=== PATIENT | male | born 1960 | race Caucasian/White ===

== ENCOUNTER 2022-02-14 13:03 | Outpatient (CLI) | payer OTHER, SELFPAY ==
[2022-02-14 18:33] LABS: PSA Diagnostic* < 0.06 ng/mL (0.10-4.00)
== END 2022-02-14 13:04 | disposition home or self-care (01) ==
PROVIDERS: PCP Family Medicine; Visit Provider Nurse Practitioner Family
DX: C61 Malignant neoplasm of prostate (principal)
CPT/HCPCS: 84153

== ENCOUNTER 2022-05-25 08:34 | Outpatient (CLI) | payer OTHER, SELFPAY ==
--- OUTSIDE RECORDS SUMMARY | 2022-05-25 08:37 | XMS_ITS | Encounter Summary ---
:1960 Author Organization [facility] Address [address] [place] [address] Care Team Providers Name Role Phone Elsewhere, Pcp Primary Care Provider Unavailable Encounter Details Date Type Department Care Team Description 11/05/2021 Orders Only Department of Urology in Lauro Hernandez M.D. [place], [place] [address] [facility] [address] [place] [phone] (Wo rk) Social History Tobacco Use Types [...] More than 4 times per year 08/13/2021 yarsani services? 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
--- OUTSIDE RECORDS SUMMARY | 2022-05-25 08:37 | XMS_ITS | Encounter Summary ---
:1960 Author Organization [facility] Address [address] [place] [address] Care Team Providers Name Role Phone Elsewhere, Pcp Primary Care Provider Unavailable Reason for Referral Outpatient (Routine) - Closed Specialty Diagnoses / Procedures Referred By Contact Refer red To Contact Diagnoses Primary Malignant Neoplasm Of Prostate (HCC) Domenico Soler M.D., [facility] Procedures URO Urethral cath fill / remove / voiding trial (fill / pull) [facility] [address] [place] [address] Referral ID Status Reason Start Date Expiration Date Visits Requ ested Visits Authorized [id number] Closed 11/04/2021 11/04/2022 1 1 Reason for Visit Auth/Cert Specialty Diagnoses / Procedures Referred By Contact Refer red To Contact Diagnoses Primary Malignant Neoplasm Of Prostate (HCC) Procedures NM LAP PROSTEC RETROPUBIC RADCL NM LAPROSC BILAT TOT PELV LMPHADEC ROBOTIC-ASSISTED RADICAL PROSTATECTOMY ROBOTIC-ASSISTED DISSECTION LYMPH NODE - PELVIC Referral ID Status Reason Start Date Expiration Date Visits Requ ested Visits Authorized [id number] 1 1 Encounter Details Date Type Department Care Team Description 11/03/2021 - Hospital Encounter [facility] Sai Hernandez, Primary Malignant Neoplasm Of Prostate (HCC) (Primary Dx); 11/04/2021 Chiquita Joseph M.D. Primary Malignant Neoplasm Of Prostate ( HCC) [facility] [address] [facility] [place], [place] Floor [phone] [address] [phone] [place], [place] (Work) [phone] Social History Tobacco Use Types Packs/Day Years [...] or relatives? How often do you attend zoroastrian or More than 4 times per year 08/13/2021 lutheran services? Do you belong to any clubs or Yes 08/13/2021 organizations such as zoroastrian groups, unions, fraternal or athletic groups, or [...] place to sleep or slept in a long term (including now)? Education Answer Date Recorded What is the highest level of school Bachelor's degree (e.g., BA, AB, 08/12/2021 you have completed or the highest BS) degree you have received? 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 Primary [...] LYMPH NODE, PELVIC.Sai Hernandez M.D.Khanna, Abhinav, M.D. [facility] OR DISCHARGE DISPOSITION Home or Self [...] AM CDT You were discharged from the [facility]. Please identify this service name if you call with questions after hospitalization. AttachmentsThe following attachments cannot be sent through Care Everywhere. Acetaminophen (By mouth) (Tuvaluan)Bacitracin (On the skin) (Tuvaluan)Laxative, Stimulant Combination (By mouth) (Tuvaluan)Cefdinir (By mouth) (Tuvaluan) Oxybutynin (By mouth) (Tuvaluan)Miralax Prep Instructions (Tuvaluan)Polyethylene Glycol 3350 (By mouth) (Tuvaluan)Tramadol (By mouth) (Tuvaluan)documented in this encounter Medications at Time of [...] DAY BEFORE APPOINTMENT FOR FOUNTAIN CATHETER REMOVAL cholecalciferol, Take 25 mcg by mouth 0 vitamin D3, 25 mcg daily. (1,000 Unit) tablet losartan (COZAAR) 100 Take 100 mg by mouth 0 05/27 mg tablet every morning. 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 actively participated and was necessary for [...] CBC without Differential (11/04/2021 12:30 AM CDT) [facility] Method Time Signature Hemoglobin 12.2 (L) 13.2 [...] Organization Address City/State/ZIP Code Phon e Number [facility] - [address] [place] [phone] [facility] [place] [address] Laboratories-[facility] [address] [facility] (ABNORMAL) Basic Metabolic Panel (11/04/2021 12:30 [...] 11/04/2021 DTL Black/ mL/min/BSA 1:33 AM CDT Italian Comment: ----ADDITIONAL INFORMATION---- Estimated GFR calculated using [...] Organization Address City/State/ZIP Code Phon e Number [facility] - [address] [place] [address] [place] [address] Laboratories-[address] Surgical Pathology, Frozen Lab (11/03/2021 3:31 [...] is grossly identified. ??Grossed by Torie Good, KAY([facility]). Block Summary A Right prostate apex margin [...] Not applicable ?Percentage of Pattern 4 in [place] score 7: 60% ?? Intraductal Carcinoma (IDC): [...] Organization Address City/State/ZIP Code Phon e Number [facility] - [address] [place], [place] [address] [place] [address] [facility] [address] documented in [...] mg (TYLENOL) 2241 (Given - Provider: Tiera Agnel R.N.) 0548 (Given - Provider: Tiera Pinedo [...] 1244 (Given - Provider: Judith Curry APRN, ENTRY LEVEL CHEMIST) 5,000 Units, subcutaneous, Once, On Mon11/03/21 at [...] 1824 documented in this encounter Care Teams Credit Risk Associate Relationship Specialty Start Date End Date Elsewhere, Pcp PCP - General Internal Medicine 08/17/21 documented as of this encounter
--- OUTSIDE RECORDS SUMMARY | 2022-05-25 08:37 | XMS_ITS | Encounter Summary ---
:1960 Author Organization [facility] Address [address] [place] [address] Care Team Providers Name Role Phone Elsewhere, Pcp Primary Care Provider Unavailable Reason for Referral Outpatient (Routine) - Authorized Specialty Diagnoses / Procedures Referred By Contact Refer red To Contact Urology Sai Hernandez M.D. [facility] [address] [place] [phone] Referral ID Status Reason Start Date Expiration Date Visits V isits Requested Authorized [id number] Authorized 11/05/2021 11/05/2022 1 1 Encounter Details Date Type Department Care Team Description 11/05/2021 Documentation Department of Urology in Lauro Hernandez M.D. [address] [place] [phone] (Wo rk) Social History Tobacco Use Types [...] More than 4 times per year 08/13/2021 sabianism services? 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 Progress Notes [...] Name Type Priority Associated Diagnoses Order S [facility] PSA (Prostate-Specific Lab Routine Primary Malignant Expected: 02/05/2022 Antigen), Diagnostic Neoplasm Of Prostate (Approximate), (HCC) Expires: 2022 Scheduled Referrals Name Type Priority Associated Diagnoses Order S chedule Urology office Outpatient Referral Routine Expect ed: visit (clinic) 02/05/2022 (Approximate), Expires: 02/05/2023 documented as of this encounter Visit Diagnoses Diagnosis Primary Malignant Neoplasm Of Prostate ( HCC) - Primary documented in this encounter Care Teams Drilling Engineer Relationship Specialty Start Date End Date Elsewhere, Pcp PCP - General Internal Medicine 08/17/21 documented as of this encounter
--- OUTSIDE RECORDS SUMMARY | 2022-05-25 08:37 | XMS_ITS | Encounter Summary ---
:1960 Author Organization [facility] Address [address] [place] [address] Care Team Providers Name Role Phone Elsewhere, Pcp Primary Care Provider Unavailable Reason for Visit Reason Comments Rx Prior Authorization PA DENIED TADALAFIL 5 MG TAB Encounter Details Date Type Department Care Team Description 11/19/2021 Clinical Communication Pharmacy Prior Auth Onesimo Batista Rx Prior KYLE [phone] Authorization (KAY DENIED TADALAFI L 5 MG [...] or relatives? How often do you attend scientology or More than 4 times per year 08/13/2021 tenriism services? 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
--- OUTSIDE RECORDS SUMMARY | 2022-05-25 08:37 | XMS_ITS | Encounter Summary ---
:1960 Author Organization [facility] Address [address] [place] [address] Care Team Providers Name Role Phone Elsewhere, Pcp Primary Care Provider Unavailable Encounter Details Date Type Department Care Team Description 11/04/2021 Orders Only [facility], Domenico Soler M. 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
--- OUTSIDE RECORDS SUMMARY | 2022-05-25 08:37 | XMS_ITS | Encounter Summary ---
:1960 Author Organization [facility] Address [address] [place] [address] Care Team Providers Name Role Phone Elsewhere, Pcp Primary Care Provider Unavailable Encounter Details Date Type Department Care Team Description 11/15/2021 Clinical Communication Department of Urology Bernard Hernandez, [place] [address] [facility] [address] [place] [phone] Social History Tobacco Use Types Packs/Day Years [...] or relatives? How often do you attend pentecostal or More than 4 times per year 08/13/2021 church services? 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
--- OUTSIDE RECORDS SUMMARY | 2022-05-25 08:37 | XMS_ITS | Encounter Summary ---
:1960 Author Organization [facility] Address [address] [place] [address] Care Team Providers Name Role Phone Elsewhere, Pcp Primary Care Provider Unavailable Reason for Visit Reason Comments Prostate Cancer Outpatient (Routine) - Closed Specialty Diagnoses / Procedures Referred By Contact Refer red To Contact Diagnoses Primary Malignant Neoplasm Of Prostate (HCC) Domenico Soler M.D., [facility] Procedures URO Urethral cath fill / remove / voiding trial (fill / pull) [facility] [address] [place] [phone] Referral ID Status Reason Start Date Expiration Date Visits Requ ested Visits Authorized [id number] Closed 11/04/2021 11/04/2022 1 1 Encounter Details Date Type Department Care Team Description 11/12/2021 Procedure visit Department of Domenico Soler M[facility] [address] [place] [phone] Primary Malignant Urology in Marika Easton, R.NTae [address] [place] [phone] Neoplasm Of Prostate [place], [place] (HCC) [address] [place] [phone] Social History Tobacco Use Types Packs/Day Years [...] place to sleep or slept in a group home (including now)? Education Answer Date Recorded What is the highest level of school Bachelor's degree (e.g., BA, AB, 08/12/2021 you have completed or the highest BS) degree you have received? 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
--- OUTSIDE RECORDS SUMMARY | 2022-05-25 08:37 | XMS_ITS | Encounter Summary ---
:1960 Author Organization [facility] Address [address] [place] [address] Care Team Providers Name Role Phone Elsewhere, Pcp Primary Care Provider Unavailable Encounter Details Date Type Department Care Team Description 11/11/2021 Orders Only Department of Urology in Lauro Hernandez M.D. [place], [place] [address] [facility] [address] [place] [phone] (Wo rk) Social History Tobacco Use Types [...] More than 4 times per year 08/13/2021 samaritan services? Do you belong to any clubs [...] place to sleep or slept in a snf (including now)? Education Answer Date Recorded What is the highest level of school Bachelor's degree (e.g., BA, AB, 08/12/2021 you have completed or the highest BS) degree you have received? 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
--- OUTSIDE RECORDS SUMMARY | 2022-05-25 08:37 | XMS_ITS | Encounter Summary ---
:1960 Author Organization [facility] Address [address] [place] [address] Care Team Providers Name Role Phone Elsewhere, Pcp Primary Care Provider Unavailable Reason for Referral Medication Prior Authorization - Denied Specialty Diagnoses / Procedures Referred By Contact Refer red To Contact Sai Hernandez M.D. [address] [place] [phone] Referral ID Status Reason Start Date Expiration Date Visits Requ ested Visits Authorized [id number] Denied 1 1 Encounter Details Date Type Department Care Team Description 11/12/2021 Orders Only Department of Urology in Lauro Hernandez M.D. [place], [place] [address] [place] [address] [place] [phone] (Wo rk) Social History Tobacco Use Types [...] or relatives? How often do you attend worship or More than 4 times per year 08/13/2021 oriental orthodox services? 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
--- OUTSIDE RECORDS SUMMARY | 2022-05-25 08:37 | XMS_ITS | Clinical Summary ---
:1960 Author Organization [facility] Address [address] [place] [address] Care Team Providers Name Role Phone Elsewhere, Pcp Primary Care Provider Unavailable Source Comments Patient records contain information from all sites at [facility]. For routine questions regarding patient records, call [phone] during business hours, M-F 8:00 AM - 5:00 PM Central Time. Record requests for emergency care only can be directed to [phone] at any time.[facility] Allergies No known active allergies Medications Medication [...] Added automatically from request for maximino badillo [id number] Elevated Prostate-Specific Antigen 08/04/2021 Overview: Added automatically from request for maximino badillo [id number] Hypertriglyceridemia 12/31/2013 Hypertension NOS Social History Tobacco [...] or relatives? How often do you attend confucianist or More than 4 times per year 08/13/2021 yazdanism services? 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 at [facility] e.g. Pelvis / pins/screws [id number] /rods Insurance Payer Benefit Plan / Subscriber ID Effective Phone Address T ype Group Dates PREFERREDONE PREFERREDONE [id number] 2021-Pr [phone] PPO ADMINISTRATIVE ADMINISTRATIVE esent [phone] SERVICES SERVICES [place] [phone] Advance Directives For more information, please contact: [phone] Latest Code Status on File Code Status Date Activated Date Inactivated Comments Full Code 08/18/2021 3:23 PM 08/18/2021 8:00 PM Question Answer Comments Full Code: Discussed Care Teams Inspector Penetrant Relationship Specialty Start Date End Date Elsewhere, Pcp PCP - General Internal Medicine 08/17/21
--- OUTSIDE RECORDS SUMMARY | 2022-05-25 08:38 | XMS_ITS | Encounter Summary ---
:1960 Author Organization [facility] Address [address] [place] [address] Care Team Providers Name Role Phone Unavailable Primary Care Provider Unavailable Encounter Details Date Type Department Care Team Description 08/04/2021 Hospital Encounter Department of Sai Hernandez Elevat ed Laboratory Medicine M.DTae Prostate-Specific and Pathology, [address] [place] [address] in [place], [place] [address] [place] [address] [place], [place] (Work) [phone] Social History Tobacco Use Types Packs/Day Years [...] More than 4 times per year 08/13/2021 mandaen services? Do you belong to any clubs [...] place to sleep or slept in a fci (including now)? 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 documented in this encounter Results (ABNORMAL) PSA (Prostate-Specific Antigen), Diagnostic (08/04/2021 8:02 AM MEDIA JOB TITLES) P athologist Signature Prostate-Speci 4.9 (H) <=4.5 08/04/2021 DTL fic Ag ng/mL 9:34 AM MEDIA JOB TITLES Comment: ----ADDITIONAL INFORMATION---- The testing method is [...] (Blood, 08/04/2021 8:02 AM 08/04/19 8:59 Venous) MEDIA JOB TITLES AM MEDIA JOB TITLES Sai Hernandez M.D. LAB BLOOD ADD-ON Performing Organization Address City/State/ZIP Code Phon e Number [facility] - [address] [place], [place] [address] [facility] [address] Laboratories-[facility] [address] documented in this encounter Visit Diagnoses Diagnosis Elevated Prostate-Specific Antigen documented in this encounter
--- OUTSIDE RECORDS SUMMARY | 2022-05-25 08:38 | XMS_ITS | Encounter Summary ---
:1960 Author Organization [facility] Address [address] [place] [address] Care Team Providers Name Role Phone Unavailable Primary Care Provider Unavailable Encounter Details Date Type Department Care Team Description 08/04/2021 Clinical Communication Preoperative Evaluation Radhika Kunz, [place] in [facility] R.R., .R .[facility] [address] [facility] [address] [place] [phone] Social History Tobacco Use Types Packs/Day Years [...] or relatives? How often do you attend congregational or More than 4 times per year 08/13/2021 protestant services? Do you belong to any clubs or Yes 08/13/2021 organizations such as congregational groups, unions, fraternal or athletic groups, or [...] place to sleep or slept in a alf (including now)? 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 - 08/04/2021 1:05 PM MANAGER CUSTOMS Surgical Risk Score: 1 Risk Identifiers: 4 ??? HTN ??? oscar ??? covid 06/11/2021 ??? Left loer lobe nodule GER CUSTOMS documented in this encounter Plan of Treatment Not on filedocumented as of this encounter Visit Diagnoses Not on filedocumented in this encounter
--- OUTSIDE RECORDS SUMMARY | 2022-05-25 08:38 | XMS_ITS | Encounter Summary ---
:1960 Author Organization [facility] Address [address] [place] [address] Care Team Providers Name Role Phone Elsewhere, Pcp Primary Care Provider Unavailable Reason for Visit Auth/Cert Specialty Diagnoses / Procedures Referred By Contact Refer red To Contact Diagnoses Elevated Prostate-Specific Antigen Elevated Prostate-Specific Antigen [R97.20] Procedures MS BX PROSTATE NDL TRANSPRNEAL BIOPSY TRANSPERINEAL PROSTATE Referral ID Status Reason Start Date Expiration Date Visits Requ ested Visits Authorized [id number] 1 1 Encounter Details Date Type Department Care Team Description 08/18/2021 Anesthesia Event Outpatient Procedure Jona Colvin, EEG TECHNICIAN, MEMORY CARE DIRECTOR, DNAP [address] [place], [place] [phone] [place] in [facility] Mello Becker Jr., M.D. [address] [place] [address] [place] [address] [place] [phone] Anesthesia Record Procedure Summary Procedure Name Responsible Anesthesia Start Anesthesia Stop Anesthesiologist Time Time BIOPSY TRANSPERINEAL Clarita Colvin, ARLIN, 08/18/21 1543 0 08/18/21 1624 PROSTATE. MEMORY CARE DIRECTOR, DNAP Events Date Time Event Comment 08/18/2021 1543 An Start Machine/Equipmen t Checked Infection Precautions Foll owed Procedure/Site Verified NPO Sta tus Verified Supine Standard ASA Mon itors Applied 1549 Turnover to Proceduralist 1556 Proc Start 1613 Proc Fin 1616 Turnover to ANE Staff 1617 an stop data 1624 An End I completed my h andoff to the receiving staff during [facility] ch we 1. Identified the patient [...] or relatives? How often do you attend sabianism or More than 4 times per year 08/13/2021 taoism services? Do you belong to any clubs or Yes 08/13/2021 organizations such as sabianism groups, unions, fraternal or athletic groups, or [...] at Date Recorded Male 08/12/2021 8:37 PM BLIND CLEANER documented as of this encounter OR Notes Anesthesia Postprocedure Evaluation - Clarita Clovin APRN, CHRIS, DNAP - 08/18/2021 4:24 PM CST Patient: Jacob Logan Procedure Summary Date: 08/18/21 Room / Location: [place] [address] / [facility] in [place], [place] Anesthesia Start: 1543 Anesthesia Stop: 1624 [...] Post Op nausea/vomiting: none Hydration status: euvolemic D CLEANER Anesthesia Preprocedure Evaluation - Mello Becker Jr., M.D. - 08/18/2021 3:26 PM CST Preprocedure Anesthesia & H&P Assessment Procedure Summary Date/Time: 08/18/21 1601 Procedure: BIOPSY TRANSPERINEAL PROSTATE. (N/A ) Diagnosis: Elevated Prostate-Specific Antigen [R97.20] Pre-op diagnosis: Elevated Prostate Specific Antigen [R97.20].. Location: [place] [address] / [facility] in [place], [place] Surgeons: Layton Remy M.D. Pertinent components [...] with patient /legal guardian or through an officer captain. The use of blood products not discussed Approval to Proceed: approved for anesthesia D CLEANER documented in this encounter Plan of Treatment Not on filedocumented as of this encounter Visit Diagnoses Not on filedocumented in this encounter Administered Medications Inactive Administered Medications - up to 3 most recent administrations Medication Order MAR Action Action Date Dose Rate Site ceFAZolin injection 2,000 mg (ANCEF) Given 08/18/2021 3:51 PM BLIND CLEANER 2 g 2,000 mg (rounded from 2,375 [...] fentaNYL injection (SUBLIMAZE) Given 08/18/2021 3:55 PM BLIND CLEANER 25 mcg intravenous, As needed, Starting on Mon08/18/21 at 1544, Anesthesia Intra-op Given 08/18/2021 3:48 PM BLIND CLEANER 25 mcg Given 08/18/2021 3:44 PM BLIND CLEANER 50 mcg lactated ringers New Bag 08/18/2021 3:43 PM BLIND CLEANER intravenous, Continuous Infusion: Per Instructions PRN, Starting on Mon08/18/21 at 1543, Anesthesia Intra-op lidocaine (PF) (cardiac) injection Given 08/18/2021 3:45 PM BLIND CLEANER 60 mg intravenous, As needed, Starting on Mon08/18/21 at 1545, Anesthesia Intra-op ondansetron (PF) injection (ZOFRAN) Given 08/18/2021 3:45 PM BLIND CLEANER 4 mg intravenous, As needed, Starting on Mon08/18/21 at 1545, Anesthesia Intra-op propofol 10 mg/mL infusion Rate/Dose 08/18/2021 4:11 50 mcg/kg/min 2 8.5 mL/hr (DIPRIVAN) Change PM BLIND CLEANER intravenous, Continuous Infusion: Per Instructions PRN, Starting on Mon08/18/21 at 1547, Anesthesia Intra-op Rate/Dose Change 08/18/2021 4:02 PM BLIND CLEANER 110 mcg/kg/min 62.7 mL/hr Rate/Dose Change 08/18/2021 4:00 PM BLIND CLEANER 125 mcg/kg/min 71.25 mL/hr propofoL injection (DIPRIVAN) Given 08/18/2021 3:55 PM BLIND CLEANER 50 mg intravenous, As needed, Starting on Mon08/18/21 at 1545, Anesthesia Intra-op Given 08/18/2021 3:48 PM BLIND CLEANER 50 mg Given 08/18/2021 3:45 PM BLIND CLEANER 50 mg documented in this encounter Care Teams Research Laboratory Manager Relationship Specialty Start Date End Date Elsewhere, Pcp PCP - General Internal Medicine 08/17/21 documented as of this encounter
--- OUTSIDE RECORDS SUMMARY | 2022-05-25 08:38 | XMS_ITS | Encounter Summary ---
:1960 Author Organization [facility] Address [address] [place] [address] Care Team Providers Name Role Phone Unavailable Primary Care Provider Unavailable Reason for Referral MRI/CAT/PET Scan (Routine) - Closed Specialty Diagnoses / Procedures Referred By Contact Refer red To Contact Radiology Diagnoses Elevated Prostate-Specific Antigen Fiona Piedra M.D. [facility] Procedures MR Prostate without and with IV Contrast [address] [place], [place] [address] Referral ID Status Reason Start Date Expiration Date Visits Requ ested Visits Authorized [id number] Closed 08/04/2021 08/04/2022 1 1 RANCE ASSOCIATE Reason for Visit MRI/CAT/PET Scan (Routine) - Closed Specialty Diagnoses / Procedures Referred By Contact Refer red To Contact Radiology Diagnoses Elevated Prostate-Specific Antigen Fiona Piedra M.D. [facility] Procedures MR Prostate without and with IV Contrast [address] [place], [place] [address] Referral ID Status Reason Start Date Expiration Date Visits Requ ested Visits Authorized [id number] Closed 08/04/2021 08/04/2022 1 1 Encounter Details Date Type Department Care Team Description 08/04/2021 Hospital Encounter Department of Janes Piedra, Izabela Jaimes Prostate-Sp [facility], in [place], [place] [address] [facility] [address] [place] [phone] Social History Tobacco Use Types Packs/Day Years [...] or relatives? How often do you attend synagogue or More than 4 times per year 08/13/2021 latter-day services? Do you belong to any clubs or Yes 08/13/2021 organizations such as synagogue groups, unions, fraternal or athletic groups, or [...] place to sleep or slept in a jail (including now)? 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 NO RANCE ASSOCIATE documented in this encounter Plan of Treatment Not on filedocumented as of this encounter Procedures Procedure Name Priority Date/Time Associated Comments Diagnosis MR PROSTATE RAD - Routine 08/04/2021 8:56 Elevated Results for this WITHOUT AND WITH (most inpatients PM INSURANCE ASSOCIATE Prostate-Specific pr ocedure are in IV CONTRAST and all Antigen the results outpatients) section. documented in this encounter Results MR Prostate without and with IV Contrast (08/04/2021 8:56 PM INSURANCE ASSOCIATE) Anatomical Region Laterality Modality Pelvis, Abdominal RST LOS, Abdominal ARZ LOS, Abdominal N/A Magnetic Resonance FLA LOS Specimen (Source) Anatomical Collection Method Collection Time Re ceived Time Location / / Volume Laterality 08/05/2021 7:42 AM INSURANCE ASSOCIATE Impressions 08/05/2021 8:41 AM INSURANCE ASSOCIATE PIRADS 2- Low (clinically significant cancer is unlikely to be present). Narrative 08/05/2021 8:41 AM INSURANCE ASSOCIATE EXAM: MR PROSTATE WITHOUT AND WITH IV [...] meglumine 0.5 mmol/mL Given 08/04/2021 8:33 PM INSURANCE ASSOCIATE 20 mL (376.9 mg/mL) injection 1.6-20 mL (DOTAREM) 1.6-20 mL, intravenous, Once in imaging, contrast, Starting on Mon08/04/21 at 1933, For 1 dose, Imaging Protocol Orders, Dose per Radiant Medication Guidelines glucagon injection 0.5-1 mg Given 08/04/2021 8:32 PM INSURANCE ASSOCIATE 1 mg Left Upper Arm (GlucaGen) (Back) 0.5-1 mg, subcutaneous, Once, On Mon08/04/21 at 1945, For 1 dose, Imaging Protocol Orders sodium chloride (PF) 0.9 % injection 1-1 00 mL Given 08/04/2021 8:33 PM INSURANCE ASSOCIATE 20 mL 1-100 mL, intravenous, Once, On Mon08/04/21 at 1945, For 1 dose, Imaging Protocol Orders documented in this encounter
--- OUTSIDE RECORDS SUMMARY | 2022-05-25 08:38 | XMS_ITS | Encounter Summary ---
:1960 Author Organization [facility] Address [address] [place] [address] Care Team Providers Name Role Phone Elsewhere, Pcp Primary Care Provider Unavailable Reason for Visit Auth/Cert Specialty Diagnoses / Procedures Referred By Contact Refer red To Contact Diagnoses Elevated Prostate-Specific Antigen Elevated Prostate-Specific Antigen [R97.20] Procedures NE BX PROSTATE NDL TRANSPRNEAL BIOPSY TRANSPERINEAL PROSTATE Referral ID Status Reason Start Date Expiration Date Visits Requ ested Visits Authorized [id number] 1 1 Encounter Details Date Type Department Care Team Description 08/18/2021 Surgery Outpatient Procedure Layton Remy, [facility] [place] [address] [facility] [address] [place] [phone] Social History Tobacco Use Types Packs/Day Years [...] or relatives? How often do you attend methodist or More than 4 times per year 08/13/2021 tenriism services? Do you belong to any clubs or Yes 08/13/2021 organizations such as methodist groups, unions, fraternal or athletic groups, or [...] place to sleep or slept in a retirement (including now)? Education Answer Date Recorded What is the highest level of school Bachelor's degree (e.g., BA, AB, 08/12/2021 you have completed or the highest BS) degree you have received? 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 documented as of this encounter Last Filed Vital Signs Vital Sign Reading Time Taken Comments Blood Pressure 148/115 08/18/2021 5:00 PM ROCK LOADER Pulse 73 08/18/2021 5:05 PM ROCK LOADER Temperature 37 ??C (98.6 ??F) 08/18/2021 3:24 PM ROCK LOADER Respiratory Rate 12 08/18/2021 5:05 PM ROCK LOADER Oxygen Saturation 96% 08/18/2021 5:05 PM ROCK LOADER Inhaled Oxygen Concentration - - Weight 95 kg (209 lb 7 oz) 08/18/2021 3:24 PM ROCK LOADER Height 174 cm (5' 8.5) 08/18/2021 3:24 PM ROCK LOADER 08/17/21 Body Mass Index 31.38 08/18/2021 3:24 PM ROCK LOADER documented in this encounter Medications at Time [...] lesions Post-op Diagnosis Elevated Prostate-Specific Antigen A assistant professor of nursing actively participated and was necessary for one [...] Once image fusion maneuvers were carried out, automotive leasing sales representative systematic biopsies were also taken [...] area in satisfactory condition. Sara Scott M.D. LOADER documented in this encounter Plan of Treatment Not on filedocumented as of this encounter Procedures Procedure Name Priority Date/Time Associated Comments Diagnosis SURGICAL PATHOLOGY Routine 08/18/2021 3:48 PM Elevated Res ults for this ROCK LOADER Prostate-Specific procedure are in Antigen the results section. BIOPSY TRANSPERINEAL 08/18/2021 3:33 PM Elevated PROSTATE ROCK LOADER Prostate-Specific Antigen Special Needs Hernandez primary. documented in this encounter Results Surgical Pathology (08/18/2021 3:48 PM ROCK LOADER) Component Value Ref Test Analysis Performed Pathologis t Range Method Time At Signature 08/21/2021 DTL 11:00 AM ROCK LOADER Report Rajan Escobar M.D. 08/21/2021 DTL electronically 11:00 AM signed by ROCK LOADER I verify that I have examined all relevant slides/materials for the specimen(s) and rendered or confirmed the diagnosis. Gross Description A: ?? Received on a biopsy board filled with form delmer 08/21/2021 DTL labeled with the patient's name, medical record number, and 11:00 AM specific prostate sites are six oriented pink fritz tissue ROCK LOADER cores. A. Received within the first well [...] needle core 11:00 AM biopsy: Prostatic adenocarcinoma ROCK LOADER Type: Acinar [place] score 4+3=7 Percentage of pattern 4: 60% Grade Group: 3 Tumor involves 10% of overall specimen (1 of 1 core). B. Prostate, right posterior medial base, needle core biopsy: Prostatic adenocarcinoma Type: Acinar [place] score 4+3=7 Percentage of pattern 4: 60% [...] Volume Laterality Biopsy (Prostate) 08/18/2021 3:48 PM ROCK LOADER Biopsy (Prostate) 08/18/2021 3:48 PM ROCK LOADER Biopsy (Prostate) 08/18/2021 3:48 PM ROCK LOADER Biopsy (Prostate) 08/18/2021 3:48 PM ROCK LOADER Biopsy (Prostate) 08/18/2021 3:48 PM ROCK LOADER Biopsy (Prostate) 08/18/2021 3:48 PM ROCK LOADER Biopsy (Prostate) 08/18/2021 3:48 PM ROCK LOADER Biopsy (Prostate) 08/18/2021 3:48 PM ROCK LOADER Biopsy (Prostate) 08/18/2021 3:48 PM ROCK LOADER Biopsy (Prostate) 08/18/2021 3:48 PM ROCK LOADER Biopsy (Prostate) 08/18/2021 3:48 PM ROCK LOADER Biopsy (Prostate) 08/18/2021 3:48 PM ROCK LOADER Narrative This result has an attachment that is no t available. Layton Remy M.D. LAB SURG PATH ORDERABLES Performing Organization Address City/State/ZIP Code Phon e Number [facility] - [address] [place], [place] [address] [facility] [place] [address] [facility] [address] [facility] documented in this encounter Visit Diagnoses Diagnosis Elevated Prostate-Specific Antigen - [facility] Elevated Prostate-Specific Antigen documented in this encounter Admitting Diagnoses Diagnosis Elevated Prostate-Specific Antigen documented in this encounter Administered Medications Inactive Administered Medications - up to 3 most recent administrations Medication Order MAR Action Action Date Dose Rate Site acetaminophen tablet 1,000 mg Given 08/18/2021 3:40 PM ROCK LOADER 1,000 mg (TYLENOL) 1,000 mg, oral, Once, On Mon08/18/21 at 1530, For 1 dose, Pre-Op, PreOp give in preprocedural area. lactated ringers New Bag 08/18/2021 3:40 PM ROCK LOADER 80 mL/hr 80 mL/hr 80 mL/hr, intravenous, Continuous, Starting on Mon08/18/21 at 1530, Pre-Op lidocaine-bupivacaine 1%-0.25% Given 08/18/2021 3:58 PM ROCK LOADER 30 m L Other infiltration injection infiltration, [...] Recently Administered Medications Times are shown in ROCK LOADER. Scheduled Medication Order 08/16/2021 08/17/2021 08/18/2021 acetaminophen [...] (COMPLETED) 1551 (Given - Provider: Chiara Mederos LOCK UP WORKER, ALFALFA DEHYDRATOR OPERATOR) 2,000 mg (rounded from 2,375 mg [...] injection documented in this encounter Care Teams Horn Player Relationship Specialty Start Date End Date Elsewhere, Pcp PCP - General Internal Medicine 08/17/21 documented as of this encounter
--- OUTSIDE RECORDS SUMMARY | 2022-05-25 08:38 | XMS_ITS | Encounter Summary ---
:1960 Author Organization [facility] Address [address] [place] [address] Care Team Providers Name Role Phone Elsewhere, Pcp Primary Care Provider Unavailable Reason for Visit Auth/Cert Specialty Diagnoses / Procedures Referred By Contact Refer red To Contact Diagnoses Primary Malignant Neoplasm Of Prostate (HCC) Procedures PA LAP PROSTEC RETROPUBIC RADCL PA LAPROSC BILAT TOT PELV LMPHADEC ROBOTIC-ASSISTED RADICAL PROSTATECTOMY ROBOTIC-ASSISTED DISSECTION LYMPH NODE - PELVIC Referral ID Status Reason Start Date Expiration Date Visits Requ ested Visits Authorized [id number] 1 1 Encounter Details Date Type Department Care Team Description 11/03/2021 Anesthesia Event [facility] Ramiro Perdue M.D. [address] [place] [address] [address] [facility] Judith Curry, AIRWORTHINESS SAFETY INSPECTOR, PROPELLER TESTER [address] [place] [phone] [place] [address] Anesthesia Record Procedure Summary Procedure Name [...] h andoff to the receiving staff during [facility] ch we 1. Identified the patient [...] Joseph (created via procedure CHRIS P, ARLIN, PROPELLER TESTER documentation); Mask Ventilation: Easy mask; Type: Standard [...] Abcejo, Mia N, Catheter Size: 16 G; PROPELLER TESTER R.N. Orientation: Right; Location: Wrist; Inserted by: [...] Condon Rooney, Kaelyn M, Inserted by: Domenico Soler MD; Type: Non-latex; Size: 18 Fr.; Balloon Size: 30 mL (filled with 20mL sterile water); Urine Returned: Yes; Removal Date: 11/03/21; Removal Time: 1624; Removal Reason: Per protocol Indwelling Urinary Placement Date: 11/03/21; 11/03/21 1638 by [id number] by Catheter Placement Time: 1638; Rose Duncan Musa, Ch rista M, Inserted by: Maryann Christensen; WhitN. 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 - 11/03/2021 5:39 PM CDT Patient: Jacob Logan Procedure Summary Date: 11/03/21 Room / Location: [place] [address] / [facility] in [place], [place] Anesthesia Start: 1219 Anesthesia Stop: 3 [...] Malignant Neoplasm Of Prostate (HCC) [C61]. Location: [place] [address] / [facility] in [place], [place] Providers: Sai Hernandez M.D. Pertinent components [...] with patient /legal guardian or through an lacquer dipping machine operator. Risks/Benefits/Alternatives of Blood transfusion discussed with patient [...] CRNA - 11/03/2021 12: 28 PM CDT uJdith Curry APRN, CRNA ? 11/03/2021 12:59 PM [...] Intra-op documented in this encounter Care Teams Product Marketing Executive Relationship Specialty Start Date End Date Elsewhere, Pcp PCP - General Internal Medicine 08/17/21 documented as of this encounter
--- OUTSIDE RECORDS SUMMARY | 2022-05-25 08:38 | XMS_ITS | Encounter Summary ---
:1960 Author Organization [facility] Address [address] [place] [address] Care Team Providers Name Role Phone Unavailable Primary Care Provider Unavailable Encounter Details Date Type Department Care Team Description 08/04/2021 Hospital Encounter Department of Sai Hernandez Elevat ed Laboratory Medicine M.DTae Prostate-Specific and Pathology, [address] [place] [address] in [place], [place] [address] [place] [address] [place], [place] (Work) [phone] Social History Tobacco Use Types Packs/Day Years [...] More than 4 times per year 08/13/2021 denominational services? Do you belong to any clubs [...] or slept in a retirement (including now)? 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 MICROSCOPIC AUTOMATED Routine 08/04/2021 8:07 AM Results for this HEADING MATCHER AND ASSEMBLER procedure are i n the results section. PH, U Routine 08/04/2021 8:07 AM Results f or this HEADING MATCHER AND ASSEMBLER procedure are i n the results section. OSMOLALITY, U Routine 08/04/2021 8:07 AM Results for this HEADING MATCHER AND ASSEMBLER procedure are i n the results section. URINALYSIS WITH Routine 08/04/2021 8:07 AM Elevated Result s for this MICROSCOPIC HEADING MATCHER AND ASSEMBLER Prostate-Specific procedure are in Antigen the results section. documented in this encounter Results Osmolality, Urine (08/04/2021 8:07 AM HEADING MATCHER AND ASSEMBLER) P athologist Signature Osmolality, U 480 150 - 1150 08/04/2021 DTL mOsm/kg 10:11 AM HEADING MATCHER AND ASSEMBLER Specimen Anatomical Collection Method Collection Time Receive d Time (Source) Location / / Volume Laterality Urine 08/04/2021 8:07 AM 9:01 HEADING MATCHER AND ASSEMBLER AM HEADING MATCHER AND ASSEMBLER Sai Hernandez M.D. LAB URINE ORDERABLES Performing Organization Address City/State/ZIP Code Phon e Number [facility] - [address] pH, Urine (08/04/2021 8:07 AM HEADING MATCHER AND ASSEMBLER) athologist Signature pH, U 5.6 4.5 - 8.0 08/04/2021 10:11 DTL AM HEADING MATCHER AND ASSEMBLER Specimen Anatomical Collection Method Collection Time Receive d Time (Source) Location / / Volume Laterality Urine 08/04/2021 8:07 AM 2 9:01 HEADING MATCHER AND ASSEMBLER AM HEADING MATCHER AND ASSEMBLER Sai Hernandez M.D. LAB URINE ORDERABLES Performing Organization Address City/[facility] Phon e Number [facility] - [address] [place] [address] Microscopic Automated (08/04/2021 8:07 AM HEADING MATCHER AND ASSEMBLER) athologist Signature Microscopy Normal 08/04/2021 9:52 DTL AM HEADING MATCHER AND ASSEMBLER Specimen Anatomical Collection Method Collection Time Receive d Time (Source) Location / / Volume Laterality Urine 08/04/2021 8:07 AM 2 9:01 HEADING MATCHER AND ASSEMBLER AM HEADING MATCHER AND ASSEMBLER Sai Hernandez M.D. LAB URINE ORDERABLES Performing Organization Address City/[facility] Phon e Number [facility] - [address] Dipstick, Urine (08/04/2021 8:07 AM HEADING MATCHER AND ASSEMBLER) [facility] gist Method Time Signature Hemoglobin, QL Negative Negative 08/04/2021 DTL 9:52 AM HEADING MATCHER AND ASSEMBLER Leukocyte Negative Negative 08/04/2021 DTL Esterase, U 9:52 AM HEADING MATCHER AND ASSEMBLER Nitrite, U Negative Negative 08/04/2021 DTL 9:52 AM HEADING MATCHER AND ASSEMBLER Ketones, U Negative Negative 08/04/2021 DTL mg/dL 9:52 AM HEADING MATCHER AND ASSEMBLER Glucose, U Negative Negative 08/04/2021 DTL mg/dL 9:52 AM HEADING MATCHER AND ASSEMBLER Specimen Anatomical Collection Method Collection Time Receive d Time (Source) Location / / Volume Laterality Urine 08/04/2021 8:07 AM 2 9:01 HEADING MATCHER AND ASSEMBLER AM HEADING MATCHER AND ASSEMBLER Sai Hernandez M.D. LAB URINE ORDERABLES Performing Organization Address City/[facility] Phon e Number [facility] - [address] Urinalysis with Microscopic: Urine, Midstream (08/04/2021 8:07 AM HEADING MATCHER AND ASSEMBLER) [facility] gist Method Time Signature Source Urine, Urine, 08/04/2021 DTL Midstream 9:00 AM HEADING MATCHER AND ASSEMBLER Color, U Yellow 08/04/2021 DTL 9:00 AM HEADING MATCHER AND ASSEMBLER Clarity, U Clear 08/04/2021 DTL 9:00 AM HEADING MATCHER AND ASSEMBLER Protein, U 6 <26 mg/dL 08/04/2021 DTL 9:56 AM HEADING MATCHER AND ASSEMBLER Protein/Osmol 0.13 <0.42 08/04/2021 DTL ality ratio 10:11 AM HEADING MATCHER AND ASSEMBLER Predicted 24 130 mg/24 h 08/04/2021 DTL Hr Protein 10:11 AM HEADING MATCHER AND ASSEMBLER Predicted 41-409 mg/24 h 08/04/2021 DTL Range 10:11 AM HEADING MATCHER AND ASSEMBLER Specimen Anatomical Collection Method Collection Time Receive d Time (Source) Location / / Volume Laterality Urine (Urine, 08/04/2021 8:07 AM 08/04/19 22 9:00 Midstream) HEADING MATCHER AND ASSEMBLER AM HEADING MATCHER AND ASSEMBLER Sai Hernandez M.D. LAB URINE ORDERABLES Performing Organization Address City/[facility] Phon e Number [facility] - [address] documented in this encounter Visit Diagnoses Diagnosis Elevated Prostate-Specific Antigen documented in this encounter
--- OUTSIDE RECORDS SUMMARY | 2022-05-25 08:38 | XMS_ITS | Encounter Summary ---
:1960 Author Organization [facility] Address [address] [place] [address] Care Team Providers Name Role Phone Elsewhere, Pcp Primary Care Provider Unavailable Encounter Details Date Type Department Care Team Description 08/24/2021 Clinical Communication Department of Urology Caren Anderson in [place] [address] [facility] [address] [place] [address] [phone] Social History Tobacco Use Types Packs/Day Years [...] or relatives? How often do you attend nondenominational or More than 4 times per year 08/13/2021 yarsanism services? 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 - 08/24/2021 2:13 PM CST I contacted Mr. Logan to review his prostate biopsy results as below. He has evidence of [place] 4+3=7, unfavorable intermediate risk prostate cancer. We [...] needle core biopsy: Prostatic adenocarcinoma Type: Acinar [place] score 4+3=7 Percentage of pattern 4: 60% Grade Group: 3 Tumor involves 10% of overall specimen (1 of 1 core). B. Prostate, right posterior medial base, needle core biopsy: Prostatic adenocarcinoma Type: Acinar [place] score 4+3=7 Percentage of pattern 4: 60% [...] apex, needle core biopsy: Benign prostatic tissue. INE CLOTH EXAMINER documented in this encounter Plan of Treatment Not on filedocumented as of this encounter Visit Diagnoses Diagnosis Primary Malignant Neoplasm Of Prostate ( HCC) - Primary documented in this encounter Care Teams Precipitate Washer Relationship Specialty Start Date End Date Elsewhere, Pcp PCP - General Internal Medicine 08/17/21 documented as of this encounter
--- OUTSIDE RECORDS SUMMARY | 2022-05-25 08:38 | XMS_ITS | Encounter Summary ---
:1960 Author Organization [facility] Address [address] [place] [address] Care Team Providers Name Role Phone Elsewhere, Pcp Primary Care Provider Unavailable Reason for Visit Reason Comments Patient Education Encounter Details Date Type Department Care Team Description 11/02/2021 Education Department of Patient Fortino Hernandez M.D. 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
--- OUTSIDE RECORDS SUMMARY | 2022-05-25 08:38 | XMS_ITS | Encounter Summary ---
:1960 Author Organization [facility] Address [address] [place] [address] Care Team Providers Name Role Phone Elsewhere, [...] or relatives? How often do you attend baptism or More than 4 times per year 08/13/2021 roman catholic services? 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 documented in this encounter Results Non-Radiology Image-Urology Image Exam (08/18/2021 3:40 PM TELECOMMUNICATION ENGINEER) Specimen (Source) Anatomical Collection Method Collection Time Re ceived Time Location / / Volume Laterality 08/18/2021 3:40 PM TELECOMMUNICATION ENGINEER Narrative [facility] - 08/18/2021 4:16 PM TELECOMMUNICATION ENGINEER This order has been created and auto-finalized [...] on filedocumented in this encounter Care Teams Electrical Tech Relationship Specialty Start Date End Date Elsewhere, Pcp PCP - General Internal Medicine 08/17/21 documented as of this encounter
--- OUTSIDE RECORDS SUMMARY | 2022-05-25 08:38 | XMS_ITS | Encounter Summary ---
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 This is a [facility] pre-screening note. The patient was not seen in [facility]. HELPER VEGETABLE documented in this encounter Plan of Treatment Not on filedocumented as of this encounter Visit Diagnoses Not on filedocumented in this encounter Care Teams Auto Dealer Relationship Specialty Start Date End Date Elsewhere, Pcp PCP - General Internal Medicine 08/17/21 documented as of this encounter
--- OUTSIDE RECORDS SUMMARY | 2022-05-25 08:38 | XMS_ITS | Encounter Summary ---
:1960 Author Organization [facility] Address [address] [place] [address] Care Team Providers Name Role Phone Elsewhere, Pcp Primary Care Provider Unavailable Reason for Visit Outpatient (Routine) - Closed Specialty Diagnoses / Procedures Referred By Contact Refer red To Contact Urology Sai Hernandez M.D. 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
--- OUTSIDE RECORDS SUMMARY | 2022-05-25 08:38 | XMS_ITS | Encounter Summary ---
:1960 Author Organization [facility] Address [address] [place] [address] Care Team Providers Name Role Phone Elsewhere, Pcp Primary Care Provider Unavailable Reason for Visit Outpatient (Routine) - Closed Specialty Diagnoses / Procedures Referred By Contact Refer red To Contact Anesthesiology Diagnoses Elevated Prostate-Specific Antigen Sai Hernandez M.D. [place] [address] [place] [address] Referral ID Status Reason Start Date Expiration Date Visits Requ ested Visits Authorized [id number] Closed 08/04/2021 08/04/2022 1 1 Encounter Details Date Type Department Care Team Description 08/17/2021 Comprehensive Visit Preoperative Sai Hernandez M.D. [address] [place] [phone] Preanesthetic Medical Exam (Primary Dx); Evaluation Center Cheryle Rain APRN, C.N.P., M.S.N. [address] [address] Elevated Prostate-Specific Antigen; in [place], Hypertension E ssential Primary; [place] Hypertriglyceridemia [address] [place] [phone] Social History Tobacco Use Types Packs/Day Years [...] or relatives? How often do you attend restoration or More than 4 times per year 08/13/2021 faith services? 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 documented as of this encounter Last Filed Vital Signs Vital Sign Reading Time Taken Comments Blood Pressure 134/75 08/17/2021 2:02 PM HEEL BRUSHER Pulse 72 08/17/2021 2:02 PM HEEL BRUSHER Temperature 36.8 ??C (98.2 ??F) 08/17/2021 1:41 PM HEEL BRUSHER Respiratory Rate - - Oxygen Saturation 96% 08/17/2021 2:02 PM HEEL BRUSHER Inhaled Oxygen Concentration - - Weight 95 kg (209 lb 7 oz) 08/17/2021 1:41 PM HEEL BRUSHER Height 174 cm (5' 8.5) 08/17/2021 1:41 PM HEEL BRUSHER Body Mass Index 31.38 08/17/2021 1:41 PM HEEL BRUSHER documented in this encounter H&P Notes BrsieydaCheryle kam APRN, C.NTaeP., M.S.N. - 08/17/2021 2:00 [...] from 08/17/2021 in Preoperative Evaluation Center in [place], [place] Estimated V02 Peak 34.63 Estimated MET [...] PATIENT EDUCATION: Reviewed Checklist for Surgical Patients 80517-06 rev 0920. Written and verbal instructions given on medication management before surgery. RECOMMENDATIONS: Patient medically optimized for planned procedure: Yes Further Recommendations: None BRUSHER documented in this encounter Plan of Treatment Not on filedocumented as of this encounter Visit Diagnoses Diagnosis Preanesthetic Medical Exam - Primary Elevated Prostate-Specific Antigen Hypertension Essential Primary Hypertriglyceridemia documented in this encounter Additional Health Concerns Infection Onset Date Last Indicated Resolved Time COVID19 Pending 08/17/2021 08/17/2021 08/17/2021 4:04 PM HEEL BRUSHER documented as of this encounter Care Teams Dental Internship Relationship Specialty Start Date End Date Elsewhere, Pcp PCP - General Internal Medicine 08/17/21 documented as of this encounter
--- OUTSIDE RECORDS SUMMARY | 2022-05-25 08:38 | XMS_ITS | Encounter Summary ---
:1960 Author Organization [facility] Address [address] [place] [address] Care Team Providers Name Role Phone Unavailable Primary Care Provider Unavailable Encounter Details Date Type Department Care Team Description 08/06/2021 Documentation Department [place]rology [place] [address] [facility] [address] [place] [address] [place], [place] [phone] (Wo rk) Social History Tobacco Use Types [...] place to sleep or slept in a fpc (including now)? 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 08/06/21 8:54 AM MANAGER ENVIRONMENTAL HEALTH GER ENVIRONMENTAL HEALTH documented in this encounter Plan of Treatment Not on filedocumented as of this encounter Visit Diagnoses Not on filedocumented in this encounter
--- OUTSIDE RECORDS SUMMARY | 2022-05-25 08:38 | XMS_ITS | Encounter Summary ---
:1960 Author Organization [facility] Address [address] [place] [address] Care Team Providers Name Role Phone Elsewhere, Pcp Primary Care Provider Unavailable Reason for Referral Outpatient (Routine) - Closed Specialty Diagnoses / Procedures Referred By Contact Sampson danielle To Contact Urology Sai Hernandez M.D. [address] [phone] Referral ID Status Reason Start Date Expiration Date Visits Requ ested Visits Authorized [id number] Closed 08/26/2021 08/26/2022 1 1 Scheduling Instructions 1 PM STANT GOLF COURSE SUPERINTENDENT Specialty Diagnoses / Procedures Referred By Contact Sampson danielle To Contact Sai Hernandez M.D. [address] [phone] Referral ID Status Reason Start Date Expiration Date Visits Requ ested Visits Authorized STANT GOLF COURSE SUPERINTENDENT Encounter Details Date Type Department Care Team Description 08/26/2021 Documentation Department of Urology in Lauro Hernandez M.D. [address] [phone] (Wo rk) Social History Tobacco Use Types [...] or relatives? How often do you attend taoist or More than 4 times per year 08/13/2021 sikh services? Do you belong to any clubs or Yes 08/13/2021 organizations such as taoist groups, unions, fraternal or athletic groups, or [...] at Date Recorded Male 08/12/2021 8:37 PM ASSISTANT GOLF COURSE SUPERINTENDENT documented as of this encounter Progress Notes Sai Hernandez M.D. - 08/26/2021 1:04 PM CST I spoke with Mr. Logan Regarding his prostate biopsy results. It demonstrates [place] 4 + 3 prostatecancer. His MRI demonstrates no evidence of extraprostatic extension. He is interested in proceeding with surgery rather than radiation. I have listed him for surgery on11/03/2021. Prior to surgery we will set him up for the following appointments on 11/02/2021: 1. Pre-surgical blood work 2. Pre-surgical COVID screening 3. [facility] 4. Listing visit with me 5. Prostatectomy indication class STANT GOLF COURSE SUPERINTENDENT documented in this encounter Plan of Treatment [...] PCR, Varies Asymptomatic (11/02/2021 12:12 PM CDT) [facility] Method Time Signature COVID-19, Swab, 11/02/2021 DTL [...] ----ADDITIONAL INFORMATION---- This RT-PCR test using the [employer] SARS-Co V-2 Assay ( [employer].) performed on the [employer] Two Module System has received Emergency Use Authorization (EUA) by the U.S. Food and Drug Administration, and is modified from the vp strategy's instructions with a bridging study. Performance characteristics were verifie d by [facility] in a manner consistent with CLIA requirements. Visit the CDC website: https://www.cdc.g ov/coronavirus/ for the most recent guidelines on [place] virus testing. Fact Sheet for Healthcare Providers: https://www.fda.gov/media/303286/downloa d Fact Sheet for Patients: https://www.fda.gov/media/374952/downloa d Specimen Anatomical Collection Method Collection Time Receive d Time (Source) Location / / Volume Laterality Varies 11/02/2021 12:12 11/02/2021 2:17 (Nasopharynx) PM CDT PM CDT Sai Hernandez M.D. LAB MICROBIOLOGY - GENERAL O RDERABLES Performing Organization Address City/[facility] Phon e Number [facility] - 200 [place], [place] [address] [place] [address] [place] [address] [address] Prothrombin Time (PT) (11/02/2021 10:43 AM [...] M.D. LAB BLOOD ADD-ON Performing Organization Address [facility] Phon e Number [facility] - 200 [place], [place] [address] [facility] [place] [address] [address] CBC without Differential (11/02/2021 10:43 AM [...] City/State/ZIP Code Phon e Number [facility] - [address] [place], [place] [address] [facility] [place] [address] Laboratories-[facility] [address] [facility] (ABNORMAL) Basic Metabolic Panel (11/02/2021 10:43 AM [...] 11/02/2021 DTL Black/ mL/min/BSA 12:08 PM CDT Cymro Comment: ----ADDITIONAL INFORMATION---- Estimated GFR calculated using [...] M.D. LAB BLOOD ADD-ON Performing Organization Address City/State/[facility] Code Phon e Number [facility] - [address] [place], [place] [address] [place] [address] [address] APTT (Activated Partial Thromboplastin Time) (11/02/2021 10:43 AM CDT) P athologist Signature Activated 28 25 - 37 sec 11/02/2021 DTL Partial 11:39 AM CDT Thrombopl Time, P Specimen Anatomical Collection Method Collection Time Receive d Time (Source) Location / / Volume Laterality Blood (Blood, 11/02/2021 10:43 11/02/2021 Venous) AM CDT 11:13 AM CDT Sai Hernandez M.D. LAB BLOOD ADD-ON Performing Organization Address City/State/[facility] Code Phon e Number [facility] - [address] [place], [place] [address] [place] [address] [address] documented in this encounter Visit Diagnoses Diagnosis Primary Malignant Neoplasm Of Prostate ( HCC) - Primary documented in this encounter Care Teams Food Safety Specialist Relationship Specialty Start Date End Date Elsewhere, Pcp PCP - General Internal Medicine 08/17/21 documented as of this encounter
--- OUTSIDE RECORDS SUMMARY | 2022-05-25 08:38 | XMS_ITS | Encounter Summary ---
:1960 Author Organization [facility] Address [address] [place] [address] Care Team Providers Name Role Phone Unavailable Primary Care Provider Unavailable Reason for Visit Reason Onset Date Comments OSM 08/12/2021 Encounter Details Date Type Department Care Team Description 08/12/2021 Clinical Communication Preoperative Evaluation Renetta Silverio, [facility] Center in [facility], [place] M.S.N. [address] [facility] [address] [place] [address] [place], [place] [phone] [address] Social History Tobacco Use Types Packs/Day Years [...] or slept in a fpc (including now)? Education Answer Date Recorded What is the highest level of school Bachelor's degree (e.g., BA, AB, 08/12/2021 you have completed or the highest BS) degree you have received? 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 08/12/21 Soraya ??? Cardiology: o ECG: Yes 06/11/21 [facility], tracing in DV - o Echo: No o Stress: No o Holter Monitor Report: No o Cath with Report: No ??? Labs: o CBC No o BMP (Chem. History) No o Hemoglobin/HgbA1c No ??? Imaging: o Cardiac MR: No ??? Procedures: o Cardiac Device Interrogation: No ??? Public Transit Trolley Driver Notes: No ??? Primary Care Notes: Yes ??? Physical 06/18/21 [facility] Dr. Jacob Wiggins o ??? 12/31/2013 [facility] PCP notes ??? Medication List ??? Any additional useful information to relay to COOK FROZEN DESSERT Called patient for OSM, said he had [...] recent) ??? Cardiac MR (most recent) ??? Public Transit Trolley Driver notes (most recent if there is not CE information) ??? Cardiac Stress Test Report (most recent) ??? ECG tracings- (most recent within last 3 years) ??? Echocardiograms (most recent within last 7 years) ??? Holter monitor report (most recent) ??? Primary care notes (most recent)- if new to [place] ??? Medication list ??? Pulmonary Function Test (most recent) Contact Information Resources: HAYDEN Fax #: [phone] Email: [email or web address] Shipped materials should be sent to: [facility] Perioperative Clinic Attention: Izabela ARM [address] [place] [address] E TECHNOLOGIST documented in this encounter Plan of Treatment Not on filedocumented as of this encounter Visit Diagnoses Not on filedocumented in this encounter
--- OUTSIDE RECORDS SUMMARY | 2022-05-25 08:38 | XMS_ITS | Encounter Summary ---
:1960 Author Organization [facility] Address [address] [place] [address] Care Team Providers Name Role Phone Elsewhere, Pcp Primary Care Provider Unavailable Encounter Details Date Type Department Care Team Description 11/02/2021 Hospital Encounter Department of Sai Hernandez Primar y Malignant Laboratory Medicine MJoon Neoplasm Of Prostate and Pathology, [address] [place] [address] in [place], [place] [address] [place] [address] [place], [place] (Work) [phone] Social History Tobacco Use Types Packs/Day Years [...] at Date Recorded 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 LAB BLOOD ADD-ON Performing Organization Address City/[facility] Code Phon e Number [facility] - [address] CBC without Differential (11/02/2021 10:43 AM [...] M.D. LAB BLOOD ADD-ON Performing Organization Address City/[facility] Code Phon e Number [facility] - 200 [place], [place] [address] [place] [address] [place], [place] [phone] [place] [address] (ABNORMAL) Basic Metabolic Panel (11/02/2021 10:43 AM [...] 11/02/2021 DTL Black/ mL/min/BSA 12:08 PM CDT Cuban Comment: ----ADDITIONAL INFORMATION---- Estimated GFR calculated using [...] Organization Address City/State/ZIP Code Phon e Number [facility] - [address] [place], [place] [address] [facility] [place] [address] Laboratories-[facility] [address] APTT (Activated Partial [...] Organization Address City/State/ZIP Code Phon e Number [facility] - [address] [place], [place] [address] [facility] [place] [address] [facility] [address] documented in this encounter Visit Diagnoses Diagnosis Primary Malignant Neoplasm Of Prostate ( HCC) documented in this encounter Additional Health Concerns Infection Onset Date Last Indicated Resolved Time COVID19 Pending 11/02/2021 11/02/2021 11/02/2021 7:27 PM CDT documented as of this encounter Care Teams Office Inspector Relationship Specialty Start Date End Date Elsewhere, Pcp PCP - General Internal Medicine 08/17/21 documented as of this encounter
--- OUTSIDE RECORDS SUMMARY | 2022-05-25 08:38 | XMS_ITS | Encounter Summary ---
:1960 Author Organization [facility] Address [address] [place] [address] Care Team Providers Name Role Phone Elsewhere, Pcp Primary Care Provider Unavailable Reason for Visit Auth/Cert Specialty Diagnoses / Procedures Referred By Contact Refer red To Contact Diagnoses Primary Malignant Neoplasm Of Prostate (HCC) Procedures AZ LAP PROSTEC RETROPUBIC RADCL [place] LAPROSC BILAT TOT PELV LMPHADEC ROBOTIC-ASSISTED RADICAL PROSTATECTOMY ROBOTIC-ASSISTED DISSECTION LYMPH NODE - PELVIC Referral ID Status Reason Start Date Expiration Date Visits Requ ested Visits Authorized [id number] 1 1 Encounter Details Date Type Department Care Team Description 11/03/2021 Surgery [facility] OR Sai Hernandez, ROBOTIC-ASSISTED RADICAL [address] [facility] [place] [address] [address] [facility] [phone] [place] [address] Social History Tobacco Use Types Packs/Day Years [...] More than 4 times per year 08/13/2021 adventist services? Do you belong to any clubs [...] place to sleep or slept in a skilled nursing (including now)? Education Answer Date Recorded What is the highest level of school Bachelor's degree (e.g., BA, AB, 08/12/2021 you have completed or the highest BS) degree you have received? 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 Primary [...] LYMPH NODE, PELVIC.Sai Hernandez M.D.Khanna, Abhinav, M.D. [facility] ROEI OR DISCHARGE DISPOSITION Home or Self [...] AM CDT You were discharged from the [facility] Urology Surgery - [facility] Service. Please identify this service name if you call with questions after hospitalization. AttachmentsThe following attachments cannot be sent through Care Everywhere. Acetaminophen (By mouth) (Chinese)Bacitracin (On the skin) (Chinese)Laxative, Stimulant Combination (By mouth) (Chinese)Cefdinir (By mouth) (Chinese) Oxybutynin (By mouth) (Chinese)Miralax Prep Instructions (Chinese)Polyethylene Glycol 3350 (By mouth) (Chinese)Tramadol (By mouth) (Chinese)documented in this encounter Medications at Time of [...] Primary Malignant Neoplasm Of Prostate (HCC) A heel sprayer first actively participated and was necessary for [...] CBC without Differential (11/04/2021 12:30 AM CDT) [facility] gist Method Time Signature Hemoglobin 12.2 [...] [facility] - 200 [place], [place] [address] [facility] [place] [address] Laboratories-[facility] [address] [facility] (ABNORMAL) Basic Metabolic Panel (11/04/2021 12:30 [...] 11/04/2021 DTL Black/ mL/min/BSA 1:33 AM CDT Georgian Comment: ----ADDITIONAL INFORMATION---- Estimated GFR calculated using [...] [facility] - 200 [place], [place] [address] [facility] [place] [address] [facility] 200 [facility] Surgical Pathology, Frozen Lab (11/03/2021 3:31 PM CDT) Component Value Ref Test Analysis Performed Pathologis t Range Method Time At [facility] 11/05/2021 METH 11:00 AM CDT Participated in [...] for carcinoma. C. ??Prostate, radical prostatectomy: Adenocarcinoma ([place] patter ??4 + 3, Grade group 3) [...] adenocarcinoma Histologic Grade ?? Grade Group and [place] Score ?Grade Group 3 (Ventura Score 4 [...] [facility] - [address] [place], [place] [address] [facility] [address] [facility] [address] documented in [...] 1244 (Given - Provider: Judith Curry APRN, PHARMACY COORDINATOR) 5,000 Units, subcutaneous, Once, On Mon11/03/21 at [...] Intra-Op belladonna alkaloids-opium 16.2-60 mg suppository 1 biag ppository (B&O SUPPRETTS) 1 suppository, rectal, Every [...] 1824 documented in this encounter Care Teams Assembler Cards And Announcements Relationship Specialty Start Date End Date Elsewhere, Pcp PCP - General Internal Medicine 08/17/21 documented as of this encounter
--- OUTSIDE RECORDS SUMMARY | 2022-05-25 08:38 | XMS_ITS | Encounter Summary ---
:1960 Author Organization [facility] Address [address] [place] [address] Care Team Providers Name Role Phone Unavailable Primary Care Provider Unavailable Encounter Details Date Type Department Care Team Description 08/04/2021 Hospital Encounter Department of Sai Hernandez Elevat ed Laboratory Medicine M.DTae Prostate-Specific and Pathology, [address] [place] [address] in [place], [place] [address] [place] [address] [place], [place] (Work) [phone] Social History Tobacco Use Types Packs/Day Years [...] or relatives? How often do you attend hindu or More than 4 times per year 08/13/2021 amish services? 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 documented in this encounter Results Bacterial Culture, Aerobic + Susc, Urine (08/04/2021 11:53 AM ASSISTANT BASKETBALL COACH) [facility] gist Method Time Signature Urine Culture No growth 08/05/2021 DTL after 1 day 12:42 PM ASSISTANT BASKETBALL COACH of incubation. Specimen Anatomical Collection Method Collection Time Receive d Time (Source) Location / / Volume Laterality Urine (Urine, 08/04/2021 11:53 08/04/2021 2:33 Midstream) AM ASSISTANT BASKETBALL COACH PM ASSISTANT BASKETBALL COACH Comment: Specimen Source Site: Urine Sai Hernandez M.D. LAB MICROBIOLOGY - GENERAL O RDERABLES Performing Organization Address City/State/ZIP Code Phon e Number [facility] - [address] [place], [place] [address] [facility] [address] Laboratories-[facility] [address] documented in this encounter Visit Diagnoses Diagnosis Elevated Prostate-Specific Antigen documented in this encounter
--- OUTSIDE RECORDS SUMMARY | 2022-05-25 08:38 | XMS_ITS | Encounter Summary ---
:1960 Author Organization [facility] Address [address] [place] [address] Care Team Providers Name Role Phone Elsewhere, Pcp Primary Care Provider Unavailable Reason for Visit Auth/Cert Specialty Diagnoses / Procedures Referred By Contact Refer red To Contact Diagnoses Elevated Prostate-Specific Antigen Elevated Prostate-Specific Antigen [R97.20] Procedures OK BX PROSTATE NDL TRANSPRNEAL BIOPSY TRANSPERINEAL PROSTATE Referral ID Status Reason Start Date Expiration Date Visits Requ ested Visits Authorized [id number] 1 1 Encounter Details Date Type Department Care Team Description 08/18/2021 Hospital Encounter Outpatient Procedure Layton Remy, Elevated Prostate-Specific Antigen; Center in [place] Joon Elevated Prostate-Specific Antigen [place] [address] [address] [facility] [address] [place] [phone] Social History Tobacco Use Types Packs/Day Years [...] or relatives? How often do you attend congregation or More than 4 times per year 08/13/2021 worship services? Do you belong to any clubs or Yes 08/13/2021 organizations such as congregation groups, unions, fraternal or athletic groups, or [...] or slept in a fci (including now)? Education Answer Date Recorded What is the highest level of school Bachelor's degree (e.g., BA, AB, 08/12/2021 you have completed or the highest BS) degree you have received? 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 documented as of this encounter Last Filed Vital Signs Vital Sign Reading Time Taken Comments Blood Pressure 148/115 08/18/2021 5:00 PM BOOM WORKER Pulse 75 08/18/2021 5:25 PM BOOM WORKER Temperature 37 ??C (98.6 ??F) 08/18/2021 3:24 PM BOOM WORKER Respiratory Rate 13 08/18/2021 5:25 PM BOOM WORKER Oxygen Saturation 94% 08/18/2021 5:25 PM BOOM WORKER Inhaled Oxygen Concentration - - Weight 95 kg (209 lb 7 oz) 08/18/2021 3:24 PM BOOM WORKER Height 174 cm (5' 8.5) 08/18/2021 3:24 PM BOOM WORKER 08/17/21 Body Mass Index 31.38 08/18/2021 3:24 PM BOOM WORKER documented in this encounter Medications at Time [...] lesions Post-op Diagnosis Elevated Prostate-Specific Antigen A speech language pathologist assistant actively participated and was necessary for [...] Once image fusion maneuvers were carried out, registered representative systematic biopsies were also taken and [...] area in satisfactory condition. Sara Scott M.D. WORKER documented in this encounter Plan of Treatment Not on filedocumented as of this encounter Procedures Procedure Name Priority Date/Time Associated Comments Diagnosis SURGICAL PATHOLOGY Routine 08/18/2021 3:48 PM Elevated Res ults for this BOOM WORKER Prostate-Specific procedure are in Antigen the results section. BIOPSY TRANSPERINEAL 08/18/2021 3:33 PM Elevated PROSTATE BOOM WORKER Prostate-Specific Antigen Special Needs Hernandez primary. documented in this encounter Results Surgical Pathology (08/18/2021 3:48 PM BOOM WORKER) Component Value Ref Test Analysis Performed Pathologis t Range Method Time At Signature 08/21/2021 DTL 11:00 AM BOOM WORKER Report Rajan Escobar M.D. 08/21/2021 DTL electronically 11:00 AM signed by BOOM WORKER I verify that I have examined all relevant slides/materials for the specimen(s) and rendered or confirmed the diagnosis. Gross Description A: ?? Received on a biopsy board filled with form delmer 08/21/2021 DTL labeled with the patient's name, medical record number, and 11:00 AM specific prostate sites are six oriented pink fritz tissue BOOM WORKER cores. A. Received within the first well [...] needle core 11:00 AM biopsy: Prostatic adenocarcinoma BOOM WORKER Type: Acinar Nome score 4+3=7 Percentage of pattern 4: 60% Grade Group: 3 Tumor involves 10% of overall specimen (1 of 1 core). B. Prostate, right posterior medial base, needle core biopsy: Prostatic adenocarcinoma Type: Acinar Nome score 4+3=7 Percentage of pattern 4: 60% [...] Volume Laterality Biopsy (Prostate) 08/18/2021 3:48 PM BOOM WORKER Biopsy (Prostate) 08/18/2021 3:48 PM BOOM WORKER Biopsy (Prostate) 08/18/2021 3:48 PM BOOM WORKER Biopsy (Prostate) 08/18/2021 3:48 PM BOOM WORKER Biopsy (Prostate) 08/18/2021 3:48 PM BOOM WORKER Biopsy (Prostate) 08/18/2021 3:48 PM BOOM WORKER Biopsy (Prostate) 08/18/2021 3:48 PM BOOM WORKER Biopsy (Prostate) 08/18/2021 3:48 PM BOOM WORKER Biopsy (Prostate) 08/18/2021 3:48 PM BOOM WORKER Biopsy (Prostate) 08/18/2021 3:48 PM BOOM WORKER Biopsy (Prostate) 08/18/2021 3:48 PM BOOM WORKER Biopsy (Prostate) 08/18/2021 3:48 PM BOOM WORKER Narrative This result has an attachment that is no t available. Layton Remy M.D. LAB SURG PATH ORDERABLES Performing Organization Address City/State/ZIP Code Phon e Number [facility] - [address] [place], [place] [address] [place] [address] Laboratories-[facility] [address] documented in this encounter Visit Diagnoses Diagnosis Elevated Prostate-Specific Antigen - [facility] documented in this encounter Admitting Diagnoses Diagnosis Elevated Prostate-Specific Antigen documented in this encounter Administered Medications Inactive Administered Medications - up to 3 most recent administrations Medication Order MAR Action Action Date Dose Rate Site acetaminophen tablet 1,000 mg Given 08/18/2021 3:40 PM BOOM WORKER 1,000 mg (TYLENOL) 1,000 mg, oral, Once, On Mon08/18/21 at 1530, For 1 dose, Pre-Op, PreOp give in preprocedural area. lactated ringers New Bag 08/18/2021 3:40 PM BOOM WORKER 80 mL/hr 80 mL/hr 80 mL/hr, intravenous, [...] Recently Administered Medications Times are shown in BOOM WORKER. Scheduled Medication Order 08/16/2021 08/17/2021 08/18/2021 acetaminophen [...] (COMPLETED) 1551 (Given - Provider: Chiara Mederos POULTRY PICKER, CREDENTIALING COORDINATOR) 2,000 mg (rounded from 2,375 mg = [...] injection documented in this encounter Care Teams Merchandising Team Lead Relationship Specialty Start Date End Date Elsewhere, Pcp PCP - General Internal Medicine 08/17/21 documented as of this encounter
--- OUTSIDE RECORDS SUMMARY | 2022-05-25 08:39 | XMS_ITS | Encounter Summary ---
:1960 Author Organization [facility] Address [address] [place] [address]. [place] [address] Care Team Providers Name Role Phone Cristobal Wiggins MD Primary Care Provider Abel Hermosillo MD Unavailable Reason for Visit Auth/Cert - Closed Specialty Diagnoses / Procedures Referred By Contact Refer red To Contact Gastroenterology Diagnoses Rectal Bleeding Rh Endoscopy Procedures COLONOSCOPY [address] [place] [address] Phone: Fax: Referral ID Status Reason Start Date Expiration Date Visits Requ ested Visits Authorized [id number] Closed 1 1 Encounter Details Date Type Department Care Team Description 08/19/2014 Hospital Encounter [facility] Timbo Conway MD Endoscopy [place] COLON RECTAL SURG [address] [facility] [place], [place] [address] [facility] [place] [phone] [place] [address] [place], [place] [address] (Wo rk) Social History Tobacco Use Types Packs/Day Years Used Date Smoking Tobacco: Never Alcohol Use Standard Drinks/Week Comments Yes 0 (1 standard drink = 0.6 oz pure alcoho l) 1-2 beers/day Sex Assigned at Date Recorded Not on file documented as of this encounter Last Filed Vital Signs Vital Sign Reading Time Taken Comments Blood Pressure 134/89 08/19/2014 4:30 PM INSURANCE ADJUSTER Pulse - - Temperature - - Respiratory Rate 16 08/19/2014 4:30 PM INSURANCE ADJUSTER Oxygen Saturation 96% 08/19/2014 4:30 PM INSURANCE ADJUSTER Inhaled Oxygen Concentration - - Weight 86.2 kg (190 lb) 08/19/2014 3:02 PM INSURANCE ADJUSTER Height 172.7 cm (5' 8) 08/19/2014 3:02 PM INSURANCE ADJUSTER Body Mass Index 28.89 08/19/2014 3:02 PM INSURANCE ADJUSTER documented in this encounter Medications at Time [...] Sree Conway August 19, 2014 Colorectal Surgery [phone] (office) [phone] (pager) [email or web address] RANCE ADJUSTER documented in this encounter Plan of Treatment Not on filedocumented as of this encounter Procedures Procedure Name Priority Date/Time Associated Diagnosis Comme nts COLONOSCOPY 08/19/2014 3:16 PM INSURANCE ADJUSTER Rectal Bleeding Special Needs Cristobal Wiggins COLONOSCOPY Routine 08/19/2014 3:14 PM INSURANCE ADJUSTER Resul ts for this procedure are in the results section . documented in this encounter Results COLONOSCOPY (08/19/2014 3:14 PM INSURANCE ADJUSTER) [facility] Method Time Signature COLONOSCOPY [facility] RAD IOLOGY RESULTS Patient Name: Jacob Logan ? Procedure Date: 08/19/2014 3:14 PM ? Accou nt Number: [id number] Date of : 1960 ?Admit Type: Out [...] and ?oxygen saturations were monitored continuously. The ?[id number] was introduced through the anus ?and advanced [...] Procedure Code(s): ? --- Professional --- ? 84762, Colonoscopy, flexible, proximal to splenic flexure; diagnostic, ? with or without collection of specimen(s) by brushing or washing, with ? or without colon decompression (separate procedure) Diagnosis Code(s): ? --- Professional --- ? 569.3, Hemorrhage of rectum and anus CPT copyright 2013 [employer]. All rights reserved. The codes documented in this report are prelimin imani and upon ring stamper review may be revised to meet current compliance requirements. Sree Conway MD 08/19/2014 3:59 PM Number of Addenda: 0 Note Initiated On: 08/19/2014 3:14 PM MRN: ?[id number] Procedure Date: ? 08/19/2014 3:14:17 PM Scope Withdrawal Time: 0 hours 9 minutes 23 seconds Total Procedure Duration: 0 hours 13 minutes 11 seconds Scope In: 3:41:07 PM Scope Out: 3:54:18 PM Specimen (Source) Anatomical Collection Method Collection Time Re ceived Time Location / / Volume Laterality 08/19/2014 3:14 PM INSURANCE ADJUSTER Cristobal Wiggins MD PROCEDURES Performing Organization Address City/State/ZIP Code Phon e Number RADIOLOGY RESULTS documented in this encounter Visit Diagnoses Not on filedocumented in this encounter Active and Recently Administered Medications Times are shown in INSURANCE ADJUSTER. PRN Medication Order 08/17/2014 08/18/2014 08/19/2014 [id number] [...] Intra-procedure documented in this encounter Care Teams Lead Pl Sql Developer Relationship Specialty Start Date End Date Cristobal Wiggins MD PCP - General Family Practice 12/17/13 [facility] [address] [place] [address] Abel Hermosillo MD 12/17/13 documented as of this encounter
--- OUTSIDE RECORDS SUMMARY | 2022-05-25 08:39 | XMS_ITS | Encounter Summary ---
:1960 Author Organization [place] Address [address] [facility] [place] [address] Care Team Providers Name Role Phone Cristobal Wiggins MD Primary Care Provider Abel Hermosillo MD Unavailable Reason for Visit Reason Onset Date Comments Refill Request 09/07/2015 Encounter Details Date Type Department Care Team Description 09/07/2015 Refill [facility] Heart Gifty Seals APRN Refill Request [place] [phone] Social History Tobacco Use Types Packs/Day [...] hyperglyceridemia documented in this encounter Care Teams Slicing Machine Tender Relationship Specialty Start Date End Date Cristobal Wiggins MD PCP - General Family Practice 12/17/13 [facility] [address] [place] [address] Abel Hermosillo MD 12/17/13 documented as of this encounter
--- OUTSIDE RECORDS SUMMARY | 2022-05-25 08:39 | XMS_ITS | Encounter Summary ---
:1960 Author Organization [place] Address [facility] [place] [address] Care Team Providers Name Role Phone Abel Hermosillo MD Primary Care Provider Cristobal Wiggins MD Primary Care Provider Abel Hermosillo MD Unavailable Encounter Details Date Type Department Care Team Description 06/08/2004 [facility] Abel Hermosillo MD HEART SCAN [facility] [address] [place] [address] [address] [place] [address] [phone] Social History Tobacco Use Types Packs/Day Years [...] Primary documented in this encounter Care Teams Metal Products Fabricator Assembler Relationship Specialty Start Date End Date Abel Hermosillo MD PCP - General 09/03/03 12/16/13 Cristobal Wiggins MD PCP - General Family Practice 12/17/13 [facility] [address] [place] [address] Abel Hermosillo MD 12/17/13 documented as of this encounter
--- OUTSIDE RECORDS SUMMARY | 2022-05-25 08:39 | XMS_ITS | Encounter Summary ---
:1960 Author Organization [facility] Address [address] [place] [address] Care Team Providers Name Role Phone Unavailable Primary Care Provider Unavailable Reason for Referral Outpatient (Routine) - Closed Specialty Diagnoses / Procedures Referred By Contact Refer red To Contact Anesthesiology Diagnoses Elevated Prostate-Specific Antigen Sai Hernandez M.D. [facility] [address] [place] [address] Referral ID Status Reason Start Date Expiration Date Visits Requ ested Visits Authorized [id number] Closed 08/04/2021 08/04/2022 1 1 RI/CAT/PET Scan (Routine) - Closed Specialty Diagnoses / Procedures Referred By Contact Refer red To Contact Radiology Diagnoses Elevated Prostate-Specific Antigen Fiona Piedra M.D. [facility] Procedures MR Prostate without and with IV Contrast [address] [place] [phone] Referral ID Status Reason Start Date Expiration Date Visits Requ ested Visits Authorized [id number] Closed 08/04/2021 08/04/2022 1 1 LITIES OFFICER Reason for Visit Appointment Request (Routine) - Closed Specialty Diagnoses / Procedures Referred By Contact Refer red To Contact Urology Diagnoses Primary Malignant Neoplasm Of Prostate (HCC) Referral ID Status Reason Start Date Expiration Date Visits Requ ested Visits Authorized [id number] Closed 07/27/2021 07/27/2022 1 1 Encounter Details Date Type Department Care Team Description 08/04/2021 Comprehensive Visit Department of Sai Hernandez Eleva ted Urology in [place] Prostate-Specific [place], [place] [address] [facility] Antigen (Primary Dx) [address] [place] [address] [phone] Social History Tobacco Use Types Packs/Day Years [...] or relatives? How often do you attend quaker or More than 4 times per year 08/13/2021 jehovah's witness services? Do you belong to any clubs or Yes 08/13/2021 organizations such as quaker groups, unions, fraternal or athletic groups, or [...] at Date Recorded Male 08/12/2021 8:37 PM FACILITIES OFFICER documented as of this encounter Consult Notes [...] by: Fiona Piedra M.D. 08/04/2021 9:44 AM FACILITIES OFFICER LITIES OFFICER documented in this encounter Miscellaneous Notes Addendum Note - Fadia Fields RTaeN. - 08/04/2021 10:00 AM FACILITIES OFFICER Addended by: FADIA FIELDS on: 08/04/2021 11:20 AM Modules accepted: Orders LITIES OFFICER documented in this encounter Plan of Treatment Scheduled Referrals Name Type Priority Associated Order Schedule Diagnoses Preoperative Outpatient Referral Routine Elevated Expected : Evaluation [place] Prostate-Specific 08/17/19 22, consult (clinic) Antigen Expires: 11/01/2022 documented as of this encounter Results SARS Coronavirus 2, Molecular Detection, PCR, Varies Asymptomatic (08/17/2021 12:05 PM FACILITIES OFFICER) [facility] Method Time Signature COVID-19, Swab, 08/17/2021 DTL PCR, Source Nasopharynx 4:03 PM FACILITIES OFFICER COVID-19, Undetected Undetected 08/17/2021 DTL PCR, Result 4:03 PM FACILITIES OFFICER Comment: SARS-CoV-2 RNA absent. This result does not rule out COVID-19 in the patient, as the sensitivity of the test depends o n the timing of the specimen collection and quality of the specimen. Result should be correlated with patient's history and clinical presentat ion. ----ADDITIONAL INFORMATION---- This RT-PCR test using the [employer] SARS-Co V-2 Assay ( Vhoto.) performed on the [employer] Two Module System has received Emergency Use Authorization (EUA) by the U.S. Food and Drug Administration, and is modified from the fleet dispatch manager's instructions with a bridging study. Performance characteristics were verifie d by [facility] in a manner consistent with CLIA requirements. Visit the CDC website: https://www.cdc.g ov/coronavirus/ for the most recent guidelines on [place] virus testing. Fact Sheet for Healthcare Providers: https://www.fda.gov/media/147588/downloa d Fact Sheet for Patients: https://www.fda.gov/media/256610/downloa d Specimen Anatomical Collection Method Collection Time Receive d Time (Source) Location / / Volume Laterality Varies 08/17/2021 12:05 08/17/2021 (Nasopharynx) PM FACILITIES OFFICER 12:45 PM FACILITIES OFFICER Sai Hernandez M.D. LAB MICROBIOLOGY - GENERAL O RDERABLES Performing Organization Address City/State/ZIP Code Phon e Number [facility] - [address] [place], [place] [address] [facility] [place] [address] [facility] [address] MR Prostate without and with IV Contrast (08/04/2021 8:56 PM FACILITIES OFFICER) Anatomical Region Laterality Modality Pelvis, Abdominal RST LOS, Abdominal ARZ LOS, Abdominal N/A Magnetic Resonance FLA LOS Specimen (Source) Anatomical Collection Method Collection Time Re ceived Time Location / / Volume Laterality 08/05/2021 7:42 AM FACILITIES OFFICER Impressions 08/05/2021 8:41 AM FACILITIES OFFICER PIRADS 2- Low (clinically significant cancer is unlikely to be present). Narrative 08/05/2021 8:41 AM FACILITIES OFFICER EXAM: MR PROSTATE WITHOUT AND WITH IV [...] Aerobic + Susc, Urine (08/04/2021 11:53 AM FACILITIES OFFICER) [facility] gist Method Time Signature Urine Culture No growth 08/05/2021 DTL after 1 day 12:42 PM FACILITIES OFFICER of incubation. Specimen Anatomical Collection Method Collection Time Receive d Time (Source) Location / / Volume Laterality Urine (Urine, 08/04/2021 11:53 08/04/2021 2:33 Midstream) AM FACILITIES OFFICER PM FACILITIES OFFICER Comment: Specimen Source Site: Urine Sai Hernandez M.D. LAB MICROBIOLOGY - GENERAL O RDERABLES Performing Organization Address City/State/ZIP Code Phon e Number [facility] - [address] [place], [place] [address] [facility] [place] [address] [facility] [address] documented in this encounter Visit Diagnoses Diagnosis Elevated Prostate-Specific Antigen - Helen sullivan Elevated Prostate-Specific Antigen documented in this encounter
--- OUTSIDE RECORDS SUMMARY | 2022-05-25 08:39 | XMS_ITS | Encounter Summary ---
:1960 Author Organization [place] Address [address] [place] [address] Care Team Providers Name Role Phone Abel Hermosillo MD Primary Care Provider Encounter Details Date Type Department Care Team Description 09/12/2003 Orders Only [facility] ROU YANETH MEDICAL EX[facility] (Primary Dx) [address] [place] [address] Social History Tobacco Use [...] am Results for this GUAIAC STOOL (1-3 CLINICAL SERVICES ASSISTANT procedure are in SPEC) the results section. documented in this encounter Results OCCULT BLOOD, STOOL (1-3 SPEC) (09/12/2003 9:59 AM CLINICAL SERVICES ASSISTANT) P athologist Signature Occult Blood Negative ALLEN Slide 1 [facility] Slide 1 Date 09/04/03 [facility] Occult Blood Negative ALLEN Slide 2 [facility] Slide 2 Date 09/05/03 [facility] Occult Blood Negative ALLEN Slide 3 [facility] Slide 3 Date 09/06/03 [facility] Specimen Anatomical Collection Method Collection Time Receive d Time (Source) Location / / Volume Laterality 09/12/2003 9:59 AM 4 CLINICAL SERVICES ASSISTANT 10:04 AM CLINICAL SERVICES ASSISTANT Luis Daniel I Kirshbaum MD LABORATORY Performing Organization Address City/State/ZIP Code Phon e Number [facility] [address] [place], [place] [address] [address] [facility] documented in this encounter Visit Diagnoses Diagnosis Routine general medical examination at a [facility] facility - Primary documented in this encounter Care Teams Extern Relationship Specialty Start Date End Date Abel Hermosillo MD PCP - General 09/03/03 12/16/13 documented as of this encounter
--- OUTSIDE RECORDS SUMMARY | 2022-05-25 08:39 | XMS_ITS | Encounter Summary ---
:1960 Author Organization [place] Address [address] [place] [address] Care Team Providers Name Role Phone Cristobal Wiggins MD Primary Care Provider Abel Hermosillo MD Unavailable Reason for Referral Care Coordination (Urgent) - Pending Review Specialty Diagnoses / Procedures Referred By Contact Refer red To Contact Diagnoses Infection due to 2019 novel coronavirus Tavo Campbell MD [facility] [address] [place], [place] [address] Referral ID Status Reason Start Date Expiration Date Visits V isits Requested Authorized [id number] Pending 06/11/2021 06/11/2022 1 1 Review R SOFTENER SERVICER AND INSTALLER Consultation (Routine: Next available opening) - Pending Review Specialty Diagnoses / Procedures Referred By Contact Refer red To Contact Diagnoses Infection due to 2019 novel coronavirus Tavo Campbell MD [facility] [address] [place] [address] Referral ID Status Reason Start Date Expiration Date Visits V isits Requested Authorized [id number] Pending 06/11/2021 06/11/2022 1 1 Review R SOFTENER SERVICER AND INSTALLER Reason for Visit Reason Comments Covid Concern Encounter Details Date Type Department Care Team Description 06/11/2021 [facility] Tavo Ríos Infectio n due to 2019 novel coronavirus; [facility] Emergency Dep ashish Campbell MD Suspected COVID-19 virus infection [address] [facility] [place], [place] [address] [address] [phone] [address] [place] [address] (Wo rk) Social History Tobacco Use Types Packs/Day Years Used Date Smoking Tobacco: Never Alcohol Use Standard Drinks/Week Comments Yes 10 (1 standard drink = 0.6 oz pure alcoh ol) 5-6 beers/week Sex Assigned at Date Recorded Not on file COVID-19 Exposure Response Date Recorded In the last month, have you been in contact with Yes 06/11/2021 8:20 AM WATER SOFTENER SERVICER AND INSTALLER someone who was confirmed or suspected to have Coronavirus / COVID-19? documented as of this encounter Last Filed Vital Signs Vital Sign Reading Time Taken Comments Blood Pressure 141/72 06/11/2021 10:58 AM WATER SOFTENER SERVICER AND INSTALLER Pulse 97 06/11/2021 10:45 AM WATER SOFTENER SERVICER AND INSTALLER Temperature 37.2 ??C (98.9 ??F) 06/11/2021 8:24 AM WATER SOFTENER SERVICER AND INSTALLER Respiratory Rate 20 06/11/2021 11:00 AM WATER SOFTENER SERVICER AND INSTALLER Oxygen Saturation 93% 06/11/2021 11:00 AM WATER SOFTENER SERVICER AND INSTALLER Inhaled Oxygen Concentration - - Weight - - Height - - Body Mass Index - - documented in this encounter Discharge Instructions AttachmentsThe following attachments cannot be sent through Care Everywhere. Instructions: Check oxygen level every 4 hours and return to ED if symptoms worsenInstructions: Quarantine/isolationUnderstanding COVID-19 (Coronavirus Disease 2019) (MONGOLIAN)documented in this encounter Medications at Time of [...] ox and COVID-19 home virtual monitoring packet. R SOFTENER SERVICER AND INSTALLER Renetta Musa - 06/11/2021 10:15 AM CST Patient walked with Oximeter for a period of 3 minutes patients O2 was between 91-92. R SOFTENER SERVICER AND INSTALLER Kristen Davenport RN - 06/11/2021 8:23 AM CST Pt arrives with c/o worsening SOB and productive cough after testing positive for COVID on Monday06/05/21. Patient endorses some chest pain with deep inspiration. Patient reports home pulse ox reading at 90% at home, occasionally lower than that per pt. ABCs intact. R SOFTENER SERVICER AND INSTALLER Tavo Campbell MD - 06/11/2021 8:19 AM CST History Chief Complaint: Covid Concern NATI Logan is a 61 year old male who presents with Covid Concern. The patient first became sick 10 days ago while he was in [place]. Symptoms include fever, body aches, fatigue, cough, [...] variety of infectious and noninfectious processes. ARIANNA VSAQUEZ MD Per radiology Emergency Department Course: Reviewed: [...] due to 2019 novel coronavirus U07.1 COVID-19 [facility] Referral Care Coordination Referral 2. Suspected [...] statements to me. Tavo Campbell MD 06/11/212034 R SOFTENER SERVICER AND INSTALLER documented in this encounter Plan of Treatment [...] 06/11/2021 9:44 AM Resul ts for this WATER SOFTENER SERVICER AND INSTALLER procedure are i n the results section. EKG 12-LEAD, STAT 06/11/2021 8:35 AM Results f or this TRACING ONLY WATER SOFTENER SERVICER AND INSTALLER procedure are i n the results section. documented in this encounter Results XR Chest 2 Views (06/11/2021 9:44 AM WATER SOFTENER SERVICER AND INSTALLER) Anatomical Region Laterality Modality Chest Digital Radiography Specimen (Source) Anatomical Location Collection Method / Collectio n Time Received Time / Laterality Volume Impressions 06/11/2021 9:50 AM WATER SOFTENER SERVICER AND INSTALLER IMPRESSION: Imaging features can be seen with (COVID-19) ??pneumonia, though are nonspecific and can occur wit h a variety of infectious and noninfectious processes. ARIANNA VASQUEZ MD Narrative 06/11/2021 9:50 AM WATER SOFTENER SERVICER AND INSTALLER CHEST TWO VIEWS 06/11/2021 9:44 AM HISTORY: [...] EKG 12-lead, tracing only (06/11/2021 8:35 AM WATER SOFTENER SERVICER AND INSTALLER) Component Value Ref Range Test Analysis Performed Pathologis t Method Time At Signature Systolic Blood mmHg RADIOLOGY Pressure RESULTS Diastolic Blood mmHg RADIOLOGY Pressure RESULTS Ventricular Rate 76 BPM RADIOLOGY RESULTS Atrial Rate 76 BPM RADIOLOGY RESULTS DE Interval 176 ms RADIOLOGY RESULTS QRS Duration 88 ms RADIOLOGY RESULTS QT 378 ms RADIOLOGY RESULTS QTc 425 ms RADIOLOGY RESULTS P Rice 68 degrees RADIOLOGY RESULTS R AXIS 16 degrees RADIOLOGY RESULTS T Rice 47 degrees RADIOLOGY RESULTS Interpretation Sinus rhythm with Premature supraventricular complexes RADIOLOGY ECG Otherwise normal ECG RESULTS No previous ECGs available Confirmed by - EMERGENCY RUTHY Malloy PHYSICIAN ([id number]), business editor CHANO HURLEY ([id number]) on 06/11/2021 10:42:05 AM Specimen Anatomical Collection Method Collection Time Receive d Time (Source) Location / / Volume Laterality 06/11/2021 8:35 AM WATER SOFTENER SERVICER AND INSTALLER 10:42 AM WATER SOFTENER SERVICER AND INSTALLER Tavo Campbell MD ECG ORDERABLES Performing Organization Address City/State/ZIP Code Phon e Number RADIOLOGY RESULTS documented in this encounter Visit Diagnoses Diagnosis Infection due to 2019 novel coronavirus Suspected COVID-19 virus infection documented in this encounter Administered Medications Inactive Administered Medications - up to 3 most recent administrations Medication Order MAR Action Action Date Dose Rate Site albuterol (PROVENTIL Given 06/11/2021 10:14 AM WATER SOFTENER SERVICER AND INSTALLER 6 puffs HFA/VENTOLIN HFA) inhaler 6 puff, Inhalation, ONCE, On Mon06/11/21 at 0950, For 1 dose, Check the dose counter on the inhaler to ensure there are doses remaining before administering. dexamethasone (DECADRON) tablet 8 mg Given 06/11/2021 10:52 AM WATER SOFTENER SERVICER AND INSTALLER 8 mg 8 mg, Oral, ONCE, On Mon06/11/21 at 1050, For 1 dose documented in this encounter Active and Recently Administered Medications Times are shown in WATER SOFTENER SERVICER AND INSTALLER. Scheduled Medication Order 06/09/2021 06/10/2021 06/11/2021 albuterol [...] dose documented in this encounter Care Teams Managing Partner Relationship Specialty Start Date End Date Cristobal Wiggins MD PCP - General Family Practice 12/17/13 [facility] [address] [place] [address] Abel Hermosillo MD 12/17/13 documented as of this encounter
--- OUTSIDE RECORDS SUMMARY | 2022-05-25 08:39 | XMS_ITS | Encounter Summary ---
:1960 Author Organization [place] Address [facility] [place] [address] Care Team Providers Name Role Phone Cristobal Wiggins MD Primary Care Provider Abel Hermosillo MD Unavailable Encounter Details Date Type Department Care Team Description 01/16/2014 Orders Only [facility], [place] Hypertriglycer idemia (Primary [facility] [place] Dx) Heart GAS ROLLER OPERATOR [facility] 4th Floor, Clinic [address] [phone] Social History Tobacco Use Types Packs/Day Years [...] hyperglyceridemia documented in this encounter Care Teams School Vocational Educator Relationship Specialty Start Date End Date Cristobal Wiggins MD PCP - General Family Practice 12/17/13 [facility] [address] [place] [address] Abel Hermosillo MD 12/17/13 documented as of this encounter
--- OUTSIDE RECORDS SUMMARY | 2022-05-25 08:39 | XMS_ITS | Encounter Summary ---
:1960 Author Organization [place] Address [facility] hospital0 [facility] [place] [address] Care Team Providers Name Role Phone Cristobal [...] in contact with Yes 06/11/2021 8:20 AM CHILD CARE CENTRE DIRECTOR someone who was confirmed or suspected to have Coronavirus / COVID-19? documented as of this encounter Plan of Treatment Not on filedocumented as of this encounter Visit Diagnoses Not on filedocumented in this encounter Care Teams Manager Mba Relationship Specialty Start Date End Date Cristobal Wiggins MD PCP - General Family Practice 12/17/13 [facility] [address] [place] [address] Abel Hermosillo MD 12/17/13 documented as of this encounter
--- OUTSIDE RECORDS SUMMARY | 2022-05-25 08:39 | XMS_ITS | Encounter Summary ---
:1960 Author Organization [place] Address [facility] [place] [address] Care Team Providers Name Role Phone Abel Hermosillo MD Primary Care Provider Encounter Details Date Type Department Care Team Description 08/11/2009 Results Only INTERFACED REPORT Cristobal Wiggins MD [facility] [address] [place], [place] [address] (Wo rk) Social History [...] 08/11/2009 1:10 PM Results for this PHYSICAL PRODUCTIVITY ENGINEER procedure are i n the results section. COLONOSCOPY Routine 08/11/2009 12:45 Results for this PM PRODUCTIVITY ENGINEER procedure are i n the results section. documented in this encounter Results GI HISTORY AND PHYSICAL (08/11/2009 1:10 PM PRODUCTIVITY ENGINEER) [facility] Method Time Signature GI History [facility] RADI OLOGY and Physical RESULTS Patient Name: Jacbo Logan ? Gender: M ? H & [...] / / Volume Laterality 08/11/2009 1:10 PM PRODUCTIVITY ENGINEER Cristobal Wiggins MD PROCEDURES Performing Organization Address City/State/ZIP Code Phon e Number RADIOLOGY RESULTS COLONOSCOPY (08/11/2009 12:45 PM PRODUCTIVITY ENGINEER) [facility] Method Time Signature COLONOSCOPY [facility] RAD IOLOGY RESULTS Patient Name: Jacob Logan [...] saturations were monitored continuously. The [id number] ? #[id number] was introduced through the anus and advanced [...] / / Volume Laterality 08/11/2009 12:45 PM PRODUCTIVITY ENGINEER Cristobal Wiggins MD PROCEDURES Performing Organization Address City/State/ZIP Code Phon e Number RADIOLOGY RESULTS documented in this encounter Visit Diagnoses Not on filedocumented in this encounter Care Teams Chlorobutadiene Scrubber Operator Relationship Specialty Start Date End Date Abel Hermosillo MD PCP - General 09/03/03 12/16/13 documented as of this encounter
--- OUTSIDE RECORDS SUMMARY | 2022-05-25 08:39 | XMS_ITS | Encounter Summary ---
:1960 Author Organization [facility] Address [address] [place] [address]. [place] [address] Care Team Providers Name Role Phone Abel Hermosillo MD Primary Care Provider Reason for Visit Reason Comments Physical has a spot on his tongue fou nd by the dentist would like it checked. Encounter Details Date Type Department Care Team Description 09/03/2003 Office Visit [facility] Luis Daniel Glez MEDICAL EXAM Clinic Morena Hinojosa MD (Primary Dx) [address] [place] [address] Social History Tobacco Use Types Packs/Day Years Used Date Smoking Tobacco: Never Alcohol Use Standard Drinks/Week Comments Yes 0 (1 standard drink = 0.6 oz pure alcoho l) social drinker Sex Assigned at Date Recorded Not on file documented as of this encounter Last Filed Vital Signs Vital Sign Reading Time Taken Comments Blood Pressure 114/64 09/03/2003 8:30 AM MILLED LUMBER GRADER Pulse 66 09/03/2003 8:30 AM MILLED LUMBER GRADER Temperature - - Respiratory Rate 14 09/03/2003 8:30 AM MILLED LUMBER GRADER Oxygen Saturation - - Inhaled Oxygen Concentration - - Weight 86.2 kg (190 lb) 09/03/2003 8:30 AM MILLED LUMBER GRADER Height 172.7 cm (5' 8) 09/03/2003 8:30 AM MILLED LUMBER GRADER Body Mass Index 28.89 09/03/2003 8:30 AM MILLED LUMBER GRADER documented in this encounter Progress Notes 09/03/2003 8:30 AM MILLED LUMBER GRADER Identification: Mr. Jacob Logan is a 43 [...] Medical Exa m Results for this PLATELETS MILLED LUMBER GRADER procedure are i n the results section. HCL PROSTATE SPEC Routine 09/03/2003 8:47 AM Routine Medical E xam Results for this ANTIGEN,SCREEN MILLED LUMBER GRADER procedure are in the results section. HCL HEPATIC PANEL Routine 09/03/2003 8:47 AM Routine Medical E xam Results for this MILLED LUMBER GRADER procedure are i n the results section. HCL BASIC METABOLIC Routine 09/03/2003 8:47 AM Routine Medical Exam Results for this PANEL MILLED LUMBER GRADER procedure are i n the results section. CL AFF A.M.A. LIPID Routine 09/03/2003 8:47 AM Routine Medical Exam Results for this PANEL MILLED LUMBER GRADER procedure are i n the results section. documented in this encounter Results PROSTATE SPEC ANTIGEN,SCREEN (09/03/2003 8:47 AM MILLED LUMBER GRADER) athologist Signature PSA 0.50 0 - 4 ug/L [facility] Specimen Anatomical Collection Method Collection Time Receive d Time (Source) Location / / Volume Laterality 09/03/2003 8:47 AM 4 8:48 MILLED LUMBER GRADER AM MILLED LUMBER GRADER Lui sDaniel Glez MD LABORATORY Performing Organization Address City/State/ZIP Code Phon e Number [facility] [address] [place] [address] [facility] (ABNORMAL) A.M.A. LIPID PANEL (09/03/2003 8:47 AM MILLED LUMBER GRADER) athologist Signature Cholesterol 178 <200 mg/dL [facility] Comment: Cholesterol Reference Range: <200 ??The NCEP recommends further ? evaluation of: ? 1. ??Patients with cholesterol ? greater than 200 mg/dL ? if additional risk facto rs ? are present. ? 2. ??All patients with a ? cholesterol greater than ? 240 mg/dL. Triglycerides 264 (H) <150 mg/dL [facility] HDL Cholesterol 33 (L) >40 mg/dL [facility] LDL Cholesterol Calculated 93 <130 mg/dL [facility] VLDL-Cholesterol 53 (H) 0 - 30 mg/dL [facility] Cholesterol/HDL Ratio 5 0 - 5 [facility] Specimen Anatomical Collection Method Collection Time Receive d Time (Source) Location / / Volume Laterality 09/03/2003 8:47 AM 4 8:48 MILLED LUMBER GRADER AM MILLED LUMBER GRADER Luis Daniel Glez MD LABORATORY Performing Organization Address City/[facility] Code Phon e Number [facility] [place] [address] [place] [address] [phone] [facility] A.M.A. HEPATIC PANEL (09/03/2003 8:47 AM MILLED LUMBER GRADER) athologist Signature Bilirubin 0.0 0.0 - 0.3 [facility] Conjugated mg/dL CLINIC LAB Bilirubin Delta 0.0 0.0 - 0.4 [facility] mg/dL [facility] Bilirubin Total 0.6 0.2 - 1.3 [facility] mg/dL [facility] Albumin 4.6 3.3 - 4.6 [facility] g/dL [facility] Protein Total 7.8 6.0 - 8.2 [facility] g/dL [facility] Alkaline 65 40 - 150 [facility] Phosphatase U/L CLINIC LAB ALT 40 0 - 70 U/L [facility] AST 28 0 - 55 U/L [facility] Specimen Anatomical Collection Method Collection Time Receive d Time (Source) Location / / Volume Laterality 09/03/2003 8:47 AM 4 8:48 MILLED LUMBER GRADER AM MILLED LUMBER GRADER Luis Daniel Glez MD LABORATORY Performing Organization Address City/[facility] Code Phon e Number [facility] [place] [address] [place] [address] [phone] [facility] A.M.A. BASIC METABOLIC PANEL (09/03/2003 8:47 AM MILLED LUMBER GRADER) athologist Signature Sodium 141 133 - 144 [facility] mmol/L CLINIC LAB Potassium 4.5 3.4 - 5.3 [facility] mmol/L [facility] Chloride 103 94 - 109 [place] mmol/L [facility] Carbon Dioxide 27 20 - 32 [place] mmol/L [facility] Anion Gap 11 6 - 17 [place] mmol/L [facility] Glucose 97 60 - 115 [place] mg/dL [facility] Urea Nitrogen 18 5 - 24 [place] mg/dL [facility] Creatinine 1.10 0.80 - [place] 1.50 mg/dL CLINIC LAB GFR Estimate 77 >60 mL/min [place] [facility] GFR Estimate If >80 >60 mL/min [place] N Black [facility] Calcium 9.4 8.5 - 10.4 [place] mg/dL [facility] Specimen Anatomical Collection Method Collection Time Receive d Time (Source) Location / / Volume Laterality 09/03/2003 8:47 AM 4 8:48 MILLED LUMBER GRADER AM MILLED LUMBER GRADER Luis Daniel Glez MD LABORATORY Performing Organization Address City/[facility] Code Phon e Number [address] [address] [facility] CBC WITH PLATELETS (09/03/2003 8:47 AM MILLED LUMBER GRADER) P athologist Signature WBC 8.0 4.0 - 11.0 [place] 10e9/L [facility] RBC Count 4.88 4.4 - 5.9 [place] 10e12/L [facility] Hemoglobin 15.6 13.3 - [place] 17.7 g/dL [facility] Hematocrit 44.3 40.0 - [place] 53.0 % [facility] MCV 91 78 - 100 [place] fl [facility] MCH 32.0 26.5 - [place] 33.0 pg [facility] MCHC 35.3 32.0 - [place] 36.0 g/dL [facility] RDW 11.8 10.0 - [place] 15.0 % [facility] Platelet Count 216 150 - 450 [place] 10e9/L [facility] Specimen Anatomical Collection Method Collection Time Receive d Time (Source) Location / / Volume Laterality 09/03/2003 8:47 AM 4 8:48 MILLED LUMBER GRADER AM MILLED LUMBER GRADER Luis Daniel Glez MD LABORATORY Performing Organization Address City/State/ZIP Code Phon e Number [facility] [address] [place], [place] [address] [address] [facility] documented in this encounter Visit Diagnoses Diagnosis Routine general medical examination at a [facility] facility - Primary documented in this encounter Care Teams Gold Leaf Roller Relationship Specialty Start Date End Date Abel Hermosillo MD PCP - General 09/03/03 12/16/13 documented as of this encounter
--- OUTSIDE RECORDS SUMMARY | 2022-05-25 08:39 | XMS_ITS | Encounter Summary ---
:1960 Author Organization [facility] Address [address] [place] [address] Care Team Providers Name Role Phone Unavailable Primary Care Provider Unavailable Reason for Visit Reason Comments Pre-visit Testing Orders Encounter Details Date Type Department Care Team Description 07/27/2021 Clinical Communication Department of Sai Hernandez Pr e-visit Testing Urology in M.D. Orders [place], [address] [place] [address] [place] [phone] [place], [place] [phone] (Work) [phone] Social History Tobacco Use Types Packs/Day Years [...] or relatives? How often do you attend pentecostalism or More than 4 times per year 08/13/2021 sabianism services? Do you belong to any clubs or Yes 08/13/2021 organizations such as pentecostalism groups, unions, fraternal or athletic groups, or [...] or slept in a chcf (including now)? Sex Assigned at Date Recorded Male 08/12/2021 8:37 PM DEPUTY COUNTY COUNSEL documented as of this encounter Plan of Treatment Not on filedocumented as of this encounter Results Urinalysis with Microscopic: Urine, Midstream (08/04/2021 8:07 AM DEPUTY COUNTY COUNSEL) Patholo gist Method Time Signature Source Urine, Urine, 08/04/2021 DTL Midstream 9:00 AM DEPUTY COUNTY COUNSEL Color, U Yellow 08/04/2021 DTL 9:00 AM DEPUTY COUNTY COUNSEL Clarity, U Clear 08/04/2021 DTL 9:00 AM DEPUTY COUNTY COUNSEL Protein, U 6 <26 mg/dL 08/04/2021 DTL 9:56 AM DEPUTY COUNTY COUNSEL Protein/Osmol 0.13 <0.42 08/04/2021 DTL ality ratio 10:11 AM DEPUTY COUNTY COUNSEL Predicted 24 130 mg/24 h 08/04/2021 DTL Hr Protein 10:11 AM DEPUTY COUNTY COUNSEL Predicted 41-409 mg/24 h 08/04/2021 DTL Range 10:11 AM DEPUTY COUNTY COUNSEL Specimen Anatomical Collection Method Collection Time Receive d Time (Source) Location / / Volume Laterality Urine (Urine, 08/04/2021 8:07 AM 08/04/19 22 9:00 Midstream) DEPUTY COUNTY COUNSEL AM DEPUTY COUNTY COUNSEL Sai Hernandez M.D. LAB URINE ORDERABLES Performing Organization Address City/State/ZIP Code Phon e Number [facility] - [address] [place], [place] [address] [facility] [place] [address] [facility] [address] (ABNORMAL) PSA (Prostate-Specific Antigen), Diagnostic (08/04/2021 8:02 AM DEPUTY COUNTY COUNSEL) P athologist Signature Prostate-Speci 4.9 (H) <=4.5 08/04/2021 DTL fic Ag ng/mL 9:34 AM DEPUTY COUNTY COUNSEL Comment: ----ADDITIONAL INFORMATION---- The testing method is [...] (Blood, 08/04/2021 8:02 AM 08/04/19 8:59 Venous) DEPUTY COUNTY COUNSEL AM DEPUTY COUNTY COUNSEL Sai Hernandez M.D. LAB BLOOD ADD-ON Performing Organization Address City/State/ZIP Code Phon e Number [facility] - [address] [place], [place] [address] [facility] [place] [address] [facility] [address] documented in this encounter Visit Diagnoses Diagnosis Elevated Prostate-Specific Antigen - Helen sullivan documented in this encounter
--- OUTSIDE RECORDS SUMMARY | 2022-05-25 08:39 | XMS_ITS | Clinical Summary ---
:1960 Author Organization [facility] Address [address] [place] [address] Care Team Providers Name Role Phone Cristobal [...] Comments Blood Pressure 141/72 06/11/2021 10:58 AM FRUIT WASHER Pulse 97 06/11/2021 10:45 AM FRUIT WASHER Temperature 37.2 ??C (98.9 ??F) 06/11/2021 8:24 AM FRUIT WASHER Respiratory Rate 20 06/11/2021 11:00 AM FRUIT WASHER Oxygen Saturation 93% 06/11/2021 11:00 AM FRUIT WASHER Inhaled Oxygen Concentration - - Weight 86.2 kg (190 lb) 08/19/2014 3:02 PM FRUIT WASHER Height 172.7 cm (5' 8) 08/19/2014 3:02 PM FRUIT WASHER Body Mass Index 28.89 08/19/2014 3:02 PM FRUIT WASHER Plan of Treatment Health Maintenance Due Date [...] T ype Group Dates [employer] P[employer] HMO [id number] 2021-Pres [phone] [address] [address] PPO ent [address] [place] [address] Care Teams Analytics Developer Relationship Specialty Start Date End Date Cristobal Wiggins MD PCP - General Family Practice 12/17/13 [facility] [address] [place] [address] Abel Hermosillo MD 12/17/13
--- OUTSIDE RECORDS SUMMARY | 2022-05-25 08:39 | XMS_ITS | Encounter Summary ---
:1960 Author Organization [facility] Address [address] [place] [address] Care Team Providers Name Role Phone Lauryn Pleitez MD Primary Care Provider Unavailable Encounter Details Date Type Department Care Team Description 08/07/2002 Orders Only [facility] Luis Daniel Glez CTING RESULTS Clinic Morena Hinojosa MD (Primary Dx) [address] [place] [address] Social History Tobacco Use Types [...] Primary documented in this encounter Care Teams Automatic Fancy Machine Operator Relationship Specialty Start Date End Date Lauryn Pleitez MD PCP - General 08/24/01 09/02/03 documented as of this encounter
--- OUTSIDE RECORDS SUMMARY | 2022-05-25 08:39 | XMS_ITS | Encounter Summary ---
:1960 Author Organization [facility] Address [address] [place] [address] Care Team Providers Name Role Phone Gill Hermosillo MD Primary Care Provider Reason for Visit Reason Comments Physical fasting Encounter Details Date Type Department Care Team Description 05/25/2005 Office Visit [facility] Gill Hermosillo, ROUTIN E MEDICAL EXAM; [facility] [place] MD HYPERLIPIDEMIA NEC/NOS; [address] OTHER LUNG DI SEASE NEC; [address] ABNORMAL LIVER FUNCTION STUDY [address] [place] [phone] Social History Tobacco Use Types Packs/Day Years Used Date Smoking Tobacco: Never Alcohol Use Standard Drinks/Week Comments Yes 10 (1 standard drink = 0.6 oz pure alcoh ol) 5-6 beers/week Sex Assigned at Date Recorded Not on file documented as of this encounter Last Filed Vital Signs Vital Sign Reading Time Taken Comments Blood Pressure 110/72 05/25/2005 9:00 AM MATERIAL MOVERS Pulse 64 05/25/2005 9:00 AM MATERIAL MOVERS Temperature - - Respiratory Rate - - Oxygen Saturation - - Inhaled Oxygen Concentration - - Weight 85.3 kg (188 lb) 05/25/2005 9:00 AM MATERIAL MOVERS Height 172.7 cm (5' 8) 05/25/2005 9:00 AM MATERIAL MOVERS Body Mass Index 28.59 05/25/2005 9:00 AM MATERIAL MOVERS documented in this encounter Progress Notes Gill [...] children: 2 Occupational History 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 are in a health care fa cility the results Other diseases of section. lung, not elsewhere classified HCL HEMOGLOBIN Routine 05/25/2005 10:27 Routine Medical Exam R esults for this NONLAB AM MATERIAL MOVERS procedure are i n the results section. HCL BASIC METABOLIC Routine 05/25/2005 10:27 Routine Med ical Exam Results for this PANEL AM MATERIAL MOVERS Hyperlipidemia Nec/Nos proce dure are in the results section. HCL TSH Routine 05/25/2005 10:27 Routine Medical Exam Results for this AM MATERIAL MOVERS Hyperlipidemia Nec/Nos proce dure are in the results section. HCL ALT Routine 05/25/2005 10:27 Hyperlipidemia Nec/Nos Results for this AM MATERIAL MOVERS Routine Medical Exam procedu re are in the results section. HCL LDL Routine 05/25/2005 10:27 Hyperlipidemia Nec/Nos Results for this CHOLESTEROL, DIRECT AM MATERIAL MOVERS Routine Medical Exam procedure are in the results section. CL AFF A.M.A. LIPID Routine 05/25/2005 10:27 Routine Med ical Exam Results for this PANEL AM MATERIAL MOVERS Hyperlipidemia Nec/Nos proce dure are in the results section. documented in this encounter Results CT SCAN CHEST (06/01/2005 7:30 AM MATERIAL MOVERS) Anatomical Region Laterality Modality Other Specimen (Source) Anatomical Collection Method Collection Time Re ceived Time Location / / Volume Laterality 06/01/2005 7:30 AM MATERIAL MOVERS Impressions 06/02/2005 9:[address] CHEST FOR NODULE ?? CLINICAL HISTORY: Left lower lobe indete rminate nodule seen on CT scan from [facility]. ??It's d ated 12/14/04. ? TECHNIQUE: ?? [...] unchanged since the exam from [facility] one year ago. ??See above discussion. ?? Recommend one additional [address] follo w up of these nodules. Gill Hermosillo MD SPECIAL IMAGING STUDIES (ABNORMAL) LDL CHOLESTEROL, DIRECT (05/25/2005 10:27 AM MATERIAL MOVERS) athologist Signature LDL Direct 131 (H) [facility] Comment: Reference range: 0 to 129 [...] CHD. The above test was performed at: [facility] mark, [address] [place] [address] ??[id number] ?? ??[email or web address] Specimen Anatomical Collection Method Collection Time Receive d Time (Source) Location / / Volume Laterality 05/25/2005 10:27 05/25/2005 AM MATERIAL MOVERS 10:32 AM MATERIAL MOVERS Gill Hermosillo MD LABORATORY Performing Organization Address City/State/ZIP Code Phon e Number [facility] [address] [place], [place] [address] [address] [facility] TSH- (05/25/2005 10:27 AM MATERIAL MOVERS) athologist Signature TSH 2.15 0.4 - 5.0 [facility] mU/L [facility] Specimen Anatomical Collection Method Collection Time Receive d Time (Source) Location / / Volume Laterality 05/25/2005 10:27 05/25/2005 AM MATERIAL MOVERS 10:32 AM MATERIAL MOVERS Gill Hermosillo MD LABORATORY Performing Organization Address City/[facility]/ZIP Code Phon e Number [facility] [address] [place] [address] [facility] HGB (05/25/2005 10:27 AM MATERIAL MOVERS) athologist Signature Hemoglobin 16.2 13.3 - 17.7 [facility] g/dL [facility] Specimen Anatomical Collection Method Collection Time Receive d Time (Source) Location / / Volume Laterality 05/25/2005 10:27 05/25/2005 AM MATERIAL MOVERS 10:32 AM MATERIAL MOVERS Gill Hermosillo MD LABORATORY Performing Organization Address City/[facility]/ZIP Code Phon e Number [place] [address] [place], [place] [address] [address] [facility] (ABNORMAL) ALANINE AMINO (ALT) (SGPT) (05/25/2005 10:27 AM MATERIAL MOVERS) athologist Signature ALT 98 (H) 0 - 70 U/L [facility] Specimen Anatomical Collection Method Collection Time Receive d Time (Source) Location / / Volume Laterality 05/25/2005 10:27 05/25/2005 AM MATERIAL MOVERS 10:32 AM MATERIAL MOVERS Gill Hermosillo MD LABORATORY Performing Organization Address [facility]/ZIP Code Phon e [place] [facility] [address] [facility] [place] [address] [phone] [facility] (ABNORMAL) A.M.A. LIPID PANEL (05/25/2005 10:27 AM MATERIAL MOVERS) P athologist Signature Cholesterol 194 0 - 200 [facility] mg/dL CLINIC LAB Comment: LDL Cholesterol [...] mg/dL. Triglycerides 134 0 - 150 mg/dL [facility] HDL Cholesterol 37 (L) 40 - 110 mg/dL [facility] LDL Cholesterol Calculated 131 (H) 0 - 129 mg/dL [facility] Comment: LDL Cholesterol is the primary guide to therapy: LDL-cholesterol goal in high risk patients is <100 mg/dL and in very high risk patients is <70 mg/dL. VLDL-Cholesterol 27 0 - 30 mg/dL [facility] Cholesterol/HDL Ratio 5.2 (H) 0.0 - 5.0 [facility] Specimen Anatomical Collection Method Collection Time Receive d Time (Source) Location / / Volume Laterality 05/25/2005 10:27 05/25/2005 AM MATERIAL MOVERS 10:32 AM MATERIAL MOVERS Gill Hermosillo MD LABORATORY Performing Organization Address City/[facility]/ZIP Code Phon e Number [facility] [address] [place] [address] [phone] [facility] A.M.A. BASIC METABOLIC PANEL (05/25/2005 10:27 AM MATERIAL MOVERS) P athologist Signature Sodium 140 133 - 144 [facility] mmol/L CLINIC LAB Potassium 4.1 3.4 - 5.3 [place] mmol/L [facility]IC [facility] Chloride 103 94 - 109 [place] mmol/L [facility] Carbon Dioxide 29 20 - 32 [place] mmol/L [facility] LAB Anion Gap 9 6 - 17 [place] mmol/L [facility] LAB Glucose 94 60 - 110 [place] mg/dL [facility]IC LAB Urea Nitrogen 14 5 - 24 [place] mg/dL [facility]INIC LAB Creatinine 1.00 0.80 - [place] 1.50 mg/dL CLINIC LAB GFR Estimate >80 >60 [place] mL/min/1.7 [facility] LAB m2 GFR Estimate If >80 >60 [place] Black mL/min/1.7 [facility]IC LAB m2 Calcium 8.9 8.5 - 10.4 [place] mg/dL [facility]IC LAB Specimen Anatomical Collection Method Collection Time Receive d Time (Source) Location / / Volume Laterality 05/25/2005 10:27 05/25/2005 AM MATERIAL MOVERS 10:32 AM MATERIAL MOVERS Gill Hermosillo MD LABORATORY Performing Organization Address City/State/ZIP Code Phon e Number [facility] [place] [address] [place] [address] [facility] documented in this encounter Visit Diagnoses Diagnosis Routine general medical examination at a health care facility Other and unspecified hyperlipidemia Other diseases of lung, not elsewhere cl assified Nonspecific abnormal results of liver fu nction study documented in this encounter Care Teams Fashion Consultant Selling Relationship Specialty Start Date End Date Gill Hermosillo MD PCP - General 09/03/03 12/16/13 documented as of this encounter
--- OUTSIDE RECORDS SUMMARY | 2022-05-25 08:39 | XMS_ITS | Encounter Summary ---
:1960 Author Organization [facility] Address [address] [place] [address] Care Team Providers Name Role Phone Abel Hermosillo MD Primary Care Provider Encounter Details Date Type Department Care Team Description 06/08/2004 Abstract M [facility] Pamella Baron E[facility] SC[facility] [place] [place] [address] [place] [address] Social History Tobacco Use [...] . documented in this encounter Results TRIGLYCERIDES [[id number]] (06/08/2004) athologist Signature Triglycerides 369@ mg/dL [facility] Pamella Baron LABORATORY Performing Organization Address City/State/ZIP Code Phon e Number [facility] HDL CHOLESTEROL [[id number]] (06/08/2004) P athologist Signature HDL Cholesterol 28@ mg/dL [facility] Pamella Baron LABORATORY Performing Organization Address City/State/ZIP Code Phon e Number [facility] LDL-CHOLESTEROL [[id number]] (06/08/2004) P athologist Signature LDL Cholesterol 122@ mg/dL [facility] Calculated [facility] LABORATORY Performing Organization Address City/State/ZIP Code Phon e Number [facility] CHOLESTEROL [[id number]] (06/08/2004) P athologist Signature Cholesterol 224@ 115 - 199 [facility] mg/dL Pamella Baron LABORATORY Performing Organization Address City/State/ZIP Code Phon e Number [facility] documented in this encounter Visit Diagnoses Diagnosis DIAGNOSIS NOT YET DEFINED - Primary documented in this encounter Care Teams Center Lead Consultant Relationship Specialty Start Date End Date Abel Hermosillo MD PCP - General 09/03/03 12/16/13 documented as of this encounter
--- OUTSIDE RECORDS SUMMARY | 2022-05-25 08:39 | XMS_ITS | Encounter Summary ---
:1960 Author Organization [place] Address [facility] [place] [address] Care Team Providers Name Role Phone Cristobal [...] in contact with Yes 06/11/2021 8:20 AM EVENT COORDINATOR someone who was confirmed or suspected to have Coronavirus / COVID-19? documented as of this encounter Plan of Treatment Not on filedocumented as of this encounter Visit Diagnoses Not on filedocumented in this encounter Care Teams Velvet Cutter Relationship Specialty Start Date End Date Cristobal Wiggins MD PCP - General Family Practice 12/17/13 [facility] [address] [place] [address] Abel Hermosillo MD 12/17/13 documented as of this encounter
--- OUTSIDE RECORDS SUMMARY | 2022-05-25 08:39 | XMS_ITS | Encounter Summary ---
:1960 Author Organization [place] Address [address] [place] [address] Care Team Providers Name Role Phone Abel Hermosillo MD Primary Care Provider Reason for Visit Reason Comments Specimen Drop Off Encounter Details Date Type Department Care Team Description 06/01/[address] [facility] ROU YANETH MEDICAL EXAM [facility] [address] [address] Social History Tobacco Use [...] am Results for this GUAIAC STOOL (1-3 [facility] procedure are in SPEC) the results section. documented in this encounter Results OCCULT BLOOD, STOOL (1-3 SPEC) (06/01/2005 9:24 AM [facility]) P athologist Signature Occult Blood Negative NEG [facility] [place] Slide 1 [facility] Slide 1 Date 05/30/05 [facility] Occult Blood Negative NEG [facility] [place] Slide 2 [facility] Slide 2 Date 05/31/05 [facility] Occult Blood Negative NEG [facility] [place] Slide 3 [facility] Slide 3 Date 06/01/05 [facility] Specimen Anatomical Collection Method Collection Time Receive d Time (Source) Location / / Volume Laterality 06/01/2005 9:24 AM 5 9:29 [facility] AM [facility] Abel Hermosillo MD LABORATORY Performing Organization Address City/State/ZIP Code Phon e Number [facility] [address] [place], [place] [address] [address] [facility] documented in this encounter Visit Diagnoses Diagnosis Routine general medical examination at a health care facility documented in this encounter Care Teams Blast Setter Relationship Specialty Start Date End Date Abel Hermosillo MD PCP - General 09/03/03 12/16/13 documented as of this encounter
--- OUTSIDE RECORDS SUMMARY | 2022-05-25 08:39 | XMS_ITS | Encounter Summary ---
:1960 Author Organization [place] Address [facility] [place] [address] Care Team Providers Name Role Phone Cristobal Wiggins MD Primary Care Provider Abel Hermosillo MD Unavailable Reason for Visit Auth/Cert - Closed Specialty Diagnoses / Procedures Referred By Contact Refer red To Contact Gastroenterology Diagnoses Rectal Bleeding Rh Endoscopy Procedures COLONOSCOPY [address] [place] [address] Phone: Fax: Referral ID Status Reason Start Date Expiration Date Visits Requ ested Visits Authorized [id number] Closed 1 1 Encounter Details Date Type Department Care Team Description 08/19/2014 [facility] Endoscopy Sree Evans MD Colonoscopy [place] [facility] [address] [facility] [address] [place] [address] [place] [address] [phone] (Wo rk) Surgery Details Date/Time Status Location OR Service Patient Class Case Case Trauma Class Type Case? 08/19/14 4:00 Posted RH GI GI B [facility]-Rectal Outpatient PM Panel 1 Procedure LRB Anes Op Region Wound Class Commen ts Colonoscopy N/A Conscious Sedation Rectum II-Clean Contami nated Colonoscopy Surgeon Surgeon Role Service Panel Sree Conway MD Primary [place]-Rectal 1 Special Needs Cristobal Wiggins documented in [...] Comments Blood Pressure 134/89 08/19/2014 4:30 PM TELEVISION PRESENTER Pulse - - Temperature - - Respiratory Rate 16 08/19/2014 4:30 PM TELEVISION PRESENTER Oxygen Saturation 96% 08/19/2014 4:30 PM TELEVISION PRESENTER Inhaled Oxygen Concentration - - Weight 86.2 kg (190 lb) 08/19/2014 3:02 PM TELEVISION PRESENTER Height 172.7 cm (5' 8) 08/19/2014 3:02 PM TELEVISION PRESENTER Body Mass Index 28.89 08/19/2014 3:02 PM TELEVISION PRESENTER documented in this encounter Medications at Time [...] Sree Conway August 19, 2014 Colorectal Surgery [phone] (office) [phone] (pager) [email or web address] VISION PRESENTER documented in this encounter Plan of Treatment Not on filedocumented as of this encounter Procedures Procedure Name Priority Date/Time Associated Diagnosis Donya ballard COLONOSCOPY 08/19/2014 3:16 PM TELEVISION PRESENTER Rectal Bleeding Special Needs Cristobal Wiggins COLONOSCOPY Routine 08/19/2014 3:14 PM TELEVISION PRESENTER Resul ts for this procedure are in the results section . documented in this encounter Results COLONOSCOPY (08/19/2014 3:14 PM TELEVISION PRESENTER) [facility] Time Signature COLONOSCOPY [facility] RAD IOLOGY RESULTS Patient Name: Jacob Logan ? Procedure Date: 08/19/2014 3:14 PM ? Accou nt Number: [id number] Date of : 1960 ?Admit Type: Out [...] and ?oxygen saturations were monitored continuously. The ?[id number] was introduced through the anus ?and advanced [...] Procedure Code(s): ? --- Professional --- ? 29788, Colonoscopy, flexible, proximal to splenic flexure; diagnostic, ? with or without collection of specimen(s) by brushing or washing, with ? or without colon decompression (separate procedure) Diagnosis Code(s): ? --- Professional --- ? 569.3, Hemorrhage of rectum and anus CPT copyright 2013 [employer]. All rights reserved. The codes documented in this report are prelimin imani and upon otr flatbed driver review may be revised to meet current compliance requirements. Sree Conway MD 08/19/2014 3:59 PM Number of Addenda: 0 Note Initiated On: 08/19/2014 3:14 PM MRN: ?[id number] Procedure Date: ? 08/19/2014 3:14:17 PM Scope Withdrawal Time: 0 hours 9 minutes 23 seconds Total Procedure Duration: 0 hours 13 minutes 11 seconds Scope In: 3:41:07 PM Scope Out: 3:54:18 PM Specimen (Source) Anatomical Collection Method Collection Time Re ceived Time Location / / Volume Laterality 08/19/2014 3:14 PM TELEVISION PRESENTER Cristobal Wiggins MD PROCEDURES Performing Organization Address City/State/ZIP Code Phon e Number RADIOLOGY RESULTS documented in this encounter Visit Diagnoses Not on filedocumented in this encounter Administered Medications Inactive Administered Medications - up to 3 most recent administrations Medication Order MAR Action Action Date Dose Rate Site fentaNYL (SUBLIMAZE) injection Given 08/19/2014 3:42 PM TELEVISION PRESENTER 50 mcg PRN, Starting on Mon08/19/14 at 1539, Intra-procedure Given 08/19/2014 3:39 PM TELEVISION PRESENTER 100 mcg glucagon injection Given 08/19/2014 3:46 PM TELEVISION PRESENTER 0.5 mg PRN, Starting on Mon08/19/14 at 1546, Intra-procedure midazolam (VERSED) injection Given 08/19/2014 3:41 PM TELEVISION PRESENTER 1 mg PRN, Starting on Mon08/19/14 at 1540, Intra-procedure Given 08/19/2014 3:40 PM TELEVISION PRESENTER 2 mg documented in this encounter Active and Recently Administered Medications Times are shown in TELEVISION PRESENTER. PRN Medication Order 08/17/2014 08/18/2014 08/19/2014 fentaNYL (SUBLIMAZE) injection (CANCELED) 1539 (Given - Provider: Fariba Nicholas, RN)1542 (Given - Provider: Fariba Nicholas, RN) PRN, Starting 08/19/14 at 1539, Intra-procedure glucagon injection (CANCELED) 15 46 (Given - Provider: Fairba Nicholas RN) PRN, Starting 08/19/14 at 1546, Intra-procedure midazolam (VERSED) injection (CANCELED) 1540 (Given - Provider: Fariba Nicholas RN)1541 (Given - Provider: Fariba Nicholas RN) PRN, Starting 08/19/14 at 1540, Intra-procedure documented in this encounter Care Teams Fleet Manager Relationship Specialty Start Date End Date Cristobal Wiggins MD PCP - General Family Practice 12/17/13 [facility] [address] [place] [address] Abel Hermosillo MD 12/17/13 documented as of this encounter
--- OUTSIDE RECORDS SUMMARY | 2022-05-25 08:39 | XMS_ITS | Encounter Summary ---
:1960 Author Organization [place] Address [facility] [place] [address] Care Team Providers Name Role Phone Cristobal Wiggins MD Primary Care Provider Abel Hermosillo MD Unavailable Reason for Visit Reason Onset Date Comments Lipids 01/16/2014 Encounter Details Date Type Department Care Team Description 01/16/2014 Telephone [facility] Gifty Seals APRN Lipids [facility] 4th Floor, Clinic [address] [place] [phone] Social History Tobacco Use Types Packs/Day [...] on filedocumented in this encounter Care Teams Dental Aide Relationship Specialty Start Date End Date Cristobal Wiggins MD PCP - General Family Practice 12/17/13 [facility] [address] [place] [address] Abel Hermosillo MD 12/17/13 documented as of this encounter
--- OUTSIDE RECORDS SUMMARY | 2022-05-25 08:39 | XMS_ITS | Encounter Summary ---
:1960 Author Organization [place] Address [address] [place] [address] Care Team Providers Name Role Phone Cristobal Wiggins MD Primary Care Provider Abel Hermosillo MD Unavailable Reason for Visit Reason Comments Lipids Encounter Details Date Type Department Care Team Description 12/31/2013 Office Visit Gifty Tenorio [place] [facility] ARLIN Underwood (Primar y Dx) Heart [facility] 4th Floor, Clinic [address] [address] Social History Tobacco Use Types [...] Medium Reason For Visit Patient here for [facility] early detection of atherosclerosis and CVD exam. 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 We discussed laboratory results today including lipids [...] Range Method Time Signature Creatinine 59 mg/dL [facility] Urine [facility] Albumin Urine <5 mg/L [facility] mg/L Urine Microalbumin lowest re portable value has been changed from 2 mg/L to 5 [facility] mg/L due to a methodology change on September. [facility] Albumin Urine Unable to 0 - 17 [facility] mg/g Cr calculate mg/g Cr [facility] Specimen Anatomical Collection Method Collection Time Receive d Time (Source) Location / / Volume Laterality Urine specimen 12/31/2013 10: 4 (specimen) AM CDT 10:07 AM CDT Gifty Seals ROLLER HELPER OPHTHALMIC TECHNICIAN APPRENTICE LAB - URINE ORDERABLES Performing Organization Address City/State/ZIP Code Phon e Number [facility] [address] [place], [place] [phone] [place] [address] LABS AST (12/31/2013 10:05 AM CDT) P athologist Signature AST 38 0 - 45 U/L [facility] Specimen Anatomical Collection Method Collection Time Receive d Time (Source) Location / / Volume Laterality 12/31/2013 10:05 12/31/2013 AM CDT 10:06 AM CDT Gifty Seals APRN, CNP LAB - BLOOD ORDERABLES Performing Organization Address City/[facility]/ZIP Code Phon e Number [facility] [address] LABS ALT (12/31/2013 10:05 AM CDT) P athologist Signature ALT 37 0 - 70 U/L [facility]S Specimen Anatomical Collection Method Collection Time Receive d Time (Source) Location / / Volume Laterality 12/31/2013 10:05 12/31/2013 AM CDT 10:06 AM CDT Gifty Seals APRN, CNP LAB - BLOOD ORDERABLES Performing Organization Address City/[facility]/ZIP Code Phon e Number [facility] [address] LABS (ABNORMAL) Glucose (12/31/2013 10:05 AM CDT) P athologist Signature Glucose 105 (H) 60 - 99 [facility] mg/dL [facility] Specimen Anatomical Collection Method Collection Time Receive d Time (Source) Location / / Volume Laterality Blood specimen 12/31/2013 10:05 4 (specimen) AM CDT 10:06 AM CDT Gifty Seals APRN, CNP LAB - BLOOD ORDERABLES Performing Organization Address City/[facility]/ZIP Code Phon e Number [facility] [address] [place], [place] [phone] [place] [address] LABS CRP cardiac risk (12/31/2013 10:05 AM CDT) P athologist Signature CRP Cardiac 0.9 mg/L [facility] Risk [facility] Comment: Reference Values: Low Risk: ? <1.0 mg/L Average Risk: ? 1.0-3.0 mg/L High Risk: ?>3.0 mg/L Acute Inflammation: >8.0 mg/L Specimen Anatomical Collection Method Collection Time Receive d Time (Source) Location / / Volume Laterality Blood specimen 12/31/2013 10:05 4 (specimen) AM CDT 10:06 AM CDT Gifty Yasmine Arnel ROLLER HELPER OPHTHALMIC TECHNICIAN APPRENTICE LAB - BLOOD ORDERABLES Performing Organization Address [facility]/ZIP Code Phon e Number [facility] [address] [place] [address] [facility] LABS N terminal pro BNP outpatient (12/31/2013 10:05 AM CDT) athologist Signature N-Terminal Pro 34 0 - 125 [facility] Bnp pg/mL CAMPUS LABS Comment: Reference range [...] CDT 10:06 AM CDT Gifty Seals APRN OPHTHALMIC TECHNICIAN APPRENTICE LAB - BLOOD ORDERABLES Performing Organization Address [facility] Code Phon e Number [facility] [address] [place] [address] [facility] LABS (ABNORMAL) Lipid panel reflex to direct LDL (12/31/2013 10:05 AM CDT) athologist Signature Cholesterol 215 (H) <200 mg/dL [facility] LABS Comment: LDL Cholesterol is the primary guide to therapy. The NCEP recommends further evaluation of: patients with cholesterol greater than 200 mg/dL if additional risk facto rs are present, cholesterol greater than 240 mg/dL, triglycerides greater than 1 50 mg/dL, or HDL less than 40 mg/dL. Triglycerides 349 (H) 0 - 150 mg/dL [facility] LABS HDL Cholesterol 43 >40 mg/dL [facility] LAB[facility] LDL Cholesterol Calculated 102 0 - 129 mg/dL [facility] Comment: LDL Cholesterol is the primary guide to therapy: LDL-cholesterol goal in high risk patients is <100 mg/dL and in very high risk patients is <70 mg/dL. VLDL-Cholesterol 70 (H) 0 - 30 mg/dL [facility] Cholesterol/HDL Ratio 5.0 0.0 - 5.0 [facility] Specimen Anatomical Collection Method Collection Time Receive d Time (Source) Location / / Volume Laterality Blood specimen 12/31/2013 10:05 4 (specimen) AM CDT 10:06 AM CDT Gifty Seals APRN, CNP LAB - BLOOD ORDERABLES Performing Organization Address City/[facility]/ZIP Code Phon e Number [facility] [address] [place] [address] [facility] LABS EKG 12-lead, tracing only (Same Day) (12/31/2013 9:53 AM CDT) [facility] gist Method Time Signature Interpretation ECG Click View RADIOLOGY Image link RESULTS to view waveform and result Specimen (Source) Anatomical Collection Method Collection Time Re ceived Time Location / / Volume Laterality 12/31/2013 9:53 AM CDT Gifty Seals APRN OPHTHALMIC TECHNICIAN APPRENTICE ECG ORDERABLES Performing Organization Address City/[facility]/ZIP Code Phon e Number RADIOLOGY RESULTS Spirometry, Breathing Capacity (in clinic) (12/31/2013) P athologist Signature FEV-1 FVC FEV1/FVC FEF 25/75 Narrative This result has an attachment that is no t available. Gifty Seals APRN OPHTHALMIC TECHNICIAN APPRENTICE PROCEDURES US VASCULAR - HIM SCAN (12/31/2013 [...] hyperglyceridemia documented in this encounter Care Teams Rigging Worker Relationship Specialty Start Date End Date Cristobal Wiggins MD PCP - General Family Practice 12/17/13 [facility] [address] [place] [address] Abel Hermosillo MD 12/17/13 documented as of this encounter
--- OUTSIDE RECORDS SUMMARY | 2022-05-25 08:39 | XMS_ITS | Encounter Summary ---
:1960 Author Organization [place] Address [facility] [place] [address] Care Team Providers Name Role Phone Cristobal Wiggins MD Primary Care Provider Abel Hermosillo MD Unavailable Encounter Details Date Type Department Care Team Description 12/26/2013 [facility] Only [facility] Screening for [facility] [place] [facility] ARLIN Underwood LOGISTICS PROJECT MANAGER unspe cified Heart cardiovascular conditions Pritesh García (Primar y Dx) Building 4th Floor, Clinic [address] [address] Social History Tobacco Use Types Packs/Day Years Used Date Smoking Tobacco: Never Assessed Sex Assigned at Date Recorded Not on file documented as of this encounter Plan of Treatment Not on filedocumented as of this encounter Visit Diagnoses Diagnosis Screening for other and unspecified card iovascular conditions - Primary documented in this encounter Care Teams Health Equipment Servicer Relationship Specialty Start Date End Date Cristobal Wiggins MD PCP - General Family Practice 12/17/13 [facility] [address] [place] [address] Abel Hermosillo MD 12/17/13 documented as of this encounter
--- OUTSIDE RECORDS SUMMARY | 2022-05-25 08:39 | XMS_ITS | Encounter Summary ---
:1960 Author Organization [place] Address [address] [place] [address] Care Team Providers Name Role Phone Cristobal Wiggins MD Primary Care Provider Abel Hermosillo MD Unavailable Reason for Visit Reason Onset Date Comments Refill Request 10/15/2014 Encounter Details Date Type Department Care Team Description 10/15/2014 Refill [facility] Gifty Seals APRN Refill Request Physicians [facility] 4th Floor, Clinic [address] [place] [phone] Social History Tobacco Use Types Packs/Day [...] hyperglyceridemia documented in this encounter Care Teams Resizer Operator Relationship Specialty Start Date End Date Cristobal Wiggins MD PCP - General Family Practice 12/17/13 [facility] [address] [place] [address] Abel Hermosillo MD 12/17/13 documented as of this encounter
--- OUTSIDE RECORDS SUMMARY | 2022-05-25 08:39 | XMS_ITS | Encounter Summary ---
:1960 Author Organization [place] Address [address] [place] [address]. [place] [address] Care Team Providers Name Role Phone Cristobal Wiggins MD Primary Care Provider Abel Hermosillo MD Unavailable Reason for Referral Diagnostic Imaging XR - Closed Specialty Diagnoses / Procedures Referred By Contact Refer red To Contact Radiology. Diagnoses Dysphagia, unspecified type Chapito Reed, Nicolas Xray Rscc Procedures XR Upper GI without KUB XR Esophagram [address] [facility] [address] [place], [place] [phone] Fax: Fax: Referral ID Status Reason Start Date Expiration Date Visits Requ ested Visits Authorized [id number] Closed 08/22/2017 08/22/2018 1 1 LER HAND Reason for Visit Diagnostic Imaging XR - Closed Specialty Diagnoses / Procedures Referred By Contact Refer red To Contact Radiology. Diagnoses Dysphagia, unspecified type Chapito Reed, Rh Xray Rscc Procedures XR Upper GI without KUB XR Esophagram [address] [facility] [address] [place], [place] [phone] Fax: Fax: Referral ID Status Reason Start Date Expiration Date Visits Requ ested Visits Authorized [id number] Closed 08/22/2017 08/22/2018 1 1 Encounter Details Date Type Department Care Team Description 08/24/2017 Hospital Encounter [facility] Chapito Fagan Dysphagia, [facility] MD George unspecified type [address] [facility] [address] [place], [place] [address] [phone] ANAHI HUYNH [phone] [address] Social History Tobacco Use Types Packs/Day Years [...] AM Dysphagia, Re sults for this KUB DRILLER HAND unspecified type procedure a re in the results section. documented in this encounter Results XR Upper GI without KUB (08/24/2017 8:01 AM DRILLER HAND) Anatomical Region Laterality Modality Abdomen/Pelvis Radio Fluoroscopy Specimen (Source) Anatomical Location Collection Method / Collectio n Time Received Time / Laterality Volume Impressions 08/24/2017 8:42 AM DRILLER HAND IMPRESSION: Normal upper gastrointestinal study using double contrast. ANAND GARCIA MD Narrative 08/24/2017 8:42 AM DRILLER HAND UPPER GASTROINTESTINAL STUDY USING DOUBLE CONTRAST ?? [...] (EZ PAQUE) oral Given 08/24/2017 8:00 AM DRILLER HAND suspension 96% Oral, ONCE, On Estrellita 08/24/17 at 0800, For 1 dose barium sulfate (EZ-HD) oral suspension 98% Given 08/24/2017 8:00 AM DRILLER HAND 120 mLs 120 mL Oral, ONCE, On Estrellita 08/24/17 at 0800, For 1 dose sod bicarbonate-citric acid-simethicone (EZ GAS) Given 08/24/2017 8:00 AM DRILLER HAND 4 g 2.21-1.53-0.04 G packet 4 g 4 g, Oral, ONCE, On Estrellita 08/24/17 at 0800, For 1 dose, supplied by radiology documented in this encounter Care Teams Supervisor Offset Plate Preparation Relationship Specialty Start Date End Date Cristobal Wiggins MD PCP - General Family Practice 12/17/13 [facility] [address] [place] [address] Abel Hermosillo MD 12/17/13 documented as of this encounter
--- OUTSIDE RECORDS SUMMARY | 2022-05-25 08:39 | XMS_ITS | Encounter Summary ---
:1960 Author Organization [place] Address [address] [place] [address] Care Team Providers Name Role Phone Abel Hermosillo MD Primary Care Provider Reason for Visit Reason Onset Date Comments Results 06/13/2005 Encounter Details Date Type Department Care Team Description 06/13/2005 Telephone [facility] Abel Hermosillo MD Results [place] [address] [facility] [address] [place] [address] [facility] [address] [place] [address] [phone] Social History Tobacco Use Types Packs/Day Years Used Date Smoking Tobacco: Never Alcohol Use Standard Drinks/Week Comments Yes 10 (1 standard drink = 0.6 oz pure alcoh ol) 5-6 beers/week Sex Assigned at Date Recorded Not on file documented as of this encounter Miscellaneous Notes Telephone Encounter - Marcie Phelps - 06/16/2005 2:05 PM CST Letter and results mailed again. CTION PREVENTION COORDINATOR Telephone Encounter - Abel Hermosillo - 06/15/2005 12:59 PM CST Addressed in letter that should have been mailed already. CTION PREVENTION COORDINATOR Telephone Encounter - Marcie Phelps - 06/13/2005 2:16 PM CST Pt given lab results from 05/25/05. ALT elevated. Had 4 beers the noc before labs done. Started Niaspan 500mg daily x 10 days ago. Next step? Please advise, thanks. (Pt is out of town until after the of the year.) CTION PREVENTION COORDINATOR documented in this encounter Plan of Treatment Not on filedocumented as of this encounter Visit Diagnoses Not on filedocumented in this encounter Care Teams Skein Straightener Relationship Specialty Start Date End Date Abel Hermosillo MD PCP - General 09/03/03 12/16/13 documented as of this encounter
--- OUTSIDE RECORDS SUMMARY | 2022-05-25 08:40 | XMS_ITS | Encounter Summary ---
:1960 Author Organization [facility] Address [address] [place] [address] Care Team Providers Name Role Phone DoctorLauryn MD Primary Care Provider Unavailable Encounter Details Date Type Department Care Team Description 07/19/2002 Abstract [facility] Morena Peralta, Brittany [address] [place] [address] Social History Tobacco Use [...] on filedocumented in this encounter Care Teams Explosive Operator Fuse Relationship Specialty Start Date End Date Lauryn Pleitez MD PCP - General 08/24/01 09/02/03 documented as of this encounter
--- OUTSIDE RECORDS SUMMARY | 2022-05-25 08:40 | XMS_ITS | Encounter Summary ---
:1960 Author Organization [facility] Address [address] [place] [address] Care Team Providers Name Role Phone Doctor, None MD Primary Care Provider Unavailable Reason for Visit Reason Comments Physical Encounter Details Date Type Department Care Team Description 07/22/2002 Office Visit [facility] Luis Daniel Glez [facility] Morena Hinojosa MD (Primary Dx) [address] [place] [address] Social History Tobacco Use Types Packs/Day Years Used Date Smoking Tobacco: Never Assessed Sex Assigned at Date Recorded Not on file documented as of this encounter Last Filed Vital Signs Vital Sign Reading Time Taken Comments Blood Pressure 114/74 07/22/2002 8:30 AM RN CASE MANAGEMENT Pulse 72 07/22/2002 8:30 AM RN CASE MANAGEMENT Temperature - - Respiratory Rate - - Oxygen Saturation - - Inhaled Oxygen Concentration - - Weight 88 kg (194 lb) 07/22/2002 8:30 AM RN CASE MANAGEMENT Height - - Body Mass Index - - documented in this encounter Progress Notes 07/22/2002 8:30 AM RN CASE MANAGEMENT Identification: Mr. Jacob Logan is a 42 [...] Routine Medical R esults for this ANTIGEN,SCREEN RN CASE MANAGEMENT Exam procedure are in the results section. HCL HEPATIC PANEL Routine 07/22/2002 8:47 AM Routine Medical R esults for this RN CASE MANAGEMENT Exam procedure are i n the results section. HCL BASIC METABOLIC Routine 07/22/2002 8:47 AM Routine Medical Results for this PANEL RN CASE MANAGEMENT Exam procedure are i n the results section. HCL CHOLESTEROL Routine 07/22/2002 8:47 AM Routine Medical Res ults for this RN CASE MANAGEMENT Exam procedure are i n the results section. documented in this encounter Results PROSTATE SPEC ANTIGEN,SCEEN (07/22/2002 8:47 AM RN CASE MANAGEMENT) athologist Signature PSA 0.7 0 - 4 ug/L [facility] Specimen Anatomical Collection Method Collection Time Receive d Time (Source) Location / / Volume Laterality 07/22/2002 8:47 AM 3 8:48 RN CASE MANAGEMENT AM RN CASE MANAGEMENT Luis Daniel Glez MD LABORATORY Performing Organization Address City/[facility]/ZIP Code Phon e Number [facility] [address] [place] [address] [place] [address] [facility] BASIC METABOLIC PANEL (07/22/2002 8:47 AM RN CASE MANAGEMENT) athologist Signature Sodium 142 133 - 144 [place] mmol/L [facility] Potassium 4.5 3.4 - 5.3 [place] mmol/L [facility] Chloride 107 94 - 109 [place] mmol/L [facility] Carbon Dioxide 29 20 - 32 [place] mmol/L [facility] Anion Gap 6 6 - 17 [facility]L [facility] Glucose 107 60 - 115 [place] mg/dL [facility] Urea Nitrogen 18 5 - 24 [place] mg/dL [facility] Creatinine 1.0 0.8 - 1.5 [place] mg/dL [facility] Calcium 8.8 8.5 - 10.4 [place] mg/dL [facility] Specimen Anatomical Collection Method Collection Time Receive d Time (Source) Location / / Volume Laterality 07/22/2002 8:47 AM 3 8:48 RN CASE MANAGEMENT AM RN CASE MANAGEMENT Luis Dainel Glez MD LABORATORY Performing Organization Address City/State/ZIP Code Phon e Number [facility] [address] [place] [address] [facility] HEPATIC PANEL (07/22/2002 8:47 AM RN CASE MANAGEMENT) athologist Signature Bilirubin 0.0 0.0 - 0.3 [place] Conjugated mg/dL [facility] Bilirubin Delta 0.0 0.0 - 0.4 [place] mg/dL [facility] Bilirubin Total 0.6 0.2 - 1.3 [place] mg/dL [facility] Albumin 4.1 3.3 - 4.6 [place] g/dL [facility] Protein Total 7.6 6.0 - 8.2 [place] g/dL [facility] Alkaline 62 40 - 150 [place] Phosphatase U/L [facility] ALT 58 0 - 70 U/L [facility] AST 47 0 - 55 U/L [facility] Specimen Anatomical Collection Method Collection Time Receive d Time (Source) Location / / Volume Laterality 07/22/2002 8:47 AM 3 8:48 RN CASE MANAGEMENT AM RN CASE MANAGEMENT Luis Daniel Glez MD LABORATORY Performing Organization Address [facility] Phon e Number [facility] [address] [place] [address] [facility] CHOLESTEROL (07/22/2002 8:47 AM RN CASE MANAGEMENT) athologist Signature Cholesterol 152 <200 mg/dL [facility] Comment: Cholesterol Reference Range: <200 ??The [...] Volume Laterality 07/22/2002 8:47 AM 3 8:48 RN CASE MANAGEMENT AM RN CASE MANAGEMENT Luis Daniel Glez MD LABORATORY Performing Organization Address [facility] Phon e Number [facility] [address] [place] [address] [facility] documented in this encounter Visit Diagnoses Diagnosis [facility]ine [facility] - Primary documented in this encounter Care Teams Bus And Trolley Dispatcher Relationship Specialty Start Date End Date Doctor, None, PCP - General 08/24/01 09/02/03 documented as of this encounter
[2022-05-25 16:14] LABS: Uric Acid* 6.3 mg/dL (2.2-8.4)
== END 2022-05-25 08:35 | disposition home or self-care (01) ==
LOC: LONREF 08:36
PROVIDERS: PCP Family Medicine; Visit Provider Family Medicine
DX: M79.676 Pain in unspecified toe(s) (principal)
CPT/HCPCS: 84550

== ENCOUNTER 2022-05-25 14:05 | Outpatient (CLI) | payer OTHER, SELFPAY ==
--- OUTSIDE RECORDS SUMMARY | 2022-05-25 07:57 | XMS_ITS | Encounter Summary ---
:1960 Author Organization [facility] Address [address] [place] [id number] Care Team Providers Name Role Phone Elsewhere, Pcp Primary Care Provider Unavailable Encounter Details Date Type Department Care Team Description 08/26/2021 Documentation Preoperative Evaluation Russell Humphreys, [place] [facility] [address] [facility] [address] [place] [phone] Social History Tobacco Use Types Packs/Day Years Used Date Smoking Tobacco: Never Smokeless Tobacco: Never Alcohol Use Standard Drinks/Week Comments Yes 4 (1 standard drink = 0.6 oz pure alcoho l) Alcohol Habits Answer Date Recorded How often do you have a drink containing alcohol? 2-3 times a week 08/13/2021 How many drinks containing alcohol do you have on a 1 or 2 08/13/2021 typical day when you are drinking? How often do you have six or more drinks on one Never 08/13/2021 occasion? Social Isolation Answer Date Recorded In a typical week, how many times do you More than three yanely es a week 08/13/2021 talk on the phone with family, friends, or neighbors? How often do you get together with friends More than three t imes a week 08/13/2021 or relatives? How often do you attend yazidism or More than 4 times per year 08/13/2021 alevism services? Do you belong to any clubs or Yes 08/13/2021 organizations such as yazidism groups, unions, fraternal or athletic groups, or school groups? How often do you attend meetings of the More than 4 times pe r year 08/13/2021 clubs or organizations you belong to? Are you now , , , 08/13/2021 , never or living with a partner? Physical Activity Answer Date Recorded On average, how many days per week do you engage in moderate to 3 days 08/13/2021 strenuous exercise (like walking fast, running, jogging, dancing, swimming, biking, or other activities that cause a light or heavy sweat)? On average, how many minutes do you engage in exercise at th is 40 min 08/13/2021 level? Stress Answer Date Recorded Do you feel stress - tense, restless, nervous, or anxious, N ot at all 08/13/2021 or unable to sleep at night because your mind is troubled all the time - these days? Financial Resource Strain Answer Date Recorded How hard is it for you to pay for the very basics like food, Very hard 08/13/2021 housing, medical care, and heating? Intimate Partner Violence Answer Date Recorded Within the last year, have you been afraid of your partner o r No 08/13/2021 ex-partner? Within the last year, have you been humiliated or emotionall y No 08/13/2021 abused in other ways by your partner or ex-partner? Within the last year, have you been kicked, hit, slapped, or No 08/13/2021 otherwise physically hurt by your partner or ex-partner? Within the last year, have you been raped or forced to have any No 08/13/2021 kind of sexual activity by your partner or ex-partner? Food Insecurity Answer Date Recorded Within the past 12 months, you worried that your food would Never true 08/13/2021 run out before you got money to buy more. Within the past 12 months, the food you bought just didn't N ever true 08/13/2021 last and you didn't have money to get more. Transportation Needs Answer Date Recorded In the past 12 months, has lack of transportation kept you f rom No 08/13/2021 medical appointments or from getting medications? In the past 12 months, has lack of transportation kept you f rom No 08/13/2021 meetings, work, or getting things needed for daily living? Housing Stability Answer Date Recorded In the last 12 months, was there a time when you were not No 08/13/2021 able to pay the mortgage or rent on time? In the last 12 months, how many places have you lived? Not a sked In the last 12 months, was there a time when you did not hav e Yes 08/13/[address] or slept in a correction (including now)? Education Answer Date Recorded What is the highest level of school Bachelor's degree (e.g., BA, AB, 08/12/2021 you have completed or the highest BS) degree you have received? 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 - 08/26/2021 3:38 PM CST There was a complete review of the EMR (Electronic Medical Record) to ascertain if a HAYDEN (Pre-Op Exam) appointment is needed. Scheduled for ROBOTIC-ASSISTED RADICAL PROSTATECTOMY;ROBOTIC-ASSISTED DISSECTION LYMPH NODE - PELVIC on 11/03/[address] Dr[address] Sai Hernandez. The following portions of the patient's history were reviewed and updated as appropriate: current medications, medical history, surgical history, and problem list. Patient has a noted dated 08/17/2021 by Cheryle Rain APRN, CNP that contains all the pertinent information. Based upon information available in the EMR, patient can proceed directly to the OR (operating room) for the planned procedure. Physical exam to be done by anesthesia the morning of procedure. If the patient is on anticoagulation or antiplatelet agents, perioperative management is arranged bythe surgical service as indicated. The patient should skip all oral anti-diabetic agents, KIRT (rkgmjatpipr-wrmjmoayhr-nhwkey) inhibitors, diuretics, ARB's (angiotensin receptor blockers) and tobacco products on the day of the procedure. This is a HAYDEN pre-screening note. The patient was not seen in HAYDEN. OLOGY HOSPITALIST documented in this encounter Plan of Treatment Not on filedocumented as of this encounter Visit Diagnoses Not on filedocumented in this encounter Care Teams Plant Physiology Teacher Relationship Specialty Start Date End Date Elsewhere, Pcp PCP - General Internal Medicine 08/17/21 documented as of this encounter
--- OUTSIDE RECORDS SUMMARY | 2022-05-25 07:57 | XMS_ITS | Encounter Summary ---
:1960 Author Organization [facility] Address [address] [place] [address] Care Team Providers Name Role Phone Elsewhere, Pcp Primary Care Provider Unavailable Reason for Visit Reason Comments Rx Prior Authorization PA DENIED TADALAFIL 5 MG TAB Encounter Details Date Type Department Care Team Description 11/19/2021 Clinical Communication Pharmacy Prior Auth Onesimo Batista Rx Prior KYLE [phone] Authorization (KAY DENIED TADALAFI L 5 MG TAB) Social History Tobacco Use Types Packs/Day Years [...] or relatives? How often do you attend christianity or More than 4 times per year 08/13/2021 pentecostal services? Do you belong to any clubs or Yes 08/13/2021 organizations such as christianity groups, unions, fraternal or athletic groups, or [...] place to sleep or slept in a prison (including now)? Education Answer Date Recorded What is the highest level of school Bachelor's degree (e.g., BA, AB, 08/12/2021 you have completed or the highest BS) degree you have received? 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 The patient's health insurer has denied prior authorization for [TADALAFIL 5 MG TAB]. A quick view of the denial reason is in this communication message. To view the denial letter: 1. Go to Snapshot 2. Go to the purple Medications box 3. Click on the blue Prior Authorizations link 4. Under Denied, click on the blue medication link to open and view the attachment. As the prescriber your options are: ??? Appeal the decision to the insurer directly (see denial letter for how to appeal). ??? Write a new Rx for an alternative medication therapy. ??? Release the Rx to the pharmacy so the patient can pay out of pocket if they desire. To Release Rx: Open this encounter, go to Meds & Orders, click on the medication, and click the blue ???Release Rx?? button. PLEASE NOTE: If the ???Release Rx?? button is not visible, the Rx has already been released to the pharmacy. If you have questions, please reply via QuickNote to Lauro CROSS. Thank you, The OPPA Team documented in this encounter Plan of Treatment Not on filedocumented as of this encounter Visit Diagnoses Not on filedocumented in this encounter Care Teams Moulder Operator Relationship Specialty Start Date End Date Elsewhere, Pcp PCP - General Internal Medicine 08/17/21 documented as of this encounter
--- OUTSIDE RECORDS SUMMARY | 2022-05-25 07:57 | XMS_ITS | Encounter Summary ---
:1960 Author Organization [facility] Address [address] [place] [address] Care Team Providers Name Role Phone Elsewhere, Pcp Primary Care Provider Unavailable Reason for Referral Outpatient (Routine) - Closed Specialty Diagnoses / Procedures Referred By Contact Refer red To Contact Diagnoses Primary Malignant Neoplasm Of Prostate (HCC) Domenico Soler M.D., [facility] Procedures URO Urethral cath fill / remove / voiding trial (fill / pull) [facility] [address] [place] [address] Referral ID Status Reason Start Date Expiration Date Visits Requ ested Visits Authorized [id number] Closed 11/04/2021 11/04/2022 1 1 Reason for Visit Auth/Cert Specialty Diagnoses / Procedures Referred By Contact Refer red To Contact Diagnoses Primary Malignant Neoplasm Of Prostate (HCC) Procedures FL LAP PROSTEC RETROPUBIC RADCL FL LAPROSC BILAT TOT PELV LMPHADEC ROBOTIC-ASSISTED RADICAL PROSTATECTOMY ROBOTIC-ASSISTED DISSECTION LYMPH NODE - PELVIC Referral ID Status Reason Start Date Expiration Date Visits Requ ested Visits Authorized [id number] 1 1 Encounter Details Date Type Department Care Team Description 11/03/2021 - Hospital Encounter [facility] Sai Hernandez, Primary Malignant Neoplasm Of Prostate (HCC) (Primary Dx); 11/04/2021 Chiquita Joseph M.D. Primary Malignant Neoplasm Of Prostate ( HCC) [facility] [address] [facility] [address] [place], [place] Floor [address] [address] [facility] [phone] [place], [place] (Work) [phone] Social History Tobacco Use Types Packs/Day Years [...] or relatives? How often do you attend muslim or More than 4 times per year 08/13/2021 [employer]? Do you belong to any clubs or Yes 08/13/2021 organizations such as muslim groups, unions, fraternal or athletic groups, or [...] place to sleep or slept in a chcf (including now)? Education Answer Date Recorded What is the highest level of school Bachelor's degree (e.g., BA, AB, 08/12/2021 you have completed or the highest BS) degree you have received? Sex Assigned at Date Recorded Male 08/12/2021 8:37 PM [employer] documented as of this encounter Last Filed Vital Signs Vital Sign Reading Time Taken Comments Blood Pressure 140/66 11/04/2021 10:14 AM CDT Pulse 90 11/04/2021 10:14 AM CDT Temperature 36.9 ??C (98.4 ??F) 11/04/2021 10:14 AM CDT Respiratory Rate 15 11/04/2021 10:14 AM CDT Oxygen Saturation 99% 11/04/2021 10:14 AM CDT Inhaled Oxygen Concentration - - Weight 91.6 kg (201 lb 15.1 oz) 11/03/2021 10:27 AM CDT Height 167 cm (5' 5.75) 11/03/2021 10:27 AM CDT Body Mass Index 32.84 11/03/2021 10:27 AM CDT documented in this encounter Discharge Summaries Domenico Soler M.D. - 11/04/2021 9:59 AM CDT DISCHARGE SUMMARY BRIEF OVERVIEW Hospital: [facility] Discharge Provider: Sai Hernandez M.D. Primary Team: [facility] Primary Care Providers: Elsewhere, Pcp (General) No address on file Primary Care Provider Phone Number: None Primary Care Provider Fax Number: None Other Providers: None Admission Date: 11/03/2021 Discharge Date: 11/04/2021 PRINCIPAL DIAGNOSIS Primary Malignant Neoplasm Of Prostate (HCC) SECONDARY DIAGNOSES Principal Problem: Primary Malignant Neoplasm Of Prostate (HCC) Resolved Problems: * No resolved hospital problems. * Surgery Information This Encounter Past Procedures (11/04/2020 to Today) Date Procedures Providers Location 11/03/2021 ROBOTIC-ASSISTED RADICAL PROSTATECTOMY., ROBOTIC-ASSISTED DISSECTION LYMPH NODE, PELVIC.Sai Hernandez M.D.Khanna, Abhinav, M.D. [facility] OR DISCHARGE DISPOSITION Home or Self Care [1] ACTIVE ISSUES REQUIRING FOLLOW UP OUTPATIENT FOLLOW UP For appointment details refer to your Patient Appointment Guide. TEST RESULTS PENDING AT DISCHARGE Pending Labs Order Current Status Surgical Pathology, Frozen Lab Preliminary result DETAILS OF HOSPITAL STAY REASON FOR ADMISSION Primary Malignant Neoplasm Of Prostate (HCC) HOSPITAL COURSE DISCHARGE SUMMARY SURGICAL PROCEDURE: A robotic-assisted radical prostatectomy was performed without complication. HOSPITAL COURSE: Following the procedure, the patient was transferred to general nursing floor care in stable condition. The post-operative course was uneventful. By the time of dismissal, the patient was ambulatory, tolerating oral intake with no nausea / vomiting, was hemodynamically stable, and had pain controlled with oral medications. DISMISSAL EXAM GENERAL: no acute distress ABD: soft, appropriately tender, no rebound nor guarding, incisions clean/dry/intact : Fountain catheter in place Patient was discharged with fountain catheter in place. He will return in 7-10 days for fountain catheter removal in the urology clinic. He will return in 3 months for a follow-up appointment with PSA blood test. CONSULTS ORDERED DURING THIS ADMISSION None CONDITION AT DISCHARGE stable Discharge instructions were provided to the patient and caregiver(s). documented in this encounter Discharge Instructions Discharge InstructionsXochitl Ruiz - 11/03/2021 11:27 AM CDT You were discharged from the [facility] Service. Please identify this service name if you call with questions after hospitalization. AttachmentsThe following attachments cannot be sent through Care Everywhere. Acetaminophen (By mouth) (Malaysian)Bacitracin (On the skin) (Malaysian)Laxative, Stimulant Combination (By mouth) (Malaysian)Cefdinir (By mouth) (Malaysian) Oxybutynin (By mouth) (Malaysian)Miralax Prep Instructions (Malaysian)Polyethylene Glycol 3350 (By mouth) (Malaysian)Tramadol (By mouth) (Malaysian)documented in this encounter Medications at Time of Discharge Medication Sig Dispensed Refills Start Date End Date ascorbic acid, vitamin Take 500 mg by mouth 0 C, (VITAMIN C) 500 mg daily. tablet atorvastatin (LIPITOR) Take 10 mg by mouth 0 05/27 10 mg tablet daily. cholecalciferol, Take 25 mcg by mouth 0 vitamin D3, 25 mcg daily. (1,000 Unit) tablet losartan (COZAAR) 100 Take 100 mg by mouth 0 05/27 mg tablet every morning. acetaminophen (TYLENOL) Take 2 tablets (1,000 30 tablet 3 0 11/04/2021 500 mg tablet mg total) by mouth every 6 (six) hours as needed for pain. bacitracin 500 Apply 1 application 15 g 0 11/04/2021 unit/gram ointment topically 2 (two) times a day as needed (catheter irritation). Apply to penile tip. cefdinir (OMNICEF) 300 TAKE 1 CAPSULE BY 6 capsule 0 202111/04/2022 mg capsule MOUTH EVERY 12 HOURS FOR 3 DAYS, START THE DAY BEFORE APPOINTMENT FOR FOUNTAIN CATHETER REMOVAL traMADoL (ULTRAM) 50 mg TAKE 1 TABLET BY MOUTH 12 tablet 0 11/04/2021 05/07/2022 tablet EVERY SIX HOURS NEEDED FOR PAIN oxybutynin (Ditropan Take 1 tablet (5 mg 10 tablet 0 202111/12/2021 XL) 5 mg 24 hr tablet total) by mouth at bedtime. Stop taking 24 hours before your fountain catheter removal. polyethylene glycol Take 1 packet (17 g 21 packet 0 022 11/12/2021 (MIRALAX) 17 gram total) by mouth daily powder packet for 21 days. Dissolve each 17 g dose in 240 mLs (8 ounces) of beverage. sennosides-docusate Take 1 tablet by mouth 30 tablet 0 10/2411/12/2021 sodium (SENOKOT-S) 2 (two) times a day. 8.6-50 mg per tablet This medication helps reduce constipation after surgery. documented as of this encounter Progress Notes Alejandro Israel, Pharm.D., R.Ph. - 11/03/2021 10:31 AM CDT Images from the original note were not included. Admission Medication History Note Adherence issues: No concerns Medication list source: Patient Prior to Admission Medications Med List Status: Pharmacy Complete Set By: Alejandro Israel, D., R.Ph. at 11/03/2021 10:31 AM Taking? Last Dose Informant Start Date End Date LT ascorbic acid, vitamin C, (VITAMIN C) 500 mg tablet Past Month -- -- Take 500 mg by mouth daily. atorvastatin (LIPITOR) 10 mg tablet 11/02/2021 06/20/21 -- Take 10 mg by mouth daily. cholecalciferol, vitamin D3, 25 mcg (1,000 Unit) tablet Past Month -- -- Take 25 mcg by mouth daily. losartan (COZAAR) 100 mg tablet 11/02/2021 06/20/21 -- Take 100 mg by mouth every morning. documented in this encounter Nursing Notes Shanika Edmonds R.N. - 11/04/2021 10:53 AM CDT Shift Goals: Clinical Goals for the Shift: patient will meet discharge criteria before the end of the shift Identify possible barriers to meeting goals/advancing plan of care: none End of Shift Summary: patient met discharged to home self care. Discharged family, declined wheelchair and escort. Problem: SAFETY ADULT Goal: Maintain a safe environment Outcome: Completed Problem: SAFETY ADULT - RISK FOR FALL AND OR FALL INJURY Goal: Patient remains free from fall/fall injury Outcome: Completed Problem: PAIN - ADULT Goal: PT VERBALIZES/DEMONSTRATES ADEQUATE COMFORT LEVEL OR BASELINE Outcome: Completed Problem: KNOWLEDGE DEFICIT Goal: Patient/family/caregiver demonstrates understanding of disease process, treatment plan, medications, and discharge instructions Outcome: Completed Problem: INFECTION - ADULT Goal: Absence of infection during hospitalization Outcome: Completed Problem: SKIN/TISSUE INTEGRITY Goal: Skin/Tissue integrity maintained or improved Outcome: Completed Goal: Oral and Nasal mucous membranes remain intact Outcome: Completed Problem: DISCHARGE PLANNING Goal: Patient discharge needs identified Outcome: Completed documented in this encounter OR Notes Op Note - Domenico Soler M.D. - 11/03/2021 1:05 PM CDT Pre-op Diagnosis Primary Malignant Neoplasm Of Prostate (HCC) Post-op Diagnosis Primary Malignant Neoplasm Of Prostate (HCC) A esl instructional assistant actively participated and was necessary for one or more of the following: opening,exposure and visualization during the case, maintaining hemostasis, wound closure resulting in its safe and expeditious completion. Findings Successful bilateral nerve-sparing robot-assisted laparoscopic radical prostatectomy with bilateral neurovascular bundle preservation. No gross lymphadenopathy.?? Complications None Operative Note Narrative The patient was brought into the room, anesthetized, and placed in the modified lithotomy position. ??He was then prepped in the standard fashion. ??The peritoneal cavity was accessed with a Veress needle, and pneumoperitoneum was established. ??A total of 6 laparoscopic working ports were placed. Thesurgical robot was then docked at the patient's bedside. Bilateral standard pelvic lymphadenectomy was performed in the usual fashion and included obturator and external iliac lymph nodes. The obturator nerves were identified bilaterally and preserved. The space of Retzius was then developed using a combination of blunt and cautery dissection. ??The endopelvic fascia was identified but not incised. ??The plane between the prostate and the bladder was established using a combination of cold dissection and minimal cautery. ??The vasa deferentia were dissected out and transected bilaterally. ??The seminal vesicles were dissected out circumferentially and rotated upward. ??The plane between the prostate and the rectum was established using cold scissors. ??The pedicles of the prostate were taken using hemostatic clips and scissors. ??The neurovascular bundles were reflected off the prostate bilaterally all the way to the apex for full bilateral nerve-sparing. The dorsal venous complex was transected and then oversewn with 4-0 vicryl suture. ??The urethra was dissected circumferentially and transected. ??The prostate was then moved out of the surgical field and placed into an extraction bag. ??Excellent hemostasis was achieved. ??Vesicourethral anastomosis was constructed in the usual fashion using a running suture. ??It was tested with 120 cc of saline and was completely watertight. ??All specimens and ports were removed under direct vision. All port sites were closed in the usual fashion. ??They were infiltrated with 0.25% bupivacaine. ??There were no complications, and the patient was takento the recovery room in a stable condition Domenico Soler M.D. documented in this encounter Miscellaneous Notes Hospital Course - Domenico Soler M.D. - 11/03/2021 10:24 AM CDT DISCHARGE SUMMARY SURGICAL PROCEDURE: A robotic-assisted radical prostatectomy was performed without complication. HOSPITAL COURSE: Following the procedure, the patient was transferred to general nursing floor care in stable condition. The post-operative course was uneventful. By the time of dismissal, the patient was ambulatory, tolerating oral intake with no nausea / vomiting, was hemodynamically stable, and had pain controlled with oral medications. DISMISSAL EXAM GENERAL: no acute distress ABD: soft, appropriately tender, no rebound nor guarding, incisions clean/dry/intact : Fountain catheter in place Patient was discharged with fountain catheter in place. He will return in 7-10 days for fountain catheter removal in the urology clinic. He will return in 3 months for a follow-up appointment with PSA blood test. documented in this encounter Plan of Treatment Scheduled Orders Name Type Priority Associated Diagnoses Order S chedule URO Urethral cath Procedure Routine Primary Malignant Expec jese: 11/12/2021 fill / remove / Neoplasm Of Prostate (Emily roximate), voiding trial (fill / (HCC) s: 11/03/2024 pull) documented as of this encounter Procedures Procedure Name Priority Date/Time Associated Comments Diagnosis CBC WITHOUT Routine 11/04/2021 12:30 Results for this DIFFERENTIAL, B AM CDT procedure ar e in the results section. BASIC METABOLIC PANEL, Routine 11/04/2021 12:30 R esults for this S/P AM CDT procedure are i n the results section. ADULT OXYGEN THERAPY Routine 11/03/2021 6:24 PM CDT ADULT OXYGEN THERAPY Routine 11/03/2021 6:24 PM CDT SURGICAL PATHOLOGY, Routine 11/03/2021 3:31 PM Primary Maligna nt Results for this [facility]EN LAB CDT Neoplasm Of procedure are i n Prostate (HCC) the results section. ROBOTIC-ASSISTED 11/03/2021 11:49 Primary Malignant DISSECTION LYMPH NODE AM CDT Neoplasm Of - PELVIC Prostate (HCC) ROBOTIC-ASSISTED 11/03/2021 11:49 Primary Malignant RADICAL PROSTATECTOMY AM CDT Neoplasm Of Prostate (HCC) documented in this encounter Results (ABNORMAL) CBC without Differential (11/04/2021 12:30 AM CDT) [facility] Method Time Signature Hemoglobin 12.2 (L) 13.2 - 11/04/2021 DTL 16.6 g/dL 12:47 AM CDT Hematocrit 36.2 (L) 38.3 - 11/04/2021 DTL 48.6 % 12:47 AM CDT Erythrocytes 3.93 (L) 4.35 - 11/04/2021 DTL 5.65 12:47 AM CDT x10(12)/L MCV 92.1 78.2 - 11/04/2021 DTL 97.9 fL 12:47 AM CDT RBC Distrib Width 12.0 11.8 - 11/04/2021 DTL 14.5 % 12:47 AM CDT Platelet Count 172 135 - 317 11/04/2021 DTL x10(9)/L 12:47 AM CDT Leukocytes 10.3 (H) 3.4 - 9.6 11/04/2021 DTL x10(9)/L 12:47 AM CDT Specimen Anatomical Collection Method Collection Time Receive d Time (Source) Location / / Volume Laterality Blood (Blood, 11/04/2021 12:30 11/04/2021 Venous) AM CDT 12:40 AM CDT Domenico Soler M.D., M.P.H. LAB BLOOD ADD-ON Performing Organization Address City/State/ZIP Code Phon e Number [facility] - [address] [place] [phone] [facility] [place] [address] [facility] [address] [facility] (ABNORMAL) Basic Metabolic Panel (11/04/2021 12:30 AM CDT) P athologist Signature Potassium, S 4.6 3.6 - 5.2 11/04/2021 DTL mmol/L 1:33 AM CDT Sodium, S 136 135 - 145 11/04/2021 DTL mmol/L 1:33 AM CDT Chloride, S 103 98 - 107 11/04/2021 DTL mmol/L 1:33 AM CDT Bicarbonate, S 21 (L) 22 - 29 11/04/2021 DTL mmol/L 1:33 AM CDT Anion Gap 12 7 - 15 11/04/2021 DTL 1:33 AM CDT BUN (Blood Urea 15 8 - 24 11/04/2021 DTL Nitrogen), S mg/dL 1:33 AM CDT Creatinine 1.20 0.74 - 11/04/2021 DTL 1.35 mg/dL 1:33 AM CDT eGFR-Non 64 >=60 11/04/2021 DTL Black/ mL/min/BSA 1:33 AM CDT [place] Comment: ----ADDITIONAL INFORMATION---- Estimated GFR calculated using the 2009 CKD_EPI creatinine equation. eGFR-Black/ 74 >=60 mL/min/BSA 2021 1:33 AM CDT DTL Comment: ----ADDITIONAL INFORMATION---- Estimated GFR calculated using the 2009 CKD_EPI creatinine equation. Calcium, Total, S 8.2 (L) 8.8 - 10.2 mg/dL 11/04/2021 1:33 AM CDT DTL Glucose, S 149 (H) 70 - 140 mg/dL 11/04/2021 1:33 AM CDT D TL Specimen Anatomical Collection Method Collection Time Receive d Time (Source) Location / / Volume Laterality Blood (Blood, 11/04/2021 12:30 11/04/2021 Venous) AM CDT 12:51 AM CDT Domenico Soler M.D., M.P.H. LAB BLOOD ADD-ON Performing Organization Address City/State/ZIP Code Phon e Number [facility] - [address] [place] [address] [place] [address] [address] Surgical Pathology, Frozen Lab (11/03/2021 3:31 PM CDT) Component Value Ref Test Analysis Performed Pathologis t Range Method Time At Signature 11/05/2021 METH 11:00 AM CDT Participated in Gail Fulton 11/05/2021 [facility] -Pathology 11:00 AM Interpretation Fellow CDT Report Jacob Larsen M.D. 11/05/2021 METH electronically 11:00 AM signed by CDT I verify that I have examined all relevant slides/materials for the specimen(s) and rendered or confirmed the diagnosis. Frozen A. ??Prostate, right apex margin, excision: ??Negative for 11/05/2021 METH Intraoperative tumor. ??No prostatic tissue identified. 11:00 AM Report CDT Signed by Farheen Mayorga M.D. 11/03/2021 7:18 PM Gross Description A. ??Received fresh labeled right prostate apex margin is 11/05/2021 METH a 0.3 x 0.2 x 0.2 cm fragment of fritz soft tissue. ??All 11:00 AM submitted for frozen and permanent sections. ??Grossed by CDT Gail Fulton M.D. -Pathology Fellow. B. ??Received fresh labeled bilateral pelvic lymph nodes is a 5 x 2 x 0.5 cm aggregate of adipose and lymphatic tissue. ??Lymph nodes are submitted for permanent sections only. ??Grossed by Gail Fulton M.D. -Pathology Fellow. C. ??Received fresh labeled prostate is a 40 gram, 3.7 (S-I) x 3.9 (A-P) x 4.9 (R-L) cm radical prostatectomy with nodular hypertrophy. ??The specimen is inked, and the prostatic apex and bladder neck margins are submitted perpendicularly. ??No tumor is grossly identified. ??Grossed by Torie Good, KAY([facility]). Block Summary A Right prostate apex margin 022 METH A1 Right prostate apex margin-Frozen 11: 00 AM CDT B Bilateral pelvic lymph nodes B1 Bilateral pelvic lymph node 2(B1) B2 Bilateral pelvic lymph node 3(B2) B3 Bilateral pelvic lymph node for count (B3) C Prostate C1 Right anterior apex margin C2 Right posterior apex margin C3 Right bladder neck margin -1 C4 Right bladder neck margin -2 C5 Left anterior apex margin C6 Left posterior apex margin C7 Left bladder neck margin -1 C8 Left bladder neck margin -2 C9 Right inferior posterior C10 Right inferior anterior C11 Right mid posterior C12 Right mid anterior C13 Right superior posterior C14 Right superior anterior C15 Left inferior posterior C16 Left inferior anterior C17 Left mid posterior C18 Left nmid anterior C19 Left superior posterior C20 Left superior anterior C21 Right seminal vesicles -1 C22 Right seminal vesicles -2 C23 Right seminal vesicles -3 C24 Left seminal vesicles -1 C25 Left seminal vesicles -2 C26 Left seminal vesicles -3 Interpretation FINAL DIAGNOSIS 11/05/2021 METH 11:00 AM A. ??Prostate, right apex margin, excision: ??Negative for CDT tumor. ??No prostatic tissue identified. B. ??Lymph nodes, bilateral pelvic, dissection: Multiple (9) lymph nodes are negative for carcinoma. C. ??Prostate, radical prostatectomy: Adenocarcinoma (Ventura patter ??4 + 3, Grade group 3) is identified involving the right and left sides of the prostate. The tumor is not confined to the prostate with the right seminal vesicle involved by tumor. The left seminal vesicle and extraprostatic tissues are negative for tumor. The surgical margins are negative for tumor. See synoptic report. SYNOPTIC REPORT: ??Prostate Procedure: Radical prostatectomy Prostate Size: 3.7 ??(S-I) x 3.9 (A-P) x 4.9 (R-L) cm Prostate Weight: 40 gram Histologic Type: Acinar adenocarcinoma Histologic Grade ?? Grade Group and Ventura Score ?Grade Group 3 (Ventura Score 4 + 3 = 7) ?Minor Tertiary Pattern 5 (less than 5%): Not applicable ?Percentage of Pattern 4 in Maize score 7: 60% ?? Intraductal Carcinoma (IDC): Not identified ?? Cribriform Glands: Present Treatment Effect: No known presurgical therapy Tumor Quantitation ?? Estimated Percentage of Prostate Involved by Tumor: 21-30% ?? Greatest Dimension of Dominant Nodule: At least 12 mm (microscopically identified) ?? Location of Dominant Nodule: Right mid anterior Extraprostatic Extension: Not identified Urinary Bladder Neck Invasion: Not identified Seminal Vesicle Invasion: Present, right Lymphovascular Invasion: Not identified Margins: All margins negative for invasive carcinoma All Regional Lymph Nodes Negative for Tumor ?? Number of Lymph Nodes Examined: 9 Distant Metastasis. ??Distant Site(s) Involved: Not applicable Pathologic Staging (AJCC, 8th edition) TNM Descriptors: Not applicable pT Category: pT3b pN Category: pN0 pM Category: Not applicable - pM cannot be determined from the submitted specimens Additional Pathologic Findings: High-grade prostatic intraepithelial neoplasia (PIN) and nodular prostatic hyperplasia The synoptic report incorporates information from all relevant surgical material and includes all required data elements of the current CAP Cancer Protocol. Specimen (Source) Anatomical Collection Method Collection Time Re ceived Time Location / / Volume Laterality Tissue (Prostate) 11/03/2021 3:31 PM CDT Tissue (Lymph 11/03/2021 4:08 PM Node) CDT Tissue (Prostate) 11/03/2021 5:06 PM CDT Narrative This result has an attachment that is no t available. Sai Hernandez M.D. LAB SURG PATH ORDERABLES Performing Organization Address City/State/ZIP Code Phon e Number [facility] - [address] [place], [place] [address] [place] [address] [facility] [address] documented in this encounter Visit Diagnoses Diagnosis Primary Malignant Neoplasm Of Prostate ( HCC) - Primary documented in this encounter Admitting Diagnoses Diagnosis Primary Malignant Neoplasm Of Prostate ( HCC) documented in this encounter Administered Medications Inactive Administered Medications - up to 3 most recent administrations Medication Order MAR Action Action Date Dose Rate Site acetaminophen tablet 1,000 mg Given 11/04/2021 5:48 AM CDT 1,000 mg (TYLENOL) 1,000 mg, oral, Every 6 hours, First dose on Estrellita 11/04/21 at 0000 Given 11/03/2021 10:41 PM CDT 1,000 mg acetaminophen tablet 1,000 mg (TYLENOL) Given 11/03/2021 11:24 AM CDT 1,000 mg 1,000 mg, oral, Once, On Mon11/03/21 at 1130, For 1 dose, Pre-Op, PreOp give in preprocedural area. acetaminophen tablet 1,000 mg (TYLENOL) Given 11/03/2021 5:45 PM CDT 1,000 mg 1,000 mg, oral, Once as needed, other, If patient has not received in the previous 6 hours, Starting on Mon11/03/21 at 1736, For 1 dose, PACU (only), Oral unless RASS less than -1 or nausea/vomiting. Do not use if given in last 6 hours atorvastatin tablet 10 mg (LIPITOR) Given 11/04/2021 8:07 AM CDT 10 mg 10 mg, oral, Daily, First dose on Estrellita 11/04/21 at 0900 bacitracin zinc 500 unit/gram ointment Given 11/04/2021 8:07 AM CDT 1 packet packet 1 packet 1 packet (1 application.), topical, 3 times daily, First dose on Mon11/03/21 at 2100, Apply to tip of penis. Given 11/03/2021 8:00 PM CDT 1 packet heparin (porcine) Given 11/04/2021 5:49 AM CDT 5,000 Units Left Upper Arm injection 5,000 Units (Back) 5,000 Units, subcutaneous, Every 8 hours scheduled, First dose on Mon11/03/21 at 2200 Given 11/03/2021 9:06 PM CDT 5,000 Units Left Upper Arm (Back) lactated ringers New Bag 11/03/2021 6:35 PM CDT 125 mL/hr 125 mL/hr 125 mL/hr, intravenous, Continuous, Starting on Mon11/03/21 at 1830, Continue IV fluids from operating room at 125 ml/hour until bag finished, then begin as ordered. lactated ringers New Bag 11/03/2021 11:30 AM CDT 100 mL/hr 100 mL/hr 100 mL/hr, intravenous, Continuous, Starting on Mon11/03/21 at 1130, For 10 hours, Pre-Op, For total volume of 1,000 mL. lactated ringers Continued from OR 11/03/2021 5:30 PM CDT 20 mL/hr 20 mL/hr 20 mL/hr, intravenous, Continuous, Starting on Mon11/03/21 at 1715, PACU & Post-Op losartan tablet 100 mg (COZAAR) Given 11/04/2021 8:07 AM CDT 100 mg 100 mg, oral, Every morning, First dose on [place] 11/04/21 at 0900 oxybutynin 24 hr tablet 10 mg (DITROPAN- XL) Given 11/03/2021 11:24 AM CDT 10 mg 10 mg, oral, Once, On Mon11/03/21 at 1130, For 1 dose, Pre-Op, PreOp give in preprocedural area. Swallow whole. Do NOT crush, chew, or split tablet. oxybutynin tablet 5 mg (DITROPAN) Given 11/04/2021 8:06 AM CDT 5 mg 5 mg, oral, 3 times daily PRN, bladder spasms, Starting on Mon11/03/21 at 1824 Given 11/04/2021 2:09 AM CDT 5 mg Given 11/03/2021 7:05 PM CDT 5 mg oxyCODONE 12 hr tablet 10 mg (OxyCONTIN) Given 11/03/2021 11:24 AM CDT 10 mg 10 mg, oral, Once, On Mon11/03/21 at 1130, For 1 dose, Pre-Op, PreOp give in preprocedural area. Swallow whole. Do NOT crush, chew, or split tablet. sennosides-docusate sodium 8.6-50 mg per Given 11/04/2021 8:07 A M CDT 1 tablet tablet 1 tablet (SENOKOT-S) 1 tablet, oral, 2 times daily, First dose on Mon11/03/21 at 2100, Do not give if patient has diarrhea. Given 11/03/2021 8:00 PM CDT 1 tablet documented in this encounter Active and Recently Administered Medications Times are shown in CDT. Scheduled Medication Order 11/02/2021 11/03/2021 11/04/2021 acetaminophen tablet 1,000 mg (TYLENOL) 2241 (Given - Provider: Tiera Angel R.N.) 0548 (Given - Provider: Tiera Pinedo pe RTaeNTae) 1,000 mg, oral, Every 6 hours, First dose on [place] 11/04/21 at 0000 acetaminophen tablet 1,000 mg (TYLENOL) (COMPLETED) 1124 (Given - Provider: Eliza Vasquez R.N.) 1,000 mg, oral, Once, On Mon11/03/21 at 1130, For 1 dose, Pre-Op, PreOp give in preprocedural area. atorvastatin tablet 10 mg (LIPITOR) 0807 (Given - Provider: Shanika Edmonds R.N.) 10 mg, oral, Daily, First dose on [place] 11/04/21 at 0900 bacitracin zinc 500 unit/gram ointment packet 1 packet 1999 (Given - Provider: Tiera Angel R.N.) 0807 (Given - Provider: Whit Garrett) 1 packet (1 application.), topical, 3 ti mes daily, First dose on Mon11/03/21 at 2100, Apply to tip of penis. heparin (porcine) injection 5,000 Units 210 (Given - Provider: Tiera Angel R.N.) 0549 (Given - Provider: Tiera Pinedo pe RTaeNTae) 5,000 Units, subcutaneous, Every 8 hours scheduled, First dose on Mon11/03/21 at 2200 heparin (porcine) injection 5,000 Units (COMPLETED) 1244 (Given - Provider: Judith Curry APRN, CLAIMS INVESTIGATOR) 5,000 Units, subcutaneous, Once, On Mon11/03/21 at 1215, For 1 dose, Intra-Op, Administer prior to induction of anesthesia. losartan tablet 100 mg (COZAAR) 0807 (Given - Provider: Shanika Edmonds R.N.) 100 mg, oral, Every morning, First dose on [place] 11/04/21 at 0900 oxybutynin 24 hr tablet 10 mg (DITROPAN-XL) (COMPLETED) 1123 (Given - Provider: Eliza Vasquez R.N.) 10 mg, oral, Once, On Mon11/03/21 at 113 0, For 1 dose, Pre-Op, PreOp give in preprocedural area. Swallow whole. Do NOT crush, chew, or split tablet. oxyCODONE 12 hr tablet 10 mg (OxyCONTIN) (COMPLETED) 1123 (Given - Provider: Eliza Vasquez R.N.) 10 mg, oral, Once, On Mon11/03/21 at 113 0, For 1 dose, Pre-Op, PreOp give in preprocedural area. Swallow whole. Do NOT crush, chew, or split tablet. sennosides-docusate sodium 8.6-50 mg per tablet 1 tablet (SE NOKOT-S) 1999 (Given - Provider: Tiera Angel R.N.) 0807 (Given - Provider: Shanika Edmonds R.N.) 1 tablet, oral, 2 times daily, First dos e on Mon11/03/21 at 2100, Do not give if patient has diarrhea. Continuous Medication Order 11/02/2021 11/03/2021 11/04/2021 lactated ringers 1835 (New Bag - Provider: Stanley Easton RTaeNTae) 0555 (Stopped - Provider: Tiera Angel R.N.) 125 mL/hr, intravenous, Continuous, Star ting on Mon11/03/21 at 1830, Continue IV fluids from operating room at 125 ml/hour until bag finished, then begin as ordered. lactated ringers (CANCELED) 1130 (New Ba g - Provider: Eliza Vasquez R.N.) 100 mL/hr, intravenous, Continuous, Star ting on Mon11/03/21 at 1130, For 10 hours, Pre-Op, For total volume of 1,000 mL. lactated ringers (CANCELED) 1730 (Contin ued from OR - Provider: Marilin Soler R.N.) 20 mL/hr, intravenous, Continuous, Start ing on Mon11/03/21 at 1715, PACU & Post-Op PRN Medication Order 11/02/2021 11/03/2021 11/04/2021 acetaminophen tablet 1,000 mg (TYLENOL) (COMPLETED) 1745 (Given - Provider: Marilin Soler R.N.) 1,000 mg, oral, Once as needed, other, I f patient has not received in the previous 6 hours, Starting on Mon11/03/21 at 1736, For 1 dose, PACU (only), Oral unless RASS less than -1 or nausea/vomiting. Do not use if given in last 6 hours alum-mag hydroxide-simeth 200-200-20 mg/5 mL suspension 30 mL (M AALOX) 30 mL, oral, 4 times daily PRN, indigestion, Starting on 10/24 at 1824 bacitracin zinc 500 unit/gram ointment packet (CANCELED) 1658 (Given - Provider: Rose Duncan RHernesto. - Comment: on fluffs on tip of penis) As needed, Starting on Mon11/03/21 at 1658, Intra-Op belladonna alkaloids-opium 16.2-60 mg suppository 1 baig ppository (B&O SUPPRETTS) 1 suppository, rectal, Every 8 hours PRN , bladder spasms, Starting on Mon11/03/21 at 1824 belladonna alkaloids-opium 16.2-60 mg baig ppository 1 suppository (B&O SUPPRETTS) (COMPLETED) 1658 (Given - Provider: Rose Duncan, R.N.) 1 suppository, rectal, Once in surgery, bladder spasms, OR use only, Starting on Mon11/03/21 at 1213, For 1 dose, Intra-Op benzocaine-menthoL 15-3.6 mg per lozenge 1 lozenge (CEPACOL) 1 lozenge, oral, As needed, sore throat, Starting on Mon11/03/21 at 1824 bupivacaine HCl 0.25 % (2.5 mg/mL) injection (MARCAINE) (CAN CELED) 1658 (Given - Provider: Domenico Soler M.D.) As needed, Starting on Mon11/03/21 at 1658, Intra-Op diphenhydrAMINE capsule 25 mg (BENADRYL) 25 mg, oral, Every 4 hours PRN, itching, Starting on Mon11/03/21 at 1824 haloperidol lactate injection 1 mg (HALDOL) 1 mg, intravenous, Every 6 hours PRN, na usea, vomiting, Starting on Mon11/03/21 at 1824, For 48 hours, Total of 3 doses in 24 hour period. RASS must be -2 or higher to administer. Reassess for nausea or vomiting after at least 10 minutes. If nausea or vomiting persists administer next ordered antiemetic medications (order for antiemetic medication administration ondansetron then haloperidol then promethazine) lactated Ringer's bolus 500 mL 500 mL, intravenous, at 500 mL/hr, Admin ister over 1 Hours, As needed, Urinary output less than 30 mL/hour x 2 consecutive hours, Starting on Mon11/03/21 at 1824, For 1 dose, May repeat x 1 within 48 hours. naloxone injection 0.2 mg (NARCAN) 0.2 mg, intravenous, As needed, respirat ory depression, Starting on Mon11/03/21 at 1824, For RASS Score -4 or less, respiratory rate of less than 8 breaths/min. Notify provider/service and rapid response team (if available at institution). ondansetron (PF) injection 4 mg (ZOFRAN) 4 mg, intravenous, Every 6 hours PRN, na usea, vomiting, Starting on Mon11/03/21 at 1824, For 48 hours, Reassess for nausea or vomiting after at least 10 minutes. If nausea or vomiting persists administe r next ordered antiemetic medications (o rder for antiemetic medication administration ondansetron then haloperidol then promethazine). oxybutynin tablet 5 mg (DITROPAN) 1905 ( Given - Provider: Marika Easton, R.N.) 0209 (Given - Provider: Tiera Pinedo pe, R.N.)0806 (Given - Provider: Shanika Edmonds R.N.) 5 mg, oral, 3 times daily PRN, bladder spasms, Starting on W ed 11/03/21 at 1824 polyethylene glycol powder packet 17 g (MIRALAX) 17 g, oral, Daily PRN, constipation, Sta rting on 11/03/21 at 1824, Ordered sequence of administration: polyethylene glycol, then bisacodyl until BM achieved. Avoid mixing with starch-based thickened liquids. polysaccharide spheres particles (SAL) (CANCELED) 1641 (Given - Provider: Domenico Soler M.D. - Comment: pelvis) As needed, Starting on 11/03/21 at 1641, Intra-Op promethazine injection 6.25 mg (PHENERGAN) 6.25 mg, intravenous, Every 6 hours PRN, nausea, vomiting, Starting on 11/03/21 at 1824, For 48 hours, RASS must be -2 or higher to administer. Reassess for nausea or vomiting after at least 10 minut es. If nausea or vomiting persists admin ister next ordered antiemetic medications (order for antiemetic medication administration ondansetron then haloperidol then promethazine) traMADoL tablet 50 mg (ULTRAM) 50 mg, oral, Every 6 hours PRN, Pain, Starting on 11/03/21 at 1824 documented in this encounter Care Teams Oxygen Equipment Aide Relationship Specialty Start Date End Date Elsewhere, Pcp PCP - General Internal Medicine 08/17/21 documented as of this encounter
--- OUTSIDE RECORDS SUMMARY | 2022-05-25 07:57 | XMS_ITS | Encounter Summary ---
:1960 Author Organization [facility] Address [address] [place] [id number] Care Team Providers Name Role Phone Elsewhere, Pcp Primary Care Provider Unavailable Reason for Visit Auth/Cert Specialty Diagnoses / Procedures Referred By Contact Refer red To Contact Diagnoses Elevated Prostate-Specific Antigen Elevated Prostate-Specific Antigen [R97.20] Procedures ID BX PROSTATE NDL TRANSPRNEAL BIOPSY TRANSPERINEAL PROSTATE Referral ID Status Reason Start Date Expiration Date Visits Requ ested Visits Authorized [id number] 1 1 Encounter Details Date Type Department Care Team Description 08/18/2021 Anesthesia Event Outpatient Procedure Jona Colvin, TOY ASSEMBLY SUPERVISOR, CLOTH COVERED HELMET PULLER, DNAP [address] [place], [place] [id number] [place] [facility] Mello Becker Jr., M.D. [address] [place] [address] [place] [address] [place] [id number] Anesthesia Record Procedure Summary Procedure Name Responsible Anesthesia Start Anesthesia Stop Anesthesiologist Time Time BIOPSY TRANSPERINEAL Clarita Colvin, ARLIN, 08/18/21 1543 0 08/18/21 1624 PROSTATE. CLOTH COVERED HELMET PULLER, DNAP Events Date Time Event Comment 08/18/2021 1543 An Start Machine/Equipmen t Checked Infection Precautions Foll owed Procedure/Site Verified NPO Sta tus Verified Supine Standard ASA Mon itors Applied 1549 Turnover to Proceduralist 1556 Proc Start 1613 Proc Fin 1616 Turnover to ANE Staff 1617 an stop data 1624 An End I completed my h andoff to the receiving staff during [facility] we 1. Identified the patient 2. Ident ified the responsible provider 3. Revi ewed the pertinent medical history 4. Discu ssed the surgical course 5. Reviewed intra-o p anesthesia management and issues during an esthesia 6. Set expectations for post-procedure period 7. Allowed opportun ity for questions and acknowledgement of understanding. Name Total fentanyl injection 50 mcg/mL 100 mcg lidocaine 2% (mg) injection 60 mg propofol 10 mg/mL injection 150 mg propofol 10 mg/mL infusion 281.68 mg ondansetron PF 4 mg/2 mL injection 4 mg ceFAZolin injection 2,000 mg (ANCEF) 2 g Lactated Ringers Free Drip 800 mL Agents No agents on file. Blood No blood administrations on file. Lines, Drains, and Airways Type Details Placement Removal Wound 08/18/21; N; Incision; 08/18/21 0000 by 11/04/21 0800 by Perineum; Mid; puncture Sagrario Toribio Ab cejo, Mia N, R.N. sites from biopsy; R.N. primapore; 11/04/21; 0800; healed Peripheral IV Placement Date: 08/18/21; 08/18/21 153 by Alyssa, 08/18/21 1753 by Placement Time: 1537; Clementina Rene J ulie L, Catheter Size: 20 G; R.N. Orientation: Posterior, Right; Location: Wrist; Site Prep: Chlorhexidine (Preferred); Inserted by: LIGIA Shah; Insertion Attempts: 1; Removal Date: 08/18/21; Removal Time: 175; Removal Reason: Patient discharged documented in this encounter Social History Tobacco Use Types Packs/Day Years [...] or relatives? How often do you attend scientologist or More than 4 times per year 08/13/2021 spiritism services? Do you belong to any clubs or Yes 08/13/2021 organizations such as scientologist groups, unions, fraternal or athletic groups, or [...] place to sleep or slept in a [facility] (including now)? Education Answer Date Recorded What is the highest level of school Bachelor's degree (e.g., BA, AB, 08/12/2021 you have completed or the highest BS) degree you have received? Sex Assigned at Date Recorded Male 08/12/2021 8:37 PM WELFARE AIDE documented as of this encounter OR Notes Anesthesia Postprocedure Evaluation - Clarita Colvin APRN, CHRIS, DNAP - 08/18/2021 4:24 PM CST Patient: Jacob Logan Procedure Summary Date: 08/18/21 Room / Location: [place] [id number] / [facility] in [place], [place] Anesthesia Start: 1543 Anesthesia Stop: 1624 Procedure: BIOPSY TRANSPERINEAL PROSTATE. (N/A ) Diagnosis: Elevated Prostate-Specific Antigen (Elevated Prostate Specific Antigen [R97.20]..) Surgeons: Layton Remy M.D. Responsible Provider: Clarita Colvin APRN, CHRIS, DNAP Anesthesia Type: MAC ASA Status: 2 Anesthesia Type: MAC Last vitals Vitals Value Taken Time BP 146/82 08/18/21 1530 Temp 37 ??C 08/18/21 1524 Pulse 73 08/18/21 1540 Resp 12 08/18/21 1540 SpO2 96 % 08/18/21 1540 Please reference Vitals flowsheet for most recent vital signs. Anesthesia Post Evaluation Patient Disposition: dismissal Cardiovascular status: hemodynamics (HR & BP) acceptable Respiratory status: patent airway with spontaneous effort Temperature: normothermic Oxygen requirements: room air Level of consciousness: awake Pain score: pain adequately controlled and/or at baseline Post Op nausea/vomiting: none Hydration status: euvolemic ARE AIDE Anesthesia Preprocedure Evaluation - Mello Becker Jr., M.D. - 08/18/2021 3:26 PM CST Preprocedure Anesthesia & H&P Assessment Procedure Summary Date/Time: 08/18/21 1601 Procedure: BIOPSY TRANSPERINEAL PROSTATE. (N/A ) Diagnosis: Elevated Prostate-Specific Antigen [R97.20] Pre-op diagnosis: Elevated Prostate Specific Antigen [R97.20].. Location: [place] [address] / [facility] in [place], [place] Surgeons: Layton Remy M.D. Pertinent components of the patient's history including current problem list, medical history, surgical history, family history, social history, medications and allergies were reviewed. Present illnessand pre-op diagnosis were confirmed. The planned surgery / procedure was verified with the patient /legal guardian. The patient's general health condition remains unchanged RELEVANT COMORBID CONDITIONS CV (+) Hypertension NOS GENETICS (+) Hypertriglyceridemia OBJECTIVE PHYSICAL EXAMINATION Airway (HEENT) Mallampati: II TM Distance: >3 FB Neck ROM: Full Mouth Opening: >3 cm Cardiovascular Rhythm: Regular Rate: Normal Cardiovascular Assessment: cardiovascular normal Functional Capacity: >4 METS Pulmonary Pulmonary Assessment: Clear General / Constitutional Constitutional Assessment: Overweight General State of Health:: calm ASSESSMENT / PLAN ANESTHESIA PLAN ASA: 2 Anesthesia Plan: MAC Patient seen and allergies reviewed, anesthesia plan and risks discussed directly with patient /legal guardian or through an educational sign language interpreter. The use of blood products not discussed Approval to Proceed: approved for anesthesia ARE AIDE documented in this encounter Plan of Treatment Not on filedocumented as of this encounter Visit Diagnoses Not on filedocumented in this encounter Administered Medications Inactive Administered Medications - up to 3 most recent administrations Medication Order MAR Action Action Date Dose Rate Site ceFAZolin injection 2,000 mg (ANCEF) Given 08/18/2021 3:51 PM WELFARE AIDE 2 g 2,000 mg (rounded from 2,375 mg = 25 mg/kg ? 95 kg), intravenous, Once, On Mon08/18/21 at 1400, For 1 dose, Intra-Op, Administer within 1 hour prior to surgical incision If needed, reconstitute vial per package insert instructions. See IVAG for administration guidelines. , Drug Monitoring Program: Pharmacist to adjust medication dosing based on indication and drug clearance factors., Indications: Prophylaxis, surgical fentaNYL injection (SUBLIMAZE) Given 08/18/2021 3:55 PM WELFARE AIDE 25 mcg intravenous, As needed, Starting on Mon08/18/21 at 1544, Anesthesia Intra-op Given 08/18/2021 3:48 PM WELFARE AIDE 25 mcg Given 08/18/2021 3:44 PM WELFARE AIDE 50 mcg lactated ringers New Bag 08/18/2021 3:43 PM WELFARE AIDE intravenous, Continuous Infusion: Per Instructions PRN, Starting on Mon08/18/21 at 1543, Anesthesia Intra-op lidocaine (PF) (cardiac) injection Given 08/18/2021 3:45 PM WELFARE AIDE 60 mg intravenous, As needed, Starting on Mon08/18/21 at 1545, Anesthesia Intra-op ondansetron (PF) injection (ZOFRAN) Given 08/18/2021 3:45 PM WELFARE AIDE 4 mg intravenous, As needed, Starting on Mon08/18/21 at 1545, Anesthesia Intra-op propofol 10 mg/mL infusion Rate/Dose 08/18/2021 4:11 50 mcg/kg/min 2 8.5 mL/hr (DIPRIVAN) Change PM WELFARE AIDE intravenous, Continuous Infusion: Per Instructions PRN, Starting on Mon08/18/21 at 1547, Anesthesia Intra-op Rate/Dose Change 08/18/2021 4:02 PM WELFARE AIDE 110 mcg/kg/min 62.7 mL/hr Rate/Dose Change 08/18/2021 4:00 PM WELFARE AIDE 125 mcg/kg/min 71.25 mL/hr propofoL injection (DIPRIVAN) Given 08/18/2021 3:55 PM WELFARE AIDE 50 mg intravenous, As needed, Starting on Mon08/18/21 at 1545, Anesthesia Intra-op Given 08/18/2021 3:48 PM WELFARE AIDE 50 mg Given 08/18/2021 3:45 PM WELFARE AIDE 50 mg documented in this encounter Care Teams Respiratory Scientist Relationship Specialty Start Date End Date Elsewhere, Pcp PCP - General Internal Medicine 08/17/21 documented as of this encounter
--- OUTSIDE RECORDS SUMMARY | 2022-05-25 07:57 | XMS_ITS | Encounter Summary ---
:1960 Author Organization [facility] Address [address] [place] [address] Care Team Providers Name Role Phone Elsewhere, Pcp Primary Care Provider Unavailable Encounter Details Date Type Department Care Team Description 11/02/2021 Hospital Encounter Department of Sai Hernandez Primar y Malignant Laboratory Medicine MJoon Neoplasm Of Prostate and Pathology, [address] [place] [address] in [place], [place] [address] [place] [address] [place], [place] (Work) [phone] Social History Tobacco Use Types Packs/Day Years [...] or relatives? How often do you attend mu-ism or More than 4 times per year 08/13/2021 orthodox services? Do you belong to any clubs or Yes 08/13/2021 organizations such as mu-ism groups, unions, fraternal or athletic groups, or [...] place to sleep or slept in a half-way (including now)? Education Answer Date Recorded What is the highest level of school Bachelor's degree (e.g., BA, AB, 08/12/2021 you have completed or the highest BS) degree you have received? 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 ascorbic acid, vitamin Take 500 mg by mouth 0 C, (VITAMIN C) 500 mg daily. tablet atorvastatin (LIPITOR) Take 10 mg by mouth 0 05/27 10 mg tablet daily. bacitracin 500 Apply 1 application 15 g 0 11/04/2021 unit/gram ointment topically 2 (two) times a day as needed (catheter irritation). Apply to penile tip. cholecalciferol, Take 25 mcg by mouth 0 vitamin D3, 25 mcg daily. (1,000 Unit) tablet losartan (COZAAR) 100 Take 100 mg by mouth 0 05/27 mg tablet every morning. acetaminophen (TYLENOL) Take 2 capsules (1,000 0 08/18/2021 11/03/2021 500 mg capsule mg total) by mouth every 6 (six) hours as needed for pain. cefdinir (OMNICEF) 300 Take 1 capsule (300 mg 6 capsule 0 0 11/04/2021 11/04/2021 mg capsule total) by mouth every 12 (twelve) hours for 3 days. Start the day before your appointment for marshall catheter removal oxybutynin (Ditropan Take 1 tablet (5 mg 10 tablet 0 202111/12/2021 XL) 5 mg 24 hr tablet total) by mouth at bedtime. Stop taking 24 hours before your marshall catheter removal. polyethylene glycol Take 1 packet [...] This medication helps reduce constipation after surgery. traMADoL (ULTRAM) 50 mg Take 1 tablet (50 mg 12 tablet 0 11/04/2021 tabletIndications: total) by mouth every Acute Pain 6 (six) hours as needed for pain for up to 3 days Indications: Acute Pain. documented as of this encounter Plan of Treatment Not on filedocumented as of this encounter Procedures Procedure Name Priority Date/Time Associated Comments Diagnosis ACTIVATED PARTIAL Routine 11/02/2021 10:43 Primary Malignant R esults for this THROMBOPLASTIN TIME AM CDT Neoplasm Of procedur e are in (APTT), P Prostate (HCC) the results section. PROTHROMBIN TIME (PT), Routine 11/02/2021 10:43 Primary Malign ant Results for this P AM CDT Neoplasm Of procedure are i n Prostate (HCC) the results section. CBC WITHOUT Routine 11/02/2021 10:43 Primary Malignant Result s for this DIFFERENTIAL, B AM CDT Neoplasm Of procedure ar e in Prostate (HCC) the results section. BASIC METABOLIC PANEL, Routine 11/02/2021 10:43 Primary Malign ant Results for this S/P AM CDT Neoplasm Of procedure are i n Prostate (HCC) the results section. documented in this encounter Results Prothrombin Time (PT) (11/02/2021 10:43 AM CDT) P athologist Signature Prothrombin 11.8 9.4 - 12.5 11/02/2021 DTL Time, P sec 11:39 AM CDT INR 1.1 0.9 - 1.1 11/02/2021 DTL 11:39 AM CDT Comment: ----ADDITIONAL INFORMATION---- Standard intensity warfarin therapeutic range: 2.0 to 3.0 ?? High intensity warfarin therapeutic rang e: 2.5 to 3.5 Specimen Anatomical Collection Method Collection Time Receive d Time (Source) Location / / Volume Laterality Blood (Blood, 11/02/2021 10:43 11/02/2021 Venous) AM CDT 11:13 AM CDT Sai Hernandez M.D. LAB BLOOD ADD-ON Performing Organization Address City/[facility] Code Phon e Number [facility] - [address] CBC without Differential (11/02/2021 10:43 AM CDT) athologist Signature Hemoglobin 14.6 13.2 - 11/02/2021 DTL 16.6 g/dL 11:30 AM CDT Hematocrit 42.4 38.3 - 11/02/2021 DTL 48.6 % 11:30 AM CDT Erythrocytes 4.73 4.35 - 11/02/2021 DTL 5.65 11:30 AM CDT x10(12)/L MCV 89.6 78.2 - 11/02/2021 DTL 97.9 fL 11:30 AM CDT RBC Distrib Width 12.3 11.8 - 11/02/2021 DTL 14.5 % 11:30 AM CDT Platelet Count 184 135 - 317 11/02/2021 DTL x10(9)/L 11:30 AM CDT Leukocytes 8.0 3.4 - 9.6 11/02/2021 DTL x10(9)/L 11:30 AM CDT Specimen Anatomical Collection Method Collection Time Receive d Time (Source) Location / / Volume Laterality Blood (Blood, 11/02/2021 10:43 11/02/2021 Venous) AM CDT 11:13 AM CDT Sai Hernandez M.D. LAB BLOOD ADD-ON Performing Organization Address City/[facility] Code Phon e Number [facility] - 200 [place], [place] [address] [place] [address] [place] [id number] [place] [address] (ABNORMAL) Basic Metabolic Panel (11/02/2021 10:43 AM CDT) P athologist Signature Potassium, S 3.9 3.6 - 5.2 11/02/2021 DTL mmol/L 12:08 PM CDT Sodium, S 139 135 - 145 11/02/2021 DTL mmol/L 12:08 PM CDT Chloride, S 104 98 - 107 11/02/2021 DTL mmol/L 12:08 PM CDT Bicarbonate, S 23 22 - 29 11/02/2021 DTL mmol/L 12:08 PM CDT Anion Gap 12 7 - 15 11/02/2021 DTL 12:08 PM CDT BUN (Blood Urea 18 8 - 24 11/02/2021 DTL Nitrogen), S mg/dL 12:08 PM CDT Creatinine 1.12 0.74 - 11/02/2021 DTL 1.35 mg/dL 12:08 PM CDT eGFR-Non 70 >=60 11/02/2021 DTL Black/ mL/min/BSA 12:08 PM CDT Latvian Comment: ----ADDITIONAL INFORMATION---- Estimated GFR calculated using the 2009 CKD_EPI creatinine equation. eGFR-Black/ 81 >=60 mL/min/BSA 2021 12:08 PM CDT DTL Comment: ----ADDITIONAL INFORMATION---- Estimated GFR calculated using the 2009 CKD_EPI creatinine equation. Calcium, Total, S 9.2 8.8 - 10.2 mg/dL 11/02/2021 12:0 8 PM CDT DTL Glucose, S 161 (H) 70 - 140 mg/dL 11/02/2021 12:08 PM CDT DTL Specimen Anatomical Collection Method Collection Time Receive d Time (Source) Location / / Volume Laterality Blood (Blood, 11/02/2021 10:43 11/02/2021 Venous) AM CDT 11:32 AM CDT Authorizing Provider Result Elda Hernandez M.D. LAB BLOOD ADD-ON Performing Organization Address City/State/ZIP Code Phon e Number [facility] - [address] [place], [place] [address] [facility] [place] [address] [facility] [address] APTT (Activated Partial Thromboplastin Time) (11/02/2021 10:43 AM CDT) P athologist Signature Activated 28 25 - 37 sec 11/02/2021 DTL Partial 11:39 AM CDT Thrombopl Time, P Specimen Anatomical Collection Method Collection Time Receive d Time (Source) Location / / Volume Laterality Blood (Blood, 11/02/2021 10:43 11/02/2021 Venous) AM CDT 11:13 AM CDT Sai Hernandez M.D. LAB BLOOD ADD-ON Performing Organization Address City/State/ZIP Code Phon e Number [facility] - [address] [place], [place] [address] [facility] [place] [address] [facility] [address] documented in this encounter Visit Diagnoses Diagnosis Primary Malignant Neoplasm Of Prostate ( HCC) documented in this encounter Additional Health Concerns Infection Onset Date Last Indicated Resolved Time COVID19 Pending 11/02/2021 11/02/2021 11/02/2021 7:27 PM CDT documented as of this encounter Care Teams Protective Signal Repairer Relationship Specialty Start Date End Date Elsewhere, Pcp PCP - General Internal Medicine 08/17/21 documented as of this encounter
--- OUTSIDE RECORDS SUMMARY | 2022-05-25 07:57 | XMS_ITS | Encounter Summary ---
:1960 Author Organization [facility] Address [address] [place] [address] Care Team Providers Name Role Phone Elsewhere, Pcp Primary Care Provider Unavailable Reason for Visit Reason Comments Patient Education Encounter Details Date Type Department Care Team Description 11/02/2021 Education Department of Patient Fortino Hernandez M.D. [address] [place] [address] Primary Mal[facility] RS[facility] [address] [place] [address] Neoplasm Of Prostate [place] (HCC) [address] [place] [phone] Social History Tobacco Use Types Packs/Day Years [...] or relatives? How often do you attend yarsanism or More than 4 times per year 08/13/2021 advent services? Do you belong to any clubs or Yes 08/13/2021 organizations such as yarsanism groups, unions, fraternal or athletic groups, or [...] place to sleep or slept in a [place] [facility] [place] facility (including now)? Education Answer Date Recorded What is the highest level of school Bachelor's degree (e.g., BA, AB, 08/12/2021 you have completed or the highest BS) degree you have received? 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
--- OUTSIDE RECORDS SUMMARY | 2022-05-25 07:57 | XMS_ITS | Encounter Summary ---
:1960 Author Organization [facility] Address [address] [place] [address] Care Team Providers Name Role Phone Elsewhere, Pcp Primary Care Provider Unavailable Encounter Details Date Type Department Care Team Description 08/18/2021 Ancillary Procedure Department of Urology Social History Tobacco Use Types Packs/Day Years [...] or relatives? How often do you attend jainism or More than 4 times per year 08/13/2021 congregational services? Do you belong to any clubs or Yes 08/13/2021 organizations such as jainism groups, unions, fraternal or athletic groups, or [...] minutes do you engage in exercise at is 40 min 08/13/2021 level? Stress Answer [...] place to sleep or slept in a halfway (including now)? Education Answer Date Recorded What is the highest level of school Bachelor's degree (e.g., BA, AB, 08/12/2021 you have completed or the highest BS) degree you have received? 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 documented in this encounter Results Non-Radiology Image-Urology Image Exam (08/18/2021 3:40 PM REGULATORY PROCESS MANAGER) Specimen (Source) Anatomical Collection Method Collection Time Re ceived Time Location / / Volume Laterality 08/18/2021 3:40 PM REGULATORY PROCESS MANAGER Narrative [facility] - 08/18/2021 4:16 PM REGULATORY PROCESS MANAGER This order has been created and auto-finalized to support the import of images acquired without order. The clini albaro documentation to support these images can be found on the encounter shekhar t produced images. Provider Not In System IMG NON RAD IMAGING PROCEDUR ES Performing Organization Address City/State/ZIP Code Phon e Number [facility] NA documented in this encounter Visit Diagnoses Not on filedocumented in this encounter Care Teams Can Capper Relationship Specialty Start Date End Date Elsewhere, Pcp PCP - General Internal Medicine 08/17/21 documented as of this encounter
--- OUTSIDE RECORDS SUMMARY | 2022-05-25 07:57 | XMS_ITS | Encounter Summary ---
:1960 Author Organization [facility] Address [address] [place] [address] Care Team Providers Name Role Phone Elsewhere, Pcp Primary Care Provider Unavailable Reason for Visit Auth/Cert Specialty Diagnoses / Procedures Referred By Contact Refer red To Contact Diagnoses Primary Malignant Neoplasm Of Prostate (HCC) Procedures MI LAP PROSTEC RETROPUBIC RADCL MI LAPROSC BILAT TOT PELV LMPHADEC ROBOTIC-ASSISTED RADICAL PROSTATECTOMY ROBOTIC-ASSISTED DISSECTION LYMPH NODE - PELVIC Referral ID Status Reason Start Date Expiration Date Visits Requ ested Visits Authorized [id number] 1 1 Encounter Details Date Type Department Care Team Description 11/03/2021 Surgery [facility] Sai Hernandez, ROBOTIC-ASSISTED RADICAL [address] [facility] [place] [address] [address] [facility] [phone] [place] [address] Social History Tobacco Use Types Packs/Day Years [...] or relatives? How often do you attend yazidi or More than 4 times per year 08/13/2021 sikhism services? Do you belong to any clubs or Yes 08/13/2021 organizations such as yazidi groups, unions, fraternal or athletic groups, or [...] place to sleep or slept in a [facility] (including now)? Education Answer Date Recorded What is the highest level of school Bachelor's degree (e.g., BA, AB, 08/12/2021 you have completed or the highest BS) degree you have received? 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 - 11/04/2021 9:59 AM CDT DISCHARGE SUMMARY BRIEF OVERVIEW Hospital: [facility] Discharge Provider: Sai Hernandez M.D. Primary Team: RST Urology Surgery - David Primary Care Providers: [...] LYMPH NODE, PELVIC.Sai Hernandez M.D.Khanna, Abhinav, M.D. [facility] ROEI OR DISCHARGE DISPOSITION Home or [...] AM CDT You were discharged from the [facility] Urology Surgery - [facility] Service. Please identify this service name if you call with questions after hospitalization. AttachmentsThe following attachments cannot be sent through Care Everywhere. Acetaminophen (By mouth) (Togolese)Bacitracin (On the skin) (Togolese)Laxative, Stimulant Combination (By mouth) (Togolese)Cefdinir (By mouth) (Togolese) Oxybutynin (By mouth) (Togolese)Miralax Prep Instructions (Togolese)Polyethylene Glycol 3350 (By mouth) (Togolese)Tramadol (By mouth) (Togolese)documented in this encounter Medications at Time of [...] as of this encounter Progress Notes Alejandro Israel Pharm.D., R.Ph. - 11/03/2021 10:31 AM CDT Images from the original note were not included. Admission Medication History Note Adherence issues: No concerns Medication list source: Patient Prior to Admission Medications Med List Status: Pharmacy Complete Set By: Alejandro Israel, PharmTaeD., R.Ph. at 11/03/2021 10:31 AM Taking? Last [...] documented in this encounter Nursing Notes Shanika Edmonds, R.N. - 11/04/2021 10:53 AM CDT Shift [...] Primary Malignant Neoplasm Of Prostate (HCC) A airline pilot/first officer actively participated and was necessary for one [...] CBC without Differential (11/04/2021 12:30 AM CDT) [facility] gist Method Time Signature Hemoglobin 12.2 (L) 13.2 [...] Organization Address City/State/ZIP Code Phon e Number [facility] - 200 [place], [place] [address] [facility] [place] [place] [address] [facility] [address] [facility] (ABNORMAL) Basic Metabolic Panel (11/04/2021 12:30 AM [...] 11/04/2021 DTL Black/ mL/min/BSA 1:33 AM CDT [place] Islander Comment: ----ADDITIONAL INFORMATION---- Estimated GFR calculated using [...] Organization Address City/State/ZIP Code Phon e Number [facility] - 200 [place], [place] [address] [facility] [place] [address] [facility] 200 [facility] Surgical Pathology, Frozen Lab (11/03/2021 3:31 PM CDT) Component Value Ref Test Analysis Performed Pathologis t Range Method Time At [facility] 11/05/2021 METH 11:00 AM CDT Participated in Gail Fulton, 11/05/2021 YANICK [facility] -Pathology 11:00 AM [...] is grossly identified. ??Grossed by Torie Good, PA(ASCP). Block Summary A Right prostate apex margin [...] for carcinoma. C. ??Prostate, radical prostatectomy: Adenocarcinoma ([place] patter ??4 + 3, Grade group 3) [...] adenocarcinoma Histologic Grade ?? Grade Group and [place] Score ?Grade Group 3 (Ventura Score 4 + 3 = 7) ?Minor Tertiary Pattern 5 (less than 5%): Not applicable ?Percentage of Pattern 4 in Ventura score 7: 60% ?? Intraductal Carcinoma (IDC): [...] Organization Address City/State/ZIP Code Phon e Number [facility] - [address] [place], [place] [address] [facility] [place] [address] [facility] [address] documented in this encounter Visit Diagnoses Diagnosis Primary Malignant Neoplasm Of Prostate ( HCC) - Primary Primary Malignant Neoplasm Of Prostate ( HCC) documented in this encounter Admitting Diagnoses Diagnosis [...] Given 11/03/2021 8:00 PM CDT 1 packet bacitracin zinc 500 unit/gram ointment Given 11/03/2021 4:58 PM CDT 1 packet Other packet As needed, Starting on Mon11/03/21 at 1658, Intra-Op belladonna alkaloids-opium Given 11/03/2021 4:58 PM CDT 1 suppos itory Rectum 16.2-60 mg suppository 1 suppository (B&O SUPPRETTS) 1 suppository, rectal, Once in surgery, bladder spasms, OR use only, Starting on Mon11/03/21 at 1213, For 1 dose, Intra-Op bupivacaine HCl 0.25 % (2.5 Given 11/03/2021 4:58 PM CDT 30 mL Abdominal Tissue mg/mL) injection (MARCAINE) As needed, Starting on Mon11/03/21 at 1658, Intra-Op heparin (porcine) Given 11/04/2021 5:49 AM CDT [...] Do NOT crush, chew, or split tablet. polysaccharide spheres particles Given 11/03/2021 4:41 PM CDT 1 application. Other (SAL) As needed, Starting on Mon11/03/21 at 1641, Intra-Op sennosides-docusate sodium 8.6-50 mg per Given 11/04/2021 [...] Tiera Angel R.N.) 0548 (Given - Provider: Whit Sosa peNTae) 1,000 mg, oral, Every 6 hours, First dose on Estrellita 11/04/21 at 0000 acetaminophen tablet 1,000 mg (TYLENOL) (COMPLETED) 1124 (Given - Provider: Eliza Vasquez R.N.) 1,000 mg, oral, Once, On Mon11/03/21 at 1130, For 1 dose, Pre-Op, PreOp give in preprocedural area. atorvastatin tablet 10 mg (LIPITOR) 0807 (Given - Provider: Shanika Edmonds R.N.) 10 mg, oral, Daily, First dose on Mon11/04/21 at 0900 bacitracin zinc 500 unit/gram ointment packet 1 packet 1999 (Given - Provider: Tiera Angel R.N.) 0807 (Given - Provider: Whit Garrett) 1 packet (1 application.), topical, 3 ti mes daily, First dose on Mon11/03/21 at 2100, Apply to tip of penis. heparin (porcine) injection 5,000 Units 2106 (Given - Provider: Tiera Angel R.N.) 0549 (Given - Provider: Tiera Pinedo pe RTaeNTae) 5,000 Units, subcutaneous, Every 8 hours scheduled, First dose on Mon11/03/21 at 2200 heparin (porcine) injection 5,000 Units (COMPLETED) 1244 (Given - Provider: Judith Curry APRN, CELL SUPPORT OPERATOR) 5,000 Units, subcutaneous, Once, On Mon11/03/21 at 1215, For 1 dose, Intra-Op, Administer prior to induction of anesthesia. losartan tablet 100 mg (COZAAR) 08 (Given - Provider: Shanika Edmonds R.N.) 100 [...] lactated ringers 1835 (New Bag - Provider: Whit RobertsNTae) 0555 (Stopped - Provider: Tiera Angel R.N.) [...] bacitracin zinc 500 unit/gram ointment packet (CANCELED) 165 (Given - Provider: Rose Duncan R.N. - Comment: on fluffs on tip of penis) As needed, Starting on Mon11/03/21 at 1658, Intra-Op belladonna alkaloids-opium 16.2-60 mg suppository 1 baig ppository (B&O SUPPRETTS) 1 suppository, rectal, Every 8 hours PRN , bladder spasms, Starting on Mon11/03/21 at 1824 belladonna alkaloids-opium 16.2-60 mg baig ppository 1 suppository (B&O SUPPRETTS) (COMPLETED) 165 (Given - Provider: Rose Duncan R.N.) 1 suppository, rectal, Once in surgery, [...] then promethazine). oxybutynin tablet 5 mg (DITROPAN) 1904 ( Given - Provider: Marika Easton R.N.) 0209 (Given - Provider: Tiera Pinedo [...] 1824 documented in this encounter Care Teams School Speech Therapist Relationship Specialty Start Date End Date Elsewhere, Pcp PCP - General Internal Medicine 08/17/21 documented as of this encounter
--- OUTSIDE RECORDS SUMMARY | 2022-05-25 07:57 | XMS_ITS | Encounter Summary ---
:1960 Author Organization [facility] Address [address] [place] [address] Care Team Providers Name Role Phone Elsewhere, Pcp Primary Care Provider Unavailable Encounter Details Date Type Department Care Team Description 11/15/2021 Clinical Communication Department of Urology Bernard [place], [place] [address] [facility] [address] [place] [address] [phone] Social History Tobacco Use Types Packs/Day Years [...] or relatives? How often do you attend anabaptism or More than 4 times per year 08/13/2021 yazdanism services? Do you belong to any clubs or Yes 08/13/2021 organizations such as anabaptism groups, unions, fraternal or athletic groups, or [...] place to sleep or slept in a senior care (including now)? Education Answer Date Recorded What is the highest level of school Bachelor's degree (e.g., BA, AB, 08/12/2021 you have completed or the highest BS) degree you have received? 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
--- OUTSIDE RECORDS SUMMARY | 2022-05-25 07:57 | XMS_ITS | Encounter Summary ---
:1960 Author Organization [facility] Address [address] [place] [address] Care Team Providers Name Role Phone Elsewhere, Pcp Primary Care Provider Unavailable Encounter Details Date Type Department Care Team Description 11/11/2021 Orders Only Department of Urology in Lauro Hernandez M.D. [place], [place] [address] [facility] [address] [place] [phone] (Wo rk) Social History Tobacco Use Types Packs/Day Years [...] or relatives? How often do you attend zoroastrianism or More than 4 times per year 08/13/2021 jew services? 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
--- OUTSIDE RECORDS SUMMARY | 2022-05-25 07:57 | XMS_ITS | Encounter Summary ---
:1960 Author Organization [facility] Address [address] [place] [address] Care Team Providers Name Role Phone Elsewhere, Pcp Primary Care Provider Unavailable Reason for Visit Outpatient (Routine) - Closed Specialty Diagnoses / Procedures Referred By Contact Refer red To Contact Urology Sai Hernandez M.D. [facility] [address] [place] [phone] Referral ID Status Reason Start Date Expiration Date Visits Requ ested Visits Authorized [id number] Closed 08/26/2021 08/26/2022 1 1 Encounter Details Date Type Department Care Team Description 11/02/2021 Office Visit Department of Urology Sai Hernandez, Mark diallo Malignant in [place] Neoplasm Of Prostate [address] (HCC) (Primary Dx) [address] [place] [phone] Social History Tobacco Use Types Packs/Day Years [...] or relatives? How often do you attend holiness or More than 4 times per year 08/13/2021 yazdanism services? Do you belong to any clubs or Yes 08/13/2021 organizations such as holiness groups, unions, fraternal or athletic groups, or [...] place to sleep or slept in a nursing home (including now)? Education Answer Date Recorded What is the highest level of school Bachelor's degree (e.g., BA, AB, 08/12/2021 you have completed or the highest BS) degree you have received? 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 - 11/02/2021 1:00 PM CDT SUBJECTIVE CHIEF COMPLAINT / REASON FOR VISIT Jacob Logan is a 61 y.o. male who presents for listing visit. HISTORY OF PRESENT ILLNESS Jacob Logan is a 61 y.o. male with history of prostate cancer who presents for listing visit in advance of robotic assisted radical prostatectomy scheduled for tomorrow 11/03/2021. No recent illnesses nor hospitalizations, remains in usual state of health. NKDA Hgb 14.6 SCr 1.1 PSA 4.9 MRI - 38cc size - negative (PIRADS 2) Biopsy - 4+3 right apex, right base, left base REVIEW OF SYSTEMS Review of systems was performed and is otherwise non-contributory except as noted above in HPI. OBJECTIVE PHYSICAL EXAM There were no vitals filed for this visit. There is no height or weight on file to calculate BMI. Well nourished male, no distress, accompanying the patient today Normocephalic, atraumatic Extraocular movements intact Respirations even and unlabored Abdomen soft, nontender Extremities warm and well perfused Musculoskeletal: moves all extremities with no apparent limitations to range of motion Neurologic: alert, oriented, converses appropriately Psych: congruent mood and affect Assessment Jacob Logan is a 61 y.o. male with history of prostate cancer who presents for listing visit in advance of robotic assisted radical prostatectomy scheduled for tomorrow 11/03/2021. Regarding surgery, we discussed the risks, benefits, and alternatives, including the risks of bleeding, infection, perioperative cardiovascular, pulmonary, and thromboembolic events, richard-operative mortality, injury to adjacent organs including rectum/ureters/bowel/bladder/vasculature, failure of the procedure to produce the desired effect, and need for subsequent operations. Additionally, we also discussed the expected long-term impact of surgery on urinary and sexual function. The patient expressed understanding and wishes to proceed. - Informed consent signed - HAYDEN consult reviewed - COVID test pending - Reviewed preoperative instructions including NPO - Blood thinners: none - Pre-op orders complete Domenico Soler M.D. Answers for HPI/ROS submitted by the patient on 10/28/2021 No general issues: Yes No eye issues: Yes No ENT issues: Yes No heart issues: Yes No respiratory issues: Yes No GI issues: Yes No muscle/bone issues: Yes No skin issues: Yes No neurologic issues: Yes No mental health issues: Yes No blood/lymph issues: Yes No urinary/reproductive issues: Yes documented in this encounter Plan of Treatment Not on filedocumented as of this encounter Visit Diagnoses Diagnosis Primary Malignant Neoplasm Of Prostate ( HCC) - Primary documented in this encounter Additional Health Concerns Infection Onset Date Last Indicated Resolved Time COVID19 Pending 11/02/2021 11/02/2021 11/02/2021 7:27 PM CDT documented as of this encounter Care Teams Strand Buncher Fine Wire Relationship Specialty Start Date End Date Elsewhere, Pcp PCP - General Internal Medicine 08/17/21 documented as of this encounter
--- OUTSIDE RECORDS SUMMARY | 2022-05-25 07:57 | XMS_ITS | Encounter Summary ---
:1960 Author Organization [facility] Address [address] [place] [address] Care Team Providers Name Role Phone Elsewhere, Pcp Primary Care Provider Unavailable Reason for Referral Outpatient (Routine) - Authorized Specialty Diagnoses / Procedures Referred By Contact Refer red To Contact Urology Sai Hernandez M.D. [facility] [address] [place] [phone] Referral ID Status Reason Start Date Expiration Date Visits V isits Requested Authorized [id number] Authorized 11/05/2021 11/05/2022 1 1 Encounter Details Date Type Department Care Team Description 11/05/2021 Documentation Department of Urology in Lauro Hernandez M.D. [address] [place] [phone] (Wo rk) Social History Tobacco Use Types [...] or relatives? How often do you attend jewish or More than 4 times per year 08/13/2021 methodist services? Do you belong to any clubs or Yes 08/13/2021 organizations such as jewish groups, unions, fraternal or athletic groups, or [...] place to sleep or slept in a custodial (including now)? Education Answer Date Recorded What is the highest level of school Bachelor's degree (e.g., BA, AB, 08/12/2021 you have completed or the highest BS) degree you have received? 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 - 11/05/2021 1:34 PM CDT I spoke with Mr. Logan regarding his surgical pathology. It demonstrates [place] 4+3 prostate cancer that demonstrates invasion of the left seminal vesicle. There is no evidence of extraprostatic extension or seminal vesicle invasion on the right All surgical margins are negative for cancer. All lymph nodes are negative for cancer. No adjuvant therapy is recommended. Will monitor his PSA in [address] an order for a PSA to be done in clinic followed by an office visit documented in this encounter Plan of Treatment Scheduled Orders Name Type Priority Associated Diagnoses Order S [facility] PSA (Prostate-Specific Lab Routine Primary Malignant Expected: 02/05/2022 Antigen), Diagnostic Neoplasm Of Prostate (Approximate), (HCC) Expires: 2022 Scheduled Referrals Name Type Priority Associated Diagnoses Order S chedule Urology office Outpatient Referral Routine Expect ed: visit (clinic) 02/05/2022 (Approximate), Expires: 02/05/2023 documented as of this encounter Visit Diagnoses Diagnosis Primary Malignant Neoplasm Of Prostate ( HCC) - Primary documented in this encounter Care Teams Tile Helper Relationship Specialty Start Date End Date Elsewhere, Pcp PCP - General Internal Medicine 08/17/21 documented as of this encounter
--- OUTSIDE RECORDS SUMMARY | 2022-05-25 07:57 | XMS_ITS | Encounter Summary ---
:1960 Author Organization [facility] Address [address] [place] [address] Care Team Providers Name Role Phone Elsewhere, Pcp Primary Care Provider Unavailable Reason for Referral Outpatient (Routine) - Closed Specialty Diagnoses / Procedures Referred By Contact Sampson danielle To Contact Urology Sai Hernandez M.D. [address] [phone] Referral ID Status Reason Start Date Expiration Date Visits Requ ested Visits Authorized [id number] Closed 08/26/2021 08/26/2022 1 1 Scheduling Instructions 1 PM COLLECTOR Specialty Diagnoses / Procedures Referred By Contact Sampson danielle To Contact Sai Hernandez M.D. [address] [phone] Referral ID Status Reason Start Date Expiration Date Visits Requ ested Visits Authorized COLLECTOR Encounter Details Date Type Department Care Team Description 08/26/2021 Documentation Department of Urology in Lauro Hernandez M.D. [address] [phone] (Wo rk) Social History Tobacco Use Types [...] or relatives? How often do you attend rastafarian or More than 4 times per year 08/13/2021 christianity services? 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 - 08/26/2021 1:04 PM CST I spoke with Mr. Logan Regarding his prostate biopsy results. It demonstrates [place] 4 + 3 prostatecancer. His MRI demonstrates no evidence of extraprostatic extension. He is interested in proceeding with surgery rather than radiation. I have listed him for surgery on11/03/2021. Prior to surgery we will set him up for the following appointments on 11/02/2021: 1. Pre-surgical blood work 2. Pre-surgical COVID screening 3. HAYDEN 4. Listing visit with me 5. Prostatectomy indication class COLLECTOR documented in this encounter Plan of Treatment Scheduled Referrals Name Type Priority Associated Diagnoses Order S chedule Patient Education - Outpatient Referral Routine Primary Malign ant Expected: Preparing for Neoplasm Of Prostate 2021, prostate surgery (HCC) Expires: visit (clinic) 11/26/2022 Urology office Outpatient Referral Routine Expect ed: visit (clinic) 11/02/2021, Expires: 11/26/2022 documented as of this encounter Results SARS Coronavirus 2, Molecular Detection, PCR, Varies Asymptomatic (11/02/2021 12:12 PM CDT) [facility] Method Time Signature COVID-19, Swab, 11/02/2021 DTL PCR, Source Nasopharynx 7:26 PM CDT COVID-19, Undetected Undetected 11/02/2021 DTL PCR, Result 7:26 PM CDT Comment: SARS-CoV-2 RNA absent. This result does not rule out COVID-19 in the patient, as the sensitivity of the test depends o n the timing of the specimen collection and quality of the specimen. Result should be correlated with patient's history and clinical presentat ion. ----ADDITIONAL INFORMATION---- This RT-PCR test using the One Month SARS-Co V-2 Assay ( Targeted Growth.) performed on the One Month Two Module System has received Emergency Use Authorization (EUA) by the U.S. Food and Drug Administration, and is modified from the quality assurance clerk's instructions with a bridging study. Performance characteristics were verifie d by [facility] in a manner consistent with CLIA requirements. Visit the CDC website: https://www.cdc.g ov/coronavirus/ for the most recent guidelines on [place] virus testing. Fact Sheet for Healthcare Providers: https://www.fda.gov/media/644573/downloa d Fact Sheet for Patients: https://www.fda.gov/media/189287/downloa d Specimen Anatomical Collection Method Collection Time Receive d Time (Source) Location / / Volume Laterality Varies 11/02/2021 12:12 11/02/2021 2:17 (Nasopharynx) PM CDT PM CDT Sai Hernandez M.D. LAB MICROBIOLOGY - GENERAL O RDERABLES Performing Organization Address City/[facility] [facility] [place] Phon e Number [facility] - [address] [place], [place] [address] [place] [address] [place] [address] Laboratories[address] Prothrombin Time (PT) (11/02/2021 10:43 AM CDT) athologist Signature Prothrombin 11.8 9.4 - 12.5 [...] M.D. LAB BLOOD ADD-ON Performing Organization Address [facility] [facility] [place] Phon e Number [facility] - 200 [place], [place] [address] [facility] [place] [address] [address] CBC without Differential (11/02/2021 10:43 AM [...] 11/02/2021 Venous) AM CDT 11:13 AM CDT Authorizing Provider Result Elda Hernandez M.D. LAB BLOOD ADD-ON Performing Organization Address City/State/ZIP Code Phon e Number [facility] - [address] [place], [place] [phone] [facility] [place] [address] Laboratories-[facility] [address] [facility] (ABNORMAL) Basic Metabolic Panel (11/02/2021 10:43 AM [...] 11/02/2021 DTL Black/ mL/min/BSA 12:08 PM CDT Palauan Comment: ----ADDITIONAL INFORMATION---- Estimated GFR calculated using [...] 11/02/2021 Venous) AM CDT 11:32 AM CDT Sai Hernandez M.D. LAB BLOOD ADD-ON Performing Organization Address City/State/[facility] Code Phon e Number [facility] - [address] [place], [place] [address] [facility] [place] [address] [address] APTT (Activated Partial Thromboplastin Time) (11/02/2021 10:43 AM CDT) P athologist Signature Activated 28 25 - 37 sec 11/02/2021 DTL Partial 11:39 AM CDT Thrombopl Time, P Specimen Anatomical Collection Method Collection Time Receive d Time (Source) Location / / Volume Laterality Blood (Blood, 11/02/2021 10:43 11/02/2021 Venous) AM CDT 11:13 AM CDT Sai Hernandez M.D. LAB BLOOD ADD-ON Performing Organization Address City/State/[facility] Code Phon e Number [facility] - [address] [place], [place] [address] [place] [address] Laboratories-[address] documented in this encounter Visit Diagnoses Diagnosis Primary Malignant Neoplasm Of Prostate ( HCC) - Primary documented in this encounter Care Teams Tool And Die Repair Relationship Specialty Start Date End Date Elsewhere, Pcp PCP - General Internal Medicine 08/17/21 documented as of this encounter
--- OUTSIDE RECORDS SUMMARY | 2022-05-25 07:57 | XMS_ITS | Encounter Summary ---
:[address] [facility] Address [address] [place] [address] Care Team Providers Name Role Phone Elsewhere, Pcp Primary Care Provider Unavailable Encounter Details Date Type Department Care Team Description 11/05/2021 Orders Only Department of Urology in Lauro Hernandez M.D. [place], [place] [address] [facility] [address] [place] [phone] (Wo rk) Social History Tobacco Use Types [...] More than 4 times per year 08/13/2021 catholic services? Do you belong to any clubs [...] place to sleep or slept in a long-term (including now)? Education Answer Date Recorded What is the highest level of school Bachelor's degree (e.g., BA, AB, 08/12/2021 you have completed or the highest BS) degree you have received? 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
--- OUTSIDE RECORDS SUMMARY | 2022-05-25 07:57 | XMS_ITS | Encounter Summary ---
:[address] [facility] Address [address] [place] [address] Care Team Providers Name Role Phone Elsewhere, Pcp Primary Care Provider Unavailable Encounter Details Date Type Department Care Team Description 11/04/2021 Orders Only [facility], Domenico Soler M. D., [facility], [facility] [address] [facility] [address] [place] [phone] (Wo rk) Social History Tobacco Use Types [...] many times do you More than three yanley es a week 08/13/2021 talk on the phone with family, friends, or neighbors? How often do you get together with friends More than three t imes a week 08/13/2021 or relatives? How often do you attend uatsdin or More than 4 times per year 08/13/2021 bahai services? 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
--- OUTSIDE RECORDS SUMMARY | 2022-05-25 07:57 | XMS_ITS | Encounter Summary ---
:1960 Author Organization [facility] Address [address] [place] [address] Care Team Providers Name Role Phone Elsewhere, Pcp Primary Care Provider Unavailable Reason for Visit Reason Comments Prostate Cancer Outpatient (Routine) - Closed Specialty Diagnoses / Procedures Referred By Contact Refer red To Contact Diagnoses Primary Malignant Neoplasm Of Prostate (HCC) Domenico Soler M.D., [facility] Procedures URO Urethral cath fill / remove / voiding trial (fill / pull) [facility] [address] [place] [phone] Referral ID Status Reason Start Date Expiration Date Visits Requ ested Visits Authorized [id number] Closed 11/04/2021 11/04/2022 1 1 Encounter Details Date Type Department Care Team Description 11/12/2021 Procedure visit Department of Domenico Soler M.D., [facility] [address] [place] [phone] Primary Malignant Urology in Marika Easton, R.NTae [address] [place] [phone] Neoplasm Of Prostate [place], [place] (HCC) [address] [place] [phone] Social History Tobacco Use Types Packs/Day Years [...] or relatives? How often do you attend buddhism or More than 4 times per year 08/13/2021 quaker services? 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 - 11/12/2021 11:00 AM CDT CHIEF COMPLAINT Reason for visit, urinary catheter removal post: RARP by Dr. Sai Hernandez on November 03, 2021. IMPRESSION/REPORT/PLAN Patient has started his antibiotic. Patient has stopped his ditropan as indicated 24 hours prior to UCO. Patient is free of ketchup or vaca colored urine. Catheter removed intact and without difficulty. Provider in to see patient: No Assessed for DVT: Patient has no pain with planter/dorsi flexion,, Patient denies pain in lower extremities, No erythema present and No bilateral lower extremity edema present Assessed Incision(s): Clean, dry, and intact with mild healing bruising present. Last BM: 11/12/2021 Nursing Intervention: Patient instilled with 100 mL's sterile normal saline prior to catheter removal. Patient able to void 150 mL's clear yellow urine with an ultrasound PVR of 21 mL's. Patient tolerated procedure well. Pathology discussed with patient :Yes. Pathology discussed with patient by: Dr. Sai Hernandez via phone call. Care plan: High risk prostate cancer Survivorship Care Plan initiated and discussed with the patient Patient education: use of incontinence pads and leakage of urine , to push fluids , hematuria , burning with urination , increased frequency/urgency , to remain on weight restrictions for 6 weeks, urinary control exercises , to urinate 1 more times before leaving the clinic and if they urinate to their satisfaction they may leave , to urinate often , penile rehabilitation , to complete the antibioticcefdinir, to stop the medication ditropan and to return to clinic if having voiding issues if [id number], if after hours to report to their local emergency room if unable to void documented in this encounter Plan of Treatment Not on filedocumented as of this encounter Visit Diagnoses Diagnosis Primary Malignant Neoplasm Of Prostate ( HCC) documented in this encounter Care Teams Service Desk Agent Relationship Specialty Start Date End Date Elsewhere, Pcp PCP - General Internal Medicine 08/17/21 documented as of this encounter
--- OUTSIDE RECORDS SUMMARY | 2022-05-25 07:57 | XMS_ITS | Clinical Summary ---
:1960 Author Organization [facility] Address [address] [place] [address] Care Team Providers Name Role Phone Elsewhere, Pcp Primary Care Provider Unavailable Source Comments Patient records contain information from all sites at [facility]. For routine questions regarding patient records, call [phone] during business hours, M-F 8:00 AM - 5:00 PM Central Time. Record requests for emergency care only can be directed to [phone] at any time.[facility] Allergies No known active allergies Medications Medication Sig Dispensed Refills Start Date End Date Status atorvastatin Take 10 mg by 0 06/20/2021 Ac tive (LIPITOR) 10 mg mouth daily. tablet losartan (COZAAR) Take 100 mg by 0 06/20/2021 Active 100 mg tablet mouth every morning. ascorbic acid, Take 500 mg by 0 Active vitamin C, (VITAMIN mouth daily. C) 500 mg tablet cholecalciferol, Take 25 mcg by 0 Active vitamin D3, 25 mcg mouth daily. (1,000 Unit) tablet acetaminophen Take 2 tablets 30 tablet 3 11/04/2021 Active (TYLENOL) 500 mg (1,000 mg total) tablet by mouth every 6 (six) hours as needed for pain. bacitracin 500 Apply 1 15 g 0 11/04/2021 Acti ve unit/gram ointment application topically 2 (two) times a day as needed (catheter irritation). Apply to penile tip. tadalafiL (Cialis) 5 Take 1 tablet (5 90 tablet 11 11/12/2021 Active mg tablet mg total) by mouth daily. May take an additional 3 tablets one hour prior to intimacy cefdinir (OMNICEF) TAKE 1 CAPSULE BY 6 capsule 0 11/04/2021 Active 300 mg capsule MOUTH EVERY 12 HOURS FOR 3 DAYS, START THE DAY BEFORE APPOINTMENT FOR FOUNTAIN CATHETER REMOVAL traMADoL (ULTRAM) 50 TAKE 1 TABLET BY 12 tablet 0 11/04/2021 1 07/07/2021 mg tablet MOUTH EVERY SIX HOURS NEEDED FOR PAIN Active Problems Problem Noted Date Primary Malignant Neoplasm Of Prostate 08/26/2021 Overview: Added automatically from request for maximino badillo [id number] Elevated Prostate-Specific Antigen 08/04/2021 Overview: Added automatically from request for maximino badillo [id number] Hypertriglyceridemia 12/31/2013 Hypertension NOS Social History Tobacco Use Types Packs/Day Years [...] More than 4 times per year 08/13/2021 nondenominational services? Do you belong to any clubs [...] place to sleep or slept in a assisted (including now)? Education Answer Date Recorded What is the highest level of school Bachelor's degree (e.g., BA, AB, 08/12/2021 you have completed or the highest BS) degree you have received? 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 Vital Signs Vital Sign Reading [...] Mass Index 32.84 11/03/2021 10:27 AM CDT Plan of Treatment Health Maintenance Due Date Last Done Comments CT Colonography 1960 Cologuard 1960 Colonoscopy 1960 Colorectal Cancer Screening 1960 FIT 1960 HIV Screening 1960 Hepatitis C Screening 1960 Lipid (Cholesterol) 1960 Screening COVID-19 Vaccine (#1) 1960 Zoster Vaccines (1 of 2) 2009 Depression Screening 06/26/2021 (Annual PHQ-2) Influenza Vaccine (#1) 2022 Office Visit for Blood 08/17/2022 08/17/2021 Pressure Check / Re-check Creatinine Level 11/04/2022 11/04/2021, 11/02/2021 Potassium Level 11/04/2022 11/04/2021, 11/02/2021 Sodium Level 11/04/2022 11/04/2021, 11/02/2021 Fasting Glucose for 11/04/2024 11/04/2021, 11/02/2021 Diabetes Screening DTaP,Tdap,and Td Vaccines 07/21/2031 07/21/2021, 05/11/2011 , (3 - Td or Tdap) 05/25/2005, Additional history exists Pneumococcal vaccine (0-64 Aged Out No lo nger eligible years) based on patient 's age to complete this topic Medical Devices Implanted Type Area Manager Of Loss Prevention Operations Device Identifier Shelf Model / Expiration Serial / Date Lot Roberto Lock Latisha Hilliard - [id number] Hardware N/A: Naviswiss 2 [id number] 07/14/2026 [id number] / Implanted: Qty: 1 on 11/03/2021 by Sai Hernandez M.D. at [facility] e.g. Pelvis / pins/screws [id number] /rods Insurance Payer Benefit Plan / Subscriber ID Effective Phone Address T ype Group Dates PREFERREDONE PREFERREDONE [id number] 2021-Pr [phone] PPO ADMINISTRATIVE ADMINISTRATIVE esent [phone] SERVICES SERVICES [place] [address] Advance Directives For more information, please contact: [phone] Latest Code Status on File Code Status Date Activated Date Inactivated Comments Full Code 08/18/2021 3:23 PM 08/18/2021 8:00 PM Question Answer Comments Full Code: Discussed Care Teams Activity Therapy Specialist Relationship Specialty Start Date End Date Elsewhere, Pcp PCP - General Internal Medicine 08/17/21
--- OUTSIDE RECORDS SUMMARY | 2022-05-25 07:57 | XMS_ITS | Encounter Summary ---
:1960 Author Organization [facility] Address [address] [place] [id number] Care Team Providers Name Role Phone Elsewhere, Pcp Primary Care Provider Unavailable Encounter Details Date Type Department Care Team Description 08/24/2021 Clinical Communication Department of Urology Caren Anderson in [place] [address] [facility] [address] [place] [id number] [phone] Social History Tobacco Use Types Packs/Day Years [...] or relatives? How often do you attend gnosticist or More than 4 times per year 08/13/2021 taoism services? 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 - 08/24/2021 2:13 PM CST I contacted Mr. Logan to review his prostate biopsy results as below. He has evidence of Wingate 4+3=7, unfavorable intermediate risk prostate cancer. We reviewed this diagnosis in detail including broadly discussing options for treatment. Patient is very interested in proceeding with surgical intervention for his prostate cancer and therefore I will schedule him for an appointment with Dr. Hernandez to discuss robotic prostatectomy. I offered patient a consultation with Radiation Oncology, but he was notinterested in proceeding with radiation at this time. Based on his risk evaluation, patient also qualifies for a bone scan which we will attempt to schedule same day as his appointment. Patient expressed understanding and all of his questions were answered. Recent Results (from the past 720 hour(s)) Surgical Pathology Status: None Result Value Report electronically signed by Rajan Escobar M.D. I verify that I have examined all relevant slides/materials for the specimen(s) and rendered or confirmed the diagnosis. Gross Description A: Received on a biopsy board filled with formalin labeled with the patient's name, medical record number, and specific prostate sites are six oriented pink fritz tissue cores. A. Received within the first well is a complete core 1.7 cm in length labeled right posterior medial apex, prostate per biopsy board. The core is inked black at the distal end. B. Received within the second well is a complete core 1.6 cm in length labeled right posterior medial base, prostate per biopsy board. The core is inked green, and over-inked black at the distal end. C. Received within the third well is a fragmented core 1.8 cm in length labeled right posterior lateral apex, prostate per biopsy board. The core is inked blue, and over-inked black at the distal end. Specimens A, B, & C are submitted in cassette A1. D. Received within the fourth well is a complete core 1.5 cm in length labeled right posterior lateral base, prostate per biopsy board. The core is inked black at the distal end. E. Received within the fifth well is a complete core 0.7 cm in length labeled right anterior horn, prostate per biopsy board. The core is inked green, and over-inked black at the distal end. F. Received within the sixth well is a complete core 1.7 cm in length labeled right anterior apex, prostate per biopsy board. The core is inked blue, and over-inked black at the distal end. Specimens D, E, & F are submitted in cassette D1. Grossed by LMB. G: Received on a biopsy board filled with formalin labeled with the patient's name, medical record number, and specific prostate sites are six oriented pink fritz tissue cores. G. Received within the first well is a complete core 1.5 cm in length labeled left posterior medial apex, prostate per biopsy board. The core is inked black at the distal end. H. Received within the second well is a fragmented core 2.2 cm in length labeled left posterior medial base, prostate per biopsy board. The core is inked green, and over-inked black at the distal end. I. Received within the third well is a complete core 1.7 cm in length labeled left posterior lateral apex, prostate per biopsy board. The core is inked blue, and over-inked black at the distal end. Specimens G, H, & I are submitted in cassette G1. J. Received within the fourth well is a complete core 2.0 cm in length labeled left posterior lateral base, prostate per biopsy board. The core is inked black at the distal end. K. Received within the fifth well is a complete core 1.8 cm in length labeled left anterior horn, prostate per biopsy board. The core is inked green, and over-inked black at the distal end. L. Received within the sixth well is a fragmented core 1.8 cm in length labeled left anterior apex, prostate per biopsy board. The core is inked blue, and over-inked black at the distal end. Specimens J, K, & L are submitted in cassette J1. Grossed by LMB. Interpretation FINAL DIAGNOSIS A. Prostate, right posterior medial apex, needle core biopsy: Prostatic adenocarcinoma Type: Acinar Wingate score 4+3=7 Percentage of pattern 4: 60% Grade Group: 3 Tumor involves 10% of overall specimen (1 of 1 core). B. Prostate, right posterior medial base, needle core biopsy: Prostatic adenocarcinoma Type: Acinar Wingate score 4+3=7 Percentage of pattern 4: 60% Grade Group: 3 Tumor involves 10% of overall specimen (1 of 1 core). C. Prostate, right posterior lateral apex, needle core biopsy: Benign prostatic tissue. D. Prostate, right posterior lateral base, needle core biopsy: High-grade prostatic intraepithelial neoplasia E. Prostate, right anterior horn, needle core biopsy: Benign prostatic tissue. F. Prostate, right anterior apex, needle core biopsy: Benign prostatic tissue. G. Prostate, left posterior medial apex, needle core biopsy: Benign prostatic tissue. H. Prostate, left posterior medial base, needle core biopsy: Prost atic adenocarcinoma Type: Acinar Ventura score 4+3=7 Percentage of pattern 4: 60% Grade Group: 3 Tumor involves 10% of overall specimen (1 of 1 core). I. Prostate, left posterior lateral apex, needle core biopsy: Benign prostatic tissue. J. Prostate, left posterior lateral base, needle core biopsy: Benign prostatic tissue. K. Prostate, left anterior horn, needle core biopsy: Benign prostatic tissue. L. Prostate, left anterior apex, needle core biopsy: Benign prostatic tissue. 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
--- OUTSIDE RECORDS SUMMARY | 2022-05-25 07:57 | XMS_ITS | Encounter Summary ---
:1960 Author Organization [facility] Address [address] [place] [address] Care Team Providers Name Role Phone Elsewhere, Pcp Primary Care Provider Unavailable Reason for Visit Auth/Cert Specialty Diagnoses / Procedures Referred By Contact Refer red To Contact Diagnoses Primary Malignant Neoplasm Of Prostate (HCC) Procedures MO LAP PROSTEC RETROPUBIC RADCL MO LAPROSC BILAT TOT PELV LMPHADEC ROBOTIC-ASSISTED RADICAL PROSTATECTOMY ROBOTIC-ASSISTED DISSECTION LYMPH NODE - PELVIC Referral ID Status Reason Start Date Expiration Date Visits Requ ested Visits Authorized [id number] 1 1 Encounter Details Date Type Department Care Team Description 11/03/2021 Anesthesia Event [facility] OR Ramiro Perdue M.D. [address] [place] [address] [address] [facility] Judith Curry, MANAGER BUSINESS CONTINUITY, DISC PAD GRINDING MACHINE FEEDER [address] [place] [phone] [place] [phone] Anesthesia Record Procedure Summary Procedure Name Responsible Anesthesia Start Anesthesia Stop Time Anesthesiologist Time ROBOTIC-ASSISTED Ramiro Perdue M.D. 11/03/21 1219 11/03/21 1 733 RADICAL PROSTATECTOMY. Events Date Time Event Comment 11/03/2021 1219 An Start Machine/Equipmen t Checked Infection Precautions Foll owed Procedure/Site Verified NPO Sta tus Verified Supine Standard ASA Mon itors Applied 1226 An Induction 1228 An Intubation 1232 Turnover to Proceduralist 1305 Proc Start 1705 Proc Fin 1707 Turnover to ANE Staff 1723 Airway Removal Criteria Met 1723 Extubation/Airway Removed 1724 an stop data 1733 An End I completed my h andoff to the receiving staff during [facility] we 1. Identified the patient 2. Ident ified the responsible provider 3. Revi ewed the pertinent medical history 4. Discussed the surgical course 5. Review ed intra-op anesthesia management and i ssues during anesthesia 6. Set expectati ons for post-procedure period 7. Allowe d opportunity for questions and ac knowledgement of understanding. Name Total fentanyl injection 50 mcg/mL 250 mcg lidocaine 2% (mg) injection 100 mg propofol 10 mg/mL 200 mg rocuronium 10 mg/mL injection 150 mg ondansetron 4 mg/2 mL injection 4 mg sugammadex 100 mg/mL injection 200 mg dexamethasone 4 mg/mL injection 4 mg heparin (porcine) injection 5,000 Units 5,000 Units ceFAZolin 4 g HYDROmorphone PF 2 mg/mL injection 1 mg ketamine 10 mg/mL injection 20 mg Lactated Ringers Free Drip 900 mL lactated ringers free drip 1,000 mL Agents No agents on file. Blood No blood administrations on file. Lines, Drains, and Airways Type Details Placement Removal Scope Sites 11/03/21; Abdomen; 1; 11/03/21 0000 by Lateral, Left, Lower; 2; DakotaRose M, Left, Mid, Lower; 3; R.N. Umbilicus; 4; Right, Mid, Lower; 5; Right, Lateral, Upper; 6; Right, Lateral, Lower Wound 08/18/21; N; Incision; 08/18/21 0000 by 11/04/21 0800 by Perineum; Mid; puncture Sagrario Toribio oShanika N, sites from biopsy; A, R.N. R.N. primapore; 11/04/21; 0800; healed Peripheral IV Placement Date: 11/03/21; 11/03/21 1034 by 11/04 1015 by Placement Time: 1034; Nilson Rosenthal Mi a N, Catheter Size: 20 G; R.N. Orientation: Left; Location: Hand; Site Prep: Chlorhexidine (Preferred); Technique: Anatomical landmarks (vcl); Inserted by: epp; Insertion Attempts: 1; Removal Date: 11/04/21; Removal Time: 1015; Removal Reason: Patient discharged ETT Placement Date: 11/03/21; 11/03/21 1228 by 11/03 1723 by Placement Time: 1228 Judith Curry APRN, Sorenson, Joseph (created via procedure CHRIS P, ARLIN, DISC PAD GRINDING MACHINE FEEDER documentation); Mask Ventilation: Easy mask; Type: Standard ETT; Single Lumen Tube Size: 8 mm; Cuffed: Yes; Blade Size: Ramos 2; Location: Oral; Grade View: Grade 1; Insertion Attempts: 1; Placement Verification: Bilateral breath sounds, Positive ETCO2, Symmetrical chest wall movement; Removal Date: 11/03/21; Removal Time: 1723 Peripheral IV Placement Date: 11/03/21; 11/03/21 1231 by 11/04 1014 by Placement Time: 1231; Judith Curry APRN, Abcejo, Mia N, Catheter Size: 16 G; DISC PAD GRINDING MACHINE FEEDER R.N. Orientation: Right; Location: Wrist; Inserted by: shanice; Removal Date: 11/04/21; Removal Time: 1014; Removal Reason: Patient discharged NG/OG Tube 11/03/21; 1243; 11/03/21 1243 by 11/03/21 1646 b y Orogastric; 16 Fr; Oral; Judith Curry APRN, HalMaria E conway 11/03/21; 1646 CHRIS W, ARLIN, CHRIS, Zach Indwelling Urinary Placement Date: 11/03/21; 11/03/21 1303 by 1624 by Catheter Placement Time: 1303; Ana Condon Rooney, Kaelyn M, Inserted by: Domenico Solre MD; Type: Non-latex; Size: 18 Fr.; Balloon Size: 30 mL (filled with 20mL sterile water); Urine Returned: Yes; Removal Date: 11/03/21; Removal Time: 1624; Removal Reason: Per protocol Indwelling Urinary Placement Date: 11/03/21; 11/03/21 1638 by 1133 by Catheter Placement Time: 1638; Rose Duncan Musa, Ch rista M, Inserted by: Maryann Christensen; WhitN. RTaeNTae Type: Non-latex; Size: 20 Fr.; Balloon Size: 30 mL (20cc sterile water in balloon); Urine Returned: Yes; Removal Date: 11/12/21; Removal Time: 1133; Removal Reason: Per order documented in this encounter Social History Tobacco [...] or relatives? How often do you attend mandaen or More than 4 times per year 08/13/2021 religion services? Do you belong to any clubs or Yes 08/13/2021 organizations such as mandaen groups, unions, fraternal or athletic groups, or [...] place to sleep or slept in a intermediate (including now)? Education Answer Date Recorded What is the highest level of school Bachelor's degree (e.g., BA, AB, 08/12/2021 you have completed or the highest BS) degree you have received? 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 - 11/03/2021 5:39 PM CDT Patient: Jacob Logan Procedure Summary Date: 11/03/21 Room / Location: [place] [address] / [facility] in [place], [place] Anesthesia Start: 1219 Anesthesia Stop: 3 Procedures: ROBOTIC-ASSISTED RADICAL PROSTATECTOMY. (N/A ) ROBOTIC-ASSISTED DISSECTION LYMPH NODE, PELVIC. (N/A ) Diagnosis: Primary Malignant Neoplasm Of Prostate (HCC) (Primary Malignant Neoplasm Of Prostate (HCC) [C61].) Providers: Sai Hernandez M.D. Responsible Provider: Ramiro Perdue M.D. Anesthesia Type: general ASA Status: 3 Anesthesia Type: general Last vitals Vitals Value Taken Time BP 132/90 11/03/21 1730 Temp 36.8 ??C 11/03/21 1730 Pulse 79 11/03/21 1739 Resp 9 11/03/21 1739 SpO2 96 % 11/03/211738 Vitals shown include unvalidated device data. Please reference Vitals flowsheet for most recent vital signs. Anesthesia Post Evaluation Patient Disposition: general care unit Cardiovascular status: hemodynamics (HR & BP) acceptable Respiratory status: patent airway with spontaneous effort Temperature: normothermic Oxygen requirements: nasal cannula Level of consciousness: awake Pain score: pain adequately controlled and/or at baseline Post Op nausea/vomiting: none Hydration status: euvolemic Anesthesia Procedure Notes - Judith Curry APRN, CRNA - 11/03/2021 12:58 PM CDT Associated Order(s): Airway Airway Date/Time: 11/03/2021 12:28 PM Performed by: Judith Curry APRN, CRNA Authorized by: Judith Curry APRN, CRNA Patient location during procedure: OR / Procedure Area PROCEDURE DETAILS: Mask difficulty assessment: easy mask Final airway type: direct laryngoscopy, intubation Laryngeal Manipulation: no Final airway difficulty of direct laryngoscopy (DL): 0-easy Final best view of glottic structures - Cormack/Lehane Score: grade 1 ETT location: oral Adult blade type: Ramos 2 Adult tube size: 8 Adult ETT distance at teeth/gum: 23 Oral tube type: standard ETT Cuffed: yes Number of attempt to successful placement: 1 Airway confirmation: bilateral breath sounds, positive ETCO2 and bilateral chest rise Other previous techniques attempted: none and direct laryngoscopy; intubation Number of other approaches attempted: 1 Previous direct laryngoscopy: best view of glottic structures: grade 2B PRE PROCEDURE DETAILS: Pre evaluation for airway management: procedure Urgency: elective Preop assessment of probable difficulty: questionable / suspicious difficult airway Preoxygenation: bag valve mask SEDATION / ANESTHESIA Anesthesia method: anesthesia POST PROCEDURE DETAILS: Procedure outcome: successful Airway event: no complications ATTESTATION STATEMENT Anesthesia Preprocedure Evaluation - Ramiro Perdue M.D. - 11/03/2021 12:00 PM CDT Preprocedure Anesthesia & H&P Assessment Procedure Summary Date/Time: 11/03/21 1403 Procedures: ROBOTIC-ASSISTED RADICAL PROSTATECTOMY. (N/A ) ROBOTIC-ASSISTED DISSECTION LYMPH NODE, PELVIC. (N/A ) Diagnosis: Primary Malignant Neoplasm Of Prostate (HCC) [C61] Pre-op diagnosis: Primary Malignant Neoplasm Of Prostate (HCC) [C61]. Location: [place] [address] / [facility] in [place], [place] Providers: Sai Hernandez M.D. Pertinent components of the patient's history including current problem list, medical history, surgical history, family history, social history, medications and allergies were reviewed. Present illnessand pre-op diagnosis were confirmed. The planned surgery / procedure was verified with the patient /legal guardian. The patient's general health condition remains unchanged RELEVANT COMORBID CONDITIONS CV (+) Hypertension NOS GENETICS (+) Hypertriglyceridemia ONC (+) Primary Malignant Neoplasm Of Prostate (HCC) OBJECTIVE PHYSICAL EXAMINATION Airway (HEENT) Mallampati: II TM Distance: >3 FB Neck ROM: Full Cardiovascular Rhythm: Regular Rate: Normal Functional Capacity: >4 METS Pulmonary Pulmonary Assessment: Clear General / Constitutional Constitutional Assessment: Normal Abdomen Normal Musculoskeletal Normal Skin Normal ASSESSMENT / PLAN ANESTHESIA PLAN ASA: 3 Anesthesia Plan: general Patient seen and allergies reviewed, anesthesia plan and risks discussed directly with patient /legal guardian or through an park interpreter. Risks/Benefits/Alternatives of Blood transfusion discussed with patient / legal guardian, including an opportunity to ask questions and/or decline some or all transfusion therapies. The patient / legalguardian consented to the use of all blood products, as deemed medically necessary Approval to Proceed: approved for anesthesia documented in this encounter Plan of Treatment Not on filedocumented as of this encounter Procedures Procedure Name Priority Date/Time Associated Comments Diagnosis LDA ANE ENDOTRACHEAL Routine 11/03/2021 12:28 Res ults for this AIRWAY PM CDT procedure are i n the results section. documented in this encounter Results LDA ANE ENDOTRACHEAL AIRWAY (11/03/2021 12:28 PM CDT) Narrative Judith Curry APRN, CRNA - 11/03/2021 12: 28 PM CDT Judith Curry APRN, CRNA ? 11/03/2021 12:59 PM Airway Date/Time: 11/03/2021 12:28 PM Performed by: Judith Curry APRN, CRNA Authorized by: Judith Curry APRN, CRNA Patient location during procedure: OR / Procedure Area PROCEDURE DETAILS: Mask difficulty assessment: easy mask Final airway type: direct laryngoscopy, intubation Laryngeal Manipulation: no ?? Final airway difficulty of direct laryng oscopy (DL): 0-easy Final best view of glottic structures - Cormack/Lehane Score: grade 1 ETT location: oral Adult blade type: Ramos 2 Adult tube size: 8 Adult ETT distance at teeth/gum: 23 Oral tube type: standard ETT Cuffed: yes Number of attempt to successful placemen t: 1 Airway confirmation: bilateral breath so unds, positive ETCO2 and bilateral chest rise Other previous techniques attempted: non e and direct laryngoscopy; intubation Number of other approaches attempted: 1 Previous direct laryngoscopy: best view of glottic structures: grade 2B PRE PROCEDURE DETAILS: Pre evaluation for airway management: pr ocedure Urgency: elective Preop assessment of probable difficulty: questionable / suspicious difficult airway Preoxygenation: bag valve mask SEDATION / ANESTHESIA Anesthesia method: anesthesia POST PROCEDURE DETAILS: ? Procedure outcome: successful ?? Airway event: no complications ATTESTATION STATEMENT Judith Curry APRN, CRNA ANESTHESIA ORDERABLES documented in this encounter Visit Diagnoses Not on filedocumented in this encounter Administered Medications Inactive Administered Medications - up to 3 most recent administrations Medication Order MAR Action Action Date Dose Rate Site ceFAZolin injection (ANCEF) Given 11/03/2021 3:50 PM CDT 2 g intravenous, As needed, Starting on Mon11/03/21 at 1300, Anesthesia Intra-op Given 11/03/2021 1:00 PM CDT 2 g dexAMETHasone injection (DECADRON) Given 11/03/2021 1:02 PM CDT 4 mg intravenous, As needed, Starting on Mon11/03/21 at 1302, Anesthesia Intra-op fentaNYL injection (SUBLIMAZE) Given 11/03/2021 3:39 PM CDT 50 mcg intravenous, As needed, Starting on Mon11/03/21 at 1226, Anesthesia Intra-op Given 11/03/2021 1:21 PM CDT 50 mcg Given 11/03/2021 12:26 PM CDT 150 mcg heparin (porcine) injection 5,000 Units Given 11/03/2021 12:44 PM CDT 5,000 Units 5,000 Units, subcutaneous, Once, On Mon11/03/21 at 1215, For 1 dose, Intra-Op, Administer prior to induction of anesthesia. HYDROmorphone (PF) injection (DILAUDID) Given 11/03/2021 1:52 PM CDT 0.4 mg intravenous, As needed, Starting on Mon11/03/21 at 1326, Anesthesia Intra-op Given 11/03/2021 1:26 PM CDT 0.6 mg ketamine injection (KETALAR) Given 11/03/2021 3:39 PM CDT 10 mg intravenous, As needed, Starting on Mon11/03/21 at 1448, Anesthesia Intra-op Given 11/03/2021 2:48 PM CDT 10 mg lactated ringers New Bag 11/03/2021 12:19 PM CDT intravenous, Continuous Infusion: Per Instructions PRN, Starting on Mon11/03/21 at 1219, Anesthesia Intra-op lactated ringers New Bag 11/03/2021 12:31 PM CDT intravenous, Continuous Infusion: Per Instructions PRN, Starting on Mon11/03/21 at 1231, Anesthesia Intra-op lidocaine (PF) (cardiac) injection Given 11/03/2021 12:26 PM CDT 100 mg intravenous, As needed, Starting on Mon11/03/21 at 1226, Anesthesia Intra-op ondansetron (PF) injection (ZOFRAN) Given 11/03/2021 4:37 PM CDT 4 mg intravenous, As needed, Starting on Mon11/03/21 at 1637, Anesthesia Intra-op propofoL injection (DIPRIVAN) Given 11/03/2021 12:26 PM CDT 200 mg intravenous, As needed, Starting on Mon11/03/21 at 1226, Anesthesia Intra-op rocuronium injection (ZEMURON) Given 11/03/2021 4:30 PM CDT 10 mg intravenous, As needed, Starting on Mon11/03/21 at 1226, Anesthesia Intra-op Given 11/03/2021 3:51 PM CDT 10 mg Given 11/03/2021 3:02 PM CDT 20 mg sugammadex injection (BRIDION) Given 11/03/2021 4:55 PM CDT 200 mg intravenous, As needed, Starting on Mon11/03/21 at 1655, Anesthesia Intra-op documented in this encounter Care Teams Hims Manager Relationship Specialty Start Date End Date Elsewhere, Pcp PCP - General Internal Medicine 08/17/21 documented as of this encounter
--- OUTSIDE RECORDS SUMMARY | 2022-05-25 07:57 | XMS_ITS | Encounter Summary ---
:[address] [facility] Address [address] [place] [address] Care Team Providers Name Role Phone Elsewhere, Pcp Primary Care Provider Unavailable Reason for Referral Medication Prior Authorization - Denied Specialty Diagnoses / Procedures Referred By Contact Refer red To Contact Sai Hernandez M.D. [address] [place] [phone] Referral ID Status Reason Start Date Expiration Date Visits Requ ested Visits Authorized [id number] Denied 1 1 Encounter Details Date Type Department Care Team Description 11/12/2021 Orders Only Department of Urology in Lauro Hernandez M.D. [place], [place] [address] [place] [address] [place] [phone] (Wo rk) Social History Tobacco Use Types [...] or relatives? How often do you attend hoahaoism or More than 4 times per year 08/13/2021 yazidism services? Do you belong to any clubs or Yes 08/13/2021 organizations such as hoahaoism groups, unions, fraternal or athletic groups, or [...] place to sleep or slept in a care home (including now)? Education Answer Date Recorded What is the highest level of school Bachelor's degree (e.g., BA, AB, 08/12/2021 you have completed or the highest BS) degree you have received? 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
--- OUTSIDE RECORDS SUMMARY | 2022-05-25 07:58 | XMS_ITS | Encounter Summary ---
:1960 Author Organization [facility] Address [address] [place] [address]. [place] [address] Care Team Providers Name Role Phone Cristobal Wiggins MD Primary Care Provider Abel Hermosillo MD Unavailable Reason for Visit Auth/Cert - Closed Specialty Diagnoses / Procedures Referred By Contact Refer red To Contact Gastroenterology Diagnoses Rectal Bleeding Rh Endoscopy Procedures COLONOSCOPY [address] [place] [address] Phone: Fax: Referral ID Status Reason Start Date Expiration Date Visits Requ ested Visits Authorized [id number] Closed 1 1 Encounter Details Date Type Department Care Team Description 08/19/2014 Hospital Encounter [facility] Timbo Conway MD Endoscopy [place] COLON RECTAL SURG [address] [facility] [place], [place] [address] [facility] [place] [address] [place] [address] [place], [place] [address] (Wo rk) Social History Tobacco Use Types Packs/Day Years Used Date Smoking Tobacco: Never Alcohol Use Standard Drinks/Week Comments Yes 0 (1 standard drink = 0.6 oz pure alcoho l) 1-2 beers/day Sex Assigned at Date Recorded Not on file documented as of this encounter Last Filed Vital Signs Vital Sign Reading Time Taken Comments Blood Pressure 134/89 08/19/2014 4:30 PM [facility] Pulse - - Temperature - - Respiratory Rate 16 08/19/2014 4:30 PM [facility] Oxygen Saturation 96% 08/19/2014 4:30 PM [facility] Inhaled Oxygen Concentration - - Weight 86.2 kg (190 lb) 08/19/2014 3:02 PM [facility] Height 172.7 cm (5' 8) 08/19/2014 3:02 PM [facility] Body Mass Index 28.89 08/19/2014 3:02 PM [facility] documented in this encounter Medications at Time of Discharge Medication Sig Dispensed Refills Start Date End Date Cholecalciferol (VITAMIN D3 Take 1 tablet by 0 PO)Indications: mouth daily Hypertriglyceridemia Cyanocobalamin (VITAMIN B-12 Take 1 tablet by 0 CR PO)Indications: mouth daily Hypertriglyceridemia niacin 500 MG Take 500 mg by 0 tabletIndications: mouth daily Hypertriglyceridemia (with breakfast) NIASPAN 500 MG OR 1 TABLET DAILY 60 2 05/25/2005 TBCRIndications: Other and at bedtime unspecified hyperlipidemia initially, then increase to two tablets at bedtime. Take with aspirin tablet if possible atorvastatin (LIPITOR) 10 MG Take 1 tablet 90 tablet 1 12/2510/15/2014 tabletIndications: (10 mg) by mouth Hypertriglyceridemia daily documented as of this encounter H&P Notes Sree Conway MD - 08/19/2014 3:38 PM CST Pre-Endoscopy History and Physical Jacob Logan Date of : 1960 Age: [age] year old Date of Procedure: 08/19/2014 Primary care provider: Cristobal Wiggins Type of Endoscopy: colonoscopy Reason for Procedure: screening Type of Anesthesia Anticipated: Moderate Sedation HPI: Jacob is a 54 year old male who will be undergoing the above procedure. A history and physical has been performed. The patient's medications and allergies have been reviewed. The risks and benefits of the procedure including the risk of bleeding, perforation, and missed lesions as well as the sedation options and risks were discussed with the patient. All questions were answered and informed consent was obtained. No Known Allergies Current Facility-Administered Medications Medication ??? sodium chloride (PF) 0.9% PF flush 3 mL ??? sodium chloride (PF) 0.9% PF flush 3 mL ??? sodium chloride (PF) 0.9% PF flush 3 mL ??? ondansetron (ZOFRAN) injection 4 mg Prescriptions prior to admission Medication Sig Dispense Refill ??? atorvastatin (LIPITOR) 10 MG tablet Take 1 tablet (10 mg) by mouth daily 90 tablet 1 ??? niacin 500 MG tablet Take 500 mg by mouth daily (with breakfast) ??? Cyanocobalamin (VITAMIN B-12 CR PO) Take 1 tablet by mouth daily ??? Cholecalciferol (VITAMIN D3 PO) Take 1 tablet by mouth daily Patient Active Problem List Diagnosis ??? Hypertriglyceridemia Past Medical History Diagnosis Date ??? Hypertriglyceridemia age 48 as high as 400's ??? Sleep apnea 2009 tried C-pap for short time Past Surgical History Procedure Laterality Date ??? Hernia repair 1987, 2010 ??? Colonoscopy History Substance Use Topics ??? Smoking status: Never Smoker ??? Smokeless tobacco: Not on file ??? Alcohol Use: Yes Comment: 1-2 beers/day Family History Problem Relation Age of Onset ??? Cardiovascular Mother 70 age 75 in 2013,valve replacement, hx of rheumaic fever ??? Parkinsons Disease Father age 79 ??? Dementia Father PHYSICAL EXAM: BP 134/87 Resp 14 Ht 1.727 m (5' 8) Wt 86.183 kg (190 lb) BMI 28.90 kg/m2 SpO2 95% Estimated body mass index is 28.9 kg/(m^2) as calculated from the following: Height as of this encounter: 1.727 m (5' 8). Weight as of this encounter: 86.183 kg (190 lb). Mental status - alert and oriented RESP: lungs clear CV: RRR AIRWAY EXAM: Mallampatti Class II (visualization of the soft palate, fauces, and uvula) IMPRESSION ASA Class 2 - Mild systemic disease Signed Electronically by: Sree Conway August 19, 2014 Colorectal Surgery [phone] (office) [phone] (pager) [email or web address] PRESSER documented in this encounter Plan of Treatment Not on filedocumented as of this encounter Procedures Procedure Name Priority Date/Time Associated Diagnosis Comme nts COLONOSCOPY 08/19/2014 3:16 PM [facility] Rectal Bleeding Special Needs Cristobal Wiggins COLONOSCOPY Routine 08/19/2014 3:14 PM [facility] Resul ts for this procedure are in the results section . documented in this encounter Results COLONOSCOPY (08/19/2014 3:14 PM BR[facility] PRESS[facility]) [facility] Method Time Signature COLONOSCOPY [facility] RAD IOLOGY RESULTS Patient Name: Jacob Logan ? Procedure Date: 08/19/2014 3:14 PM ? Accou nt Number: [id number] Date of : 1960 ?Admit Type: Out patient Age: 54 ? Gender: Male Attending MD: Sree Conway MD ? Instrument Name: [id number] Procedure: ?Colonoscopy Indications: ?Rectal bleeding Providers: ?Sree Conway MD, Fariba Nicholas RN (Nurse) Referring MD: ? Cristobal Wiggins MD Medicines: ?Midazolam 3 mg IV, Fentanyl 150 micrograms IV, ?Glucagon 0.5 mg IV Complications: ?No immediate complications. Procedure: ?Pre-Anesthesia Assessment: ?- Prior to the procedure, a History and Physical ?was performed, and patient medications and ?allergies were reviewed. The patient is competent. ?The risks and benefits of the procedure and the ?sedation options and risks were discussed with the ?patient. All questions were answered and informed ?consent was obtained. Patient identification and ?proposed procedure were verified by the physician ?in the endoscopy suite. Mental Status Examination: ?alert and oriented. Airway Examination: normal ?oropharyngeal airway and neck mobility. Respiratory ?Examination: clear to auscultation. CV Examination: ?normal. Prophylactic Antibiotics: The patient does ?not require prophylactic antibiotics. Prior ?Anticoagulants: The patient has taken no previous ?anticoagulant or antiplatelet agents. ASA Grade ?Assessment: II - A patient with mild systemic ?disease. After reviewing the risks and benefits, ?the patient was deemed in satisfactory condition to ?undergo the procedure. The anesthesia plan was to ?use moderate sedation / analgesia (conscious ?sedation). Immediately prior to administration of ?medications, the patient was re-assessed for ?adequacy to receive sedatives. The heart rate, ?respiratory rate, oxygen saturations, blood ?pressure, adequacy of pulmonary ventilation, and ?response to care were monitored throughout the ?procedure. The physical status of the patient was ?re-assessed after the procedure. ?After obtaining informed consent, the colonoscope ?was passed under direct vision. Throughout the ?procedure, the patient's blood pressure, pulse, and ?oxygen saturations were monitored continuously. The ?[id number] was introduced through the anus ?and advanced to the terminal ileum, with ?identification of the appendiceal orifice and IC ?valve. The colonoscopy was performed without ?difficulty. The patient tolerated the procedure ?well. The quality of the bowel preparation was ?excellent. ? Findings: ? The perianal and digital rectal examinations were nor mal. Pertinent ? negatives include normal sphincte r tone and no palpable rectal lesions. ? The terminal ileum appeared normal. ? The entire examined colon appeared normal on direct and retroflexion ? views. ? Impression: ? - The examined portion of the ileum was normal. ?- The entire examined colon is normal on direct and ?retroflexion views. Recommendation: ? - Repeat colonoscopy in 10 years for surveillance. ? Procedure Code(s): ? --- Professional --- ? 06826, Colonoscopy, flexible, proximal to splenic flexure; diagnostic, ? with or without collection of specimen(s) by brushing or washing, with ? or without colon decompression (separate procedure) Diagnosis Code(s): ? --- Professional --- ? 569.3, Hemorrhage of rectum and anus CPT copyright 2013 [employer]. All rights reserved. The codes documented in this report are prelimin imani and upon doll eye setter review may be revised to meet current compliance requirements. Sree Conway MD 08/19/2014 3:59 PM Number of Addenda: 0 Note Initiated On: 08/19/2014 3:14 PM MRN: [id number] Procedure Date: ? 08/19/2014 3:14:17 PM Scope Withdrawal Time: 0 hours 9 minutes 23 seconds Total Procedure Duration: 0 hours 13 minutes 11 seconds Scope In: 3:41:07 PM Scope Out: 3:54:18 PM Specimen (Source) Anatomical Collection Method Collection Time Re ceived Time Location / / Volume Laterality 08/19/2014 3:14 PM [facility] Cristobal Wiggins MD PROCEDURES Performing Organization Address City/State/ZIP Code Phon e Number RADIOLOGY RESULTS documented in this encounter Visit Diagnoses Not on filedocumented in this encounter Active and Recently Administered Medications Times are shown in [facility]. PRN Medication Order 08/17/2014 08/18/2014 08/19/2014 fentaNYL (SUBLIMAZE) injection (CANCELED) 1539 (Given - Provider: Fariba Nicholas RN)1542 (Given - Provider: Fariba Nicholas RN) PRN, Starting 08/19/14 at 1539, Intra-procedure glucagon injection (CANCELED) 15 46 (Given - Provider: Fariba Nicholas RN) PRN, Starting 08/19/14 at 1546, Intra-procedure midazolam (VERSED) injection (CANCELED) 1540 (Given - Provider: Fariba Nicholas, RN)1541 (Given - Provider: Fariba Nicholas, RN) PRN, Starting 08/19/14 at 1540, Intra-procedure documented in this encounter Care Teams Boiler House Inspector Relationship Specialty Start Date End Date Cristobal Wiggins MD PCP - General Family Practice 12/17/13 [facility] [address] [place] [address] Abel Hermosillo MD 12/17/13 documented as of this encounter
--- OUTSIDE RECORDS SUMMARY | 2022-05-25 07:58 | XMS_ITS | Encounter Summary ---
:1960 Author Organization [facility] Address [address] [place] [address] Care Team Providers Name Role Phone Cristobal Wiggins MD Primary Care Provider Abel Hermosillo MD Unavailable Reason for Referral Care Coordination (Urgent) - Pending Review Specialty Diagnoses / Procedures Referred By Contact Refer red To Contact Diagnoses Infection due to 2019 novel coronavirus Tavo Campbell MD [facility] [address] [place], [place] [address] Referral ID Status Reason Start Date Expiration Date Visits V isits Requested Authorized [id number] Pending 06/11/2021 06/11/2022 1 1 Review ATIONAL REVIEW SERGEANT Consultation (Routine: Next available opening) - Pending Review Specialty Diagnoses / Procedures Referred By Contact Refer red To Contact Diagnoses Infection due to 2019 novel coronavirus Tavo Campbell MD [facility] [address] [place] [address] Referral ID Status Reason Start Date Expiration Date Visits V isits Requested Authorized [id number] Pending 06/11/2021 06/11/2022 1 1 Review ATIONAL REVIEW SERGEANT Reason for Visit Reason Comments Covid Concern Encounter Details Date Type Department Care Team Description 06/11/2021 [facility] Tavo Ríos Infectio n due to 2019 novel coronavirus; [facility] Emergency Dep ashish Campbell MD Suspected COVID-19 virus infection [address] [facility] [place], [place] [phone] [address] [phone] [address] [place] [address] (Wo rk) Social History Tobacco Use Types Packs/Day Years Used Date Smoking Tobacco: Never Alcohol Use Standard Drinks/Week Comments Yes 10 (1 standard drink = 0.6 oz pure alcoh ol) 5-6 beers/week Sex Assigned at Date Recorded Not on file COVID-19 Exposure Response Date Recorded In the last month, have you been in contact with Yes 06/11/2021 8:20 AM OPERATIONAL REVIEW SERGEANT someone who was confirmed or suspected to have Coronavirus / COVID-19? documented as of this encounter Last Filed Vital Signs Vital Sign Reading Time Taken Comments Blood Pressure 141/72 06/11/2021 10:58 AM OPERATIONAL REVIEW SERGEANT Pulse 97 06/11/2021 10:45 AM OPERATIONAL REVIEW SERGEANT Temperature 37.2 ??C (98.9 ??F) 06/11/2021 8:24 AM OPERATIONAL REVIEW SERGEANT Respiratory Rate 20 06/11/2021 11:00 AM OPERATIONAL REVIEW SERGEANT Oxygen Saturation 93% 06/11/2021 11:00 AM OPERATIONAL REVIEW SERGEANT Inhaled Oxygen Concentration - - Weight - - Height - - Body Mass Index - - documented in this encounter Discharge Instructions AttachmentsThe following attachments cannot be sent through Care Everywhere. Instructions: Check oxygen level every 4 hours and return to ED if symptoms worsenInstructions: Quarantine/isolationUnderstanding COVID-19 (Coronavirus Disease 2019) (GEORGIAN)documented in this encounter Medications at Time of Discharge Medication Sig Dispensed Refills Start Date End Date albuterol (PROAIR Inhale 2-4 puffs 6.7 g 0 06/11/2021 HFA/PROVENTIL HFA/VENTOLIN into the lungs HFA) 108 (90 Base) MCG/ACT every 4 hours as inhaler needed for shortness of breath / dyspnea atorvastatin (LIPITOR) 10 MG Take 1 tablet 90 tablet 1 08/24 tabletIndications: (10 mg) by mouth Hypertriglyceridemia daily Cholecalciferol (VITAMIN D3 Take 1 tablet by 0 PO)Indications: mouth daily Hypertriglyceridemia Cyanocobalamin (VITAMIN B-12 Take 1 tablet by 0 CR PO)Indications: mouth daily Hypertriglyceridemia dexamethasone (DECADRON) 4 Take 2 tablets 10 tablet 0 06/11 MG tablet (8 mg) by mouth daily for 5 days niacin 500 MG Take 500 mg by 0 tabletIndications: mouth daily Hypertriglyceridemia (with breakfast) NIASPAN 500 MG OR 1 TABLET DAILY 60 2 05/25/2005 TBCRIndications: Other and at bedtime unspecified hyperlipidemia initially, then increase to two tablets at bedtime. Take with aspirin tablet if possible benzonatate (TESSALON) 200 Take 1 capsule 21 capsule 0 06/1106/18/2021 MG capsule (200 mg) by mouth 3 times daily as needed for cough documented as of this encounter ED Notes Kristen Davenport RN - 06/11/2021 11:01 AM CST Pt provided with home pulse ox and COVID-19 home virtual monitoring packet. ATIONAL REVIEW SERGEANT Renetta Musa - 06/11/2021 10:15 AM CST Patient walked with Oximeter for a period of 3 minutes patients O2 was between 91-92. ATIONAL REVIEW SERGEANT Kristen Davenport RN - 06/11/2021 8:23 AM CST Pt arrives with c/o worsening SOB and productive cough after testing positive for COVID on Monday06/05/21. Patient endorses some chest pain with deep inspiration. Patient reports home pulse ox reading at 90% at home, occasionally lower than that per pt. ABCs intact. ATIONAL REVIEW SERGEANT Tavo Campbell MD - 06/11/2021 8:19 AM CST History Chief Complaint: Covid Concern NATI Logan is a 61 year old male who presents with Covid Concern. The patient first became sick 10 days ago while he was in [place]. Symptoms include fever, body aches, fatigue, cough, and shortnessof breath. He has a oximeter and notes is oxygen saturations have been between 90 and 93%. His was concerned about him today, and advised him to go to the ED. He does not have any underlying lung problem. He denies nausea, vomiting and diarrhea. Review of Systems Constitutional: Positive for fatigue and fever. Respiratory: Positive for cough and shortness of breath. Gastrointestinal: Negative for diarrhea, nausea and vomiting. Musculoskeletal: Positive for myalgias. All other systems reviewed and are negative. Allergies: No Known Drug Allergies Medications: Tessalon Albuterol Atorvastatin Past Medical History: Hypertriglyceridemia Other and unspecified disc disorder of cervical region Other and unspecified HLD Other lung disease Sleep apnea Past Surgical History: Herniorrhaphy Family History: Mother - CVD Father - parkinsonism, dementia Brother - glaucoma Social History: Patient presents to the ED alone via car Physical Exam Patient Vitals for the past 24 hrs: BP Temp Temp src Pulse Resp SpO2 06/11/21 1100 -- -- -- -- 20 93 % 06/11/21 1058 (!) 141/72 -- -- -- -- -- 06/11/21 1045 -- -- -- 97 16 91 % 06/11/21 1030 -- -- -- 93 13 94 % 06/11/21 1015 (!) 140/74 -- -- 73 17 93 % 06/11/21 0945 132/74 -- -- -- -- 94 % 06/11/21 0930 133/74 -- -- 75 21 94 % 06/11/21 0824 118/73 98.9 ??F (37.2 ??C) Temporal 79 18 90 % Physical Exam Gen: well appearing, in no acute distress HENT: mmm, no rhinorrhea, erythema without significant hypertrophy or exudates Eyes: periorbital tissues and sclera normal Neck: supple, no abnormal swelling Lungs: CTAB, mild tachypnea, no significant accessory muscle use CV: rrr, no m/r/g, ppi Abd: soft, nontender, nondistended, no rebound/masses/guarding/hsm Ext: no peripheral edema Skin: warm, dry, well perfused, no rashes/bruising/lesions on exposed skin Neuro: alert, MAEE, no gross motor or sensory deficits, gait stable Psych: Normal mood, normal affect Emergency Department Course Imaging: XR Chest 2 Views Final Result IMPRESSION: Imaging features can be seen with (COVID-19) pneumonia, though are nonspecific and can occur with a variety of infectious and noninfectious processes. ARIANNA VAQSUEZ MD Per radiology Emergency Department Course: Reviewed: I reviewed nursing notes, vitals, past history and care everywhere Assessments: I obtained history and examined the patient as noted above. 1043 I rechecked the patient and explained findings. I discussed plan for discharge home. Disposition: The patient was discharged to home. Impression & Plan Medical Decision Makin-year-old male with known COVID-19. Generalized weakness and ongoing cough mild shortness of breath. Radiograph negative for lobar pneumonia. He does not look to be in significant respiratory distress saturations are above 90 here in the ER at rest and with an ambulation trial. Discharge home with supportive care has a home oximeter understands what to watch out for when return here in the emergency department. Low suspicion for other acute cardiopulmonary etiology. Covid-19 Jacob Logan was evaluated during a global COVID-19 pandemic, which necessitated consideration that the patient might be at risk for infection with the SARS-CoV-2 virus that causes COVID-19. Applicable protocols for evaluation were followed during the patient's care. COVID-19 was considered as part of the patient's evaluation. A test was obtained at a previous visitand reviewed & considered today. Diagnosis: ICD-10-CM 1. Infection due to 2019 novel coronavirus U07.1 COVID-19 [facility] Referral Care Coordination Referral 2. Suspected COVID-19 virus infection Z20.822 Discharge Medications: New Prescriptions ALBUTEROL (PROAIR HFA/PROVENTIL HFA/VENTOLIN HFA) 108 (90 BASE) MCG/ACT INHALER Inhale 2-4 puffs into the lungs every 4 hours as needed for shortness of breath / dyspnea BENZONATATE (TESSALON) 200 MG CAPSULE Take 1 capsule (200 mg) by mouth 3 times daily as needed for cough Scribe Disclosure: Micaela, Michael Tena, am serving as a scribe at 10:08 AM on 06/11/2021 to document services personally performed by Tavo Campbell MD based on my observations and the provider's statements to me. Tavo Campbell MD 06/11/212034 ATIONAL REVIEW SERGEANT documented in this encounter Plan of Treatment Scheduled Referrals Name Type Priority Associated Diagnoses Order S chedule COVID-19 GetWell Loop Referral Routine: Next Infection due to O rdered: Referral available opening 2018 novel 06/11/2021 coronavirus Care Coordination Referral Emergency: 1-2 Infection due to [place]de red: Referral Days 2018 novel 06/11/2021 coronavirus documented as of this encounter Procedures Procedure Name Priority Date/Time Associated Diagnosis Comme nts XR CHEST 2 VIEWS STAT 06/11/2021 9:44 AM Resul ts for this OPERATIONAL REVIEW SERGEANT procedure are i n the results section. EKG 12-LEAD, STAT 06/11/2021 8:35 AM Results f or this TRACING ONLY OPERATIONAL REVIEW SERGEANT procedure are i n the results section. documented in this encounter Results XR Chest 2 Views (06/11/2021 9:44 AM OPERATIONAL REVIEW SERGEANT) Anatomical Region Laterality Modality Chest Digital Radiography Specimen (Source) Anatomical Location Collection Method / Collectio n Time Received Time / Laterality Volume Impressions 06/11/2021 9:50 AM OPERATIONAL REVIEW SERGEANT IMPRESSION: Imaging features can be seen with (COVID-19) ??pneumonia, though are nonspecific and can occur wit h a variety of infectious and noninfectious processes. ARIANNA VASQUEZ MD Narrative 06/11/2021 9:50 AM OPERATIONAL REVIEW SERGEANT CHEST TWO VIEWS 06/11/2021 9:44 AM HISTORY: COVID positive. Shortness of br eath. COMPARISON: 06/01/2005 FINDINGS: Mild groundglass opacities are present. No pneumothorax or pleural effusion. Heart size normal. Procedure Note Arianna Vasquez MD - 06/11/2021Forma tting of this note might be different from the original. CHEST TWO VIEWS 06/11/2021 9:44 AM HISTORY: COVID positive. Shortness of br eath. COMPARISON: 06/01/2005 FINDINGS: Mild groundglass opacities are present. No pneumothorax or pleural effusion. Heart size normal. IMPRESSION: Imaging features can be seen with (COVID-19) pneumonia, though are nonspecific and can occur wit h a variety of infectious and noninfectious processes. ARIANNA VASQUEZ MD Tavo Campbell MD IMG DIAGNOSTIC IMAGING ORDER REBECCA EKG 12-lead, tracing only (06/11/2021 8:35 AM OPERATIONAL REVIEW SERGEANT) Component Value Ref Range Test Analysis Performed Pathologis t Method Time At Signature Systolic Blood mmHg RADIOLOGY Pressure RESULTS Diastolic Blood mmHg RADIOLOGY Pressure RESULTS Ventricular Rate 76 BPM RADIOLOGY RESULTS Atrial Rate 76 BPM RADIOLOGY RESULTS AR Interval 176 ms RADIOLOGY RESULTS QRS Duration 88 ms RADIOLOGY RESULTS QT 378 ms RADIOLOGY RESULTS QTc 425 ms RADIOLOGY RESULTS P [place] 68 degrees RADIOLOGY RESULTS R AXIS 16 degrees RADIOLOGY RESULTS T [place] 47 degrees RADIOLOGY RESULTS Interpretation Sinus rhythm with Premature supraventricular complexes RADIOLOGY ECG Otherwise normal ECG RESULTS No previous ECGs available Confirmed by - EMERGENCY RUTHY Malloy PHYSICIAN ([id number]), business editor CHANO HURLEY ([id number]) on 06/11/2021 10:42:05 AM Specimen Anatomical Collection Method Collection Time Receive d Time (Source) Location / / Volume Laterality 06/11/2021 8:35 AM OPERATIONAL REVIEW SERGEANT 10:42 AM OPERATIONAL REVIEW SERGEANT Tavo Campbell MD ECG ORDERABLES Performing Organization Address City/State/ZIP Code Phon e Number RADIOLOGY RESULTS documented in this encounter Visit Diagnoses Diagnosis Infection due to 2019 novel coronavirus Suspected COVID-19 virus infection documented in this encounter Administered Medications Inactive Administered Medications - up to 3 most recent administrations Medication Order MAR Action Action Date Dose Rate Site albuterol (PROVENTIL Given 06/11/2021 10:14 AM OPERATIONAL REVIEW SERGEANT 6 puffs HFA/VENTOLIN HFA) inhaler 6 puff, Inhalation, ONCE, On Mon06/11/21 at 0950, For 1 dose, Check the dose counter on the inhaler to ensure there are doses remaining before administering. dexamethasone (DECADRON) tablet 8 mg Given 06/11/2021 10:52 AM OPERATIONAL REVIEW SERGEANT 8 mg 8 mg, Oral, ONCE, On Mon06/11/21 at 1050, For 1 dose documented in this encounter Active and Recently Administered Medications Times are shown in OPERATIONAL REVIEW SERGEANT. Scheduled Medication Order 06/09/2021 06/10/2021 06/11/2021 albuterol (PROVENTIL HFA/VENTOLIN HFA) inhaler (COMPLETED) 1014 (Given - Provider: Christina Woodall RN) 6 puff, Inhalation, ONCE, On Mon 1 at 0950, For 1 dose, Check the dose counter on the inhaler to ensure there are doses remaining before administering. dexamethasone (DECADRON) tablet 8 mg (COMPLETED) 1052 (Given - Provider: Christina Woodall RN) 8 mg, Oral, ONCE, On Mon06/11/21 at 1050, For 1 dose documented in this encounter Care Teams Music Cataloguer Relationship Specialty Start Date End Date Cristobal Wiggins MD PCP - General Family Practice 12/17/13 [facility] [address] [place] [address] Abel Hermosillo MD 12/17/13 documented as of this encounter
--- OUTSIDE RECORDS SUMMARY | 2022-05-25 07:58 | XMS_ITS | Encounter Summary ---
:1960 Author Organization [place] Address [facility] [place] [address] Care Team Providers Name Role Phone Cristobal Wiggins MD Primary Care Provider Abel Hermosillo MD Unavailable Encounter Details Date Type Department Care Team Description 06/11/2021 Travel Social History Tobacco Use Types Packs/Day Years Used Date Smoking Tobacco: Never Alcohol Use Standard Drinks/Week Comments Yes 10 (1 standard drink = 0.6 oz pure alcoh ol) 5-6 beers/week Sex Assigned at Date Recorded Not on file COVID-19 Exposure Response Date Recorded In the last month, have you been in contact with Yes 06/11/2021 8:20 AM LEASING PROFESSIONAL someone who was confirmed or suspected to have Coronavirus / COVID-19? documented as of this encounter Plan of Treatment Not on filedocumented as of this encounter Visit Diagnoses Not on filedocumented in this encounter Care Teams Delivery Stock Clerk Relationship Specialty Start Date End Date Cristobal Wiggins MD PCP - General Family Practice 12/17/13 [facility] [address] [place] [address] Abel Hermosillo MD 12/17/13 documented as of this encounter
--- OUTSIDE RECORDS SUMMARY | 2022-05-25 07:58 | XMS_ITS | Encounter Summary ---
:1960 Author Organization [facility] Address [address] [place] [address] Care Team Providers Name Role Phone Unavailable Primary Care Provider Unavailable Encounter Details Date Type Department Care Team Description 08/04/2021 Hospital Encounter Department of Sai Hernandez Elevat ed Laboratory Medicine M.DTae Prostate-Specific and Pathology, [address] [place] [address] in [place], [place] [phone] [place] [address] [place], [place] (Work) [phone] Social History Tobacco Use Types Packs/Day Years Used Date Smoking Tobacco: Never Assessed Alcohol Habits Answer Date Recorded How often [...] or relatives? How often do you attend christian or More than 4 times per year 08/13/2021 sikhism services? Do you belong to any clubs or Yes 08/13/2021 organizations such as christian groups, unions, fraternal or athletic groups, or [...] place to sleep or slept in a detention (including now)? Sex Assigned at Date Recorded Male 08/12/2021 8:37 PM NUCLEAR POWERPLANT SUPERVISOR documented as of this encounter Medications at Time of Discharge Medication Sig Dispensed Refills Start Date End Date atorvastatin (LIPITOR) 10 Take 10 mg by mouth 0 1 08/21/2020 mg tablet daily. losartan (COZAAR) 100 mg Take 100 mg by mouth 0 1 08/21/2020 tablet every morning. acetaminophen (TYLENOL) Take 2 capsules 0 022 11/03/2021 500 mg capsule (1,000 mg total) by mouth every 6 (six) hours as needed for pain. documented as of this encounter Plan of Treatment Not on filedocumented as of this encounter Procedures Procedure Name Priority Date/Time Associated Diagnosis Comme nts BACTERIAL CULTURE, Routine 08/04/2021 11:53 AM Elevated Re sults for this AEROBIC + SUSC, NUCLEAR POWERPLANT SUPERVISOR Prostate-Specific procedu re are in URINE Antigen the results section. documented in this encounter Results Bacterial Culture, Aerobic + Susc, Urine (08/04/2021 11:53 AM NUCLEAR POWERPLANT SUPERVISOR) [facility] gist Method Time Signature Urine Culture No growth 08/05/2021 DTL after 1 day 12:42 PM NUCLEAR POWERPLANT SUPERVISOR of incubation. Specimen Anatomical Collection Method Collection Time Receive d Time (Source) Location / / Volume Laterality Urine (Urine, 08/04/2021 11:53 08/04/2021 2:33 Midstream) AM NUCLEAR POWERPLANT SUPERVISOR PM NUCLEAR POWERPLANT SUPERVISOR Comment: Specimen Source Site: Urine Sai Hernandez M.D. LAB MICROBIOLOGY - GENERAL O RDERABLES Performing Organization Address City/State/ZIP Code Phon e Number [facility] [address] [place], [place] [address] [facility] [place] [address] [facility] [address] documented in this encounter Visit Diagnoses Diagnosis Elevated Prostate-Specific Antigen documented in this encounter
--- OUTSIDE RECORDS SUMMARY | 2022-05-25 07:58 | XMS_ITS | Encounter Summary ---
:1960 Author Organization [facility] Address [address] [place] [address] Care Team Providers Name Role Phone Elsewhere, Pcp Primary Care Provider Unavailable Reason for Visit Auth/Cert Specialty Diagnoses / Procedures Referred By Contact Refer red To Contact Diagnoses Elevated Prostate-Specific Antigen Elevated Prostate-Specific Antigen [R97.20] Procedures LA BX PROSTATE NDL TRANSPRNEAL BIOPSY TRANSPERINEAL PROSTATE Referral ID Status Reason Start Date Expiration Date Visits Requ ested Visits Authorized [id number] 1 1 Encounter Details Date Type Department Care Team Description 08/18/2021 Surgery Outpatient Procedure Layton Remy, BI[facility] [place] [address] [facility] [address] [place] [phone] Social History Tobacco Use Types Packs/Day Years [...] or relatives? How often do you attend gnosticism or More than 4 times per year 08/13/2021 zoroastrian services? 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 documented as of this encounter Last Filed Vital Signs Vital Sign Reading Time Taken Comments Blood Pressure 148/115 08/18/2021 5:00 PM BEVEL GEAR GENERATOR OPERATOR Pulse 73 08/18/2021 5:05 PM BEVEL GEAR GENERATOR OPERATOR Temperature 37 ??C (98.6 ??F) 08/18/2021 3:24 PM BEVEL GEAR GENERATOR OPERATOR Respiratory Rate 12 08/18/2021 5:05 PM BEVEL GEAR GENERATOR OPERATOR Oxygen Saturation 96% 08/18/2021 5:05 PM BEVEL GEAR GENERATOR OPERATOR Inhaled Oxygen Concentration - - Weight 95 kg (209 lb 7 oz) 08/18/2021 3:24 PM BEVEL GEAR GENERATOR OPERATOR Height 174 cm (5' 8.5) 08/18/2021 3:24 PM BEVEL GEAR GENERATOR OPERATOR 08/17/21 Body Mass Index 31.38 08/18/2021 3:24 PM BEVEL GEAR GENERATOR OPERATOR documented in this encounter Medications at Time of Discharge Medication Sig Dispensed Refills Start Date End Date ascorbic acid, vitamin C, Take 500 mg by mouth 0 (VITAMIN C) 500 mg tablet daily. atorvastatin (LIPITOR) 10 Take 10 mg by mouth 0 1 08/21/2020 mg tablet daily. cholecalciferol, vitamin Take 25 mcg by mouth 0 D3, 25 mcg (1,000 Unit) daily. tablet losartan (COZAAR) 100 mg Take 100 mg by mouth 0 1 08/21/2020 tablet every morning. acetaminophen (TYLENOL) Take 2 capsules 0 022 11/03/2021 500 mg capsule (1,000 mg total) by mouth every 6 (six) hours as needed for pain. documented as of this encounter OR Notes Op Note - Sara Scott M.D. - 08/18/2021 3:56 PM CST Pre-op Diagnosis Elevated Prostate-Specific Antigen 08/04/21 PSA: 4.9 08/04/10 MRI prostate: PIRADS 2, no marked lesions Post-op Diagnosis Elevated Prostate-Specific Antigen A registered nurse first assistant actively participated and was necessary for one or more of the following: opening,exposure and visualization during the case, maintaining hemostasis, wound closure resulting in its safe and expeditious completion. Findings 1. Digital rectal exam demonstrated no palpable nodules. 2. No distinct hypoechoic lesions noted, consistent with MRI findings. 3. Uncomplicated MRI-ultrasound fusion biopsy with sampling of 12-core systematic biopsy. Complications None Description of Procedure PROCEDURE 1. Ultrasound-guided transperineal needle biopsy of prostate with MRI correlation using MRI ultrasound fusion software. 2. Three-dimensional data set acquisition on a separate workstation for volume rendering and segmentation and planning for fusion biopsies. 3. Echography of prostate. ADDITIONAL PRE-OPERATIVE DIAGNOSIS: Elevated PSA suspicious but not diagnostic for prostate adenocarcinoma; Abnormal MRI of prostate. PROCEDURE AND FINDINGS: After appropriate informed consent was signed patient was brought to the operative suite. Following induction of intravenous sedation patient was prepped and draped in dorsal lithotomy position. Surgical time-out was performed identifying the patient by 2 identifiers and verifying that he received appr opriate preoperative antibiotics. Legs had been supported in Yellofin stirrups. Approximately 10 cc of lubricant jelly was instilled into the rectum a digital rectal exam was performed which demonstrated no palpable nodules. The perineum was prepped with a ChloraPrep stick. A total of 15 cc of a 50:50mixture of 1% lidocaine and 0.25% bupivacaine was infiltrated subcutaneously in the perineum. The B and K ultrasound transducer was inserted into the rectum on the stepper unit. Prostate diagnostic ultrasonography was performed. An apical prostate block was performed by depositing 7.5 cc of the same lidocaine/bupivacaine mixture in the bilateral apical richard-prostatic tissues. Total of 30 cc of local anesthetic mixture was used. We then proceeded to obtain measurements and save ultrasound images. Bladder where seen appears unremarkable. Prostate capsule appears unremarkable. No distinct hypoechoic lesions noted, consistent with MRI. There were no additional hypoechoic lesions identified. No hyperechoic areas and calcifications were noted. Patient did not have a significant median lobe. Seminalvesicles appeared unremarkable. Width: 46.1 mm, Height: 31.7 mm, Length: 53.0 mm, Volume: 40.4 cc A three dimensional ultrasound data set was then acquired with a sagittal sweep from right to left and sent a separate workstation for volume rendering and segmentation. Once image fusion maneuvers were carried out, regional sales representative systematic biopsies were also taken and sent for permanent section analysis; each core location was captured with the fusion planning software. These were sent in 2 separate biopsy chips, 1 for the left and 1 for the right. Specimens from the left were labeled left base lateral, left base medial, left mid lateral, left mid medial, left apex lateral, left apex medial. Specimens for the right were labeled right base lateral, right base medial, right mid lateral, right mid medial, right apex lateral, right apex medial. The needle location was captured on the work station and saved to a three dimensional data set file. The ultrasound transducer was removed, pressure was applied to the perineum followed by a gauze dressing. There was no obvious hematoma or bleeding. The patient tolerated the procedure well and was awakened from anesthesia and taken to the post-operative area in satisfactory condition. Sara Scott M.D. L GEAR GENERATOR OPERATOR documented in this encounter Plan of Treatment Not on filedocumented as of this encounter Procedures Procedure Name Priority Date/Time Associated Comments Diagnosis SURGICAL PATHOLOGY Routine 08/18/2021 3:48 PM Elevated Res ults for this BEVEL GEAR GENERATOR OPERATOR Prostate-Specific procedure are in Antigen the results section. BIOPSY TRANSPERINEAL 08/18/2021 3:33 PM Elevated PROSTATE BEVEL GEAR GENERATOR OPERATOR Prostate-Specific Antigen Special Needs Hernandez primary. documented in this encounter Results Surgical Pathology (08/18/2021 3:48 PM BEVEL GEAR GENERATOR OPERATOR) Component Value Ref Test Analysis Performed Pathologis t Range Method Time At Signature 08/21/2021 DTL 11:00 AM BEVEL GEAR GENERATOR OPERATOR Report Rajan Escobar M.D. 08/21/2021 DTL electronically 11:00 AM signed by BEVEL GEAR GENERATOR OPERATOR I verify that I have examined all relevant slides/materials for the specimen(s) and rendered or confirmed the diagnosis. Gross Description A: ?? Received on a biopsy board filled with form delmer 08/21/2021 DTL labeled with the patient's name, medical record number, and 11:00 AM specific prostate sites are six oriented pink fritz tissue BEVEL GEAR GENERATOR OPERATOR cores. A. Received within the first well [...] in cassette D1. Grossed by LMB. G: ?? Received on a biopsy board filled with [...] J1. Grossed by LMB. Interpretation FINAL DIAGNOSIS 08/21/2021 DTL A. Prostate, right posterior medial apex, needle core 11:00 AM biopsy: Prostatic adenocarcinoma BEVEL GEAR GENERATOR OPERATOR Type: Acinar Tallulah score 4+3=7 Percentage of pattern 4: 60% Grade Group: 3 Tumor involves 10% of overall specimen (1 of 1 core). B. Prostate, right posterior medial base, needle core biopsy: Prostatic adenocarcinoma Type: Acinar Tallulah score 4+3=7 Percentage of pattern 4: 60% [...] left posterior medial base, needle core biopsy: Prostatic adenocarcinoma Type: Acinar Ventura score 4+3=7 Percentage [...] apex, needle core biopsy: Benign prostatic tissue. Specimen (Source) Anatomical Collection Method Collection Time Re ceived Time Location / / Volume Laterality Biopsy (Prostate) 08/18/2021 3:48 PM BEVEL GEAR GENERATOR OPERATOR Biopsy (Prostate) 08/18/2021 3:48 PM BEVEL GEAR GENERATOR OPERATOR Biopsy (Prostate) 08/18/2021 3:48 PM BEVEL GEAR GENERATOR OPERATOR Biopsy (Prostate) 08/18/2021 3:48 PM BEVEL GEAR GENERATOR OPERATOR Biopsy (Prostate) 08/18/2021 3:48 PM BEVEL GEAR GENERATOR OPERATOR Biopsy (Prostate) 08/18/2021 3:48 PM BEVEL GEAR GENERATOR OPERATOR Biopsy (Prostate) 08/18/2021 3:48 PM BEVEL GEAR GENERATOR OPERATOR Biopsy (Prostate) 08/18/2021 3:48 PM BEVEL GEAR GENERATOR OPERATOR Biopsy (Prostate) 08/18/2021 3:48 PM BEVEL GEAR GENERATOR OPERATOR Biopsy (Prostate) 08/18/2021 3:48 PM BEVEL GEAR GENERATOR OPERATOR Biopsy (Prostate) 08/18/2021 3:48 PM BEVEL GEAR GENERATOR OPERATOR Biopsy (Prostate) 08/18/2021 3:48 PM BEVEL GEAR GENERATOR OPERATOR Narrative This result has an attachment that is no t available. Layton Remy M.D. LAB SURG PATH ORDERABLES Performing Organization Address City/State/ZIP Code Phon e Number [facility] - [address] [place], [place] [address] [facility] [place] [address] Laboratories-[facility] [address] [facility] documented in this encounter Visit Diagnoses Diagnosis Elevated Prostate-Specific Antigen - [facility] Elevated Prostate-Specific Antigen documented in this encounter Admitting Diagnoses Diagnosis Elevated Prostate-Specific Antigen documented in this encounter Administered Medications Inactive Administered Medications - up to 3 most recent administrations Medication Order MAR Action Action Date Dose Rate Site acetaminophen tablet 1,000 mg Given 08/18/2021 3:40 PM BEVEL GEAR GENERATOR OPERATOR 1,000 mg (TYLENOL) 1,000 mg, oral, Once, On Mon08/18/21 at 1530, For 1 dose, Pre-Op, PreOp give in preprocedural area. lactated ringers New Bag 08/18/2021 3:40 PM BEVEL GEAR GENERATOR OPERATOR 80 mL/hr 80 mL/hr 80 mL/hr, intravenous, Continuous, Starting on Mon08/18/21 at 1530, Pre-Op lidocaine-bupivacaine 1%-0.25% Given 08/18/2021 3:58 PM BEVEL GEAR GENERATOR OPERATOR 30 m L Other infiltration injection infiltration, Once, On Mon08/18/21 at 1400, For 1 dose, Intra-Op, Not for IV use sodium chloride 0.9 % injection 10 mL 10 mL, intravenous, As needed, line care , Starting on Mon08/18/21 at 1523, Pre-Op, Peripheral Intravenous Catheter and Rapid Infusion Cat heter, prior to blood sampling, post blood transfusion or post blood samplin g sodium chloride 0.9 % injection 3 mL 3 mL, intravenous, As needed, line care, Starting on Mon08/18/21 at 1523, Pre-Op, Prior to and following infusion and betw een multiple consecutive infusions: sodium chloride 0.9 % injection sodium chloride 0.9 % injection 3 mL 3 mL, intravenous, Every 12 hours scheduled, First dos e on Mon08/18/21 at 2100, Pre-Op, Peripheral Intravenous Catheter and Rapid Infu charlene Catheter, when no infusion to maintain patency documented in this encounter Active and Recently Administered Medications Times are shown in BEVEL GEAR GENERATOR OPERATOR. Scheduled Medication Order 08/16/2021 08/17/2021 08/18/2021 acetaminophen tablet 1,000 mg (TYLENOL) 1530 (Due) 1,000 mg, oral, Once, On Mon08/18/21 at 1530, For 1 dose, Pre-Op acetaminophen tablet 1,000 mg (TYLENOL) (COMPLETED) 1540 (Given - Provider: Fallon Shah R.N.) 1,000 mg, oral, Once, On Mon08/18/21 at 1530, For 1 dose, Pre-Op, PreOp give in preprocedural area. ceFAZolin injection 2,000 mg (ANCEF) (COMPLETED) 1551 (Given - Provider: Chiara Mederos COPY READER, CHILD CARE COUNSELOR) 2,000 mg (rounded from 2,375 mg = 25 mg/ kg ? 95 kg), intravenous, Once, On Mon08/18/21 at 1400, For 1 dose, Intra-Op, Administer within 1 hour prior to surgical incision If needed, reconstitute vial pe r package insert instructions. See IVAG for administration guidelines. , Drug Monitoring Program: Pharmacist to adjust medication dosing based on indication and drug clearance factors., Indications: Prophylaxis, surgical lidocaine-bupivacaine 1%-0.25% infiltration injection (COMPLETED ) 1400 (Due)1558 (Given - Provider: Sara Scott M.D. - Comment: perineum skin block 15mL 1557 perineum deep block 15mL 1603) infiltration, Once, On Mon08/18/21 at 14 00, For 1 dose, Intra-Op, Not for IV use sodium chloride 0.9 % injection 3 mL 3 mL, intravenous, Every 12 hours schedu led, First dose on Mon08/18/21 at 2100, Pre-Op, Peripheral Intravenous Catheter and Rapid Infusion Catheter, when no infusion to maintain patency sodium chloride 0.9 % injection 3 mL 3 mL, intravenous, Every 12 hours schedu led, First dose on Mon08/18/21 at 2100, Pre-Op, Peripheral Intravenous Catheter and Rapid Infusion Catheter, when no infusion to maintain patency Continuous Medication Order 08/16/2021 08/17/2021 08/18/2021 lactated ringers 1540 (New Bag - Provider: Fallon Shah R.N.) 80 mL/hr, intravenous, Continuous, Starting on Mon08/18/21 at 15 30, Pre-Op lactated ringers 1615 (Due) 20 mL/hr, intravenous, Continuous, Start ing on Mon08/18/21 at 1615, PACU & Post-Op PRN Medication Order 08/16/2021 08/17/2021 08/18/2021 sodium chloride 0.9 % injection 10 mL 10 mL, intravenous, As needed, line care , Starting on Mon08/18/21 at 1523, Pre- Op, Peripheral Intravenous Catheter and Rapid Infusion Catheter, prior to blood sampling, post blood transfusion or post blood sampling sodium chloride 0.9 % injection 10 mL 10 mL, intravenous, As needed, line care , Starting on Mon08/18/21 at 1523, Pre- Op, Peripheral Intravenous Catheter and Rapid Infusion Catheter, prior to blood sampling, post blood transfusion or post blood sampling sodium chloride 0.9 % injection 3 mL 3 mL, intravenous, As needed, line care, Starting on Mon08/18/21 at 1523, Pre- Op, Prior to and following infusion and between multiple consecutive infusions: sodium chloride 0.9 % injection sodium chloride 0.9 % injection 3 mL 3 mL, intravenous, As needed, line care, Starting on Mon08/18/21 at 1523, Pre- Op, Prior to and following infusion and between multiple consecutive infusions: sodium chloride 0.9 % injection documented in this encounter Care Teams Dental Assistant Relationship Specialty Start Date End Date Elsewhere, Pcp PCP - General Internal Medicine 08/17/21 documented as of this encounter
--- OUTSIDE RECORDS SUMMARY | 2022-05-25 07:58 | XMS_ITS | Encounter Summary ---
:1960 Author Organization [facility] Address [facility] [place] [address] Care Team Providers Name Role Phone Cristobal Wiggins MD Primary Care Provider Abel Hermosillo MD Unavailable Reason for Visit Reason Onset Date Comments Lipids 01/16/2014 Encounter Details Date Type Department Care Team Description 01/16/2014 Telephone [facility] Gifty Seals APRN Lipids [facility] 4th Floor, [address] [place] [phone] Social History Tobacco Use Types Packs/Day Years Used Date Smoking Tobacco: Never Alcohol Use Standard Drinks/Week Comments Not Asked 0 (1 standard drink = 0.6 oz pure alcoho l) Sex Assigned at Date Recorded Not on file documented as of this encounter Miscellaneous Notes Telephone Encounter - Gifty Seals NP - 01/16/2014 10:38 AM CDT Discussed Cardozo follow up recommendations. With small carotid plaques and elevated trigycerides recommend beginning statin medications. Will start with atorvastatin 10 mg per day and recheck labs in 3 months. Will continue fish oil for added triglyceride reduction. Pt agreed to this plan. documented in this encounter Plan of Treatment Not on filedocumented as of this encounter Visit Diagnoses Not on filedocumented in this encounter Care Teams Head Sawyer Automatic Relationship Specialty Start Date End Date Cristobal Wiggins MD PCP - General Family Practice 12/17/13 [facility] [place] [address] [place] [address] Abel Hermosillo MD 12/17/13 documented as of this encounter
--- OUTSIDE RECORDS SUMMARY | 2022-05-25 07:58 | XMS_ITS | Encounter Summary ---
:1960 Author Organization [facility] Address [address] [place] [address] Care Team Providers Name Role Phone Unavailable Primary Care Provider Unavailable Reason for Visit Reason Comments Pre-visit Testing Orders Encounter Details Date Type Department Care Team Description 07/27/2021 Clinical Communication Department of Sai Hernandez Pr e-visit Testing Urology in M.D. Orders [place], [address] [place] [address] [place] [phone] [place], [place] [phone] (Work) [phone] Social History Tobacco Use Types Packs/Day Years [...] or relatives? How often do you attend mosque or More than 4 times per year 08/13/2021 quaker services? Do you belong to any clubs or Yes 08/13/2021 organizations such as mosque groups, unions, fraternal or athletic groups, or [...] or slept in a half-way (including now)? 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 documented as of this encounter Plan of Treatment Not on filedocumented as of this encounter Results Urinalysis with Microscopic: Urine, Midstream (08/04/2021 8:07 AM MASTER AUTOMOTIVE GLASS TECHNICIAN) Patholo gist Method Time Signature Source Urine, Urine, 08/04/2021 DTL Midstream 9:00 AM MASTER AUTOMOTIVE GLASS TECHNICIAN Color, U Yellow 08/04/2021 DTL 9:00 AM MASTER AUTOMOTIVE GLASS TECHNICIAN Clarity, U Clear 08/04/2021 DTL 9:00 AM MASTER AUTOMOTIVE GLASS TECHNICIAN Protein, U 6 <26 mg/dL 08/04/2021 DTL 9:56 AM MASTER AUTOMOTIVE GLASS TECHNICIAN Protein/Osmol 0.13 <0.42 08/04/2021 DTL ality ratio 10:11 AM MASTER AUTOMOTIVE GLASS TECHNICIAN Predicted 24 130 mg/24 h 08/04/2021 DTL Hr Protein 10:11 AM MASTER AUTOMOTIVE GLASS TECHNICIAN Predicted 41-409 mg/24 h 08/04/2021 DTL Range 10:11 AM MASTER AUTOMOTIVE GLASS TECHNICIAN Specimen Anatomical Collection Method Collection Time Receive d Time (Source) Location / / Volume Laterality Urine (Urine, 08/04/2021 8:07 AM 08/04/19 22 9:00 Midstream) MASTER AUTOMOTIVE GLASS TECHNICIAN AM MASTER AUTOMOTIVE GLASS TECHNICIAN Sai Hernandez M.D. LAB URINE ORDERABLES Performing Organization Address City/State/ZIP Code Phon e Number [facility] - [address] [place], [place] [address] [facility] [place] [address] Laboratories-[facility] [address] (ABNORMAL) PSA (Prostate-Specific Antigen), Diagnostic (08/04/2021 8:02 AM MASTER AUTOMOTIVE GLASS TECHNICIAN) P athologist Signature Prostate-Speci 4.9 (H) <=4.5 08/04/2021 DTL fic Ag ng/mL 9:34 AM MASTER AUTOMOTIVE GLASS TECHNICIAN Comment: ----ADDITIONAL INFORMATION---- The testing method is an electrochemilum inescence assay manufactured by [employer] and performed on the Modular or Demetri system . Values obtained with different assay met hods or kits may be different and cannot be used inte rchangeably. Test results cannot be interpreted as ab solute evidence for the presence or absence of malignant disease. Specimen Anatomical Collection Method Collection Time Receive d Time (Source) Location / / Volume Laterality Blood (Blood, 08/04/2021 8:02 AM 08/04/19 8:59 Venous) MASTER AUTOMOTIVE GLASS TECHNICIAN AM MASTER AUTOMOTIVE GLASS TECHNICIAN Sai Hernandez M.D. LAB BLOOD ADD-ON Performing Organization Address City/State/ZIP Code Phon e Number [facility] - [address] [place], [place] [address] [facility] [place] [address] [facility] [address] documented in this encounter Visit Diagnoses Diagnosis Elevated Prostate-Specific Antigen - Helen sullivan documented in this encounter
--- OUTSIDE RECORDS SUMMARY | 2022-05-25 07:58 | XMS_ITS | Encounter Summary ---
:1960 Author Organization [facility] Address [address] [place] [address] Care Team Providers Name Role Phone Elsewhere, Pcp Primary Care Provider Unavailable Reason for Visit Auth/Cert Specialty Diagnoses / Procedures Referred By Contact Refer red To Contact Diagnoses Elevated Prostate-Specific Antigen Elevated Prostate-Specific Antigen [R97.20] Procedures RI BX PROSTATE NDL TRANSPRNEAL BIOPSY TRANSPERINEAL PROSTATE Referral ID Status Reason Start Date Expiration Date Visits Requ ested Visits Authorized [id number] 1 1 Encounter Details Date Type Department Care Team Description 08/18/2021 Hospital Encounter Outpatient Procedure Layton Remy, Elevated Prostate-Specific Antigen; Center in [place] Elevated Prostate-Specific Antigen [place] [address] [address] [facility] [address] [place] [phone] Social History Tobacco Use Types Packs/Day Years [...] or relatives? How often do you attend cheondoism or More than 4 times per year 08/13/2021 baptism services? Do you belong to any clubs or Yes 08/13/2021 organizations such as cheondoism groups, unions, fraternal or athletic groups, or [...] place to sleep or slept in a fdc (including now)? Education Answer Date Recorded What is the highest level of school Bachelor's degree (e.g., BA, AB, 08/12/2021 you have completed or the highest BS) degree you have received? 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 documented as of this encounter Last Filed Vital Signs Vital Sign Reading Time Taken Comments Blood Pressure 148/115 08/18/2021 5:00 PM VALVE ASSEMBLER Pulse 75 08/18/2021 5:25 PM VALVE ASSEMBLER Temperature 37 ??C (98.6 ??F) 08/18/2021 3:24 PM VALVE ASSEMBLER Respiratory Rate 13 08/18/2021 5:25 PM VALVE ASSEMBLER Oxygen Saturation 94% 08/18/2021 5:25 PM VALVE ASSEMBLER Inhaled Oxygen Concentration - - Weight 95 kg (209 lb 7 oz) 08/18/2021 3:24 PM VALVE ASSEMBLER Height 174 cm (5' 8.5) 08/18/2021 3:24 PM VALVE ASSEMBLER 08/17/21 Body Mass Index 31.38 08/18/2021 3:24 PM VALVE ASSEMBLER documented in this encounter Medications at Time [...] lesions Post-op Diagnosis Elevated Prostate-Specific Antigen A cutter first actively participated and was necessary for one [...] Once image fusion maneuvers were carried out, solar sales representative and assessor systematic biopsies were also taken and sent [...] area in satisfactory condition. Sara Scott M.D. E ASSEMBLER documented in this encounter Plan of Treatment Not on filedocumented as of this encounter Procedures Procedure Name Priority Date/Time Associated Comments Diagnosis SURGICAL PATHOLOGY Routine 08/18/2021 3:48 PM Elevated Res ults for this VALVE ASSEMBLER Prostate-Specific procedure are in Antigen the results section. BIOPSY TRANSPERINEAL 08/18/2021 3:33 PM Elevated PROSTATE VALVE ASSEMBLER Prostate-Specific Antigen Special Needs Hernandez primary. documented in this encounter Results Surgical Pathology (08/18/2021 3:48 PM VALVE ASSEMBLER) Component Value Ref Test Analysis Performed Pathologis t Range Method Time At Signature 08/21/2021 DTL 11:00 AM VALVE ASSEMBLER Report Rajan Escobar M.D. 08/21/2021 DTL electronically 11:00 AM signed by VALVE ASSEMBLER I verify that I have examined all relevant slides/materials for the specimen(s) and rendered or confirmed the diagnosis. Gross Description A: ?? Received on a biopsy board filled with form delmer 08/21/2021 DTL labeled with the patient's name, medical record number, and 11:00 AM specific prostate sites are six oriented pink fritz tissue VALVE ASSEMBLER cores. A. Received within the first well [...] needle core 11:00 AM biopsy: Prostatic adenocarcinoma VALVE ASSEMBLER Type: [place]inar [place] score 4+3=7 Percentage of pattern 4: 60% Grade Group: 3 Tumor involves 10% of overall specimen (1 of 1 core). B. Prostate, right posterior medial base, needle core biopsy: Prostatic adenocarcinoma Type: Acinar [place] score 4+3=7 Percentage of pattern 4: 60% [...] Volume Laterality Biopsy (Prostate) 08/18/2021 3:48 PM VALVE ASSEMBLER Biopsy (Prostate) 08/18/2021 3:48 PM VALVE ASSEMBLER Biopsy (Prostate) 08/18/2021 3:48 PM VALVE ASSEMBLER Biopsy (Prostate) 08/18/2021 3:48 PM VALVE ASSEMBLER Biopsy (Prostate) 08/18/2021 3:48 PM VALVE ASSEMBLER Biopsy (Prostate) 08/18/2021 3:48 PM VALVE ASSEMBLER Biopsy (Prostate) 08/18/2021 3:48 PM VALVE ASSEMBLER Biopsy (Prostate) 08/18/2021 3:48 PM VALVE ASSEMBLER Biopsy (Prostate) 08/18/2021 3:48 PM VALVE ASSEMBLER Biopsy (Prostate) 08/18/2021 3:48 PM VALVE ASSEMBLER Biopsy (Prostate) 08/18/2021 3:48 PM VALVE ASSEMBLER Biopsy (Prostate) 08/18/2021 3:48 PM VALVE ASSEMBLER Narrative This result has an attachment that is no t available. Layton Remy M.D. LAB SURG PATH ORDERABLES Performing Organization Address City/State/ZIP Code Phon e Number [facility] - [address] [place], [place] [address] [place] [address] [facility] [address] documented in this encounter Visit Diagnoses Diagnosis Elevated Prostate-Specific Antigen - [facility] documented in this encounter Admitting Diagnoses Diagnosis Elevated Prostate-Specific Antigen documented in this encounter Administered Medications Inactive Administered Medications - up to 3 most recent administrations Medication Order MAR Action Action Date Dose Rate Site acetaminophen tablet 1,000 mg Given 08/18/2021 3:40 PM VALVE ASSEMBLER 1,000 mg (TYLENOL) 1,000 mg, oral, Once, On Mon08/18/21 at 1530, For 1 dose, Pre-Op, PreOp give in preprocedural area. lactated ringers New Bag 08/18/2021 3:40 PM VALVE ASSEMBLER 80 mL/hr 80 mL/hr 80 mL/hr, intravenous, Continuous, Starting on Mon08/18/21 at 1530, Pre-Op sodium chloride 0.9 % injection 10 mL [...] Recently Administered Medications Times are shown in VALVE ASSEMBLER. Scheduled Medication Order 08/16/2021 08/17/2021 08/18/2021 acetaminophen [...] (COMPLETED) 1551 (Given - Provider: Chiara Mederos PERFORMANCE MAKEUP ARTIST, DOUGHNUT MACHINE OPERATOR) 2,000 mg (rounded from 2,375 mg = [...] injection documented in this encounter Care Teams Flight Operations Manager Relationship Specialty Start Date End Date Elsewhere, Pcp PCP - General Internal Medicine 08/17/21 documented as of this encounter
--- OUTSIDE RECORDS SUMMARY | 2022-05-25 07:58 | XMS_ITS | Encounter Summary ---
:1960 Author Organization [facility] Address [facility] 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 documented as of this encounter Plan of Treatment Not on filedocumented as of this encounter Visit Diagnoses Not on filedocumented in this encounter Care Teams Log Turner Relationship Specialty Start Date End Date Cristobal Wiggins MD PCP - General Family Practice 12/17/13 [facility] [address] [place] [address] Abel Hermosillo MD 12/17/13 documented as of this encounter
--- OUTSIDE RECORDS SUMMARY | 2022-05-25 07:58 | XMS_ITS | Encounter Summary ---
:1960 Author Organization [facility] Address [address] [place] [address] Care Team Providers Name Role Phone Unavailable Primary Care Provider Unavailable Encounter Details Date Type Department Care Team Description 08/04/2021 Hospital Encounter Department of Sai Hernandez Elevat ed Laboratory Medicine M.DTae Prostate-Specific and Pathology, [address] [place] [address] in [place], [place] [address] [place] [address] [place], [place] (Work) [phone] Social History Tobacco Use Types Packs/Day Years [...] or relatives? How often do you attend rastafari or More than 4 times per year 08/13/2021 buddhism services? Do you belong to any clubs or Yes 08/13/2021 organizations such as rastafari groups, unions, fraternal or athletic groups, or [...] or slept in a custodial (including now)? 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 MICROSCOPIC AUTOMATED Routine 08/04/2021 8:07 AM Results for this WOODEN BOX MAKER procedure are i n the results section. PH, U Routine 08/04/2021 8:07 AM Results f or this WOODEN BOX MAKER procedure are i n the results section. OSMOLALITY, U Routine 08/04/2021 8:07 AM Results for this WOODEN BOX MAKER procedure are i n the results section. URINALYSIS WITH Routine 08/04/2021 8:07 AM Elevated Result s for this MICROSCOPIC WOODEN BOX MAKER Prostate-Specific procedure are in Antigen the results section. documented in this encounter Results Osmolality, Urine (08/04/2021 8:07 AM WOODEN BOX MAKER) P athologist Signature Osmolality, U 480 150 - 1150 08/04/2021 DTL mOsm/kg 10:11 AM WOODEN BOX MAKER Specimen Anatomical Collection Method Collection Time Receive d Time (Source) Location / / Volume Laterality Urine 08/04/2021 8:07 AM 9:01 WOODEN BOX MAKER AM WOODEN BOX MAKER Sai Hernandez M.D. LAB URINE ORDERABLES Performing Organization Address City/State/ZIP Code Phon e Number [facility] - [address] pH, Urine (08/04/2021 8:07 AM WOODEN BOX MAKER) athologist Signature pH, U 5.6 4.5 - 8.0 08/04/2021 10:11 DTL AM WOODEN BOX MAKER Specimen Anatomical Collection Method Collection Time Receive d Time (Source) Location / / Volume Laterality Urine 08/04/2021 8:07 AM 2 9:01 WOODEN BOX MAKER AM WOODEN BOX MAKER Sai Hernandez M.D. LAB URINE ORDERABLES Performing Organization Address City/[facility] Phon e Number [facility] - [address] [place] [address] Microscopic Automated (08/04/2021 8:07 AM WOODEN BOX MAKER) athologist Signature Microscopy Normal 08/04/2021 9:52 DTL AM WOODEN BOX MAKER Specimen Anatomical Collection Method Collection Time Receive d Time (Source) Location / / Volume Laterality Urine 08/04/2021 8:07 AM 2 9:01 WOODEN BOX MAKER AM WOODEN BOX MAKER Sai Hernandez M.D. LAB URINE ORDERABLES Performing Organization Address City/[facility] Phon e Number [facility] - [address] Dipstick, Urine (08/04/2021 8:07 AM WOODEN BOX MAKER) [facility] gist Method Time Signature Hemoglobin, QL Negative Negative 08/04/2021 DTL 9:52 AM WOODEN BOX MAKER Leukocyte Negative Negative 08/04/2021 DTL Esterase, U 9:52 AM WOODEN BOX MAKER Nitrite, U Negative Negative 08/04/2021 DTL 9:52 AM WOODEN BOX MAKER Ketones, U Negative Negative 08/04/2021 DTL mg/dL 9:52 AM WOODEN BOX MAKER Glucose, U Negative Negative 08/04/2021 DTL mg/dL 9:52 AM WOODEN BOX MAKER Specimen Anatomical Collection Method Collection Time Receive d Time (Source) Location / / Volume Laterality Urine 08/04/2021 8:07 AM 2 9:01 WOODEN BOX MAKER AM WOODEN BOX MAKER Sai Hernandez M.D. LAB URINE ORDERABLES Performing Organization Address City/[facility] Phon e Number [facility] - [address] Urinalysis with Microscopic: Urine, Midstream (08/04/2021 8:07 AM WOODEN BOX MAKER) [facility] gist Method Time Signature Source Urine, Urine, 08/04/2021 DTL Midstream 9:00 AM WOODEN BOX MAKER Color, U Yellow 08/04/2021 DTL 9:00 AM WOODEN BOX MAKER Clarity, U Clear 08/04/2021 DTL 9:00 AM WOODEN BOX MAKER Protein, U 6 <26 mg/dL 08/04/2021 DTL 9:56 AM WOODEN BOX MAKER Protein/Osmol 0.13 <0.42 08/04/2021 DTL ality ratio 10:11 AM WOODEN BOX MAKER Predicted 24 130 mg/24 h 08/04/2021 DTL Hr Protein 10:11 AM WOODEN BOX MAKER Predicted 41-409 mg/24 h 08/04/2021 DTL Range 10:11 AM WOODEN BOX MAKER Specimen Anatomical Collection Method Collection Time Receive d Time (Source) Location / / Volume Laterality Urine (Urine, 08/04/2021 8:07 AM 08/04/19 22 9:00 Midstream) WOODEN BOX MAKER AM WOODEN BOX MAKER Sai Hernandez M.D. LAB URINE ORDERABLES Performing Organization Address City/[facility] Phon e Number [facility] - [address] documented in this encounter Visit Diagnoses Diagnosis Elevated Prostate-Specific Antigen documented in this encounter
--- OUTSIDE RECORDS SUMMARY | 2022-05-25 07:58 | XMS_ITS | Encounter Summary ---
:1960 Author Organization [facility] Address [address] [place] [address] Care Team Providers Name Role Phone Unavailable Primary Care Provider Unavailable Encounter Details Date Type Department Care Team Description 08/04/2021 Clinical Communication Preoperative Evaluation Radhika Kunz, [place] in [facility] R.R., .R .[facility] [address] [facility] [address] [place] [address] [phone] Social History Tobacco Use Types Packs/Day Years [...] or relatives? How often do you attend bahai or More than 4 times per year 08/13/2021 anabaptism services? Do you belong to any clubs or Yes 08/13/2021 organizations such as bahai groups, unions, fraternal or athletic groups, or [...] or slept in a fdc (including now)? 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 - 08/04/2021 1:05 PM FOREST PATHOLOGY PROFESSOR Surgical Risk Score: 1 Risk Identifiers: 4 ??? HTN ??? oscar ??? covid 06/11/2021 ??? Left loer lobe nodule ST PATHOLOGY PROFESSOR documented in this encounter Plan of Treatment Not on filedocumented as of this encounter Visit Diagnoses Not on filedocumented in this encounter
--- OUTSIDE RECORDS SUMMARY | 2022-05-25 07:58 | XMS_ITS | Encounter Summary ---
:1960 Author Organization [facility] Address [address] [place] [address] Care Team Providers Name Role Phone Elsewhere, Pcp Primary Care Provider Unavailable Reason for Visit Outpatient (Routine) - Closed Specialty Diagnoses / Procedures Referred By Contact Refer red To Contact Anesthesiology Diagnoses Elevated Prostate-Specific Antigen Sai Hernandez M.D. [place] [address] [place] [address] Referral ID Status Reason Start Date Expiration Date Visits Requ ested Visits Authorized [id number] Closed 08/04/2021 08/04/2022 1 1 Encounter Details Date Type Department Care Team Description 08/17/2021 Comprehensive Visit Preoperative Sai Hernandez M.D. [address] [place] [phone] Preanesthetic Medical Exam (Primary Dx); Evaluation Center Cheryle Rain APRN, C.N.P., M.S.N. [address] [phone] Elevated Prostate-Specific Antigen; in [place], Hypertension E ssential Primary; [place] Hypertriglyceridemia [address] [place] [phone] Social History Tobacco Use Types Packs/Day Years [...] or relatives? How often do you attend adventism or More than 4 times per year 08/13/2021 rastafarian services? 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 documented as of this encounter Last Filed Vital Signs Vital Sign Reading Time Taken Comments Blood Pressure 134/75 08/17/2021 2:02 PM CLASSIFYING MACHINE OPERATOR Pulse 72 08/17/2021 2:02 PM CLASSIFYING MACHINE OPERATOR Temperature 36.8 ??C (98.2 ??F) 08/17/2021 1:41 PM CLASSIFYING MACHINE OPERATOR Respiratory Rate - - Oxygen Saturation 96% 08/17/2021 2:02 PM CLASSIFYING MACHINE OPERATOR Inhaled Oxygen Concentration - - Weight 95 kg (209 lb 7 oz) 08/17/2021 1:41 PM CLASSIFYING MACHINE OPERATOR Height 174 cm (5' 8.5) 08/17/2021 1:41 PM CLASSIFYING MACHINE OPERATOR Body Mass Index 31.38 08/17/2021 1:41 PM CLASSIFYING MACHINE OPERATOR documented in this encounter H&P Notes BriseydaCheryle kam APRN, C.NTaeP., M.S.N. - 08/17/2021 2:00 PM CST REASON FOR VISIT: Preoperative Medical Evaluation REFERRING PHYSICIAN: Sai Hernandez M.D. 08/18/2021: BIOPSY TRANSPERINEAL PROSTATE; Layton Remy M.D. Surgery Specific Risk Classification: Low Risk / Elevated Risk: Intermediate Risk SUBJECTIVE HISTORY OF PRESENT ILLNESS Jacob Logan is a 61 y.o. male who is here for preanesthetic medical examination prior to the planned procedure as listed above. Please see urology consult note from 08/04/2021 for further details. I havebeen asked to medically evaluate the patient prior to surgery. History significant for treated hypertension and hyperlipidemia. The following portions of the patient's history were reviewed and updated as appropriate: allergies,current medications, medical history, social history, surgical history and problem list. REVIEW OF SYSTEMS The following systems were negative: Constitutional, Skin, Eyes, ENT, CV, Respiratory, GI, , Hematologic, Musculoskeletal, Neuro, Psych Cardiac Risk Scoring: Glen Cardiac Score: 0.05% RCRI Point Count: 0 RCRI Score: 0.4% DASI Calculations Flowsheet Row Comprehensive Visit from 08/17/2021 in Preoperative Evaluation Center in [place], [place] Estimated V02 Peak 34.63 Estimated MET Level 9.89 OBJECTIVE OBJECTIVE PHYSICAL EXAMINATION General/Constitutional Constitutional Assessment: Overweight General State of Health: Healthy appearing Airway (HEENT) Limited neck extension d/t herniated disks (per pt report). Able to extend approximately 15% from neutral position. Lower incisors are permanent bridge. Mallampati: II TM Distance: >3 FB Neck ROM: Limited Mouth Opening: > 3 cm Upper Lip Bite Test: II Dental Assessment: Dentition intact Cardiovascular Rhythm: Regular Rate: Normal Cardiovascular Assessment: Normal Pulmonary Pulmonary Assessment: Clear Neurological Neurologic Assessment: Alert Musculoskeletal MSK Assessment: Normal Gait: Normal Ambulate with: None Psychiatric Psychiatric Assessment: Calm Dermatology Skin Assessment: normal ASSESSMENT / PLAN Anesthesia: Patient denies previous anesthesia related complications. Airway Hx: No airway history listed. #1 Preanesthetic Medical Exam Pleasant 61-year-old male presents with his for preanesthetic medical exam. 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 He denies any cardiopulmonary symptoms with his usual work/activity. Labs: 06/18/2021, (document viewer), hemoglobin 14.1, hematocrit 42.8, platelets 236, creatinine 1.0, sodium 141, potassium 3.8. No GFR listed. EK06/18/2021, (document viewer), sinus rhythm at 76 bpm. Normal ECG. ECHO: None on file. Not indicated prior to procedure. #2 Elevated Prostate-Specific Antigen HPI. Scheduled for biopsy. Patient will hold vitamins and supplements prior to procedure. #3 Hypertension Essential Primary Blood pressure 134/75 with a pulse of 72. Patient will hold losartan the morning of surgery. #4 Hypertriglyceridemia Treated with atorvastatin, patient will continue this prior to surgery. PATIENT EDUCATION: Reviewed Checklist for Surgical Patients [id number] rev 0920. Written and verbal instructions given on medication management before surgery. RECOMMENDATIONS: Patient medically optimized for planned procedure: Yes Further Recommendations: None SIFYING MACHINE OPERATOR documented in this encounter Plan of Treatment Not on filedocumented as of this encounter Visit Diagnoses Diagnosis Preanesthetic Medical Exam - Primary Elevated Prostate-Specific Antigen Hypertension Essential Primary Hypertriglyceridemia documented in this encounter Additional Health Concerns Infection Onset Date Last Indicated Resolved Time COVID19 Pending 08/17/2021 08/17/2021 08/17/2021 4:04 PM CLASSIFYING MACHINE OPERATOR documented as of this encounter Care Teams Flying Teacher Relationship Specialty Start Date End Date Elsewhere, Pcp PCP - General Internal Medicine 08/17/21 documented as of this encounter
--- OUTSIDE RECORDS SUMMARY | 2022-05-25 07:58 | XMS_ITS | Encounter Summary ---
:1960 Author Organization [facility] Address [address] [place] [address] Care Team Providers Name Role Phone Unavailable Primary Care Provider Unavailable Encounter Details Date Type Department Care Team Description 08/06/2021 Documentation Department [place]rology [place], [place] [address] [facility] [address] [place] [address] [place], [place] [phone] (Wo rk) Social History Tobacco Use Types [...] or relatives? How often do you attend protestant or More than 4 times per year 08/13/2021 baptist services? 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 - 08/06/2021 8:53 AM CST PROGRESS NOTE: Called Mr. Logan to review the results of his prostate MRI. This demonstrated a moderately small gland, 30 cc. PSA density 0.12. Only a PI-RADS 2 lesion was identified. We again reviewed management options. At this time, patient is scheduled to proceed with prostate biopsy. Will plan to follow-up with the results once available. Question concerns addressed. Electronically signed by: Fiona Piedra M.D. 08/06/21 8:54 AM CHIEF ENGINEER'S HELPER F ENGINEER'S HELPER documented in this encounter Plan of Treatment Not on filedocumented as of this encounter Visit Diagnoses Not on filedocumented in this encounter
--- OUTSIDE RECORDS SUMMARY | 2022-05-25 07:58 | XMS_ITS | Encounter Summary ---
:1960 Author Organization [facility] Address [address] [place] [address] Care Team Providers Name Role Phone Unavailable Primary Care Provider Unavailable Reason for Referral MRI/CAT/PET Scan (Routine) - Closed Specialty Diagnoses / Procedures Referred By Contact Refer red To Contact Radiology Diagnoses Elevated Prostate-Specific Antigen Fiona Piedra M.D. [facility] Procedures MR Prostate without and with IV Contrast [address] [place], [place] [address] Referral ID Status Reason Start Date Expiration Date Visits Requ ested Visits Authorized [id number] Closed 08/04/2021 08/04/2022 1 1 NTOLOGICAL PHYSIOTHERAPIST Reason for Visit MRI/CAT/PET Scan (Routine) - Closed Specialty Diagnoses / Procedures Referred By Contact Refer red To Contact Radiology Diagnoses Elevated Prostate-Specific Antigen Fiona Piedra M.D. [facility] Procedures MR Prostate without and with IV Contrast [address] [place], [place] [address] Referral ID Status Reason Start Date Expiration Date Visits Requ ested Visits Authorized [id number] Closed 08/04/2021 08/04/2022 1 1 Encounter Details Date Type Department Care Team Description 08/04/2021 Hospital Encounter Department of Janes Piedra, Izabela Jaimes Prostate-Sp [facility], in [place], [place] [address] [facility] [address] [place] [phone] Social History Tobacco Use Types Packs/Day Years [...] or relatives? How often do you attend druze or More than 4 times per year 08/13/2021 judaism services? Do you belong to any clubs or Yes 08/13/2021 organizations such as druze groups, unions, fraternal or athletic groups, or [...] place to sleep or slept in a longterm (including now)? 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 documented as of this encounter Nursing Notes Irene Cruz R.N. - 08/04/2021 8:45 PM CST Glucagon Administration Screening: Does patient have an allergy to glucagon or lactose (e.g. hives, difficulty breathing, anaphylaxis, necrolytic migratory erythema)? Note: nausea vomiting, bloating, and diarrhea are common and expected adverse effects of glucagon and/or lactose intolerance. NO If no???continue. Does patient have a history of insulinoma or phenochromocytoma? NO If no???continue. If yes, discusswith Radiologist. Does patient have diabetes? NO If no.. continue.. If yes??? initiate nurse initiated protocol to order POC blood glucose . If yes and insulin dependent, provide patient with Glucagon Injections if you Have Diabetes card. What is patient's glucose? Not diabetic - less than 70 treat f using Hypoglycemia Nurse Initiated Protocol - between 70 and 300 administer medication as ordered. - greater than 300 notify radiologist and do not administer medication. Is patient safe to receive Glucagon YES If yes.. Administer Glucagon as outlined in order. Does the patient need to remain NPO following scan for additional appointments today? NO NTOLOGICAL PHYSIOTHERAPIST documented in this encounter Plan of Treatment Not on filedocumented as of this encounter Procedures Procedure Name Priority Date/Time Associated Comments Diagnosis MR PROSTATE RAD - Routine 08/04/2021 8:56 Elevated Results for this WITHOUT AND WITH (most inpatients PM GERENTOLOGICAL PHYSIOTHERAPIST Prostate-Specific pr ocedure are in IV CONTRAST and all Antigen the results outpatients) section. documented in this encounter Results MR Prostate without and with IV Contrast (08/04/2021 8:56 PM GERENTOLOGICAL PHYSIOTHERAPIST) Anatomical Region Laterality Modality Pelvis, Abdominal RST LOS, Abdominal ARZ LOS, Abdominal N/A Magnetic Resonance FLA LOS Specimen (Source) Anatomical Collection Method Collection Time Re ceived Time Location / / Volume Laterality 08/05/2021 7:42 AM GERENTOLOGICAL PHYSIOTHERAPIST Impressions 08/05/2021 8:41 AM GERENTOLOGICAL PHYSIOTHERAPIST PIRADS 2- Low (clinically significant cancer is unlikely to be present). Narrative 08/05/2021 8:41 AM GERENTOLOGICAL PHYSIOTHERAPIST EXAM: MR PROSTATE WITHOUT AND WITH IV CONTRAST. CLINICAL HISTORY: Elevated PSA. Most rec ent PSA 4.9 ng/mL on 08/04/2021. COMPARISON: None PROSTATE: - Volume: 38 cc (PSA density 0.13). - Exam quality: Good. - Peripheral zone: Linear and wedge-shap ed T2 hypointensities scattered in both sides with corresponding hyperperfusion, likely inflammatory. No suspicious lesion seen in this region. - Transition zone: Mild nodular enlargem ent consistent with benign prostatic hyperplasia. No suspicious nodule. LOCAL STAGING: - Capsule: Intact. - Neurovascular bundle invasion: Absent. - Seminal vesicles invasion: Absent. Sym metric wall thickening and enhancement of the seminal vesicles, likely inflamma tory. - Other organ invasion: Absent. LYMPH NODES: Negative for suspicious lym ph node(s). BONES: Negative for suspicious bone lesi on(s). Degenerative changes of the spine, hip joints, and symphysis pubis. OTHER FINDINGS: Thickened and trabeculat ed urinary bladder wall. Postoperative changes of right inguinal hernia repair. Small fat-containing left inguinal hernia. PROSTATE MRI TECHNIQUE: PIRADS version 2 .1 compliant. Multiparametric MRI of the prostate was performed at [address] [place] with s urface coil. High resolution T2WI, DWI/ADC, and DCE imaging with IV contras t performed. Procedure Note Scar Jack M.D., Ph.D. - 08/05/2021For matting of this note might be different from the original. EXAM: MR PROSTATE WITHOUT AND WITH IV CO NTRAST. CLINICAL HISTORY: Elevated PSA. Most rec ent PSA 4.9 ng/mL on 08/04/2021. COMPARISON: None PROSTATE: - Volume: 38 cc (PSA density 0.13). - Exam quality: Good. - Peripheral zone: Linear and wedge-shap ed T2 hypointensities scattered in both sides with corresponding hyperperfusion, likely inflammatory. No suspicious lesion seen in this region. - Transition zone: Mild nodular enlargem ent consistent with benign prostatic hyperplasia. No suspicious nodule. LOCAL STAGING: - Capsule: Intact. - Neurovascular bundle invasion: Absent. - Seminal vesicles invasion: Absent. Sym metric wall thickening and enhancement of the seminal vesicles, likely inflamma tory. - Other organ invasion: Absent. LYMPH NODES: Negative for suspicious lym ph node(s). BONES: Negative for suspicious bone lesi on(s). Degenerative changes of the spine, hip joints, and symphysis pubis. OTHER FINDINGS: Thickened and trabeculat ed urinary bladder wall. Postoperative changes of right inguinal hernia repair. Small fat-containing left inguinal hernia. PROSTATE MRI TECHNIQUE: PIRADS version 2 .1 compliant. Multiparametric MRI of the prostate was performed at [address] with s urface coil. High resolution T2WI, DWI/ADC, and DCE imaging with IV contras t performed. IMPRESSION: PIRADS 2- Low (clinically significant ca ncer is unlikely to be present). Fiona LANDIS MRI PROCEDURES documented in this encounter Visit Diagnoses Diagnosis Elevated Prostate-Specific Antigen documented in this encounter Administered Medications Inactive Administered Medications - up to 3 most recent administrations Medication Order MAR Action Action Date Dose Rate Site gadoterate meglumine 0.5 mmol/mL Given 08/04/2021 8:33 PM GERENTOLOGICAL PHYSIOTHERAPIST 20 mL (376.9 mg/mL) injection 1.6-20 mL (DOTAREM) 1.6-20 mL, intravenous, Once in imaging, contrast, Starting on Mon08/04/21 at 1933, For 1 dose, Imaging Protocol Orders, Dose per Radiant Medication Guidelines glucagon injection 0.5-1 mg Given 08/04/2021 8:32 PM GERENTOLOGICAL PHYSIOTHERAPIST 1 mg Left Upper Arm (GlucaGen) (Back) 0.5-1 mg, subcutaneous, Once, On Mon08/04/21 at 1945, For 1 dose, Imaging Protocol Orders sodium chloride (PF) 0.9 % injection 1-1 00 mL Given 08/04/2021 8:33 PM GERENTOLOGICAL PHYSIOTHERAPIST 20 mL 1-100 mL, intravenous, Once, On Mon08/04/21 at 1945, For 1 dose, Imaging Protocol Orders documented in this encounter
--- OUTSIDE RECORDS SUMMARY | 2022-05-25 07:58 | XMS_ITS | Encounter Summary ---
:1960 Author Organization [facility] Address [address] [place] [address] Care Team Providers Name Role Phone Unavailable Primary Care Provider Unavailable Reason for Referral Outpatient (Routine) - Closed Specialty Diagnoses / Procedures Referred By Contact Refer red To Contact Anesthesiology Diagnoses Elevated Prostate-Specific Antigen Sai Hernandez M.D. [facility] [address] [place] [address] Referral ID Status Reason Start Date Expiration Date Visits Requ ested Visits Authorized [id number] Closed 08/04/2021 08/04/2022 1 1 RI/CAT/PET Scan (Routine) - Closed Specialty Diagnoses / Procedures Referred By Contact Refer red To Contact Radiology Diagnoses Elevated Prostate-Specific Antigen Fiona Piedra M.D. [facility] Procedures MR Prostate without and with IV Contrast [address] [place] [phone] Referral ID Status Reason Start Date Expiration Date Visits Requ ested Visits Authorized [id number] Closed 08/04/2021 08/04/2022 1 1 CH PLANT OPERATOR Reason for Visit Appointment Request (Routine) - Closed Specialty Diagnoses / Procedures Referred By Contact Refer red To Contact Urology Diagnoses Primary Malignant Neoplasm Of Prostate (HCC) Referral ID Status Reason Start Date Expiration Date Visits Requ ested Visits Authorized [id number] Closed 07/27/2021 07/27/2022 1 1 Encounter Details Date Type Department Care Team Description 08/04/2021 Comprehensive Visit Department of Sai Hernandez Eleva ted Urology in [facility] Prostate-Specific [place], [place] [address] [facility] Antigen (Primary Dx) [address] [place] [phone] Social History Tobacco Use Types Packs/Day Years [...] More than 4 times per year 08/13/2021 scientologist services? Do you belong to any clubs [...] or slept in a mcc (including now)? 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 - 08/04/2021 10:00 AM CST SUBJECTIVE CHIEF COMPLAINT Elevated PSA Supervised by Dr. Hernandez HISTORY OF PRESENT ILLNESS Mr. Logan is a pleasant 61 y.o. male who presents today for discussion of elevated PSA. Patient has been followed by his PCP locally for many years. ANGEL negative. His PSA history is as follows: 11/26/2019 - 1.57 06/18/2021 - 5.97 07/20/2021 - 5.19 08/04/2021 - 4.9 today He denies family history of prostate cancer. He has never had pelvic imaging or prostate biopsy in the past. Patient reports no issues with urination. Denies urgency, frequency, dysuria, significant nocturia, incontinence, hematuria. Denies erectile concerns. He is not on any blood thinning medication, not on aspirin. . PAST MEDICAL/SURGICAL HISTORY PMH: 1. JONO 2. Hyperlipidemia 3. Herniated disc in neck 4. Known left lower lobe nodule PSH: 1. Left meniscus knee surgery 2. Bilateral inguinal hernia repair, left with mesh MEDICATIONS Statin, blood pressure medication ALLERGIES None SOCIAL HISTORY Never smoker. . 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 Good functional status. FAMILY HISTORY Negative for cancers SYSTEMS REVIEW Genitourinary: Negative for incontinence, difficulty urinating, pain with urination, hematuria, urgency and frequent urination. All other systems reviewed and are negative. OBJECTIVE PHYSICAL EXAMINATION Constitutional: He is oriented to person, place, and time. He appears well- developed and well-nourished. No distress. HENT: Head: Normocephalic and atraumatic. Eyes: Conjunctivae and EOM are normal. Pupils are equal, round, and reactive to light. Pulmonary/Chest: Effort normal. Abdominal: Abdomen appears normal. Neurological: He is alert and oriented to person, place, and time. Skin: He is not diaphoretic. Psychiatric: He has a normal mood and affect. His behavior is normal. Judgment and thought content normal. LABS Lab Results Component Value Date PSA 4.9 (H) 08/04/2021 No results found for: CREATININE No components found for: PSAPSA Lab Results Component Value Date/Time PSA 4.9 (H) 08/04/2021 08:02 AM ASSESSMENT / PLAN IMPRESSION/REPORT/PLAN #1 Elevated PSA, 4.9 It was my pleasure to meet Mr. Logan and his in clinic today for further discussion of his elevated PSA. Patient has never had pelvic imaging or biopsy performed. We discussed utility of PSA in prostate cancer screening. Also reviewed benign causes for PSA elevation which includes perineal pressure, infection, enlarged prostate, and sexual activity within 92 hours of specimen collection. Given that he has not had any imaging, will recommend he proceed to prostate MRI. Discussed PIRAD scoring system and its utility and helping us plan next steps. We also discussed proceeding to prostatebiopsy as regardless of MRI results, tissue specimen will be needed to definitively diagnose or ruleout prostate cancer. At this time, patient is interested in proceeding to biopsy if indicated. We discussed transperinealprostate biopsy in great detail. Reviewed the risks, benefits, and alternatives at length. In terms of risks, discussed that of bleeding requiring transfusion, infection including severe sepsis, damageto surrounding structure, the potential need for John catheter placement following biopsy due to urinary retention, and risk of anesthesia including clots, heart attack, stroke. Patient would like to have this done in the operating room under sedation, and we will be happy to coordinate this. With that, all question concerns addressed. Formed consent was signed in my presence today. Our team will goover the contents of the blue surgical checklist prior to dismissal. We will plan for the following. PLAN: - Prostate MRI - OPC transperineal prostate biopsy - HAYDEN - urine 10-14d prior to OR - COVID PCR 1-3d prior to OR - blood thinner: None Signed by: Fiona Piedra M.D. 08/04/2021 9:44 AM BLEACH PLANT OPERATOR CH PLANT OPERATOR documented in this encounter Miscellaneous Notes Addendum Note - Fadia Fields RTaeN. - 08/04/2021 10:00 AM BLEACH PLANT OPERATOR Addended by: FADIA FIELDS on: 08/04/2021 11:20 AM Modules accepted: Orders CH PLANT OPERATOR documented in this encounter Plan of Treatment Scheduled Referrals Name Type Priority Associated Order Schedule Diagnoses Preoperative Outpatient Referral Routine Elevated Expected : Evaluation HAYDEN Prostate-Specific 08/17/19 22, consult (clinic) Antigen Expires: 11/01/2022 documented as of this encounter Results SARS Coronavirus 2, Molecular Detection, PCR, Varies Asymptomatic (08/17/2021 12:05 PM BLEACH PLANT OPERATOR) [facility] Method Time Signature COVID-19, Swab, 08/17/2021 DTL PCR, Source Nasopharynx 4:03 PM BLEACH PLANT OPERATOR COVID-19, Undetected Undetected 08/17/2021 DTL PCR, Result 4:03 PM BLEACH PLANT OPERATOR Comment: SARS-CoV-2 RNA absent. This result does not rule out COVID-19 in the patient, as the sensitivity of the test depends o n the timing of the specimen collection and quality of the specimen. Result should be correlated with patient's history and clinical presentat ion. ----ADDITIONAL INFORMATION---- This RT-PCR test using the Opp[employer]io SARS-Co V-2 Assay ( [employer].) performed on the Opp.io Two Module System has received Emergency Use Authorization (EUA) by the U.S. Food and Drug Administration, and is modified from the transition nurse's instructions with a bridging study. Performance characteristics were verifie d by [facility] in a manner consistent with CLIA requirements. Visit the CDC website: https://www.cdc.g ov/coronavirus/ for the most recent guidelines on [place] virus testing. Fact Sheet for Healthcare Providers: https://www.fda.gov/media/914476/downloa d Fact Sheet for Patients: https://www.fda.gov/media/915236/downloa d Specimen Anatomical Collection Method Collection Time Receive d Time (Source) Location / / Volume Laterality Varies 08/17/2021 12:05 08/17/2021 (Nasopharynx) PM BLEACH PLANT OPERATOR 12:45 PM BLEACH PLANT OPERATOR Sai Hernandez M.D. LAB MICROBIOLOGY - GENERAL O RDERABLES Performing Organization Address City/State/ZIP Code Phon e Number [facility] - [address] [place], [place] [address] [place] [place] [address] [facility] [place] [address] MR Prostate without and with IV Contrast (08/04/2021 8:56 PM BLEACH PLANT OPERATOR) Anatomical Region Laterality Modality Pelvis, Abdominal RST LOS, Abdominal ARZ LOS, Abdominal N/A Magnetic Resonance FLA LOS Specimen (Source) Anatomical Collection Method Collection Time Re ceived Time Location / / Volume Laterality 08/05/2021 7:42 AM BLEACH PLANT OPERATOR Impressions 08/05/2021 8:41 AM BLEACH PLANT OPERATOR PIRADS 2- Low (clinically significant cancer is unlikely to be present). Narrative 08/05/2021 8:41 AM BLEACH PLANT OPERATOR EXAM: MR PROSTATE WITHOUT AND WITH IV [...] ncer is unlikely to be present). Fiona Piedra M.D. IMG MRI PROCEDURES Bacterial Culture, Aerobic + Susc, Urine (08/04/2021 11:53 AM BLEACH PLANT OPERATOR) [facility] gist Method Time Signature Urine Culture No growth 08/05/2021 DTL after 1 day 12:42 PM BLEACH PLANT OPERATOR of incubation. Specimen Anatomical Collection Method Collection Time Receive d Time (Source) Location / / Volume Laterality Urine (Urine, 08/04/2021 11:53 08/04/2021 2:33 Midstream) AM BLEACH PLANT OPERATOR PM BLEACH PLANT OPERATOR Comment: Specimen Source Site: Urine Sai Hernandez M.D. LAB MICROBIOLOGY - GENERAL O RDERABLES Performing Organization Address City/State/ZIP Code Phon e Number [facility] - [address] [place], [place] [address] [facility] [place] [address] [facility] [place] [address] documented in this encounter Visit Diagnoses Diagnosis Elevated Prostate-Specific Antigen - Helen sullivan Elevated Prostate-Specific Antigen documented in this encounter
--- OUTSIDE RECORDS SUMMARY | 2022-05-25 07:58 | XMS_ITS | Clinical Summary ---
:1960 Author Organization [facility] Address [address] [place] [address] Care Team Providers Name Role Phone Cristobal Wiggins MD Primary Care Provider Abel Hermosillo MD Unavailable Allergies Active Allergy Reactions Severity Noted Date Comments No Known Drug Allergies 07/22/2002 Medications Medication Sig Dispensed Refills Start Date End Date Status NIASPAN 500 MG OR 1 TABLET DAILY 60 2 05/25/2005 Active TBCRIndications: Other and at bedtime unspecified hyperlipidemia initially, then increase to two tablets at bedtime. Take with aspirin tablet if possible niacin 500 MG Take 500 mg by 0 A ctive tabletIndications: mouth daily Hypertriglyceridemia (with breakfast) Cyanocobalamin (VITAMIN Take 1 tablet 0 Active B-12 CR PO)Indications: by mouth daily Hypertriglyceridemia Cholecalciferol (VITAMIN Take 1 tablet 0 Active D3 PO)Indications: by mouth daily Hypertriglyceridemia atorvastatin (LIPITOR) 10 Take 1 tablet 90 tablet 1 09/07/2015 Active MG tabletIndications: (10 mg) by Hypertriglyceridemia mouth daily albuterol (PROAIR Inhale 2-4 6.7 g 0 06/11/2021 Active HFA/PROVENTIL HFA/VENTOLIN puffs into the HFA) 108 (90 Base) MCG/ACT lungs every 4 inhaler hours as needed for shortness of breath / dyspnea dexamethasone (DECADRON) 4 Take 2 tablets 10 tablet 0 06/11/20 21 Active MG tablet (8 mg) by mouth daily for 5 days Active Problems Problem Noted Date Hypertriglyceridemia 12/31/2013 Immunizations Name Administration Dates Next Due TD (ADULT, 7+) 05/25/2005 Family History Medical History Relation Comments Eye Disorder Brother 2 Glaucoma Dementia Father Neurologic Disorder Father Born 1933. Subdural hematoma after a fall in 2003. Benign brain tumor 1 977. Parkinsonism Father age 79 Cardiovascular Mother age 75 in 2014,valv e replacement, hx of rheumaic fever Heart Disease Mother Born 1938. Has rheum atic valve disease that has not required surgery. Relation Status Comments Brother 1 Alive age 53 in 2013 Brother 2 Father (Age 79) Maternal Grandfather (Age 65) alcohol -disabled Maternal Grandmother (Age 96) Mother Alive age 75 in 2014 Paternal Grandfather (Age 60) paralyzed from gun shot in his 40's Paternal Grandmother (Age 93) Sister 1 Alive age 51 in 2013 Sister 2 Alive age 47 in 2013 Social History Tobacco Use Types Packs/Day Years Used Date Smoking Tobacco: Never Alcohol Use Standard Drinks/Week Comments Yes 10 (1 standard drink = 0.6 oz pure alcoh ol) 5-6 beers/week Sex Assigned at Date Recorded Not on file Last Filed Vital Signs Vital Sign Reading Time Taken Comments Blood Pressure 141/72 06/11/2021 10:58 AM MEDICAL TECHNOLOGIST CHIEF Pulse 97 06/11/2021 10:45 AM MEDICAL TECHNOLOGIST CHIEF Temperature 37.2 ??C (98.9 ??F) 06/11/2021 8:24 AM MEDICAL TECHNOLOGIST CHIEF Respiratory Rate 20 06/11/2021 11:00 AM MEDICAL TECHNOLOGIST CHIEF Oxygen Saturation 93% 06/11/2021 11:00 AM MEDICAL TECHNOLOGIST CHIEF Inhaled Oxygen Concentration - - Weight 86.2 kg (190 lb) 08/19/2014 3:02 PM MEDICAL TECHNOLOGIST CHIEF Height 172.7 cm (5' 8) 08/19/2014 3:02 PM MEDICAL TECHNOLOGIST CHIEF Body Mass Index 28.89 08/19/2014 3:02 PM MEDICAL TECHNOLOGIST CHIEF Plan of Treatment Health Maintenance Due Date Last Done Comments ADVANCE CARE PLANNING 1960 ANNUAL REVIEW OF HM ORDERS 1960 CT COLONOGRAPHY 1960 FIT-DNA (Cologuard) 1960 FIT 1960 FLEX SIG 1960 COVID-19 Vaccine (#1) 1960 HIV SCREENING 1974 HEPATITIS C SCREENING 1977 YEARLY PREVENTIVE VISIT 05/25/2006 05/25/2005, 09/03/2003, 07/22/2002 ZOSTER IMMUNIZATION (1 of 2009 2) LIPID 12/31/2018 12/31/2013, 05/25/2005, 09/03/2003 DTAP/TDAP/TD IMMUNIZATION 05/11/2021 05/11/2011, 05/25/2005 , (3 - Td or Tdap) 05/25/2005, Additional history exists PHQ-2 (once per calendar 06/26/2021 year) INFLUENZA VACCINE (#1) 2022 COLONOSCOPY 08/19/2024 08/19/2014, 08/19/2014, 08/11/2009 COLORECTAL CANCER SCREENING 08/19/2024 IPV IMMUNIZATION Aged Out No longer eligi ble based on patient 's age to complete this topic MENINGITIS IMMUNIZATION Aged Out No longe r eligible based on patient 's age to complete this topic Pneumococcal Vaccine: Aged Out No longer eligible Pediatrics (0 to 5 Years) based on patient's age and At-Risk Patients (6 to to co mplete this topic 64 Years) Insurance Payer Benefit Plan / Subscriber ID Effective Phone Address T ype Group Dates PREFERREDONE PREFERREDONE HMO [id number] 2021-Pres [phone] [address] [address] PPO ent [address] [place] [address] Care Teams Retail Business Analyst Relationship Specialty Start Date End Date Cristobal Wiggins MD PCP - General Family Practice 12/17/13 [facility] [address] [place] [address] Abel Hermosillo MD 12/17/13
--- OUTSIDE RECORDS SUMMARY | 2022-05-25 07:58 | XMS_ITS | Encounter Summary ---
:1960 Author Organization [facility] Address [address] [place] [address] Care Team Providers Name Role Phone Unavailable Primary Care Provider Unavailable Encounter Details Date Type Department Care Team Description 08/04/2021 Hospital Encounter Department of Sai Hernandez Elevat ed Laboratory Medicine M.DTae Prostate-Specific and Pathology, [address] [place] [address] in [place], [place] [address] [place] [address] [place], [place] (Work) [phone] Social History Tobacco Use Types Packs/Day Years [...] or relatives? How often do you attend jehovah's witness or More than 4 times per year 08/13/2021 hoahaoism services? Do you belong to any clubs or Yes 08/13/2021 organizations such as jehovah's witness groups, unions, fraternal or athletic groups, or [...] place to sleep or slept in a penitentiary (including now)? Sex Assigned at Date Recorded Male 08/12/2021 8:37 PM SCALP TREATMENT SPECIALIST documented as of this encounter Medications at [...] Name Priority Date/Time Associated Diagnosis Comme nts PROSTATE-SPECIFIC Routine 08/04/2021 8:02 AM Elevated Resu lts for this AG (PSA) SCALP TREATMENT SPECIALIST Prostate-Specific procedure are in DIAGNOSTIC, S Antigen the results section. documented in this encounter Results (ABNORMAL) PSA (Prostate-Specific Antigen), Diagnostic (08/04/2021 8:02 AM SCALP TREATMENT SPECIALIST) P athologist Signature Prostate-Speci 4.9 (H) <=4.5 08/04/2021 DTL fic Ag ng/mL 9:34 AM SCALP TREATMENT SPECIALIST Comment: ----ADDITIONAL INFORMATION---- The testing method is [...] (Blood, 08/04/2021 8:02 AM 08/04/19 8:59 Venous) SCALP TREATMENT SPECIALIST AM SCALP TREATMENT SPECIALIST Sai Hernandez M.D. LAB BLOOD ADD-ON Performing Organization Address City/State/ZIP Code Phon e Number [facility] - [address] [place], [place] [address] [facility] [address] [facility] [address] documented in this encounter Visit Diagnoses Diagnosis Elevated Prostate-Specific Antigen documented in this encounter
--- OUTSIDE RECORDS SUMMARY | 2022-05-25 07:58 | XMS_ITS | Encounter Summary ---
:1960 Author Organization [place] Address [address] [facility] [place] [address] Care Team Providers Name Role Phone Cristobal Wiggins MD Primary Care Provider Abel Hermosillo MD Unavailable Reason for Visit Reason Onset Date Comments Refill Request 09/07/2015 Encounter Details Date Type Department Care Team Description 09/07/2015 Refill [facility] Gifty Seals APRN Refill Request [place] [phone] Social History Tobacco Use Types Packs/Day Years Used Date Smoking Tobacco: Never Alcohol Use Standard Drinks/Week Comments Yes 0 (1 standard drink = 0.6 oz pure alcoho l) 1-2 beers/day Sex Assigned at Date Recorded Not on file documented as of this encounter Plan of Treatment Not on filedocumented as of this encounter Visit Diagnoses Diagnosis Hypertriglyceridemia - Primary Pure hyperglyceridemia documented in this encounter Care Teams Transition Manager Relationship Specialty Start Date End Date Cristobal Wiggins MD PCP - General Family Practice 12/17/13 [facility] [address] [place] [address] Abel Hermosillo MD 12/17/13 documented as of this encounter
--- OUTSIDE RECORDS SUMMARY | 2022-05-25 07:58 | XMS_ITS | Encounter Summary ---
:1960 Author Organization [place] Address [facility]ly [facility] [place] [address] Care Team Providers Name Role Phone Cristobal Wiggins MD Primary Care Provider Abel Hermosillo MD Unavailable Reason for Visit Auth/Cert - Closed Specialty Diagnoses / Procedures Referred By Contact Refer red To Contact Gastroenterology Diagnoses Rectal Bleeding Rh Endoscopy Procedures COLONOSCOPY [address] [address] Phone: Fax: Referral ID Status Reason Start Date Expiration Date Visits Requ ested Visits Authorized [id number] Closed 1 1 Encounter Details Date Type Department Care Team Description 08/19/2014 Surgery [facility] Endoscopy Sree Evans MD Colonoscopy [facility] [address] [facility] [address] [place] [address] [place] [address] [phone] (Wo rk) Surgery Details Date/Time Status Location OR Service Patient Class Case Case Trauma Class Type Case? 08/19/14 4:00 Posted [facility] GI B [place] Outpatient PM Panel 1 Procedure LRB Anes Op Region Wound Class Commen ts Colonoscopy N/A Conscious Sedation Rectum II-Clean Contami nated Colonoscopy Surgeon Surgeon Role Service Panel Sree Conway MD Primary [place]-Rectal 1 Special Needs Cristobal Wiggins documented in this encounter Social History Tobacco Use Types Packs/Day Years Used Date Smoking Tobacco: Never Alcohol Use Standard Drinks/Week Comments Yes 0 (1 standard drink = 0.6 oz pure alcoho l) 1-2 beers/day Sex Assigned at Date Recorded Not on file documented as of this encounter Last Filed Vital Signs Vital Sign Reading Time Taken Comments Blood Pressure 134/89 08/19/2014 4:30 PM LOOP CUTTER Pulse - - Temperature - - Respiratory Rate 16 08/19/2014 4:30 PM LOOP CUTTER Oxygen Saturation 96% 08/19/2014 4:30 PM LOOP CUTTER Inhaled Oxygen Concentration - - Weight 86.2 kg (190 lb) 08/19/2014 3:02 PM LOOP CUTTER Height 172.7 cm (5' 8) 08/19/2014 3:02 PM LOOP CUTTER Body Mass Index 28.89 08/19/2014 3:02 PM LOOP CUTTER documented in this encounter Medications at Time [...] ??? Cardiovascular Mother 69 age 74 in 2014,valve replacement, hx of rheumaic fever ??? Parkinsons [...] Sree Conway August 19, 2014 Colorectal Surgery [phone] (office) [phone] (pager) [email or web address] CUTTER documented in this encounter Plan of Treatment Not on filedocumented as of this encounter Procedures Procedure Name Priority Date/Time Associated Diagnosis Donya ballard COLONOSCOPY 08/19/2014 3:16 PM LOOP CUTTER Rectal Bleeding Special Needs Cristobal Wiggins COLONOSCOPY Routine 08/19/2014 3:14 PM LOOP CUTTER Resul ts for this procedure are in the results section . documented in this encounter Results COLONOSCOPY (08/19/2014 3:14 PM LOOP CUTTER) [facility] Time Signature COLONOSCOPY [facility] RAD IOLOGY RESULTS Patient Name: Jacob Logan ? Procedure Date: 08/19/2014 3:14 PM ? Accou nt Number: [id number] Date of : 1960 ?Admit Type: Out [...] and ?oxygen saturations were monitored continuously. The ?[id number] was introduced through the anus ?and advanced [...] Procedure Code(s): ? --- Professional --- ? 13212, Colonoscopy, flexible, proximal to splenic flexure; diagnostic, ? with or without collection of specimen(s) by brushing or washing, with ? or without colon decompression (separate procedure) Diagnosis Code(s): ? --- Professional --- ? 569.3, Hemorrhage of rectum and anus CPT copyright 2013 [employer]. All rights reserved. The codes documented in this report are prelimin imani and upon outpatient coder review may be revised to meet current compliance requirements. Sree Conway MD 08/19/2014 3:59 PM Number of Addenda: 0 Note Initiated On: 08/19/2014 3:14 PM MRN: ?[id number] Procedure Date: ? 08/19/2014 3:14:17 PM Scope Withdrawal Time: 0 hours 9 minutes 23 seconds Total Procedure Duration: 0 hours 13 minutes 11 seconds Scope In: 3:41:07 PM Scope Out: 3:54:18 PM Specimen (Source) Anatomical Collection Method Collection Time Re ceived Time Location / / Volume Laterality 08/19/2014 3:14 PM LOOP CUTTER Cristobal Wiggins MD PROCEDURES Performing Organization Address City/State/ZIP Code Phon e Number RADIOLOGY RESULTS documented in this encounter Visit Diagnoses Not on filedocumented in this encounter Administered Medications Inactive Administered Medications - up to 3 most recent administrations Medication Order MAR Action Action Date Dose Rate Site fentaNYL (SUBLIMAZE) injection Given 08/19/2014 3:42 PM LOOP CUTTER 50 mcg PRN, Starting on Mon08/19/14 at 1539, Intra-procedure Given 08/19/2014 3:39 PM LOOP CUTTER 100 mcg glucagon injection Given 08/19/2014 3:46 PM LOOP CUTTER 0.5 mg PRN, Starting on Mon08/19/14 at 1546, Intra-procedure midazolam (VERSED) injection Given 08/19/2014 3:41 PM LOOP CUTTER 1 mg PRN, Starting on Mon08/19/14 at 1540, Intra-procedure Given 08/19/2014 3:40 PM LOOP CUTTER 2 mg documented in this encounter Active and Recently Administered Medications Times are shown in LOOP CUTTER. PRN Medication Order 08/17/2014 08/18/2014 08/19/2014 fentaNYL (SUBLIMAZE) injection (CANCELED) 1539 (Given - Provider: Fariba Nicholas, RN)1542 (Given - Provider: Fariba Nicholas, RN) PRN, Starting 08/19/14 at 1539, Intra-procedure glucagon injection (CANCELED) 15 46 (Given - Provider: Fariba Nicholas RN) PRN, Starting 08/19/14 at 1546, Intra-procedure midazolam (VERSED) injection (CANCELED) 1540 (Given - Provider: Fariba Nicholas RN)1541 (Given - Provider: Fariba Nicholas RN) PRN, Starting 08/19/14 at 1540, Intra-procedure documented in this encounter Care Teams Child Care Counselor Relationship Specialty Start Date End Date Cristobal Wiggins MD PCP - General Family Practice 12/17/13 [facility] [address] [place] [address] Abel Hermosillo MD 12/17/13 documented as of this encounter
--- OUTSIDE RECORDS SUMMARY | 2022-05-25 07:58 | XMS_ITS | Encounter Summary ---
:1960 Author Organization [place] Address [facility] [place] [address] Care Team Providers Name Role Phone Cristobal Wiggins MD Primary Care Provider Abel Hermosillo MD Unavailable Encounter Details Date Type Department Care Team Description 01/16/2014 [facility] Hypertriglycer idemia (Primary [place] [facility] ARLIN Underwood Dx) Heart FOOD SAFETY OFFICER [facility] 4th Floor, Clinic [address] [phone] Social History Tobacco Use Types Packs/Day Years [...] hyperglyceridemia documented in this encounter Care Teams Spike Machine Feeder Relationship Specialty Start Date End Date Cristobal Wiggins MD PCP - General Family Practice 12/17/13 [facility] [address] [place] [address] Abel Hermosillo MD 12/17/13 documented as of this encounter
--- OUTSIDE RECORDS SUMMARY | 2022-05-25 07:58 | XMS_ITS | Encounter Summary ---
:1960 Author Organization [place] Address [address] [facility] [place] [address] Care Team Providers Name Role Phone Cristobal Wiggins MD Primary Care Provider Abel Hermosillo MD Unavailable Reason for Visit Reason Onset Date Comments Refill Request 10/15/2014 Encounter Details Date Type Department Care Team Description 10/15/2014 Refill [facility] Gifty Seals APRN Refill Request [facility] 4th Floor, Clinic [address] [place] [phone] Social History Tobacco Use Types Packs/Day [...] hyperglyceridemia documented in this encounter Care Teams Hand Loom Weaver Relationship Specialty Start Date End Date Cristobal Wiggins MD PCP - General Family Practice 12/17/13 [facility] [address] [place] [address] Abel Hermosillo MD 12/17/13 documented as of this encounter
--- OUTSIDE RECORDS SUMMARY | 2022-05-25 07:58 | XMS_ITS | Encounter Summary ---
:1960 Author Organization [place] Address [address] [place] [address]. [place] [address] Care Team Providers Name Role Phone Cristobal Wiggins MD Primary Care Provider Abel Hermosillo MD Unavailable Reason for Referral Diagnostic Imaging XR - Closed Specialty Diagnoses / Procedures Referred By Contact Refer red To Contact Radiology. Diagnoses Dysphagia, unspecified type Chapito Reed, Nicolas Xray Rscc Procedures XR Upper GI without KUB XR Esophagram [address] [facility] [address] [place], [place] [phone] Fax: Fax: Referral ID Status Reason Start Date Expiration Date Visits Requ ested Visits Authorized [id number] Closed 08/22/2017 08/22/2018 1 1 OLEER PACKER Reason for Visit Diagnostic Imaging XR - Closed Specialty Diagnoses / Procedures Referred By Contact Refer red To Contact Radiology. Diagnoses Dysphagia, unspecified type Chapito Reed, Rh Xray Rscc Procedures XR Upper GI without KUB XR Esophagram [address] [facility] [address] [place], [place] [phone] Fax: Fax: Referral ID Status Reason Start Date Expiration Date Visits Requ ested Visits Authorized [id number] Closed 08/22/2017 08/22/2018 1 1 Encounter Details Date Type Department Care Team Description 08/24/2017 Hospital Encounter [facility] Chapito Fagan Dysphagia, [facility] MD George unspecified type [address] [place], [place] [address] [address] ANAHI HUYNH [phone] Social History Tobacco Use Types Packs/Day Years Used Date Smoking Tobacco: Never Alcohol Use Standard Drinks/Week Comments Yes 10 (1 standard drink = 0.6 oz pure alcoh ol) 5-6 beers/week Sex Assigned at Date Recorded Not on file documented as of this encounter Medications at Time of Discharge Medication Sig Dispensed Refills Start Date End Date atorvastatin (LIPITOR) 10 MG Take 1 tablet (10 90 tablet 1 09/07/2015 tabletIndications: mg) by mouth Hypertriglyceridemia daily Cholecalciferol (VITAMIN D3 Take 1 tablet by 0 PO)Indications: mouth daily Hypertriglyceridemia Cyanocobalamin (VITAMIN B-12 Take 1 tablet by 0 CR PO)Indications: mouth daily Hypertriglyceridemia niacin 500 MG Take 500 mg by 0 tabletIndications: mouth daily (with Hypertriglyceridemia breakfast) NIASPAN 500 MG OR 1 TABLET DAILY at 60 2 05/25/2005 TBCRIndications: Other and bedtime unspecified hyperlipidemia initially, then increase to two tablets at bedtime. Take with aspirin tablet if possible documented as of this encounter Plan of Treatment Not on filedocumented as of this encounter Procedures Procedure Name Priority Date/Time Associated Diagnosis Comme nts XR UPPER GI WITHOUT Routine 08/24/2017 8:01 AM Dysphagia, Re sults for this KUB BANDOLEER PACKER unspecified type procedure a re in the results section. documented in this encounter Results XR Upper GI without KUB (08/24/2017 8:01 AM BANDOLEER PACKER) Anatomical Region Laterality Modality Abdomen/Pelvis Radio Fluoroscopy Specimen (Source) Anatomical Location Collection Method / Collectio n Time Received Time / Laterality Volume Impressions 08/24/2017 8:42 AM BANDOLEER PACKER IMPRESSION: Normal upper gastrointestinal study using double contrast. ANAND GARCIA MD Narrative 08/24/2017 8:42 AM BANDOLEER PACKER UPPER GASTROINTESTINAL STUDY USING DOUBLE CONTRAST ?? 08/24/2017 8:01 AM HISTORY: Dysphagia. COMPARISON: 06/01/2005 - CT chest. TECHNIQUE: A double contrast evaluation of the esophagus was performed with the patient in an upright position. A double contrast evaluation of the stomach was performed with the pa tient in a supine position. A single contrast evaluation of the esopha elicia was performed with the patient in a prone position. Fluoroscopy time: 2.4 minutes. Number of images: 19. Number of cine clips: None. FINDINGS: The esophagus has a normal cou rse and caliber. No ulcerations or persistent filling defect s in the esophagus. Contrast material flows readily through the esoph fantasma into the stomach. No hiatal hernia. No gastroesophageal reflu x was elicited during this study. The stomach has a normal configur ation. No persistent filling defects or ulcerations within the stomac h. The duodenum has a normal course and caliber. Procedure Note Anand Garcia MD - 08/24/2017Fo rmatting of this note might be different from the original. UPPER GASTROINTESTINAL STUDY USING DOUBL E CONTRAST 08/24/2017 8:01 AM HISTORY: Dysphagia. COMPARISON: 06/01/2005 - CT chest. TECHNIQUE: A double contrast evaluation of the esophagus was performed with the patient in an upright position. A double contrast evaluation of the stomach was performed with the pa tient in a supine position. A single contrast evaluation of the esopha elicia was performed with the patient in a prone position. Fluoroscopy time: 2.4 minutes. Number of images: 19. Number of cine clips: None. FINDINGS: The esophagus has a normal cou rse and caliber. No ulcerations or persistent filling defect s in the esophagus. Contrast material flows readily through the esoph fantasma into the stomach. No hiatal hernia. No gastroesophageal reflu x was elicited during this study. The stomach has a normal configur ation. No persistent filling defects or ulcerations within the stomac h. The duodenum has a normal course and caliber. IMPRESSION: Normal upper gastrointestina l study using double contrast. ANAND GARCIA MD Chapito Reed MD [facility] DIAGNOSTIC IMAGING ORDER REBECCA documented in this encounter Visit Diagnoses Diagnosis Dysphagia, unspecified type documented in this encounter Administered Medications Inactive Administered Medications - up to 3 most recent administrations Medication Order MAR Action Action Date Dose Rate Site barium sulfate (EZ PAQUE) oral Given 08/24/2017 8:00 AM BANDOLEER PACKER suspension 96% Oral, ONCE, On Estrellita 08/24/17 at 0800, For 1 dose barium sulfate (EZ-HD) oral suspension 98% Given 08/24/2017 8:00 AM BANDOLEER PACKER 120 mLs 120 mL Oral, ONCE, On Estrellita 08/24/17 at 0800, For 1 dose sod bicarbonate-citric acid-simethicone (EZ GAS) Given 08/24/2017 8:00 AM BANDOLEER PACKER 4 g 2.21-1.53-0.04 G packet 4 g 4 g, Oral, ONCE, On Estrellita 08/24/17 at 0800, For 1 dose, supplied by radiology documented in this encounter Care Teams Housekeeper Head Relationship Specialty Start Date End Date Cristobal Wiggins MD PCP - General Family Practice 12/17/13 [facility] [address] [place] [address] Abel Hermosillo MD 12/17/13 documented as of this encounter
--- OUTSIDE RECORDS SUMMARY | 2022-05-25 07:58 | XMS_ITS | Encounter Summary ---
:1960 Author Organization [facility] Address [address] [place] [address] Care Team Providers Name Role Phone Unavailable Primary Care Provider Unavailable Reason for Visit Reason Onset Date Comments OSM 08/12/2021 Encounter Details Date Type Department Care Team Description 08/12/2021 Clinical Communication Preoperative Evaluation Renetta Silverio, [facility] Center in [facility], [place] M.S.N. [address] [facility] [address] [place] [address] [place], [place] [phone] [address] Social History Tobacco Use Types Packs/Day Years [...] More than 4 times per year 08/13/2021 jehovah's witness services? Do you belong to any clubs [...] place to sleep or slept in a residential (including now)? Education Answer Date Recorded What is the highest level of school Bachelor's degree (e.g., BA, AB, 08/12/2021 you have completed or the highest BS) degree you have received? Sex Assigned at Date Recorded Male 08/12/2021 8:37 PM JURY CONSULTANT documented as of this encounter Miscellaneous Notes Telephone Encounter - Soraya Mariee - 08/12/2021 8:31 AM CST OSM Template: ??? 08/12/21 Soraya ??? Cardiology: o ECG: Yes 06/11/21 [facility], tracing in DV - o Echo: No o Stress: No o Holter Monitor Report: No o Cath with Report: No ??? Labs: o CBC No o BMP (Chem. History) No o Hemoglobin/HgbA1c No ??? Imaging: o Cardiac MR: No ??? Procedures: o Cardiac Device Interrogation: No ??? Device Test Engineer Notes: No ??? Primary Care Notes: Yes ??? Physical 06/18/[address] [facility] [address] Jacob Wiggins o ??? 12/31/2013 [facility] PCP notes ??? Medication List ??? Any additional useful information to relay to RN INTENSIVE CARE UNIT Called patient for OSM, said he had lab work done & physical on 06/18/21. Waiting for facility to call back. Include date and facility completed at if patient has had completed or where we called to obtain for each bullet point above as applicable. Outside Material Needed: ?Cath with report (most recent) ??? Blood test results recent CBC, BMP, HgbA1c, (within 6 months) ??? Cardiac Device interrogation (most recent) ??? Cardiac MR (most recent) ??? Device Test Engineer notes (most recent if there is not CE information) ??? Cardiac Stress Test Report (most recent) ??? ECG tracings- (most recent within last 3 years) ??? Echocardiograms (most recent within last 7 years) ??? Holter monitor report (most recent) ??? Primary care notes (most recent)- if new to [place] ??? Medication list ??? Pulmonary Function Test (most recent) Contact Information Resources: [facility] Fax #: [phone] Email: [email or web address] Shipped materials should be sent to: [facility] Attention: Izabela RAM [address] [place] [address] CONSULTANT documented in this encounter Plan of Treatment Not on filedocumented as of this encounter Visit Diagnoses Not on filedocumented in this encounter
--- OUTSIDE RECORDS SUMMARY | 2022-05-25 07:59 | XMS_ITS | Encounter Summary ---
:1960 Author Organization [place] Address [address] [place] [address] Care Team Providers Name Role Phone Abel Hermosillo MD Primary Care Provider Encounter Details Date Type Department Care Team Description 06/08/2004 Abstract [facility] Pamella Baron [facility] [place] [address] [place] [address] Social History Tobacco Use Types Packs/Day Years Used Date Smoking Tobacco: Never Alcohol Use Standard Drinks/Week Comments Yes 0 (1 standard drink = 0.6 oz pure alcoho l) social drinker Sex Assigned at Date Recorded Not on file documented as of this encounter Plan of Treatment Not on filedocumented as of this encounter Procedures Procedure Name Priority Date/Time Associated Diagnosis Comme nts HCL LDL-CHOLESTEROL Routine 06/08/2004 DIAGNOSIS NOT YET Res ults for this DEFINED procedure are i n the results section . HCL TRIGLYCERIDES Routine 06/08/2004 DIAGNOSIS NOT YET Resul ts for this DEFINED procedure are i n the results section . HCL HDL CHOLESTEROL Routine 06/08/2004 DIAGNOSIS NOT YET Res ults for this DEFINED procedure are i n the results section . HCL CHOLESTEROL Routine 06/08/2004 DIAGNOSIS NOT YET Results for this DEFINED procedure are i n the results section . documented in this encounter Results TRIGLYCERIDES [59960.000] (06/08/2004) athologist Signature Triglycerides 369@ mg/dL [facility] Pamella Baron LABORATORY Performing Organization Address City/State/ZIP Code Phon e Number [facility] HDL CHOLESTEROL [29607.000] (06/08/2004) P athologist Signature HDL Cholesterol 28@ mg/dL [facility] Pamella Baron LABORATORY Performing Organization Address City/State/ZIP Code Phon e Number [facility] LDL-CHOLESTEROL [82431.001] (06/08/2004) P athologist Signature LDL Cholesterol 122@ mg/dL [facility] Calculated [facility] Performing Organization Address City/State/ZIP Code Phon e Number [facility] CHOLESTEROL [56764.000] (06/08/2004) P athologist Signature Cholesterol 224@ 115 - 199 [facility] mg/dL Pamella [facility] LABORATORY Performing Organization Address City/State/ZIP Code Phon e Number [facility] documented in this encounter Visit Diagnoses Diagnosis DIAGNOSIS NOT YET DEFINED - Primary documented in this encounter Care Teams High School Special Education Teacher Relationship Specialty Start Date End Date Abel Hermosillo MD PCP - General 09/03/03 12/16/13 documented as of this encounter
--- OUTSIDE RECORDS SUMMARY | 2022-05-25 07:59 | XMS_ITS | Encounter Summary ---
:1960 Author Organization [place] Address [address] [place] [address] Care Team Providers Name Role Phone Abel Hermosillo MD Primary Care Provider Reason for Visit Reason Onset Date Comments Results 06/13/2005 Encounter Details Date Type Department Care Team Description 06/13/2005 Telephone [facility] Abel Hermosillo MD Results [place] [address] [facility] [address] [place] [address] [facility] [address] [place] [address] [phone] Social History Tobacco Use Types Packs/Day Years Used Date Smoking Tobacco: Never Alcohol Use Standard Drinks/Week Comments Yes 10 (1 standard drink = 0.6 oz pure alcoh ol) 5-6 beers/week Sex Assigned at Date Recorded Not on file documented as of this encounter Miscellaneous Notes Telephone Encounter - Marcie Phelps - 06/16/2005 2:05 PM CST Letter and results mailed again. SIT OPERATOR Telephone Encounter - Abel Hermosillo - 06/15/2005 12:59 PM CST Addressed in letter that should have been mailed already. SIT OPERATOR Telephone Encounter - Marcie Phelps - 06/13/2005 2:16 PM CST Pt given lab results from 05/25/05. ALT elevated. Had 4 beers the noc before labs done. Started Niaspan 500mg daily x 10 days ago. Next step? Please advise, thanks. (Pt is out of town until after the of the year.) SIT OPERATOR documented in this encounter Plan of Treatment Not on filedocumented as of this encounter Visit Diagnoses Not on filedocumented in this encounter Care Teams Branch Operations Specialist Relationship Specialty Start Date End Date Abel Hermosillo MD PCP - General 09/03/03 12/16/13 documented as of this encounter
--- OUTSIDE RECORDS SUMMARY | 2022-05-25 07:59 | XMS_ITS | Encounter Summary ---
:1960 Author Organization [place] Address [facility] [place] [address] Care Team Providers Name Role Phone Abel Hermosillo MD Primary Care Provider Cristobal Wiggins MD Primary Care Provider Abel Hermosillo MD Unavailable Encounter Details Date Type Department Care Team Description 06/08/2004 [facility] Abel Hermosillo MD HEART SCAN [facility] [address] [address] [place] [address] [address] [place] [address] [phone] Social History Tobacco Use Types Packs/Day Years Used Date Smoking Tobacco: Never Alcohol Use Standard Drinks/Week Comments Yes 10 (1 standard drink = 0.6 oz pure alcoh ol) 5-6 beers/week Sex Assigned at Date Recorded Not on file documented as of this encounter Plan of Treatment Not on filedocumented as of this encounter Visit Diagnoses Diagnosis HEART SCAN [place] - Primary documented in this encounter Care Teams Cupola Mechanic Relationship Specialty Start Date End Date Abel Hermosillo MD PCP - General 09/03/03 12/16/13 Cristobal Wiggins MD PCP - General Family Practice 12/17/13 [facility] [address] [place] [address] Abel Hermosillo MD 12/17/13 documented as of this encounter
--- OUTSIDE RECORDS SUMMARY | 2022-05-25 07:59 | XMS_ITS | Encounter Summary ---
:1960 Author Organization [place] Address [address] [place] [address] Care Team Providers Name Role Phone DoctorLauryn MD Primary Care Provider Unavailable Encounter Details Date Type Department Care Team Description 07/19/2002 Abstract [facility] Morena Peralta, Brittany [address] [place] [address] Social History Tobacco Use Types Packs/Day Years Used Date Smoking Tobacco: Never Assessed Sex Assigned at Date Recorded Not on file documented as of this encounter Plan of Treatment Not on filedocumented as of this encounter Procedures Procedure Name Priority Date/Time Associated Diagnosis Comme nts ABSTRACT LABCARE REPORT Routine 07/19/2002 documented in this encounter Results ABSTRACT LABCARE REPORT (07/19/2002) Narrative This result has an attachment that is no t available. Brittany Peralta LABORATORY documented in this encounter Visit Diagnoses Not on filedocumented in this encounter Care Teams Shrink Pit Supervisor Relationship Specialty Start Date End Date Lauryn Pleitez MD PCP - General 08/24/01 09/02/03 documented as of this encounter
--- OUTSIDE RECORDS SUMMARY | 2022-05-25 07:59 | XMS_ITS | Encounter Summary ---
:1960 Author Organization [place] Address [address] [place] [address]. [place] [address] Care Team Providers Name Role Phone Abel Hermosillo MD Primary Care Provider Reason for Visit Reason Comments Physical has a spot on his tongue fou nd by the dentist would like it checked. Encounter Details Date Type Department Care Team Description 09/03/2003 Office Visit [facility] Luis Daniel Glez [facility] Morena Hinojosa MD (Primary Dx) [address] [place] [address] Social History Tobacco Use Types Packs/Day Years Used Date Smoking Tobacco: Never Alcohol Use Standard Drinks/Week Comments Yes 0 (1 standard drink = 0.6 oz pure alcoho l) social drinker Sex Assigned at Date Recorded Not on file documented as of this encounter Last Filed Vital Signs Vital Sign Reading Time Taken Comments Blood Pressure 114/64 09/03/2003 8:30 AM DEPARTMENTAL SECRETARY Pulse 66 09/03/2003 8:30 AM DEPARTMENTAL SECRETARY Temperature - - Respiratory Rate 14 09/03/2003 8:30 AM DEPARTMENTAL SECRETARY Oxygen Saturation - - Inhaled Oxygen Concentration - - Weight 86.2 kg (190 lb) 09/03/2003 8:30 AM DEPARTMENTAL SECRETARY Height 172.7 cm (5' 8) 09/03/2003 8:30 AM DEPARTMENTAL SECRETARY Body Mass Index 28.89 09/03/2003 8:30 AM DEPARTMENTAL SECRETARY documented in this encounter Progress Notes 09/03/2003 8:30 AM DEPARTMENTAL SECRETARY Identification: Mr. Jacob Logan is a 43 year old year old male History: Mr. Logan is doing well. He watches his diet and remains active. His dentist noted a spot on his toungue a month ago. It has lino gonzalez. 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 Neckis supple thyroid is normal to palpation, there is no cer vical lymphadenopathy. I see a 1mm white spot bottom left toungue appears to coorelate with a tooth t hat points inward Lungs: Clear to A&P. CV: S1 S2 in a regular rhythm. No murmurs, gallops or rubs. There are no bruits. Abdomen: The abdomen is soft and non tender. Bowel sounds are normal. There is no hepatosplenomegaly. Neurologic: Patient is alert and oriented x 3. Motor strength an d sensation are grossly intact. Cranial nerves II through XII are tested and intact bilaterally. DTR??? s are 4/4 and symmetrical throughout. : Normal male genitalia noted. Testicles normal to exam. No hernia present. Prostate is normal size for age, symmetric and without lumps or nodules. Rectal to ne is normal. There are no hemorrhoids. Skin: No lesions or abnormalities present. Extremities: No peripheral edema, pulses are intact. Assessment and Plan: V70.0 ROUTINE MEDICAL EXAM (prima ry encounter diagnosis) Plan: CBC WITH PLATELETS, A.M.A. BASIC METABOLIC PANEL, A.M.A. HEPATI C PANEL, A.M.A. LIPID PANEL, PROSTATE SPEC ANTIGEN,SCREEN, OCCULT BLOOD, STOOL (1-3 SPE C) 2) Sore on left toungue - improve Plan: Mr. Logan will recheck with hid dentist Follow-up when tests done documented in this encounter Plan of Treatment Not on filedocumented as of this encounter Procedures Procedure Name Priority Date/Time Associated Diagnosis Comme nts CL AFF CBC WITH Routine 09/03/2003 8:47 AM Routine Medical Exa m Results for this PLATELETS DEPARTMENTAL SECRETARY procedure are i n the results section. HCL PROSTATE SPEC Routine 09/03/2003 8:47 AM Routine Medical E xam Results for this ANTIGEN,SCREEN DEPARTMENTAL SECRETARY procedure are in the results section. HCL HEPATIC PANEL Routine 09/03/2003 8:47 AM Routine Medical E xam Results for this DEPARTMENTAL SECRETARY procedure are i n the results section. HCL BASIC METABOLIC Routine 09/03/2003 8:47 AM Routine Medical Exam Results for this PANEL DEPARTMENTAL SECRETARY procedure are i n the results section. CL AFF A.M.A. LIPID Routine 09/03/2003 8:47 AM Routine Medical Exam Results for this PANEL DEPARTMENTAL SECRETARY procedure are i n the results section. documented in this encounter Results PROSTATE SPEC ANTIGEN,SCREEN (09/03/2003 8:47 AM DEPARTMENTAL SECRETARY) athologist Signature PSA 0.50 0 - 4 ug/L [facility] Specimen Anatomical Collection Method Collection Time Receive d Time (Source) Location / / Volume Laterality 09/03/2003 8:47 AM 4 8:48 DEPARTMENTAL SECRETARY AM DEPARTMENTAL SECRETARY Luis Daniel Glez MD LABORATORY Performing Organization Address City/State/ZIP Code Phon e Number [facility] [address] [place] [address] [facility] (ABNORMAL) A.M.A. LIPID PANEL (09/03/2003 8:47 AM DEPARTMENTAL SECRETARY) athologist Signature Cholesterol 178 <200 mg/dL [facility] Comment: Cholesterol Reference Range: <200 ??The NCEP recommends further ? evaluation of: ? 1. ??Patients with cholesterol ? greater than 200 mg/dL ? if additional risk facto rs ? are present. ? 2. ??All patients with a ? cholesterol greater than ? 240 mg/dL. Triglycerides 264 (H) <150 mg/dL [facility] HDL Cholesterol 33 (L) >40 mg/dL [facility] LDL Cholesterol Calculated 93 <130 mg/dL [facility] VLDL-Cholesterol 53 (H) 0 - 30 mg/dL [facility] Cholesterol/HDL Ratio 5 0 - 5 [facility] Specimen Anatomical Collection Method Collection Time Receive d Time (Source) Location / / Volume Laterality 09/03/2003 8:47 AM 4 8:48 DEPARTMENTAL SECRETARY AM DEPARTMENTAL SECRETARY Luis Daniel Glez MD LABORATORY Performing Organization Address City/[facility] Code Phon e Number [facility] [place] [address] [place] [address] [phone] [facility] A.M.A. HEPATIC PANEL (09/03/2003 8:47 AM DEPARTMENTAL SECRETARY) athologist Signature Bilirubin 0.0 0.0 - 0.3 [facility] Conjugated mg/dL CLINIC LAB Bilirubin Delta 0.0 0.0 - 0.4 [facility] mg/dL [facility] Bilirubin Total 0.6 0.2 - 1.3 [facility] mg/dL [facility] Albumin 4.6 3.3 - 4.6 [facility] g/dL [facility] Protein Total 7.8 6.0 - 8.2 [facility] g/dL [facility] Alkaline 65 40 - 150 [facility] Phosphatase U/L CLINIC LAB ALT 40 0 - 70 U/L [facility] AST 28 0 - 55 U/L [facility] Specimen Anatomical Collection Method Collection Time Receive d Time (Source) Location / / Volume Laterality 09/03/2003 8:47 AM 4 8:48 DEPARTMENTAL SECRETARY AM DEPARTMENTAL SECRETARY Luis Daniel Glez MD LABORATORY Performing Organization Address City/[facility] Code Phon e Number [facility] [address] [place] [address] [phone] [facility] A.M.A. BASIC METABOLIC PANEL (09/03/2003 8:47 AM DEPARTMENTAL SECRETARY) athologist Signature Sodium 141 133 - 144 [facility] mmol/L [facility]INIC [facility] Potassium 4.5 3.4 - 5.3 [facility] mmol/L [facility] Chloride 103 94 - 109 [place] mmol/L [facility] Carbon Dioxide 27 20 - 32 [place] mmol/L [facility] Anion Gap 11 6 - 17 [place] mmol/L [facility] Glucose 97 60 - 115 [place] mg/dL [facility] Urea Nitrogen 18 5 - 24 [place] mg/dL [facility] Creatinine 1.10 0.80 - [place] 1.50 mg/dL [facility] GFR Estimate 77 >60 mL/min [place] [facility] GFR Estimate If >80 >60 mL/min [place] N Black [facility] Calcium 9.4 8.5 - 10.4 [place] mg/dL [facility] Specimen Anatomical Collection Method Collection Time Receive d Time (Source) Location / / Volume Laterality 09/03/2003 8:47 AM 4 8:48 DEPARTMENTAL SECRETARY AM DEPARTMENTAL SECRETARY Luis Daniel Glez MD LABORATORY Performing Organization Address City/[facility] Code Phon e Number [address] [address] [facility] CBC WITH PLATELETS (09/03/2003 8:47 AM DEPARTMENTAL SECRETARY) P athologist Signature WBC 8.0 4.0 - 11.0 [place] 10e9/L [facility] RBC Count 4.88 4.4 - 5.9 [place] 10e12/L [facility] Hemoglobin 15.6 13.3 - [place] 17.7 g/dL [facility] Hematocrit 44.3 40.0 - [place] 53.0 % [facility] MCV 91 78 - 100 [place] fl [facility] MCH 32.0 26.5 - [place] 33.0 pg [facility] MCHC 35.3 32.0 - [place] 36.0 g/dL [facility] RDW 11.8 10.0 - [place] 15.0 % [facility] Platelet Count 216 150 - 450 [place] 10e9/L [facility] Specimen Anatomical Collection Method Collection Time Receive d Time (Source) Location / / Volume Laterality 09/03/2003 8:47 AM 4 8:48 DEPARTMENTAL SECRETARY AM DEPARTMENTAL SECRETARY Luis Daniel Glez MD LABORATORY Performing Organization Address City/State/ZIP Code Phon e Number [facility] [address] [place], [place] [address] [address] [facility] documented in this encounter Visit Diagnoses Diagnosis Routine general medical examination at a [facility] facility - Primary documented in this encounter Care Teams Medical Affairs Director Relationship Specialty Start Date End Date Abel Hermosillo MD PCP - General 09/03/03 12/16/13 documented as of this encounter
--- OUTSIDE RECORDS SUMMARY | 2022-05-25 07:59 | XMS_ITS | Encounter Summary ---
:1960 Author Organization [place] Address [address] [place] [address] Care Team Providers Name Role Phone Abel Hermosillo MD Primary Care Provider Encounter Details Date Type Department Care Team Description 09/12/[address] [facility] MEDICAL EXAM [facility] (Primary Dx) [address] [place] [address] Social History Tobacco Use [...] Priority Date/Time Associated Diagnosis Comme nts HCL OCCULT BLOOD Routine 09/12/2003 9:59 AM Routine Medical Ex am Results for this GUAIAC STOOL (1-3 GENERATION ENGINEERING TECHNOLOGIST procedure are in SPEC) the results section. documented in this encounter Results OCCULT BLOOD, STOOL (1-3 SPEC) (09/12/2003 9:59 AM GENERATION ENGINEERING TECHNOLOGIST) P athologist Signature Occult Blood Negative [place] Sl[facility] 1 [facility] Slide 1 Date 09/04/03 [facility] Occult Blood Negative [place] Slide 2 [facility] Slide 2 Date 09/05/03 [facility] Occult Blood Negative [place] Slide 3 [facility] Slide 3 Date 09/06/03 [facility] Specimen Anatomical Collection Method Collection Time Receive d Time (Source) Location / / Volume Laterality 09/12/2003 9:59 AM 4 GENERATION ENGINEERING TECHNOLOGIST 10:04 AM GENERATION ENGINEERING TECHNOLOGIST Luis Daniel I Kirshbaum MD LABORATORY Performing Organization Address City/State/ZIP Code Phon e Number [facility] [address] [place], [place] [address] [address] [facility] documented in this encounter Visit Diagnoses Diagnosis Routine general medical examination at a [facility] facility - Primary documented in this encounter Care Teams Photography Spotter Relationship Specialty Start Date End Date Abel Hermosillo MD PCP - General 09/03/03 12/16/13 documented as of this encounter
--- OUTSIDE RECORDS SUMMARY | 2022-05-25 07:59 | XMS_ITS | Encounter Summary ---
:1960 Author Organization [facility] Address [address] [place] [address] Care Team Providers Name Role Phone Gill Hermosillo MD Primary Care Provider Reason for Visit Reason Comments Physical fasting Encounter Details Date Type Department Care Team Description 05/25/[address] [facility] Gill Hermosillo, ROUTIN E MEDICAL EXAM; Clinic [facility] MD HYPERLIPIDEMIA NEC/NOS; [address] OTHER LUNG DI SEASE NEC; [address] ABNORMAL LIVER FUNCTION STUDY [address] [place] [address] [phone] Social History Tobacco Use Types Packs/Day Years Used Date Smoking Tobacco: Never Alcohol Use Standard Drinks/Week Comments Yes 10 (1 standard drink = 0.6 oz pure alcoh ol) 5-6 beers/week Sex Assigned at Date Recorded Not on file documented as of this encounter Last Filed Vital Signs Vital Sign Reading Time Taken Comments Blood Pressure 110/72 05/25/2005 9:00 AM HYPERION ADMINISTRATOR Pulse 64 05/25/2005 9:00 AM HYPERION ADMINISTRATOR Temperature - - Respiratory Rate - - Oxygen Saturation - - Inhaled Oxygen Concentration - - Weight 85.3 kg (188 lb) 05/25/2005 9:00 AM HYPERION ADMINISTRATOR Height 172.7 cm (5' 8) 05/25/2005 9:00 AM HYPERION ADMINISTRATOR Body Mass Index 28.59 05/25/2005 9:00 AM HYPERION ADMINISTRATOR documented in this encounter Progress Notes Gill Hermosillo - 05/25/2005 9:52 AM CST Jacob Logan presents for periodic exam. Previous Medical History: HYPERLIPIDEMIA NEC/NOS DISC DIS NEC/NOS-CERV ~2002 Comment: Has had two herniated discs in neck OTHER LUNG DISEASE NEC 05/2004 Comment: 4 mm nodule, posterolateral LLL, incidental finding on heart scan MEDS: 1. NIASPAN 500 MG OR TBCR Route: Oral Si TABLET DAILY at bedtime initially, then increase to two tablets at bedtime. Take with aspirin tablet if possible Dispense: 60 Refill: 2 Review of patient's past surgical history indicates: ANESTH,REPAIR LO ABD HERNIA NOS 1987 Comment: left - has partially re-occured but not bothersome Family History: Eye Brother Comment: Glaucoma Neurological Father Comment: Born 1932. Subdural hematoma after a fall in 2003. Benign brain tumor 1976. Heart Mother Comment: Born 1937. Has rheumatic valve disease that has not required surgery. 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 No symptoms reminiscent of angina. Benign appearing nodule on CT cardiac screening test in 05/2004, no CT f/u performed as yet. REVIEW OF SYSTEMS are as listed above or negative for the following: Constitutional, HEENT, respiratory, cardiovascular, gastrointestinal, genitourinary, musculoskeletal, dermatologic, hematologic, endocrine, psychiatric, and neurologic. OBJECTIVE: Well-appearing middle-aged male in no distress. BP 110/72 Pulse 64 Ht 5' 8 (1.73m) Wt 188 lbs (85.3kg) Head normal. Eyes are normal. PERRLA, corneas, lids and conjunctivae normal. External ears and canals clear bilaterally. TM's normal bilaterally. Nose normal without lesions or discharge. Oropharynx normal. Neck supple without palpable adenopathy. Chest wall normal to inspection and palpation. Good excursion bilaterally. Lungs clear to auscultation. Good air movement bilaterally without rales, wheezes, or rhonchi. CV: Normal to precordial palpation and auscultation. Abdomen: soft without tenderness, guarding, mass or organomegaly. Bowel sounds are normal. No CVA tenderness or inguinal adenopathy noted. Rectal: Normal digital exam, prostate normal in contour without nodules or tenderness. : normal male genitalia and testicles, negative for inguinal hernia. Skin: Normal to inspection and palpation. Ext: All four extremities normal to inspection and palpation. Lymph: No cervical, axillary or inguinal lymphadenopathy. Neuro: Alert, well-oriented. Speech fluent. CN II-XII intact. Moves all extremities with equal strength and facility. DTR's symmetric to all extremities. Gait narrow-based. ASSESS/PLAN: V70.0 ROUTINE MEDICAL EXAM Note: Healthy adult male. See epic orders. Plan: A.M.A. BASIC METABOLIC PANEL, A.M.A. LIPID PANEL, ALANINE AMINO (ALT) (SGPT), HGB, TD IMMUNIZATION,IM/JET, TSH-, LDL CHOLESTEROL, DIRECT, OCCULT BLOOD, STOOL (1-3 SPEC), CT SCAN CHEST, A.M.A. BASIC METABOLIC PANEL, A.M.A. LIPID PANEL, ALANINE AMINO (ALT) (SGPT), HGB, TSH-, LDL CHOLESTEROL, DIRECT, A.M.A. BASIC METABOLIC PANEL, A.M.A. LIPID PANEL, ALANINE AMINO (ALT) (SGPT), CT SCAN CHEST 272.4 HYPERLIPIDEMIA NEC/NOS Note: Continue Niaspan. Plan: NIASPAN 500 MG OR TBCR, A.M.A. BASIC METABOLIC PANEL, A.M.A. LIPID PANEL, ALANINE AMINO (ALT) (SGPT), TSH-, LDL CHOLESTEROL, DIRECT, A.M.A. BASIC METABOLIC PANEL, A.M.A. LIPID PANEL, ALANINE AMINO (ALT) (SGPT), TSH-, LDL CHOLESTEROL, DIRECT, A.M.A. BASIC METABOLIC PANEL, A.M.A. LIPID PANEL, ALANINE AMINO (ALT) (SGPT) 518.89 OTHER LUNG DISEASE NEC Note: Update lipid panel. Plan: CT SCAN CHEST, CT SCAN CHEST RION ADMINISTRATOR Gill Hermosillo - 05/25/2005 9:00 AM HYPERION ADMINISTRATOR Addended by: GILL HERMOSILLO on: 06/12/2005 10:59:41 PM Modules accepted: Orders RION ADMINISTRATOR documented in this encounter Nursing Notes 05/25/2005 9:00 AM CST >> NEDA FISHER 05/25/2005 9:03 am Patient presents with: Physical - fasting Last Td Booster: unknown Initial BP 110/72 Pulse 64 Ht 5' 8 (1.73m) Wt 188 lbs (85.3kg) Body Mass Index is 28.59 kg/(m^2). BP completed using cuff size: large. Neda Fisher MA documented in this encounter Plan of Treatment Not on filedocumented as of this encounter Procedures Procedure Name Priority Date/Time Associated Diagnosis Comme nts HC CT THORAX W/O Routine 06/01/2005 7:30 AM Routine general Re sults for this CONT HYPERION ADMINISTRATOR medical examination at [facility] are in a health care fa cility the results Other diseases of section. lung, not elsewhere classified HCL HEMOGLOBIN Routine 05/25/2005 10:27 Routine Medical Exam R esults for this NONLAB AM HYPERION ADMINISTRATOR procedure are i n the results section. HCL BASIC METABOLIC Routine 05/25/2005 10:27 Routine Med ical Exam Results for this PANEL AM HYPERION ADMINISTRATOR Hyperlipidemia Nec/Nos proce dure are in the results section. HCL TSH Routine 05/25/2005 10:27 Routine Medical Exam Results for this AM HYPERION ADMINISTRATOR Hyperlipidemia Nec/Nos proce dure are in the results section. HCL ALT Routine 05/25/2005 10:27 Hyperlipidemia Nec/Nos Results for this AM HYPERION ADMINISTRATOR Routine Medical Exam procedu re are in the results section. HCL LDL Routine 05/25/2005 10:27 Hyperlipidemia Nec/Nos Results for this CHOLESTEROL, DIRECT AM HYPERION ADMINISTRATOR Routine Medical Exam procedure are in the results section. CL AFF A.M.A. LIPID Routine 05/25/2005 10:27 Routine Med ical Exam Results for this PANEL AM HYPERION ADMINISTRATOR Hyperlipidemia Nec/Nos proce dure are in the results section. documented in this encounter Results CT SCAN CHEST (06/01/2005 7:30 AM HYPERION ADMINISTRATOR) Anatomical Region Laterality Modality Other Specimen (Source) Anatomical Collection Method Collection Time Re ceived Time Location / / Volume Laterality 06/01/2005 7:30 AM HYPERION ADMINISTRATOR Impressions 06/02/2005 9:[address] CHEST FOR NODULE ?? CLINICAL HISTORY: Left lower lobe indete rminate nodule seen on CT scan from [facility]. ??It's d ated 12/14/04. ? TECHNIQUE: ?? Noncontrast 5mm axial imag es with coronal reconstructions. ?? COMPARISON: ?? CT scan from [facility] dated 06/08/04. ?? FINDINGS: ??Redemonstrated is an approxi mately 4mm indeterminate pulmonary nodule at the left lateral doug g base on image #42. ??The images from the prior scan are very tiny but this appears not significantly changed. ??Two additional very tiny approximately 2mm indeterminate pulmonary nodules are also seen in the left lung. ??The first in the left upper lobe on image #1 5, and the second in the left lower lobe on image #42. ??The upper doug gs were not included on the comparison CT scan. ??It is nearly impos sible to determine whether or not the tiny additional left lower lobe nodule was present previously. ??The lungs are otherwise cl ear. ??Mediastinal and hilar structures are normal by noncontrast pierre hnique. ??Visualized portions of the upper abdominal organs are normal . ? IMPRESSION: ?? Three tiny indeterminate pulmonary nodules. ??The largest one which is 4mm at the left doug g base is unchanged since the exam from [facility] one year ago. ??See above discussion. ?? Recommend one additional [address] follo w up of these nodules. Gill Hermosillo MD SPECIAL IMAGING STUDIES (ABNORMAL) LDL CHOLESTEROL, DIRECT (05/25/2005 10:27 AM HYPERION ADMINISTRATOR) athologist Signature LDL Direct 131 (H) [facility] Comment: Reference range: 0 to 129 Unit: mg/dL (Note) INTERPRETATION: LDL Cholesterol, Direct CHD Risk Factors: +1 ??Age: Men, ?? 45 years and older ?Women, 55 years and older or premature menopause ? without estroge n therapy +1 ??Family history of premature CHD +1 ??Current smoking +1 ??Hypertension +1 ??Diabetes mellitus +1 ??Low HDL Cholesterol: ??39 mg/dL or less -1 ??High HDL Cholesterol: 60 mg/dL or greater LDL Cholesterol: Therapeutic goal 100 mg/dL or less if CHD is present. 129 mg/dL or less if no CHD and two or more risk factors. 159 mg/dL or less if no CHD. The above test was performed at: [facility] mark, [address] [place] [address] ??[id number] ?? ??[email or web address] Specimen Anatomical Collection Method Collection Time Receive d Time (Source) Location / / Volume Laterality 05/25/2005 10:27 05/25/2005 AM HYPERION ADMINISTRATOR 10:32 AM HYPERION ADMINISTRATOR Gill Hermosillo MD LABORATORY Performing Organization Address City/State/ZIP Code Phon e Number [facility] [address] [place], [place] [address] [address] [facility] TSH- (05/25/2005 10:27 AM HYPERION ADMINISTRATOR) athologist Signature TSH 2.15 0.4 - 5.0 [facility] mU/L [facility] Specimen Anatomical Collection Method Collection Time Receive d Time (Source) Location / / Volume Laterality 05/25/2005 10:27 05/25/2005 AM HYPERION ADMINISTRATOR 10:32 AM HYPERION ADMINISTRATOR Gill Hermosillo MD LABORATORY Performing Organization Address City/[facility]/ZIP Code Phon e Number [facility] [address] [place] [address] [facility] HGB (05/25/2005 10:27 AM HYPERION ADMINISTRATOR) athologist Signature Hemoglobin 16.2 13.3 - 17.7 [facility] g/dL [facility] Specimen Anatomical Collection Method Collection Time Receive d Time (Source) Location / / Volume Laterality 05/25/2005 10:27 05/25/2005 AM HYPERION ADMINISTRATOR 10:32 AM HYPERION ADMINISTRATOR Gill Hermosillo MD LABORATORY Performing Organization Address City/[facility]/ZIP Code Phon e Number [place] [address], [place] [address] [address] [facility] (ABNORMAL) ALANINE AMINO (ALT) (SGPT) (05/25/2005 10:27 AM HYPERION ADMINISTRATOR) athologist Signature ALT 98 (H) 0 - 70 U/L [facility] Specimen Anatomical Collection Method Collection Time Receive d Time (Source) Location / / Volume Laterality 05/25/2005 10:27 05/25/2005 AM HYPERION ADMINISTRATOR 10:32 AM HYPERION ADMINISTRATOR Gill Hermosillo MD LABORATORY Performing Organization Address [facility]/ZIP Code Phon e [place] [facility] [address] [place] [address] [phone] [facility] (ABNORMAL) A.M.A. LIPID PANEL (05/25/2005 10:27 AM HYPERION ADMINISTRATOR) P athologist Signature Cholesterol 194 0 - 200 [facility] mg/dL CLINIC LAB Comment: LDL Cholesterol is the primary guide to therapy: LDL-cholesterol goal in high risk patients is <100 mg/dL and in very high risk patients is <70 mg/dL. The NCEP recommends further evaluation of: patients with cholesterol <200 mg/dL if additional risk factors are present, cholesterol >240 mg/dL, triglycerides >150 mg/dL, or HDL <40 mg/dL. Triglycerides 134 0 - 150 mg/dL [facility] HDL Cholesterol 37 (L) 40 - 110 mg/dL [facility] LDL Cholesterol Calculated 131 (H) 0 - 129 mg/dL [facility] Comment: LDL Cholesterol is the primary guide to therapy: LDL-cholesterol goal in high risk patients is <100 mg/dL and in very high risk patients is <70 mg/dL. VLDL-Cholesterol 27 0 - 30 mg/dL [facility] Cholesterol/HDL Ratio 5.2 (H) 0.0 - 5.0 [facility] Specimen Anatomical Collection Method Collection Time Receive d Time (Source) Location / / Volume Laterality 05/25/2005 10:27 05/25/2005 AM HYPERION ADMINISTRATOR 10:32 AM HYPERION ADMINISTRATOR Gill Hermosillo MD LABORATORY Performing Organization Address City/[facility]/ZIP Code Phon e Number [facility] [address] [place] [address] [phone] [facility] A.M.A. BASIC METABOLIC PANEL (05/25/2005 10:27 AM HYPERION ADMINISTRATOR) P athologist Signature Sodium 140 133 - 144 [facility] mmol/L CLINIC LAB Potassium 4.1 3.4 - 5.3 [place] mmol/L [facility] Chloride 103 94 - 109 [place] mmol/L [facility] Carbon Dioxide 29 20 - 32 [place] mmol/L [facility] Anion Gap 9 6 - 17 [place] mmol/L [facility] Glucose 94 60 - 110 [place] mg/dL [facility] Urea Nitrogen 14 5 - 24 [place] mg/dL [facility] Creatinine 1.00 0.80 - [place] 1.50 mg/dL [facility] GFR Estimate >80 >60 [place] mL/min/1.7 [facility] m2 GFR Estimate If >80 >60 [place] Black mL/min/1.7 [facility] m2 Calcium 8.9 8.5 - 10.4 [place] mg/dL [facility] Specimen Anatomical Collection Method Collection Time Receive d Time (Source) Location / / Volume Laterality 05/25/2005 10:27 05/25/2005 AM HYPERION ADMINISTRATOR 10:32 AM HYPERION ADMINISTRATOR Gill Hermosillo MD LABORATORY Performing Organization Address City/State/ZIP Code Phon e Number [facility] [address] [place] [phone] [facility] documented in this encounter Visit Diagnoses Diagnosis Routine general medical examination at a health care facility Other and unspecified hyperlipidemia Other diseases of lung, not elsewhere cl assified Nonspecific abnormal results of liver fu nction study documented in this encounter Care Teams Primary School Teacher Relationship Specialty Start Date End Date Gill Hermosillo MD PCP - General 09/03/03 12/16/13 documented as of this encounter
--- OUTSIDE RECORDS SUMMARY | 2022-05-25 07:59 | XMS_ITS | Encounter Summary ---
:1960 Author Organization [facility] Address [address] [place] [id number] Care Team Providers Name Role Phone Doctor, None MD Primary Care Provider Unavailable Reason for Visit Reason Comments Physical Encounter Details Date Type Department Care Team Description 07/22/2002 Office Visit [facility] EX[facility] Morena Hinojosa MD (Primary Dx) [address] [place] [phone] Social History Tobacco Use Types Packs/Day Years Used Date Smoking Tobacco: Never Assessed Sex Assigned at Date Recorded Not on file documented as of this encounter Last Filed Vital Signs Vital Sign Reading Time Taken Comments Blood Pressure 114/74 07/22/2002 8:30 AM PARAMEDIC Pulse 72 07/22/2002 8:30 AM PARAMEDIC Temperature - - Respiratory Rate - - Oxygen Saturation - - Inhaled Oxygen Concentration - - Weight 88 kg (194 lb) 07/22/2002 8:30 AM PARAMEDIC Height - - Body Mass Index - - documented in this encounter Progress Notes 07/22/2002 8:30 AM PARAMEDIC Identification: Mr. Jacob Logan is a 42 year old year old male History: Mr. Logan is doing well. He notes a chronic left shoulder pain for which he will be seeing Dr Faustin of Ortho Surgery later [facility]. He has no other complaints. Review Of Systems Skin: negative Eyes: negative Ears/Nose/Throat: negative Respiratory: negative Cardiovascular: negative Gastrointestinal: negative Genitourinary: neg ative Musculoskeletal: negative Neurologic: negative Psychiatric: negative Hematologic/Lymphatic/Immu nologic: negative Endocrine: negative There is no previous medical history on file. There is no pr evious surgical history on file. No active medications on file as of 07/22/2002 Review of patient' s allergies indicates: No Known Drug * Exam: BP 114/74 Pulse 72 Wt 194 lbs (87.998 kg) H EENT: Normocephalic, atraumatic, Pupils equally round and reactive to light and accommodation. Neck is supple thyroid is normal to palpation, there is no cervical lymphadenopathy. Lungs: Clear to A&P. CV: S1 S2 in a regular rhythm. No murmurs, gallops or rubs. There are no bruits. Abdomen : The abdomen is soft and non tender. Bowel sounds are normal. There is no hepatosplenomegaly. N eurologic: Patient is alert and oriented x 3. Motor strength and sensation are grossly intact. Crania l nerves II through XII are tested and intact bilaterally. DTR???s are 4/4 and symmetrical throughout. : Normal male genitalia noted. Testicles normal to exam. No hernia present. Prostate is normal size for age, symmetric and without lumps or nodules. Rectal tone is normal. There are no hemorrhoids . Skin: No lesions or abnormalities present. Extremities: No peripheral edema, pulses are intac t. Assessment and Plan: V70.0 ROUTINE MEDICAL EXAM (primary encounter diagnosis) Plan: CHOLEST GOGO, A.M.A. HEPATIC PANEL, A.M.A. BASIC METABOLIC PANEL, PROSTATE SPEC ANTIGEN,SCEEN, O CCULT BLOOD, STOOL Follow-up when tests done documented in this encounter Nursing Notes 07/22/2002 8:30 AM CST >> MELISSA HUFFMAN 07/22/2002 8:29 am c/o of pains in L side of neck and shoulder, is seeing ortho today, documented in this encounter Plan of Treatment Not on filedocumented as of this encounter Procedures Procedure Name Priority Date/Time Associated Comments Diagnosis HCL PROSTATE SPEC Routine 07/22/2002 8:47 AM Routine Medical R esults for this ANTIGEN,SCREEN PARAMEDIC Exam procedure are in the results section. HCL HEPATIC PANEL Routine 07/22/2002 8:47 AM Routine Medical R esults for this PARAMEDIC Exam procedure are i n the results section. HCL BASIC METABOLIC Routine 07/22/2002 8:47 AM Routine Medical Results for this PANEL PARAMEDIC Exam procedure are i n the results section. HCL CHOLESTEROL Routine 07/22/2002 8:47 AM Routine Medical Res ults for this PARAMEDIC Exam procedure are i n the results section. documented in this encounter Results PROSTATE SPEC ANTIGEN,SCEEN (07/22/2002 8:47 AM PARAMEDIC) athologist Signature PSA 0.7 0 - 4 ug/L [facility] Specimen Anatomical Collection Method Collection Time Receive d Time (Source) Location / / Volume Laterality 07/22/2002 8:47 AM 3 8:48 PARAMEDIC AM PARAMEDIC Luis Daniel Glez MD LABORATORY Performing Organization Address City/[facility]/ZIP Code Phon e Number [facility] [address] [place] [address] [place] [address] [facility] A.M.A. BASIC METABOLIC PANEL (07/22/2002 8:47 AM PARAMEDIC) athologist Signature Sodium 142 133 - 144 [place] mmol/L [facility] Potassium 4.5 3.4 - 5.3 [place] mmol/L [facility] Chloride 107 94 - 109 [place] mmol/L [facility] Carbon Dioxide 29 20 - 32 [place] mmol/L [facility] Anion Gap 6 6 - 17 [facility] Glucose 107 60 - 115 [place] mg/dL [facility] Urea Nitrogen 18 5 - 24 [place] mg/dL [facility] Creatinine 1.0 0.8 - 1.5 [place] mg/dL [facility] Calcium 8.8 8.5 - 10.4 [place] mg/dL [facility] Specimen Anatomical Collection Method Collection Time Receive d Time (Source) Location / / Volume Laterality 07/22/2002 8:47 AM 3 8:48 PARAMEDIC AM PARAMEDIC Luis Daniel Glez MD LABORATORY Performing Organization Address City/State/ZIP Code Phon e Number [facility] [address] [place] [address] [facility] A.M.A. HEPATIC PANEL (07/22/2002 8:47 AM PARAMEDIC) athologist Signature Bilirubin 0.0 0.0 - 0.3 [place] Conjugated mg/dL [facility] Bilirubin Delta 0.0 0.0 - 0.4 [place] mg/dL [facility] Bilirubin Total 0.6 0.2 - 1.3 [place] mg/dL [facility] Albumin 4.1 3.3 - 4.6 [place] g/dL [facility] Protein Total 7.6 6.0 - 8.2 [place] g/dL [facility] Alkaline 62 40 - 150 [place] Phosphatase U/L [facility] ALT 58 0 - 70 U/L [facility] AST 47 0 - 55 U/L [facility] Specimen Anatomical Collection Method Collection Time Receive d Time (Source) Location / / Volume Laterality 07/22/2002 8:47 AM 3 8:48 PARAMEDIC AM PARAMEDIC Luis Daniel Glez MD LABORATORY Performing Organization Address [facility] Phon e Number [facility] [address] [place] [phone] [facility] CHOLESTEROL (07/22/2002 8:47 AM PARAMEDIC) athologist Signature Cholesterol 152 <200 mg/dL [facility] Comment: Cholesterol Reference Range: <200 ??The NCEP recommends further ? evaluation of: ? 1. ??Patients with cholesterol ? greater than 200 mg/dL ? if additional risk facto rs ? are present. ? 2. ??All patients with a ? cholesterol greater than ? 240 mg/dL. Specimen Anatomical Collection Method Collection Time Receive d Time (Source) Location / / Volume Laterality 07/22/2002 8:47 AM 3 8:48 PARAMEDIC AM PARAMEDIC Luis Daniel Glez MD LABORATORY Performing Organization Address [facility] Phon e Number [facility] [address] [place] [phone] [facility] documented in this encounter Visit Diagnoses Diagnosis Routine general medical examination at a [facility] facility - Primary documented in this encounter Care Teams Certified Neurodiagnostic Technologist Relationship Specialty Start Date End Date Doctor, None, PCP - General 08/24/01 09/02/03 documented as of this encounter
--- OUTSIDE RECORDS SUMMARY | 2022-05-25 07:59 | XMS_ITS | Encounter Summary ---
:1960 Author Organization [place] Address [facility] [place] [address] Care Team Providers Name Role Phone Cristobal Wiggins MD Primary Care Provider Abel Hermosillo MD Unavailable Encounter Details Date Type Department Care Team Description 12/26/2013 [facility] ARLIN Underwood POULTRY VETERINARIAN unspe cified Heart cardiovascular conditions Pritesh García (Primar y Dx) Building 4th Floor, Clinic [address] [address] Social History Tobacco Use Types Packs/Day Years Used Date Smoking Tobacco: Never Assessed Sex Assigned at Date Recorded Not on file documented as of this encounter Plan of Treatment Not on filedocumented as of this encounter Visit Diagnoses Diagnosis Screening for other and unspecified card iovascular conditions - Primary documented in this encounter Care Teams General Labor Forklift Operator Relationship Specialty Start Date End Date Cristobal Wiggins MD PCP - General Family Practice 12/17/13 [facility] [address] [place] [address] Abel Hermosillo MD 12/17/13 documented as of this encounter
--- OUTSIDE RECORDS SUMMARY | 2022-05-25 07:59 | XMS_ITS | Encounter Summary ---
:1960 Author Organization [place] Address [address] [place] [address] Care Team Providers Name Role Phone Lauryn Pleitez MD Primary Care Provider Unavailable Encounter Details Date Type Department Care Team Description 08/07/[address] [facility] Luis Daniel Glez CTING RESULTS Clinic Morena Hinojosa MD (Primary Dx) [address] [place] [address] Social History Tobacco Use Types Packs/Day Years Used Date Smoking Tobacco: Never Assessed Sex Assigned at Date Recorded Not on file documented as of this encounter Plan of Treatment Not on filedocumented as of this encounter Procedures Procedure Name Priority Date/Time Associated Diagnosis Comme elio ZZ CONSULT ORTHOPEDIC GENERAL Routine 07/22/2002 ABSTRACT ING RESULTS documented in this encounter Results CONSULT ORTHOPEDIC GENERAL (07/22/2002) Narrative This result has an attachment that is no t available. Luis Daniel Glez MD REFERRAL documented in this encounter Visit Diagnoses Diagnosis ABSTRACTING RESULTS - Primary documented in this encounter Care Teams Fuels Sales Representative Relationship Specialty Start Date End Date Lauryn Pleitez MD PCP - General 08/24/01 09/02/03 documented as of this encounter
--- OUTSIDE RECORDS SUMMARY | 2022-05-25 07:59 | XMS_ITS | Encounter Summary ---
:1960 Author Organization [place] Address [address] [place] [id number] Care Team Providers Name Role Phone Cristobal Wiggins MD Primary Care Provider Abel Hermosillo MD Unavailable Reason for Visit Reason Comments Lipids Encounter Details Date Type Department Care Team Description 12/31/2013 Office Visit Gifty Tenorio [place] [facility] ARLIN Underwood (Primar y Dx) Heart [facility] 4th Floor, Clinic [address] [address] Social History Tobacco Use Types Packs/Day Years Used Date Smoking Tobacco: Never Alcohol Use Standard Drinks/Week Comments Not Asked 0 (1 standard drink = 0.6 oz pure alcoho l) Sex Assigned at Date Recorded Not on file documented as of this encounter Last Filed Vital Signs Vital Sign Reading Time Taken Comments Blood Pressure 126/80 12/31/2013 12:35 PM CDT Pulse 60 12/31/2013 12:35 PM CDT Temperature - - Respiratory Rate - - Oxygen Saturation - - Inhaled Oxygen Concentration - - Weight 87.7 kg (193 lb 4.8 oz) 12/31/2013 12:35 PM CDT Height 172.7 cm (5' 8) 12/31/2013 12:35 PM CDT Body Mass Index 29.39 12/31/2013 12:35 PM CDT documented in this encounter Progress Notes Gifty Seals, AMANUEL - 12/31/2013 12:37 PM CDT Active Problems Patient Active Problem List Diagnosis Date Noted ??? Hypertriglyceridemia 12/31/2013 Priority: Medium Reason For Visit Patient here for [facility] early detection of atherosclerosis and CVD exam. Pain Evaluation Current history of pain associated with this visit is as follows denied. NATI Logan is a 53 year old year old male with a history of hyper triglycerides identified age 48 as high as 400's. He has been taking Niacin off and on and in the past has had flushing symptoms that have been bothersome. With recent OTC niacin 500 mg he has not had flushing and his triglycerides are higher. Suspect this is niacinamide and not effective for lipid reduction. We discussed alternative offish oil which may be better tolerated and will not increase his glucose levels. He took two regularaspirins with his niacin and one time cut himself and had difficulty stopping the bleeding so he is currently not taking aspirin. We discussed low dose, 81mg asprin for prevention may be better tolerated. He has a history of mild sleep apnea with snoring but his could not tolerate the c-pap so he quit. He did not feel much better using it and now does not have problems with fatigue. We discussed the benefits of c-pap or other alternatives if his apnea is obstructive. We discussed he currently has two out of 5 factors for metabolic syndrome pattern and close to having 3. He does have a history of elevated glucose levels for many years. Nutrition assessment per patient report: We discussed my plate nutrition recommendations. He typcially has coffee and few bites of donut in the morning and mid day he may rock picker a burger or hot dog then eats a dinner often with salad about 8 pm. Given his elevated triglycerides reduction in low fiber carbs was discussed including alcohol reduction. He enjoys he daily alcohol and does not want to give this up. We discussed off setting this with reduction in other carbs (bread etc). Foods with fat/cholesterol (fried foods, fatty meats, junk food):1-2 per day or more. Fruits and vegetables (?? cup cooked, 1 cup raw): 1 servings per day. Increasing to 50% discussed. Caffeine (1 cup coffee, soda etc.).0 servings per day. Alcohol servings (12 oz. beer, 4 oz. wine, 1?? oz. in mixed drink) . 2 or more servings per day often beer Calcium servings (dairy foods, 8 oz. milk, yogurt, cheese, ice cream)1 servings per day. I add salt to my food and or eat salty prepared foods: rare. Special dietary habits: none. Activity: Patient is active 5-7 times per week working on a [employer] and [employer]. We discussed laboratory results today including lipids targets and how foods influences cholesterol.With elevated triglycerides and glucose low fiber carbohydrate reduction discussed along with weightreduction to prevent future diabetes. Weight: He perceived healthy weight is about 180 pounds . Body mass index is 29.4 kg/(m^2). A normal BMI of 25 is equal to 164 pounds. He feels he would be too thin at 164. Adding 10% would equal 180 and may be appropriate depending on his glucose level at this weight. A weight reduction speed of two pounds per month is recommended. PMH Past Medical History Diagnosis Date ??? Hypertriglyceridemia age 48 as high as 400's ??? Sleep apnea 2009 tried C-pap for short time PSH Past Surgical History Procedure Laterality Date ??? Hernia repair 1987, 2010 Current Meds Current Outpatient Prescriptions Medication Sig Dispense Refill ??? niacin 500 MG tablet Take 500 mg by mouth daily (with breakfast) ??? Cyanocobalamin (VITAMIN B-12 CR PO) Take 1 tablet by mouth daily ??? Cholecalciferol (VITAMIN D3 PO) Take 1 tablet by mouth daily Allergies Allergies no known allergies Family Hx Family History Problem Relation Age of Onset ??? Cardiovascular Mother 70 age 75 in 2013,valve replacement, hx of rheumaic fever ??? Parkinsons Disease Father age 79 ??? Dementia Father Family Status Relation Status Age ??? Mother Alive age 75 in 2013 ??? Father 79 ??? Sister Alive age 51 in 2013 ??? Sister Alive age 47 in 2013 ??? Brother Alive age 53 in 2013 ??? Maternal Grandmother 96 ??? Maternal Grandfather 65 alcohol -disabled ??? Paternal Grandmother 93 ??? 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 Enjoyment of life is 10 with 10 enjoys life fully. History Smoking status ??? Never Smoker Smokeless tobacco ??? Not on file ROS Constitutional: No fever, chills, or sweats. No weight gain/loss. ENT: No visual disturbance, ear ache, epistaxis, sore throat. Allergies/Immunologic: Negative. Respiratory: No cough, hemoptysis. Cardiovascular: As per HPI. GI: No nausea, vomiting, hematemesis, melena, or hematochezia. : No urinary frequency, dysuria, or hematuria. Integument: Negative. Psychiatric: Negative. Neuro: Negative. Endocrinology: Negative. Musculoskeletal: Negative Vital Signs BP 126/80 Pulse 60 Ht 1.727 m (5' 8) Wt 87.68 kg (193 lb 4.8 oz) BMI 29.4 kg/m2 Waist: 39 Hip: 39.5 Physical Exam In general, the patient is a pleasant male in no apparent distress. HEENT: NC/AT. PERRLA. EOMI. Sclerae white, not injected. Nares clear. Pharynx without erythema or exudate. Dentition intact. Neck: No adenopathy. No thyromegaly.Carotids +4/4 bilaterally without bruits. No jugular venous distension. Lungs: CTA. No ronchi, wheezes, rales. Cor: RRR. Normal S1, S2 splits physiologically. No murmur, rub, click, or gallop. The PMI is in the 5th ICS in the midclavicular line. There is no heave. Abdomen: Soft, nontender, nondistended. No organomegaly. No bruits. Extremities: No clubbing, cyanosis, or edema. The pulses are +4/4 at the radial, brachial, femoral, and PT sites bilaterally. No bruits are noted. Results ABDOMINAL AORTA ULTRASOUND SupraIliac: 2.0 cm < 2.5 Normal SupraRenal 2.0 cm 2.5 - 2.9 Ectatci InfraRenal Proximal 2.0 cm More than 3 cm Anuerysmal InfraRenal Distal 2.0 cm Comments: within normal limit LEFT VENTRICULAR ULTRASOUNDS MEASUREMENTS LVIDD 50 mm Septa 10 mm Posterior 10 mm Recent Labs Lab Results Component Value Date GLC 105* 12/31/2013 Lab Results Component Value Date NTBNP 34 12/31/2013 No results found for this basename: ntbnpi Lab Results Component Value Date UCRR 59 12/31/2013 Lab Results Component Value Date MICROL Value: <5 Urine Microalbumin lowest reportable value has been changed from 2 mg/L to 5 mg/L due to a methodology change on September. 12/31/2013 Lab Results Component Value Date MICROALBUMIN Unable to calculate 12/31/2013 Lab Results Component Value Date CRP 0.9 12/31/2013 Lab Results Component Value Date CHOL 215* 12/31/2013 Lab Results Component Value Date TRIG 349* 12/31/2013 Lab Results Component Value Date HDL 43 12/31/2013 Lab Results Component Value Date LDL 102 12/31/2013 Lab Results Component Value Date VLDL 70* 12/31/2013 Lab Results Component Value Date CHOLHDLRATIO 5.0 12/31/2013 Assessment Cardiovascular: No chest pain or shortness of breath. Blood pressure is prehypertensive range today.ECG sinus rate 65. He used c-pap for a short time but this did now work out well for his . Lipids He does have chronic triglyceride elevation and is most likely taking a product that is not effective given his levels were lower in the past with Niacin but he did not feel well on this.even with aspirin before. We discussed using fish oil instead and dietary measures and weight reduction. Hisdiet is moderate to high in saturated fat and high in low fiber carbs depending on the day so their is room for reduction although he enjoys the way he eats now. Glucose: 105 with previous result in 2013 99 per old records. As above weight reduction and dietary measures encouraged. He declined a nutrition referral. Full report to follow prevention team review of test results with scanned final report. Time spent for patient visit was 60 minutes with more than half the time spent on counseling and coordination of care CC Patient Care Team: Cristobal Wiggins as PCP - General (Family Practice) SELF, REFERRED documented in this encounter Plan of Treatment Not on filedocumented as of this encounter Procedures Procedure Name Priority Date/Time Associated Diagnosis Comme nts HC PHOTOGRAPY FUNDUS Routine 12/31/2013 12:41 Hypertriglycerid emia PM CDT ALBUMIN RANDOM URINE Routine 12/31/2013 10:06 Hypertriglycerid emia Results for this QUANTITATIVE AM CDT procedure are i n the results section. N TERMINAL PRO BNP Routine 12/31/2013 10:05 Hypertriglyceridem ia Results for this OUTPATIENT AM CDT procedure are i n the results section. LIPID REFLEX TO Routine 12/31/2013 10:05 Hypertriglyceridemia Results for this DIRECT LDL PANEL AM CDT procedure a re in the results section. CRP CARDIAC RISK Routine 12/31/2013 10:05 Hypertriglyceridemia Results for this AM CDT procedure are i n the results section. AST Routine 12/31/2013 10:05 Hypertriglyceridemia Res ults for this AM CDT procedure are i n the results section. ALT Routine 12/31/2013 10:05 Hypertriglyceridemia Res ults for this AM CDT procedure are i n the results section. GLUCOSE Routine 12/31/2013 10:05 Hypertriglyceridemia Res ults for this AM CDT procedure are i n the results section. EKG 12-LEAD, TRACING Routine 12/31/2013 9:53 Hypertriglyceride saritha Results for this ONLY AM CDT procedure are i n the results section. US VASCULAR - HIM 12/31/2013 12:00 SCAN AM CDT HC SPIROMETRY, BREATH Routine 12/31/2013 Hypertriglyceridemi a CAPACITY documented in this encounter Results Microalbumin quantitative random urine (12/31/2013 10:06 AM CDT) Component Value Ref Test Analysis Performed At Patholo gist Range Method Time Signature Creatinine 59 mg/dL [facility] Urine [facility] Albumin Urine <5 mg/L [facility] mg/L Urine Microalbumin lowest re portable value has been changed from 2 mg/L to 5 [facility] mg/L due to a methodology change on September. [facility] Albumin Urine Unable to 0 - 17 [facility] mg/g Cr calculate mg/g Cr [facility] Specimen Anatomical Collection Method Collection Time Receive d Time (Source) Location / / Volume Laterality Urine specimen 12/31/2013 10: 4 (specimen) AM CDT 10:07 AM CDT Gifty Seals [employer]KEM[employer] OUTBOARD MOTOR TESTER LAB - URINE ORDERABLES Performing Organization Address City/State/ZIP Code Phon e Number [facility] [address] [place], [place] [id number] [place] [address] LABS AST (12/31/2013 10:05 AM CDT) P athologist Signature AST 38 0 - 45 U/L [facility] Specimen Anatomical Collection Method Collection Time Receive d Time (Source) Location / / Volume Laterality 12/31/2013 10:05 12/31/2013 AM CDT 10:06 AM CDT Gifty Seals APRN, CNP LAB - BLOOD ORDERABLES Performing Organization Address City/[facility]/ZIP Code Phon e Number [facility] [address] LABS ALT (12/31/2013 10:05 AM CDT) P athologist Signature ALT 37 0 - 70 U/L [facility] Specimen Anatomical Collection Method Collection Time Receive d Time (Source) Location / / Volume Laterality 12/31/2013 10:05 12/31/2013 AM CDT 10:06 AM CDT Gifty Seals APRN, CNP LAB - BLOOD ORDERABLES Performing Organization Address City/[facility]/ZIP Code Phon e Number [facility] [address] LABS (ABNORMAL) Glucose (12/31/2013 10:05 AM CDT) P athologist Signature Glucose 105 (H) 60 - 99 [facility] mg/dL [facility] Specimen Anatomical Collection Method Collection Time Receive d Time (Source) Location / / Volume Laterality Blood specimen 12/31/2013 10:05 4 (specimen) AM CDT 10:06 AM CDT Gitfy Seals APRN, CNP LAB - BLOOD ORDERABLES Performing Organization Address City/[facility]/ZIP Code Phon e Number [facility] [address] [place], [place] [phone] [place] [address] LABS CRP cardiac risk (12/31/2013 10:05 AM CDT) P athologist Signature CRP Cardiac 0.9 mg/L [facility] Risk [facility] Comment: Reference Values: Low Risk: ? <1.0 mg/L Average Risk: ? 1.0-3.0 mg/L High Risk: ?>3.0 mg/L Acute Inflammation: >8.0 mg/L Specimen Anatomical Collection Method Collection Time Receive d Time (Source) Location / / Volume Laterality Blood specimen 12/31/2013 10:05 4 (specimen) AM CDT 10:06 AM CDT Gifty Yasmine Arnel [employer] TE[employer] LAB - BLOOD ORDERABLES Performing Organization Address [facility]/ZIP Code Phon e Number [facility] [address] [place] [address] [facility] N terminal pro BNP outpatient (12/31/2013 10:05 AM CDT) athologist Signature N-Terminal Pro 34 0 - 125 [facility] Bnp pg/mL CAMPUS LABS Comment: Reference range shown and results flagge d as abnormal are for the outpatient, non acute settings. Establishing a base line value for each individual patient is useful for follow-up. Suggested inpatient cut points for confi rming diagnosis of CHF in an acute setting are: >450 pg/mL (age 18 to less than 50) >900 pg/mL (age 50 to less than 75) >1800 pg/mL (75 yrs and older) An inpatient or emergency department NT- proPBNP <300 pg/mL effectively rules out acute CHF, with 99% negative predictive value. Specimen Anatomical Collection Method Collection Time Receive d Time (Source) Location / / Volume Laterality Blood specimen 12/31/2013 10:05 4 (specimen) AM CDT 10:06 AM CDT Gifty Seals APRN OUTBOARD MOTOR TESTER LAB - BLOOD ORDERABLES Performing Organization Address [facility] Code Phon e Number [facility] [address] [place] [address] [facility] (ABNORMAL) Lipid panel reflex to direct LDL (12/31/2013 10:05 AM CDT) athologist Signature Cholesterol 215 (H) <200 mg/dL [facility] Comment: LDL Cholesterol is the primary guide to therapy. The NCEP recommends further evaluation of: patients with cholesterol greater than 200 mg/dL if additional risk facto rs are present, cholesterol greater than 240 mg/dL, triglycerides greater than 1 50 mg/dL, or HDL less than 40 mg/dL. Triglycerides 349 (H) 0 - 150 mg/dL [facility] HDL Cholesterol 43 >40 mg/dL [facility] LDL Cholesterol Calculated 102 0 - 129 mg/dL [facility] Comment: LDL Cholesterol is the primary guide to therapy: LDL-cholesterol goal in high risk patients is <100 mg/dL and in very high risk patients is <70 mg/dL. VLDL-Cholesterol 70 (H) 0 - 30 mg/dL [facility] Cholesterol/HDL Ratio 5.0 0.0 - 5.0 [facility] Specimen Anatomical Collection Method Collection Time Receive d Time (Source) Location / / Volume Laterality Blood specimen 12/31/2013 10:05 4 (specimen) AM CDT 10:06 AM CDT Gifty Seals APRN, CNP LAB - BLOOD ORDERABLES Performing Organization Address City/[facility]/ZIP Code Phon e Number [facility] [address] [place] [address] [facility] EKG 12-lead, tracing only (Same Day) (12/31/2013 9:53 AM CDT) [facility] gist Method Time Signature Interpretation ECG Click View RADIOLOGY Image link RESULTS to view waveform and result Specimen (Source) Anatomical Collection Method Collection Time Re ceived Time Location / / Volume Laterality 12/31/2013 9:53 AM CDT Gifty Seals APRN OUTBOARD MOTOR TESTER ECG ORDERABLES Performing Organization Address City/[facility]/ZIP Code Phon e Number RADIOLOGY RESULTS Spirometry, Breathing Capacity (in clinic) (12/31/2013) P athologist Signature FEV-1 FVC FEV1/FVC FEF 25/75 Narrative This result has an attachment that is no t available. Gifty Seals APRN OUTBOARD MOTOR TESTER PROCEDURES US VASCULAR - HIM SCAN (12/31/2013 12:00 AM CDT) Anatomical Region Laterality Modality Other Specimen (Source) Anatomical Location Collection Method / Collectio n Time Received Time / Laterality Volume 12/31/2013 Narrative This result has an attachment that is no t available. Provider Scan IMG US ORDERABLES documented in this encounter Visit Diagnoses Diagnosis Hypertriglyceridemia - Primary Pure hyperglyceridemia documented in this encounter Care Teams Land Development Manager Relationship Specialty Start Date End Date Cristobal Wiggins MD PCP - General Family Practice 12/17/13 [facility] [address] [place] [address] Abel Hermosillo MD 12/17/13 documented as of this encounter
--- OUTSIDE RECORDS SUMMARY | 2022-05-25 07:59 | XMS_ITS | Encounter Summary ---
:1960 Author Organization [place] Address [address] [place] [address] Care Team Providers Name Role Phone Abel Hermosillo MD Primary Care Provider Reason for Visit Reason Comments Specimen Drop Off Encounter Details Date Type Department Care Team Description 06/01/2005 Orders Only [facility] ROU YANETH MEDICAL EXAM [place] [facility] [address] [place] [address] Social History Tobacco Use [...] Diagnosis Comme nts HCL OCCULT BLOOD Routine 06/01/2005 9:24 AM Routine Medical Ex am Results for this GUAIAC STOOL (1-3 GAS STATION CASHIER procedure are in SPEC) the results section. documented in this encounter Results OCCULT BLOOD, STOOL (1-3 SPEC) (06/01/2005 9:24 AM GAS STATION CASHIER) P athologist Signature Occult Blood Negative NEG [place] Slide 1 [facility] Slide 1 Date 05/30/05 [facility] Occult Blood Negative NEG [place] Slide 2 [facility] Slide 2 Date 05/31/05 [facility] Occult Blood Negative NEG [place] Slide 3 [facility] Slide 3 Date 06/01/05 [facility] Specimen Anatomical Collection Method Collection Time Receive d Time (Source) Location / / Volume Laterality 06/01/2005 9:24 AM 5 9:29 GAS STATION CASHIER AM GAS STATION CASHIER Abel Hermosillo MD LABORATORY Performing Organization Address City/State/ZIP Code Phon e Number [facility] [address] [place], [place] [address] [address] [facility] documented in this encounter Visit Diagnoses Diagnosis Routine general medical examination at a health care facility documented in this encounter Care Teams Automobile Body Repairer Relationship Specialty Start Date End Date Abel Hermosillo MD PCP - General 09/03/03 12/16/13 documented as of this encounter
--- OUTSIDE RECORDS SUMMARY | 2022-05-25 07:59 | XMS_ITS | Encounter Summary ---
:1960 Author Organization [place] Address [facility] [place] [address] Care Team Providers Name Role Phone Abel Hermosillo MD Primary Care Provider Encounter Details Date Type Department Care Team Description 08/11/2009 Results Only INTERFACED REPORT Cristobal Wiggins MD [facility] [address] [place], [place] [address] (Wo rk) Social History Tobacco Use Types Packs/Day Years Used Date Smoking Tobacco: Never Alcohol Use Standard Drinks/Week Comments Yes 10 (1 standard drink = 0.6 oz pure alcoh ol) 5-6 beers/week Sex Assigned at Date Recorded Not on file documented as of this encounter Plan of Treatment Not on filedocumented as of this encounter Procedures Procedure Name Priority Date/Time Associated Comments Diagnosis GI HISTORY AND Routine 08/11/2009 1:10 PM Results for this PHYSICAL MANAGER LAW procedure are i n the results section. COLONOSCOPY Routine 08/11/2009 12:45 Results for this PM MANAGER LAW procedure are i n the results section. documented in this encounter Results GI HISTORY AND PHYSICAL (08/11/2009 1:10 PM MANAGER LAW) [employer] Method Time Signature GI History [facility] RADI OLOGY and Physical RESULTS Patient Name: Jacob Logan ? Gender: M ? H & P Date: 08/11/2009 ? Date of : 1960 ?Age: 49 ? Admit Type: Outpatient ? Attending MD: Cheryle Sanchez MD ? Provider: ? Cheryle Sanchez MD Referring MD: ? Cristobal Wiggins MD Requesting Provider: ? Chief Complaint: ?Screening History of Present Illness: This 49 year old male is e valuated for screening ?colonoscopy. ?He denies constipation, diarrhea, abdominal pain, ?nausea, vomiting, hematochezia, and melena. ?He denies heart disease, indication for ?antibiotic prophylaxis, lung disease, liver ?disease, diabetes, h/o anesthesia complication, ?chest pain, shortness of breath, bleeding ?tendencies, or recent oral intake. Past Medical History: ? Hypercholesterolemia; s/p her reginaldo repair Current Medications: ?ASA; Niaspan Drug Allergies: ? NKDA Social History: ? Nonsmoker; occasional EtOH Family Medical History: ? No known colorectal cancer or polyps. Review of Systems: ?As above. Physical Exam: ?CV: RRR, normal S1 & S2, no S3, no S4, no murmurs ?or rubs ?Respiratory: Clear to auscultation Impression: ? - Average risk screening for malignant neoplasm ?in the colon ?- Screening ASA: ?P1 A normal healthy patient. Plan: ? Colonoscopy A Daniel Cheryle Sanchez MD Signed Date: 08/11/2009 1:12 PM Number of Addenda: 0 I was physically present for the entire viewing portion of t he exam. Note initiated on 08/11/2009 1:10 PM Specimen (Source) Anatomical Collection Method Collection Time Re ceived Time Location / / Volume Laterality 08/11/2009 1:10 PM MANAGER LAW Cristobal Wiggins MD PROCEDURES Performing Organization Address City/State/ZIP Code Phon e Number RADIOLOGY RESULTS COLONOSCOPY (08/11/2009 12:45 PM MANAGER LAW) [employer] Method Time Signature COLONOSCOPY [facility] RAD IOLOGY RESULTS Patient Name: Jacob Logan ? Gender: M ? Procedure Date: 08/11/2009 12 :45 PM ? Date of : 1960 ?Age: 49 ? Admit Type: Outpatient ? Attending MD: Cheryle Sanchez MD ? Procedure: ? Colonoscopy Indications: ? Average risk screening for malignant neoplasm in the ? colon Providers: ? Cheryle Sanchez MD Referring MD: ?Cristobal Wiggins MD Medicines: ? Midazolam 2 mg IV, Fentanyl 100 mi crograms IV Complications: ? No immediate complications Procedure: ? - Prior to the procedure, a History and Physical was ? performed, and patient medication allergies have been ? reviewed. The patient's tolerance of previous anesthesia ? has been reviewed. ? - The risks and benefits of the procedure and the ? sedation options and risks were discussed with the ? patient. All questions were answered and informed ? consent was obtained. ? - ASA Grade Assessment: I - A normal, healthy patient. ? After obtaining informed consent, the colonoscope was ? passed under direct vision. Throughout the procedure, ? the patie nt's blood pressure, pulse, and oxygen ? saturations were monitored continuously. The [id number] ? #[id number] was introduced through the anus and advanced to ? the cecum, identified by appendiceal orifice & IC valve. ? The colonoscopy was performed with ease. The patient ? tolerated the procedure well. The quality of the prep ? was good. The prep was adequate to identify polyps. ? Findings: ? The perianal and digital rectal examinations were nor mal. Pertinent ? negatives include normal sphincte r tone, no palpable rectal lesions and ? normal prostate (size, shape, and consistency). The e ntire examined ? colon appeared normal. ? Impression: ?- The colon is normal. Recommendation: ?- Repeat colonoscopy in 10 years for surveillance. ? A Daniel Cheryle Sanchez MD Signed Date: 08/11/2009 1:12 PM Number of Addenda: 0 I was physically present for the entire viewing portion of t he exam. Note initiated on 08/11/2009 12:47 PM Specimen (Source) Anatomical Collection Method Collection Time Re ceived Time Location / / Volume Laterality 08/11/2009 12:45 PM MANAGER LAW Cristobal Wiggins MD PROCEDURES Performing Organization Address City/State/ZIP Code Phon e Number RADIOLOGY RESULTS documented in this encounter Visit Diagnoses Not on filedocumented in this encounter Care Teams Wallpaper Installer Relationship Specialty Start Date End Date Abel Hermosillo MD PCP - General 09/03/03 12/16/13 documented as of this encounter
[2022-05-25 15:58] LABS: PSA Diagnostic* < 0.06 ng/mL (0.10-4.00)
== END 2022-05-25 14:06 | disposition home or self-care (01) ==
PROVIDERS: PCP Family Medicine; Visit Provider Family Medicine
DX: C61 Malignant neoplasm of prostate (principal)
CPT/HCPCS: 84153

== ENCOUNTER 2022-07-06 08:45 | Outpatient (CLI) | payer BC, SELFPAY ==
[2022-07-06 13:42] LABS: Chloride* 106 mmol/L (96-114); Potassium* 4.1 mmol/L (3.6-5.1); Sodium* 141 mmol/L (135-149)
[2022-07-06 13:44] LABS: Cholesterol* 143 mg/dL (90-199); Creatinine* 0.8 mg/dL (0.5-1.5); Estimated Glomerular Filt Rate 99 ml/min
[2022-07-06 13:45] LABS: Blood Urea Nitrogen* 14 mg/dL (7-30); Calcium* 8.9 mg/dL (8.4-10.6); Carbon Dioxide* 26 mmol/L (20-32); Glucose* 106 mg/dL (60-115); HDL Cholesterol* 31 mg/dL (>=40); LDL Cholesterol Calculated 68 mg/dL (<100); Triglycerides* 221 mg/dL (40-149)
[2022-07-06 13:48] LABS: PSA Diagnostic* < 0.06 ng/mL (0.10-4.00)
== END 2022-07-06 08:46 | disposition home or self-care (01) ==
PROVIDERS: PCP Family Medicine; Visit Provider Family Medicine
DX: I10 Essential (primary) hypertension (principal); E78.5 Hyperlipidemia, unspecified; C61 Malignant neoplasm of prostate
CPT/HCPCS: 80048; 80061; 84153

== ENCOUNTER 2023-08-09 08:33 | Outpatient (CLI) | payer BC, SELFPAY ==
--- OUTSIDE RECORDS SUMMARY | 2023-08-09 08:39 | XMS_ITS | Referral Summary ---
Author Name Unknown Organization [facility] Address [address] [place] [address] Care Team Providers Care Manager Dialysis Name Role Phone Cristobal Wiggins MD Primary Care Provider [phone] Abel Hermosillo MD Unavailable [phone] Allergies Active Allergy Reactions Criticality Noted Date Comments No Known Drug Allergy 07/22/2002 Medications Medication Sig Dispensed Refills Start Date End Date Status NIASPAN 500 MG OR TBCRIndications:Other and unspecified hyperlipidemia 1 TABLET DAILY at bedtime initially, then increase to two tablets at bedtime. Take with aspirin tablet if possible 60 2 05/25/2005 Active niacin 500 MG tabletIndications:Hype rtriglyceridemia Take 500 mg by mouth daily (with breakfast) 0 Active Cyanocobalamin (VITAMIN B-12 CR PO)Indications:Hypertr iglyceridemia Take 1 tablet by mouth daily 0 Active Cholecalciferol (VITAMIN D3 PO)Indications:Hypertr iglyceridemia Take 1 tablet by mouth daily 0 Active atorvastatin (LIPITOR) 10 MG tabletIndications:Hype rtriglyceridemia Take 1 tablet (10 mg) by mouth daily 90 tablet 1 09/07/2015 Active albuterol (PROAIR HFA/PROVENTIL HFA/VENTOLIN HFA) 108 (90 Base) MCG/ACT inhaler Inhale 2-4 puffs into the lungs every 4 hours as needed for shortness of breath / dyspnea 6.7 g 0 06/11/2021 Active dexamethasone (DECADRON) 4 MG tablet Take 2 tablets (8 mg) by mouth daily for 5 days 10 tablet 0 06/11/2021 Active Active Problems Problem Noted Date Diagnosed Date Hypertriglyceridemia 12/31/2013 Immunizations Name Administration Dates Next Due TD,PF 7+ (Tenivac) 05/25/2005 Social History Tobacco Use Types Packs/Day Years Used Date Smoking Tobacco: Never Alcohol Use Standard Drinks/Week Comments Yes 10 (1 standard drink = 0.6 oz pu re alcohol) 5-6 beers/week Adolescent Education Answer Date Record ed Getting School Help Needed Not on file 04/02 Sex and Gender Information Value Date Recorded Sex Assigned at Not on file Gender Identity Not on file Sexual Orientation Not on file Last Filed Vital Signs Vital Sign Reading Time Taken Comments Blood Pressure 141/72 06/11/2021 10:58 AM CHIEF CONTROLLER TOWER Pulse 97 06/11/2021 10:45 AM CHIEF CONTROLLER TOWER Temperature 37.2 ??C (98.9 ??F) 06/11/2021 8:24 AM CS T Respiratory Rate 20 06/11/2021 11:00 AM CHIEF CONTROLLER TOWER Oxygen Saturation 93% 06/11/2021 11:00 AM CHIEF CONTROLLER TOWER Inhaled Oxygen Concentration - - Weight 86.2 kg (190 lb) 08/19/2014 3:02 PM CHIEF CONTROLLER TOWER Height 172.7 cm (5' 8) 08/19/2014 3:02 PM CHIEF CONTROLLER TOWER Body Mass Index 28.89 08/19/2014 3:02 PM CHIEF CONTROLLER TOWER Plan of Treatment Not on file Care Teams Manager Dialysis Relationship Specialty Start Date End Date Cristobal Wiggins MD [facility] [address] [place] [address] PCP - General Family Practice 12/17/13 Abel Hermosillo MD [facility] [address] [place] [address] 12/17/13
--- OUTSIDE RECORDS SUMMARY | 2023-08-09 08:39 | XMS_ITS | Clinical Summary ---
Author Name Unknown Organization [facility] Address [address] [place] [address] Care Team Providers Care Sales Floor Associate Name Role Phone Cristobal Wiggins MD Primary Care Provider [phone] Abel Hermosillo MD Unavailable [phone] Allergies Active Allergy Reactions Criticality Noted [...] Dates Next Due TD,PF 7+ (Tenivac) 05/25/2005 Family History Medical History Relation Comments Eye Disorder Brother 2 Glaucoma Dementia Father Neurologic Disorder Father Born 1933. S ubdural hematoma after a fall in 2003. Benign brain tumor 1976. Parkinsonism Father age 79 Cardiovascular Mother age 75 in 2013,v alve replacement, hx of rheumaic fever Heart Disease Mother Born 1938. Has r heumatic valve disease that has not required surgery. Relation Status Comments Brother 1 Alive age 53 in 2012 Brother 2 Father (Age 79) Maternal Grandfather (Age 65) alcohol - disabled Maternal Grandmother (Age 96) Mother Alive age 75 in 2013 Paternal Grandfather (Age 60) paralyzed from gun [...] Comments Blood Pressure 141/72 06/11/2021 10:58 AM CLAIM INSPECTOR Pulse 97 06/11/2021 10:45 AM CLAIM INSPECTOR Temperature 37.2 ??C (98.9 ??F) 06/11/2021 8:24 AM CS T Respiratory Rate 20 06/11/2021 11:00 AM CLAIM INSPECTOR Oxygen Saturation 93% 06/11/2021 11:00 AM CLAIM INSPECTOR Inhaled Oxygen Concentration - - Weight 86.2 kg (190 lb) 08/19/2014 3:02 PM CLAIM INSPECTOR Height 172.7 cm (5' 8) 08/19/2014 3:02 PM CLAIM INSPECTOR Body Mass Index 28.89 08/19/2014 3:02 PM CLAIM INSPECTOR Plan of Treatment Health Maintenance Due Date Last Done Comments ADVANCE CARE PLANNING 1960 ANNUAL REVIEW OF HM ORDERS 1960 CT COLONOGRAPHY 1960 FIT 1960 FLEX SIG 1960 sDNA (Cologuard) 1960 COVID-19 Vaccine (#1) 1960 HIV SCREENING 1974 HEPATITIS C SCREENING 1977 YEARLY PREVENTIVE VISIT 05/25/2006 05/25/20, 09/03/2003, 07/22/2002 ZOSTER IMMUNIZATION (1 of 2) 2009 LIPID 12/31/2014 12/31/2013, 04/28, 09/03/2003 GLUCOSE 12/31/2016 12/31/2013, 04/28, 09/03/2003, Additional history exists RSV VACCINE ( & 60+) (1 - 1-dose 60+ series) 2019 DTAP/TDAP/TD IMMUNIZATION (2 - Td or Tdap) 05/11/2021 05/11/2011, 05/25/2005, 05/25/2005, Additional history exists INFLUENZA VACCINE (#1) 2023 PHQ-2 (once per calendar year) 2023 COLONOSCOPY 08/19/2024 08/19/2014, 07/28, 08/11/2009 COLORECTAL CANCER SCREENING 08/19/2024 HPV IMMUNIZATION Aged Out No longer e ligible based on patient's age to complete this topic IPV IMMUNIZATION Aged Out No longer e ligible based on patient's age to complete this topic MENINGITIS IMMUNIZATION Aged Out No l onger eligible based on patient's age to complete this topic Pneumococcal Vaccine: Pediatrics (0 to 5 Years) and At-Risk Patients (6 to 64 Years) Aged Out No longer eligible based on patient's age to complete this topic RSV MONOCLONAL ANTIBODY Aged Out No l onger eligible based on patient's age to complete this topic Care Teams Sales Floor Associate Relationship Specialty Start Date End Date Cristobal Wiggins MD [facility] [address] [place] [address] PCP - General Family Practice 12/17/13 Abel Hermosillo MD [facility] [address] [place] [address] 12/17/13
--- OUTSIDE RECORDS SUMMARY | 2023-08-09 08:39 | XMS_ITS | Encounter Summary ---
Author Name Unknown Organization [facility] Address [address] [place] [address]. [place] [address] Care Team Providers Care Caustic Plant Worker Name Role Phone Cristobal Wiggins MD Primary Care Provider [phone] Abel Hermosillo MD Unavailable [phone] Encounter Details Date Type Department Care Team (Late st Contact Info) Description 06/11/2021 Documentation Only INTERFACED REPORT Unknown, Provider Social History Tobacco Use Types Packs/Day Years Used Date Smoking Tobacco: Never Alcohol Use Standard Drinks/Week Comments Yes 10 (1 standard drink = 0.6 oz pu re alcohol) 5-6 beers/week Sex and Gender Information Value Date Recorded Sex Assigned at Not on file Gender Identity Not on file Sexual Orientation Not on file COVID-19 Exposure Response Date Recorded In the last month, have you been in contact with someone who was confirmed or suspected to have Coronavirus / COVID-19? 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
--- OUTSIDE RECORDS SUMMARY | 2023-08-09 08:39 | XMS_ITS | Encounter Summary ---
Author Name Unknown Organization [facility] Address [address] [facility] [place] [address] Care Team Providers Care Interpretive Program Coordinator Name Role Phone Abel Hermosillo MD Primary Care Provider Cristobal Wiggins MD Primary Care Provider Abel Hermosillo MD Unavailable [phone] Encounter Details Date Type Department Care Team (Late st Contact Info) Description 06/08/[address] [place] [phone] Abel Hermosillo MD [address] [place] [address] [place] Social History Tobacco Use Types Packs/Day Years Used Date Smoking Tobacco: Never Alcohol Use Standard Drinks/Week Comments Yes 10 (1 standard drink = 0.6 oz pu re alcohol) 5-6 beers/week Sex and Gender Information Value Date Recorded Sex Assigned at Not on file Gender Identity Not on file Sexual Orientation Not on file documented as of this encounter Plan of Treatment Not on file documented as of this encounter Visit Diagnoses Diagnosis [place]- Primary documented in this encounter Care Teams Interpretive Program Coordinator Relationship Specialty Start Date End Date Abel Hermosillo MD PCP - General 09/03/03 12/16/13 Cristobal Wiggins MD [facility] [address] [place] [address] PCP - General Family Practice 12/17/13 Abel Hermosillo MD 12/17/13 documented as of this encounter
== END 2023-08-09 08:34 | disposition home or self-care (01) ==
PROVIDERS: PCP Family Medicine; Visit Provider Family Medicine
DX: R60.9 Edema, unspecified (principal); E78.2 Mixed hyperlipidemia; C61 Malignant neoplasm of prostate
CPT/HCPCS: 80048; 80061; 84153

== ENCOUNTER 2024-05-10 09:05 | Outpatient (CLI) | payer MEDICARE, BC, SELFPAY ==
--- OUTSIDE RECORDS SUMMARY | 2024-05-10 09:08 | XMS_ITS | Clinical Summary ---
Author Organization [facility] Address [address] [place] [address] Care Team Providers Care Senior Care Provider Name Role Phone Cristobal Wiggins MD Primary Care Provider [phone] Abel Hermosillo MD Unavailable [phone] Allergies Active Allergy Reactions Criticality Noted Date Comments No Known Drug Allergy 07/22/2002 Medications NIASPAN 500 MG OR TBCRIndications:Ot her and unspecified hyperlipidemia 1 TABLET DAILY at bedtime initially, then increase to two tablets at bedtime. Take with aspirin tablet if possible 60 2 5 Active niacin 500 MG tabletIndications: Hypertriglyceridem ia Take 500 mg by mouth daily (with breakfast) Active Cyanocobalamin (VITAMIN B-12 CR PO)Indications:Hyp ertriglyceridemia Take 1 tablet by mouth daily Active Cholecalciferol (VITAMIN D3 PO)Indications:Hyp ertriglyceridemia Take 1 tablet by mouth daily Active atorvastatin (LIPITOR) 10 MG tabletIndications: Hypertriglyceridem ia Take 1 tablet (10 mg) by mouth daily 90 tablet 1 6 Active albuterol (PROAIR HFA/PROVENTIL HFA/VENTOLIN HFA) 108 (90 Base) MCG/ACT inhaler Inhale 2-4 puffs into the lungs every 4 hours as needed for shortness of breath / dyspnea 6.7 g 1 Active dexamethasone (DECADRON) 4 MG tablet Take 2 tablets (8 mg) by mouth daily for 5 days 10 tablet 1 Active Active Problems Problem Noted Date Diagnosed [...] Recorded Sex Assigned at Not on file Legal Sex Male 3:18 AM GOLD 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7 cm (5' 8) 08/19/2014 3:02 PM GOLD BURNISHER Body Mass Index 28.89 08/19/2014 3:02 PM GOLD BURNISHER Plan of Treatment Health Maintenance Due Date Last Done Comments ADVANCE CARE PLANNING 1960 ANNUAL REVIEW OF HM ORDERS 1959 CT COLONOGRAPHY 1959 FIT 1959 FLEX SIG 1959 sDNA (Cologuard) 1959 HIV SCREENING 1974 HEPATITIS C SCREENING 1977 ZOSTER IMMUNIZATION (1 of 2) 2009 LIPID 12/31/2014 12/31/2013, 04/28, 09/03/2003 GLUCOSE 12/31/2016 12/31/2013, 04/28, 09/03/2003, Additional history exists DTAP/TDAP/TD IMMUNIZATION (2 - Td or Tdap) 05/11/2021 05/11/2011, 05/25/2005, 05/25/2005, Additional history exists PHQ-2 (once per calendar year) 2023 COVID-19 Vaccine ( - 2023- season) 2024 INFLUENZA VACCINE (#1) 2024 FALL RISK ASSESSMENT 2024 MEDICARE ANNUAL WELLNESS VISIT 2024 05/25/2005, 09/03/2003, 07/22/2002 Pneumococcal Vaccine: 65+ Years (1 of 1 - PCV) 2024 COLONOSCOPY 08/19/2024 08/19/2014, 07/28, 08/11/2009 COLORECTAL CANCER SCREENING 08/19/2024 RSV VACCINE (1 - 1-dose 75+ series) 2034 HPV IMMUNIZATION Aged Out No longer e ligible based on patient's age to complete this topic MENINGITIS IMMUNIZATION Aged Out No l onger eligible based on patient's age to complete this topic RSV MONOCLONAL ANTIBODY Aged Out No l onger eligible based on patient's age to complete this topic Procedures Procedure Name Priority Date/Time Associated Diagnosis Comments COLONOSCOPY Routine 08/19/2014 3:14 PM GOLD BURNISHER GLUCOSE Routine 12/31/2013 10:05 AM CDT Hypertriglyceridemi a LIPID REFLEX TO DIRECT LDL PANEL Routine 12/31/2013 10:05 AM CDT Hypertriglyceridemi a from Last 3 Months or Most Recently Relevant to Health Maintenance Results * COLONOSCOPY (08/19/2014 3:14 PM GOLD BURNISHER) COLONOSCOPY [facility] Patient Name: Jacob Logan ? Procedure Date: 08/19/2014 3:14 PM ? Date of : 1960 ?Admit Type: Outpatient Age: 54 ? Gender: Male Attending MD: Sree Conway MD ? Instrument Name: [id number] Procedure: ?Colonoscopy Indications: ?Rectal bleeding Providers: ?Sree [...] and ?oxygen saturations were monitored continuously. The ?[id number] was introduced through the anus ?and advanced to the terminal ileum, with ?identification of the appendiceal orifice and IC ?valve. The colonoscopy was performed without ?difficulty. The patient tolerated the procedure ?well. The quality of the bowel preparation was ?excellent. ? Findings: ? The perianal and digital rectal examinations were normal. Pertinent ? negatives include normal sphincter tone and no palpable rectal lesions. ? [...] Procedure Code(s): ? --- Professional --- ? 41753, Colonoscopy, flexible, proximal to splenic flexure; diagnostic, ? with or without collection of specimen(s) by brushing or washing, with ? or without colon decompression (separate procedure) Diagnosis Code(s): ? --- Professional --- ? 569.3, Hemorrhage of rectum and anus CPT copyright 2013 [employer]. All rights reserved. The codes documented in this report are preliminary and upon food service substitute review may be revised to meet current compliance requirements. _ Sree Conway MD 08/19/2014 3:59 PM Number of Addenda: 0 Note Initiated On: 08/19/2014 3:14 PM MRN: ?[id number] Procedure Date: ? 08/19/2014 3:14:17 PM Scope Withdrawal Time: 0 hours 9 minutes 23 seconds Total Procedure Duration: 0 hours 13 minutes 11 seconds Scope In: 3:41:07 PM Scope Out: 3:54:18 PM RADIOLOGY RESULTS 08/19/2014 3:14 PM GOLD BURNISHER Cristobal Wiggins MD PROCEDURES Final Result RADIOLOGY RESULTS * (ABNORMAL) Lipid panel reflex to direct LDL (12/31/2013 10:05 AM CDT) Cholesterol 215(H) <200 mg/dL [facility] Comment: LDL Cholesterol is the primary guide to therapy. The NCEP recommends further evaluation of: patients with cholesterol greater than 200 mg/dL if additional risk factors are present, cholesterol greater than 240 mg/dL, triglycerides greater than 150 mg/dL, or HDL less than 40 mg/dL. Triglycerides 349(H) 0 - 150 mg/dL [facility] HDL Cholesterol 43 >40 mg/dL [facility] LDL Cholesterol Calculated 102 0 - 129 mg/dL [facility] Comment: LDL Cholesterol is the primary guide to therapy: LDL-cholesterol goal in high risk patients is <100 mg/dL and in very high risk patients is <70 mg/dL. VLDL-Cholesterol 70(H) 0 - 30 mg/dL [facility] Cholesterol/HDL Ratio 5.0 0.0 - 5.0 [facility] Blood specimen (specimen) 12/31/2013 10:05 AM CDT 12/31/2013 10:06 AM CDT us Giftyapryl Seals APRN CLERICAL SUPPORT LAB - BLOOD ORDERABLES F inal Result [facility] [address] [place] [address] * (ABNORMAL) Glucose (12/31/2013 10:05 AM CDT) Glucose 105(H) 60 - 99 mg/dL [facility] Blood specimen (specimen) 12/31/2013 10:05 AM CDT 12/31/2013 10:06 AM CDT Gifty Seals CUSTOMER SERVICE SALES CONSULTANT CLERICAL SUPPORT LAB - BLOOD ORDERABLES F inal Result Performing Organization Address [facility] Co de Phone Number [facility] [address] [place] [address] from Last 3 Months or Most Recently Relevant to Health Maintenance Care Teams Senior Care Provider Relationship Specialty Start Date End Date Cristobal Wiggins MD PCP - General Family Practice 12/17/13 Abel Hermosillo MD 12/17/13
== END 2024-05-10 09:06 | disposition home or self-care (01) ==
LOC: LKVREF 09:06
PROVIDERS: PCP Family Medicine; Visit Provider Family Medicine
DX: C61 Malignant neoplasm of prostate (principal)
CPT/HCPCS: 84153

== ENCOUNTER 2024-08-19 08:28 | Outpatient (CLI) | payer MEDICARE, BC, SELFPAY | END 2024-08-19 08:29 | disposition home or self-care (01) | PROVIDERS: PCP Family Medicine; Visit Provider Family Medicine | DX: E78.00 Pure hypercholesterolemia, unspecified (principal); I10 Essential (primary) hypertension | CPT/HCPCS: 80048; 80061 ==

== ENCOUNTER 2025-04-25 09:58 | Outpatient (CLI) | payer MEDICARE, BC, SELFPAY | END 2025-04-25 09:59 | disposition home or self-care (01) | LOC: NFLDREF 04-28 18:28 | PROVIDERS: PCP Family Medicine; Referring Provider Family Medicine; Visit Provider Family Medicine | DX: C61 Malignant neoplasm of prostate (principal) | CPT/HCPCS: 84153 ==